=== PATIENT | female | born 1945 | race Caucasian/White ===

== ENCOUNTER → 2016-10-04 | Outpatient (CLI) | payer MEDICARE ==
--- NOTE | 2016-10-04 11:43 | REPMRS ---
Patient History The patient states she had a clinical breast exam in 10/08 Patient is postmenopausal and has history ofskin cancer at age 67. Family history of breast cancer in maternal aunt at age 50 or over. Benign excisional biopsy of both breasts. Benign stereotatic breast biopsy of the right breast. Took hormonal contraceptives for 3 months. Digital Woman Screen Mammo: October 04, 2016 - Exam #: [id number] Bilateral CC and MLO view(s) were taken. Technologist: Armida Marina, Technologist Prior study comparison: 2014, digital bilateral screening mammo, performed at [facility]. September 01, 2014, bilateral bilat screen digital mammo, performed at [facility] ([facility]). August 31, 2013, bilateral bilat screen digital mammo, performed at [facility] ([facility]). FINDINGS: There are scattered fibroglandular densities. There has been no change in the appearance of the mammogram from the prior studies. There is a mild amount of scattered fibroglandular density which is fairly symmetric. There is no interval development of dominant mass, architectural distortion, or clustered microcalcification suggestive of malignancy. ASSESSMENT: BI-RADS/ACR category 1 mammogram. Negative. Recommendation Routine screening mammogram in 1 year (for women over age 40). This mammogram was interpreted with the aid of an FDA-approved computer-aided dectection system. Electronically Signed By: Dereje Smith MD 10/04/16 [id number]
--- NOTE | 2016-10-08 08:52 | DEXA ---
AP SPINE L1 - L4 1.096 -0.8 0.3 LT FEMUR TOTAL 0.812 -1.6 -0.3 RT FEMUR TOTAL 0.792 -1.7 -0.5 TOTAL BODY TOTAL OTHER DUAL FEMUR FRAX* ASSESSMENT Risk factors: History of fracture (adult). 10 year probability of fracture Major osteoporotic fracture 29.1 % Hip fracture 10.5 % COMMENTS: Normal bone densitometry of the spine. 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 The density of the spine has increased 18.2% since the initial exam on 2007. The spine density has increased 19.5% since the most recent exam on 07/11/2010. The density of the left hip has increased 0.7% since the initial exam on 2007. The density of the left hip has increased 2.7% since the most recent exam on . The density of the right hip has decreased 1.4% since the initial exam on 2007. The density of the right hip has decreased 1.4% since the most recent exam on . FOLLOW-UP: Recommendation for the next bone density exam: 2 years. PEG
== END ==
LOC: M WHC 09:57
PROVIDERS: ATTEND Obstetrics & Gynecology
DX: M81.0 Age-related osteoporosis without current pathological fracture (principal); Z12.31 Encounter for screening mammogram for malignant neoplasm of breast; Z87.81 Personal history of (healed) traumatic fracture
CPT/HCPCS: 77080; G0202

== ENCOUNTER → 2016-11-05 | Outpatient (CLI) | payer MEDICARE ==
--- NOTE | 2016-11-05 10:14 | REP ---
Chest two views HISTORY: Cough Comparison: 2509 The lungs are clear. The heart is normal in size. The pulmonary vasculature is normal in appearance. The bony structure is intact. IMPRESSION: No acute disease. Signed by Rodrick Hoover MD 11/05/2016 10:06 A
== END ==
LOC: M WUC 09:49
PROVIDERS: ATTEND Family Medicine
DX: R05 Cough (principal)

== ENCOUNTER → 2017-05-13 | Outpatient (CLI) | payer MEDICARE ==
--- NOTE | 2017-05-13 11:18 | REP ---
RIGHT HAND SERIES: Four views. HISTORY: Pain after an injury 6 weeks ago. FINDINGS: Four views of the right hand demonstrate osteoarthritis at the 1st carpometacarpal and at the navicular multangular articulation. There is early spurring at the distal radial ulnar joint. IP joint osteoarthritis is seen at the thumb and there is some spurring at the DIP joints of the fingers. No erosive changes seen. No fracture is noted. IMPRESSION: Osteoarthritic changes. Signed by Jose Miguel Smith MD 05/13/2017 01:06 P
== END ==
LOC: M WUC 10:22
PROVIDERS: ATTEND Physician Assistant
DX: S60.221A Contusion of right hand, initial encounter (principal); X58.XXXA Exposure to other specified factors, initial encounter; Y92.89 Other specified places as the place of occurrence of the external cause; Y93.89 Activity, other specified; Y99.8 Other external cause status

== ENCOUNTER → 2017-11-13 | Outpatient (CLI) | payer MEDICARE | LOC: M WUC 09:47 | DX: M51.34 Other intervertebral disc degeneration, thoracic region (principal); Z91.81 History of falling | CPT/HCPCS: 72072 ==

== ENCOUNTER → 2019-05-21 | Outpatient (REF) | payer MEDICARE | LOC: M SFHCPLAZ 17:11 | PROVIDERS: ATTEND Dermatology | DX: D23.71 Other benign neoplasm of skin of right lower limb, including hip (principal); D23.5 Other benign neoplasm of skin of trunk ==

== ENCOUNTER 2020-10-26 08:40 | Inpatient (IN) | payer MEDICARE ==
[~2020-10-26] VITALS: Ht 152.4 cm; Wt 78.7 kg
[2020-10-26] MEDS ORDERED: LISI-898 (09:05)
[2020-10-26] MEDS ORDERED: PANT40TA29 (09:05)
[2020-10-26] MEDS ORDERED: METF500T13 PO (09:05)
[2020-10-26] MEDS ORDERED: EZET10TA21 PO (09:05)
[2020-10-26] MEDS ORDERED: HYDR12.55 (09:05)
[2020-10-26] MEDS ORDERED: PRAV10TA3 PO (09:05)
[2020-10-26] MEDS ORDERED: ALPR0.5T3 PO ×2 (09:05→12:11)
[2020-10-26 09:48] LABS: BASO % 0.4 % (0.0-1.0); EOS % 0.2 % (0.0-3.0); HEMATOCRIT 37.4 % (36.0-47.0); HEMOGLOBIN 12.4 g/dl (12.0-15.5); LYMPH # 0.8 10^3/uL (1.5-5.0); LYMPH % 15.5 % (24.0-44.0); MEAN CORPUSCULAR HEMOGLOBIN 28.7 pg (27.0-33.0); MEAN CORPUSCULAR HGB CONC 33.2 g/dl (32.0-36.5); MEAN CORPUSCULAR VOLUME 86.6 fl (80.0-96.0); MONO # 0.4 10^3/uL (0.0-0.8); MONO % 6.8 % (0.0-5.0); NEUTROPHILS # 4.2 10^3/uL (1.5-8.5); NEUTROPHILS % 76.5 % (36.0-66.0); PLATELET COUNT, AUTOMATED 187 10^3/uL (150-450); RED BLOOD COUNT 4.32 10^6/uL (4.00-5.40); WHITE BLOOD COUNT 5.4 10^3/uL (4.0-10.0)
[2020-10-26 10:19] LABS: INR 0.98; PROTHROMBIN TIME 13.2 SECONDS (12.5-14.3)
[2020-10-26 10:20] LABS: PARTIAL THROMBOPLASTIN TIME 29.2 SECONDS (24.2-38.5)
[2020-10-26 10:22] LABS: D-DIMER QUANT 2053.64 ng/ml (<500)
[2020-10-26 10:33] LABS: ALBUMIN 3.3 GM/DL (3.2-5.2); ALT/SGPT 31 U/L (12-78); BILIRUBIN,TOTAL 0.6 MG/DL (0.2-1.0); BLOOD UREA NITROGEN 38 MG/DL (7-18); C REACTIVE PROTEIN QUANTITATIV 7.45 MG/DL (0.00-0.30); CARBON DIOXIDE LEVEL 25 MEQ/L (21-32); CHLORIDE LEVEL 101 MEQ/L (98-107); CK-MB VALUE MASS 1.3 NG/ML (<3.6); CPK CREATINE PHOSPHOKINASE 68 U/L (26-192); CREATININE FOR GFR 1.44 MG/DL (0.55-1.30); FERRITIN 431 NG/ML (8-252); GLOMERULAR FILTRATION RATE 37.6 (>39); GLUCOSE, FASTING 150 MG/DL (70-100); LDH LACTATE DEHYDROGENASE 265 U/L (84-246); MAGNESIUM LEVEL 1.9 MG/DL (1.8-2.4); MB/CK RELATIVE INDEX 1.91 (< OR =4); POTASSIUM SERUM 4.2 MEQ/L (3.5-5.1); SODIUM LEVEL 135 MEQ/L (136-145); TOTAL PROTEIN 7.3 GM/DL (6.4-8.2); TROPONIN I < 0.02 NG/ML (< 0.10)
--- NOTE | 2020-10-26 10:40 | REP ---
INDICATION: Coronavirus workup. COMPARISON: Comparison chest x-ray November 05, 2016. TECHNIQUE: Portable upright AP chest radiograph. FINDINGS: There are some subtle peripheral increased markings in the left mid and lower lung field. Right lung appears clear. Heart size is borderline unchanged. The aorta is calcifica and tortuous.. IMPRESSION: Subtle increased markings left perihilar region and left base peripherally consistent with early infiltrate.. <Electronically signed by Dereje Smith > 10/26/20 [id number]
[2020-10-26] MEDS ORDERED: ISOVUE-370 76% 100ML VIAL As Ordered ONE (10:47)
--- NOTE | 2020-10-26 11:22 | REP ---
INDICATION: altered mental status COMPARISON: None. TECHNIQUE: Axial noncontrast images from the skull base to the thoracic inlet with coronal reformations. This CT examination was performed using the following dose reduction techniques: Automated exposure control, adjustment of mA and/or kv according to the patient's size, and use of iterative reconstruction technique. FINDINGS: Age-related atrophy and microvascular ischemic changes are appreciated. The ventricles and sulci are symmetric. Escobar-white differentiation is maintained. There is no evidence for acute intracranial hemorrhage, mass/mass effect, pathology or infarction. No extra-axial fluid collection. Calvarium is intact. Paranasal sinuses and mastoid air cells are clear. IMPRESSION: Age related atrophy and microvascular ischemic changes. No acute intracranial hemorrhage, infarction, or mass/mass effect. <Electronically signed by Matthew Engle > 10/26/20 111
--- NOTE | 2020-10-26 11:27 | REP ---
INDICATION: sob recent COVID19 COMPARISON: None. TECHNIQUE: Axial contrast enhanced images from the thoracic inlet to the upper abdomen using pulmonary embolus technique with multiplanar re-formations. 75 ml Isovue 370 intravenous contrast material administered without complication. This CT examination was performed using the following dose reduction techniques: Automated exposure control, adjustment of mA and/or kv according to the patient's size, and use of iterative reconstruction technique. FINDINGS: Satisfactory enhancement of the pulmonary vasculature is achieved and no filling defects are identified to suggest pulmonary embolus. Further evaluation of the mediastinum demonstrates atherosclerotic changes to the thoracic aorta without a aneurysm or dissection. Atherosclerotic changes to the coronary arteries are identified without cardiomegaly or pericardial effusion. Lung castillo demonstrate subtle patchy scattered ground-glass type infiltrates primarily involving the left lung suggesting multifocal pneumonia including COVID-19 pulmonary disease. No effusion. No pneumothorax. Tracheobronchial tree is patent. Skeletal structures demonstrate age-related degenerative changes. Limited upper abdomen demonstrates normal bilateral adrenal glands along with hepatosteatosis. IMPRESSION: 1. No evidence for pulmonary embolus. 2. Scattered ground-glass infiltrates primarily involving the left hemithorax and to a lesser extent the right base. Findings are atypical for COVID-19 pulmonary disease although this cannot be excluded. Further differential includes early pneumonia. <Electronically signed by Matthew Engle > 10/26/20 [id number]
[2020-10-26] MEDS ORDERED: AZITHROMYCIN INJ 500 MG, VIAL MATE ADAPTER 1 EACH in D5W 250 ML IV ONE (11:45)
[2020-10-26] MEDS ORDERED: cefTRIAXone SOD 2 GM in D5W MINI-BAG PLUS 50 ML IV ONE (11:45)
[2020-10-26] MEDS: COMBIVENT RESPIMAT 100-20MCG INHALER 4GM INH SCH ×3 (11:56→12:47)
[2020-10-26] MEDS ORDERED: MULT-40 PO (12:11)
[2020-10-26] MEDS ORDERED: D31000TA2 PO (12:11)
[2020-10-26] MEDS ORDERED: FISH1000 PO (12:11)
--- NOTE | 2020-10-26 14:52 | HPEPDOC ---
[facility] Medical History & Physical Date of Admission Oct 26, 2020 Date of Service: Oct 26, 2020 History and Physical CHIEF COMPLAINT: shortness of breath HISTORY OF PRESENT ILLNESS: 75 yo F with a hx of CAD, DM2, HTN, presented to [facility] with an 11 day history of shortness of breath, malaise, headache, dry cough as well as diarrhea for the past 3 days with nausea but no vomiting. She was diagnosed with COVID-19 at the onset of symptoms, and many of her neighbors are covid-19 positive as well. She denies any chest pain, palpitations, dizziness, headache, nausea, vomiting, diarrhea at this time. On arrival, patient was noted to be hypoxic and required 3 L of nasal cannula. Labs reviewed of note, creatinine is 1.44, ferritin 4.31. CRP elevated at 7.45. Calcitonin 0.15, lactic acid 1.7. D-dimer 2053, fibrinogen 608. Chest xray and CT chest are indicating possible development of bilateral infiltrates in the lung bases, which is atypical for COVID. Patient was started on ceftriaxone and azithromycin in the ED. Patient will be admitted to hospitalist service for oxygen supplementation, dexamethasone and treatment of bacterial pneumonia. PAST MEDICAL HISTORY: CAD DM2 HTN Obesity PAST SURGICAL HISTORY: tubal ligation SOCIAL HISTORY: Patient denies smoking Patient denies etoh use Patient denies illicit drug use FAMILY HISTORY: review with patient, found to be non pertinent ALLERGIES: Please see below. REVIEW OF SYSTEMS: 10 point ROS completed, pertinent findings noted in HPI. HOME MEDICATIONS: Please see below. PHYSICAL EXAMINATION: VITAL SIGNS: please see below General: NAD, comfortable HEENT: PERRLA, EOMI, sclerae clear Neck: supple, normal ROM, no JVD Respiratory: fair air entry bilaterally, no crackles CVS: RRR, normal S1, S2, no murmurs Abdo: soft, no masses, no hepatosplenomegaly, BS+, no rebound tenderness Extremities: no edema, pulses 2+ MSK: no joint deformities, normal ROM Neuro: no focal neuro deficits, moving all 4 extremities, CN2-12 intact. Strength 5/5 in all 4 extremities. No nystagmus. Psych: calm, cooperative, AAO x 3 LABORATORY DATA: See below. IMAGING: CTA chest (10/26/20): 1. No evidence for pulmonary embolus. 2. Scattered ground-glass infiltrates primarily involving the left hemithorax and to a lesser extent the right base. Findings are atypical for COVID-19 pulmonary disease although this cannot be excluded. Further differential includes early pneumonia. CXR (10/26/20): Subtle increased markings left perihilar region and left base peripherally consistent with early infiltrate. CT head wo contrast (10/26/20): Age related atrophy and microvascular ischemic changes. No acute intracranial hemorrhage, infarction, or mass/mass effect. MICROBIOLOGY: Please see below. ASSESSMENT: 75 yo F with a hx of CAD, DM2, HTN, tested positive for COVID-19 11 days ago, presenting with SOB, hypoxia, malaise and imaging findings consistent with pneumonia. Admitted to hospitalist service for oxygenation, IV antibiotics . PLAN: COVID-19 infection - 97% on 3L NC - tylenol prn for fevers - transfer to Med Surg covid unit - start dexamethasone - will not treat with rimdesivir as out of chronicity window - ceftriaxone (Day #1), azithromycin (Day #1) Pneumonia 2/2 CAP vs atypical organism - procal 0.15,a febrile, no WBC - CXR and CT chset c/w bilateral infiltrates, ground glass opacities - check MRSA, legionella, strep ag, mycoplasma ag - check sputum cultures, blood cultures - ceftriaxone (Day #1), azithromycin (day #1) - incentive spirometer, acapella - tessalon DM2: - ISS, FSBS AC and HS - hypoglycemia precautions Anxiety - resume home meds HTN - home HCTZ 12.5 - hold home lisinopril due to NATALY, takes 5 mg HLD - pravastatin GI ppx: - pantoprazole Dispo: pending clinical improvement. Vital Signs Vital Signs Date Time Temp Pulse Resp B/P (MAP) Pulse Ox O2 Delivery O2 Flow Rate FiO2 10/26/20 12:55 97 16 10/26/20 10:06 97 Nasal Cannula 3.0 10/26/20 10:00 105/56 (72) 10/26/20 08:41 99.7 Laboratory Data Labs 24H Laboratory Tests 2 10/26/20 09:14: Immature Granulocyte % (Auto) 0.6, Neutrophils (%) (Auto) 76.5H, Lymphocytes (%) (Auto) 15.5L, Monocytes (%) (Auto) 6.8H, Eosinophils (%) (Auto) 0.2, Basophils (%) (Auto) 0.4, Neutrophils # (Auto) 4.2, Lymphocytes # (Auto) 0.8L, Monocytes # (Auto) 0.4, Eosinophils # (Auto) 0.0, Basophils # (Auto) 0.0, Nucleated Red Blood Cells % (auto) 0.0, Prothrombin Time 13.2, Prothromb Time International Ratio 0.98, Activated Partial Thromboplast Time 29.2, Fibrinogen 608H, D-Dimer, Quantitative 2053.64H, Anion Gap 9, Glomerular Filtration Rate 37.6L, Lactic Acid Level 1.7, Calcium Level 9.0, Magnesium Level 1.9, Ferritin 431H, Total Bilirubin 0.6, Aspartate Amino Transf (AST/SGOT) 30, Alanine Aminotransferase (ALT/SGPT) 31, Alkaline Phosphatase 72, Lactate Dehydrogenase 265H, Total Creatine Kinase 68, Creatine Kinase MB 1.3, Creatine Kinase MB Relative Index 1.91, Troponin I < 0.02, C-Reactive Protein, Quantitative 7.45H, Total Protein 7.3, Albumin 3.3, Albumin/Globulin Ratio 0.8L, Procalcitonin 0.15 CBC/BMP Laboratory Tests 10/26/20 09:14 Microbiology Microbiology 10/26/20 Blood Culture, Received Pending 10/26/20 Blood Culture, Received Pending Home Medications Scheduled Alprazolam (Alprazolam) 0.5 Mg Tablet, 0.5 MG PO QAM Alprazolam (Alprazolam) 0.5 Mg Tablet, 0.75 MG PO QHS Cholecalciferol (Vitamin D3) (Vitamin D3) 1,000 Unit Tablet, 2,000 UNITS PO BID Ezetimibe (Ezetimibe) 10 Mg Tablet, 10 MG PO QHS Hydrochlorothiazide (Hydrochlorothiazide) 12.5 Mg Tablet, 12.5 MG DAILY Lisinopril (Lisinopril) 5 Mg Tablet, 5 MG DAILY Metformin HCl (Metformin HCl) 500 Mg Tablet, 500 MG PO BID Multivitamin (Multivitamins) 1 Each Tablet, 1 TAB PO DAILY [place]-3 Fatty Acids/Fish Oil (Fish Oil 1,000 mg Capsule) 1 Each Capsule, 1,000 MG PO DAILY Pantoprazole Sodium (Pantoprazole Sodium) 40 Mg Tablet.dr, 40 MG DAILY Pravastatin Sodium (Pravastatin Sodium) 10 Mg Tablet, 10 MG PO QHS Allergies Coded Allergies: Penicillins (Verified Allergy, Intermediate, rash, 10/26/20) Sulfa (Sulfonamide Antibiotics) (Verified Allergy, Intermediate, chest pain, 10/26/20) aspirin (Verified Allergy, Intermediate, Chest Pain, 10/26/20) FULL STRENGTH ONLY A-FIB/CHADSVASC A-FIB History Current/History of A-Fib/PAF?: No Current PO Anticoag Therapy: No MANOLO ROSS MD Oct 26, 2020 14:52
[2020-10-26] MEDS ORDERED: DEXTROSE 50% 50 ML SYRINGE IV PRN (15:15)
[2020-10-26] MEDS ORDERED: GLUCOSE 4GM CHEW TABLET PO PRN (15:15)
[2020-10-26] MEDS ORDERED: MOM 30ML SUSPENSION UDC PO PRN (15:15)
[2020-10-26] MEDS ORDERED: MAALOX 30 ML SUSP *UDC PO PRN (15:15)
[2020-10-26] MEDS ORDERED: GLUCAGON INJ 1MG VIAL SC PRN (15:15)
[2020-10-26] MEDS ORDERED: COMBIVENT RESPIMAT 100-20MCG INHALER 4GM INH PRN (15:30)
[2020-10-26] MEDS ORDERED: BENZONATATE 100 MG CAP PO PRN (15:30)
--- OUTSIDE RECORDS SUMMARY | 2020-10-26 15:52 | CCD | Continuity of Care Document ---
Author Author Armida NICE D.O. Organization Unknown Address [address] [place] [id number] Phone [phone] Care Team Providers Care Primary Special Education Teacher Name Role Phone [facility] Cardiology - Cardiovascular Disease AUTM [phone] Problems Active Problems Provider Date Anxiety state Barbara Granados RPA Onset: 02/25/2007 Hyperlipidemia Barbara Granados RPA Onset: 02/25/2007 Female climacteric state Julio Cuellar M.D. Onset: 2006 Type 2 diabetes mellitus Julio Cuellar M.D. Onset: 2007 Chronic obstructive lung disease Martha Bruce RPA-Gabby Onset: 01/18/2013 Psoriasis Martha Bruce RPA-C Onset: 2012 Gastroesophageal reflux disease Orquidea Farfan D., JACINTO-[place] Onset: 02/14/2015 Vertigo Orquidea Farfan D., [place]AC[place] Onset: 04/27 Essential hypertension Orquidea Farafn D., JACINTO-C Onset: Panic disorder without agoraphobia Brandon Nice D.O., FA AFP Onset: 03/28/2016 Type 2 diabetes mellitus Brandon Nice D.O., FAAFP Onset: 09/05/2020 Social History Type Date Description Comments Sex Unknown Tobacco Use Start: Unknown End: Unknown Quit 2013 Smoking Status Reviewed: 05/25/20 Quit 2013 ETOH Use alcohol use: never used Recreational Drug Use Never Used Drugs Tobacco Use Start: Unknown End: Unknown Patient is a former smoker Exercise Type/Frequency exercises regularly Allergies, Adverse Reactions, Alerts Active Allergies Reaction Severity Comments Date Sulfa Drugs hives 02/25/2007 Penicillin rash 02/25/2007 Statin Intolerant 11/20/2012 Cefdinir DIARRHEA 08/07/2017 Inactive Allergies Aspirin chest pain 02/25/2007 Medications Active Medications SIG Qnty Indications Ordering Provide r Date Pravastatin Sodium 10mg Tablets Take One Tablet By Mouth Every Day 30tabs Brandon Nice D.O., [facility] 11/11/2019 Albuterol Sulfate (2 .5mg/3ML) 0.083% Nebulizer use breathing inhalation every 6 hours 75ml Ke chet Nice D.O., [facility] 09/23/2019 Clobetasol Propionate 0.05% Ointme nt apply to feet twice a day 45gr Brandon Nice D.O., [facility] 04/15/2019 Proair HFA 108(90Base) mcg/Act Aer osol 1-2 puffs every 4-6 hours as needed for sob 8.500gm Brandon Nice D.O., [facility] 11/10/2018 Ezetimibe 10mg Tablets take one tablet by mouth every day 90tabs Brandon Nice D.O., [facility] 08/2018 Hydrochlorothiazide 12.5mg Tablets Take One Tablet By Mouth Every Day 30tabs Abdon Fajardo, [facility] 08/07/2017 Metformin HCL 500mg Tablets take one tablet by mouth twice a day 180tabs Joao Fajardo, [facility] 08/07/2017 Onetouch Verio Strips Use as Directed To Test Fasting Blood Sugar Once Daily 100units [facility]iggins D.O., [facility] 05/16/2017 Pantoprazole Sodium 40mg Tablets D R Take One Tablet By Mouth Every Day 90tabs Abdon Fajardo, [facility] 08/16/2016 Cyclobenzaprine HCL 5mg Tablets Take One Tablet By Mouth Twice A Day Maximum Daily Dose = 2 Tablets 30tabs Brandon Nice D.O., [facility] 03/28/2016 Lancets 31G Misc use to test glucose daily dx:e11.9 100units E11.9 Brandon Nice D.O., [facility] 03/2016 Glucocom Test Strips as directed to test fsbs daily 100units E11.9 Brandon Nice D.O., [facility] 03/2016 Glucocom Blood Glucose Monitoring System W/Device Kit as directed for fsbs daily 1units E11.9 Brandon sandoval D.O., [facility] 03/28/2016 Meclizine HCL 25mg Tablets 1 by mouth daily as needed for vertigo 30tabs Marti Barr [facility] 04/27/2015 Lisinopril 5mg Tablets Take One Tablet By Mouth Every Day 90tabs Brandon Nice D.O., [facility] 03/2011 Xanax 0.5mg Tablets 1 by mouth 3 times a day as needed anxiety 90tabs F41.9 Brandon Nice D.O., [facility] 02/25/2007 Multivitamin Tablets 1 by mouth every day Unknown Vitamin D 1000Unit Capsules 2000 unit qd Unknown Asa 81 Capsules 1 by mouth ev muna day Unknown Glucose 4gm Chewtabs use as directed for signs of low blood sugar OTC Unknown 00/0 000 Fish Oil 1000mg Capsules 2 by mouth daily Unknown Medications Administered in Office Medication SIG Qnty Indications Ordering Provider Date Injection (SC)/(Im) Injection Orquidea Farfan D., [facility] 02/14/2015 Injection (SC)/(Im) Injection Omkar Leo . M.D 06/22/2012 Injection (SC)/(Im) Injection Maritza Ibanez [facility] 06/18/2011 Injection (SC)/(Im) Injection Maritza Ibanez [facility] 06/15/2010 Immunizations CPT Code Status Date Vaccine Lot # [id number] Given 02/14/2015 Pneumococcal Immunization L0 [id number] 53986 Given 02/14/2015 Tdap Tetanus,Dip htheria Toxoids/Acellular Pertussis 7Yrs Or Older [id number] 03890 Given 07/26/2013 Influenza Vaccin e (Fluzone) 3Yrs Of Age Or Older Medicare Plans 80977 Given 07/26/2013 Influenza Virus Vac. Split Virus Individuals 3 Years And Above [id number] 10558 Given 06/22/2012 Influenza Vaccin e (Fluzone) 3Yrs Of Age Or Older Medicare Plans 63553 Given 06/22/2012 Influenza Virus Vac. Split Virus Individuals 3 Years And Above [id number] 24588 Given 06/18/2011 Influenza Vaccin e (Fluzone) 3Yrs Of Age Or Older Medicare Plans 67867 Given 06/18/2011 Influenza Virus Vac. Split Virus Individuals 3 Years And Above [id number] 93362 Given 06/15/2010 Influenza Virus Vac. Split Virus Individuals 3 Years And Above 00451 Given Unknown Prevnar 13 Pneum o. Conj Ped. Vaccine 13 Valent (PCV13) For Im Use [id number] Refused 06/01/2020 Influenza Virus Vaccine, Quadrivalent, Slit Virus, Im Use 3Y & Up [id number] Refused 08/05/2019 Influenza Virus Vaccine, Quadrivalent, Slit Virus, Im Use 3Y & Up 05745 Refused 08/05/2019 Influenza Virus Vaccine, Quadrivalent, Slit Virus, Im Use 3Y & Up [id number] Refused 09/08/2018 Influenza Virus Vaccine, Quadrivalent, Slit Virus, Im Use 3Y & Up [id number] Refused 08/06/2016 Influenza Virus Vaccine, Quadrivalent, Slit Virus, Im Use 3Y & Up Vital Signs Date Vital Result Comment 09/05/2020 10:10am BP Systolic 126 mmHg BP Diastolic 78 mmHg Body Temperature 97.8 F Heart Rate 76 /min Respiratory Rate 16 /min Height 60 inches 5'0" Weight 176.00 lb Albers Body Weight 100 lb BMI (Body Mass Index) 34.4 kg/m2 O2 % BldC Oximetry 97 % 06/01/2020 9:34am BP Systolic 124 mmHg BP Diastolic 80 mmHg Body Temperature 98.6 F Heart Rate 84 /min Respiratory Rate 16 /min Height 60 inches 5'0" Weight 178.00 lb Albers Body Weight 100 lb BMI (Body Mass Index) 34.8 kg/m2 O2 % BldC Oximetry 95 % Results Test Acquired Date Facility Test Result H/L Range Note U/A DIP [facility] 09/05[facility] Color Urine YELLOW Yellow Appearance CLEAR Clear Specific [place] 1.020 1.00-1.03 PH Urine 5.0 5.0-8.0 Glucose Urine NEG Negative Bilirubin Urine NEG Negative Ketones NEG Negative Blood Urine NEG Negative Protein Urine NEG Negative Urobilinogen .2 EU/dl 0.2-1.0 Nitrite NEG Negative Leukocytes 1+ High Negative CBC 09/05/2020 [facility]house WBC 6.1 10E3/uL 4.1 - 10.9 1 RBC 4.30 10E6/uL 4.20 - 6.30 HGB 13.0 g/dL 12.0 - 18.0 HCT 38.6 % 37.0 - 51.0 MCV 89.8 fL 80.0 - 97.0 MCH 30.2 pg 26.0 - 32.0 MCHC 33.7 g/dL 31.0 - 36.0 PLT 210 10E3/uL 140 - 440 RDW-CV 13.6 % 11.5 - 14.5 Lym% 38.5 % 10.0 - 58.5 Neut% 55.8 % 37.0 - 92.0 MXD% 5.7 % 0.1 - 24.0 Lym# 2.3 10E3/uL 0.6 - 4.1 Neut# 3.5 % 2.0 - 7.8 MXD# 0.3 10E3/uL 0.0 - 1.8 MPV 10.2 fL 9.0 - 13.0 Laboratory test finding 09/05/2020 [facility] CK 66 U/L 26 - 192 CMP 09/05/2020 [facility] Glu 132 mg/dL High 70 - 110 BUN 25 mg/dL High 8 - 23 Creat 1.1 mg/dL High 0.5 - 1.0 BUN/Creatinine Ratio 22.2 CALC Na 135 mmol/L Low 136 - 145 K 4.7 mmol/L 3.5 - 5.1 CL 97.3 mmol/L Low 98.0 - 107.0 Co2 23.2 mmol/L 22.0 - 29.0 CA 9.7 mg/dL 8.6 - 10.2 TP 6.9 g/dL 6.6 - 8.7 Alb 4.5 g/dL 3.4 - 4.8 A/G Ratio 1.8 CALC Globulin 2.5 CALC Alp 79.2 U/L 35 - 129 Alt (SGPT) 30 U/L 0 - 41 Ast (Sgot) 38 U/L 0 - 40 Tbili 0.78 mg/dL 0.0 - 1.2 Osmolality-Calculated 277.1 CALC Anion Gap 20 mmol/L eGFR 56 # Calc 2 eGFR Non-Afr. Albanian 48 # Calc 3 Lipid Panel 09/05/2020 [facility] Chol 205 mg/dL High 0 - 200 Trig 143 mg/dL 40 - 200 HDL 63 mg/dL 45 - 65 LDL_C 114 Calc 75 - 129 Cho/HDL Ratio 3.3 Calc Laboratory test finding 09/05/2020 [place] [address] [phone] Hgba1c 6.8 % High 4.4 - 6.1 4 U/A DIP FPA 06/01/2020 [facility] Color Urine YELLOW Yellow Appearance CLEAR Clear Specific [place] 1.020 1.00-1.03 PH Urine 5.0 5.0-8.0 Glucose Urine NEG Negative Bilirubin Urine NEG Negative Ketones NEG Negative Blood Urine NEG Negative Protein Urine NEG Negative Urobilinogen .2 EU/dl 0.2-1.0 Nitrite NEG Negative Leukocytes TRACE Negative Microalb/Creat Ratio 06/01/2020 [facility] Alb 10 mg/L 1 - 30 Creatinine, Urine 50 mg/dL 10 - 300 A/C Ratio <30 mg/g % CBC 06/01/2020 [facility] WBC 6.3 10E3/uL 4.1 - 10.9 RBC 4.32 10E6/uL 4.20 - 6.30 HGB 13.7 g/dL 12.0 - 18.0 HCT 38.8 % 37.0 - 51.0 MCV 89.8 fL 80.0 - 97.0 MCH 31.7 pg 26.0 - 32.0 MCHC 35.3 g/dL 31.0 - 36.0 PLT 182 10E3/uL 140 - 440 RDW-CV 13.6 % 11.5 - 14.5 Lym% 33.0 % 10.0 - 58.5 Neut% 57.5 % 37.0 - 92.0 MXD% 9.5 % 0.1 - 24.0 Lym# 2.1 10E3/uL 0.6 - 4.1 Neut# 3.6 % 2.0 - 7.8 MXD# 0.6 10E3/uL 0.0 - 1.8 MPV 10.1 fL 9.0 - 13.0 Laboratory test finding 06/01/2020 [facility] CK 68 U/L 26 - 192 CMP 06/01/2020 [facility] Glu 166 mg/dL High 70 - 110 BUN 25 mg/dL High 8 - 23 Creat 1.0 mg/dL 0.5 - 1.0 BUN/Creatinine Ratio 25.3 CALC Na 136 mmol/L 136 - 145 K 4.5 mmol/L 3.5 - 5.1 CL 102.3 mmol/L 98.0 - 107.0 Co2 21.7 mmol/L Low 22.0 - 29.0 CA 10.1 mg/dL 8.6 - 10.2 TP 7.0 g/dL 6.6 - 8.7 Alb 4.6 g/dL 3.4 - 4.8 A/G Ratio 1.9 CALC Globulin 2.4 CALC Alp 77.0 U/L 35 - 129 Alt (SGPT) 28 U/L 0 - 41 Ast (Sgot) 34 U/L 0 - 40 Tbili 1.05 mg/dL 0.0 - 1.2 Osmolality-Calculated 280.6 CALC Anion Gap 17 mmol/L eGFR 63 # Calc 5 eGFR Non-Afr. Albanian 54 # Calc 6 Lipid Panel 06/01/2020 [facility] Chol 222 mg/dL High 0 - 200 Trig 169 mg/dL 40 - 200 HDL 66 mg/dL High 45 - 65 LDL_C 122 Calc 75 - 129 Cho/HDL Ratio 3.4 CALC Hemoglobin A1c 06/01/2020 [facility] [place] Hemoglobin A1c 7.3 % High 4.8-5.6 7 Laboratory test finding 04/27/2020 [facility] Occult Blood NEG Neg 1 NORMAL RANGES Age WBC RBC HGB HCT MCV PLT Adult M 4.1-10.9 4.20-6.30 12.0-18.0 37.0-51.0 80-97 140-440 Adult F 4.1-10.9 4.04-5.48 12.0-18.0 37.0-51.0 80-97 140-440 0 -1 Yr 5.0-20.0 3.9-5.9 15-18 MV: 44 MV: 91 MV: 277 2-9 Yr. 6.0-17.0 3.8-5.4 11-13 MV: 37 MV: 78 MV: 300 10 Yrs. 5.0-13.0 3.8-5.4 12-15 MV: 39 MV: 80 MV: 250 NOTE: * FOR ADULT BLACK MALES AND FEMALES, NORMAL WBC IS 2.9-7.7 K/ML * FOR ADULT BLACK MALES AND FEMALES, NORMAL RBC,HGB, AND HCT IS 5% LESS SOURCE FOR DATA: [employer] 1800 OPERATION MANUAL( AUTOMATED BLOOD COUNTS AND DIFF.) APPENDIX B-3 CHRONIC KIDNEY DISEASE STAGING PER NKF: MALE GFR INTERPRETATION: 20-49 YRS: >60 mL/min Normal 50-59 YRS: >56 mL/min Normal 60-69 YRS: >49 mL/min Normal 70-79 YRS: >42 mL/min Normal 80 and above >35 mL/min Normal FEMALE GRF INTERPRETATION: 20-39 YRS: >60 mL/min Normal 40-49 YRS: >58 mL/min Normal 50-59 YRS: >51 mL/min Normal 60-69 YRS: >45 mL/min Normal 70-79 YRS: >39 mL/min Normal 80 and above >32 mL/min NormalCLASSIFICATION CHOLESTEROL FOR ADULTS CHILDREN/ADOLESCENTS* DESIRABLE: <200 MG/DL <170 MG/DL BORDER-LINE HIGH RISK: 200-239 MG/DL 170-199 MG/DL HIGH RISK: >240 MG/DL >200 MG/DL CLASS. FOR PRIMARY LDL CHOL PREVENTION: LDL CHOL-CHILD/ADOLESCENTS* DESIRABLE: <130 MG/DL <110 MG/DL BORDERLINE-HIGH RISK: 130-159 MG/DL 110-129 MG/DL HIGH RISK: >160 MG/DL >130 MG/DL *CHILDREN AND ADOLESCENTS REPRESENTS INDIVIDUALA AGED 2-19 YEARS EXCLUSIVE. 2 CKD-EPI 3 CKD-EPI 4 {A1] {HB] 5 CKD-EPI 6 CKD-EPI 7 Prediabetes: 5.7 - 6.4 Diabetes: >6.4 Glycemic control for adults with diabetes: <7.0 Procedures Description No Information Available Medical Devices Description No Information Available Encounters Type Date Location Provider Dx Diagnosis Office Visit 09/05/2020 10:00a [place] [facility]ardo[facility] Z[facility].84 long-term (current) use of oral hypoglyc emic drugs E11.9 Type 2 diabetes mellitus wit hout complications E78.5 Hyperlipidemia, unspecified I10 Essential (primary) hyperten cole K21.9 Gastro-esophageal reflux dis ease without esophagitis F41.0 Panic disorder [episodic par oxysmal anxiety] Office Visit 06/01/2020 9:30a [place] [facility] Orly Fajardo, FAAFP E11.9 Type 2 diabetes mellitus without complic ations Z79.84 long-term (current) use of o ral hypoglycemic drugs E78.5 Hyperlipidemia, unspecified I10 Essential (primary) hyperten cole K21.9 Gastro-esophageal reflux dis ease without esophagitis F41.0 Panic disorder [episodic par oxysmal anxiety] Office Visit 04/27/2020 11:30a [place] [facility] Marti Barr FNP-B C Z01.419 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) (routine) w/o abn findings Z12.11 Encounter for screening for malignant neoplasm of colon Assessments Date Code Description Provider 09/05/2020 Z79.84 long-term (current) use of oral hypoglycemic drugs Brandon Nice D.O., FAAFP 09/05/2020 E11.9 Type 2 diabetes mellitus without complications Brandon Nice D.O., FAAFP 09/05/2020 E78.5 Hyperlipidemia, unspecified Geovanny Niec D.O., FAAFP 09/05/2020 I10 Essential (primary) hypertension Brandon Nice D.O., FAAFP 09/05/2020 K21.9 Gastro-esophageal reflux disease without esophagitis Brandon Nice D.O., FAAFP 09/05/2020 F41.0 Panic disorder [episodic paroxys mal anxiety] Brandon Nice D.O., FAAFP 06/01/2020 E11.9 Type 2 diabetes mellitus without complications Brandon Nice D.O., [facility] 06/01/2020 Z79.84 long-term (current) use of oral hypoglycemic drugs Brandon Nice D.O., FAAFP 06/01/2020 E78.5 Hyperlipidemia, unspecified Geovanny Nice D.O., FAAFP 06/01/2020 I10 Essential (primary) hypertension Brandon Nice D.O., FAAFP 06/01/2020 K21.9 Gastro-esophageal reflux disease without esophagitis Brandon Nice D.O., [facility] 06/01/2020 F41.0 Panic disorder [episodic paroxys mal anxiety] Brandon Nice D.O., [facility] 04/27/2020 Z01.419 Encounter for gyneco logical examination (general) (routine) without abnormal findings Marti Barr FNP-BC 04/27/2020 Z12.11 Encounter for screening for ana gnant neoplasm of colon Marti Barr TELEPHONE ORDER SUPERVISOR- Plan of Treatment Future Appointment(s):* 12/14/2020 10:00 am - Brandon Nice D.O., FAAFP at [facility] Functional Status Description No Information Available Mental Status Description No Information Available Referrals Description No Information Available
--- OUTSIDE RECORDS SUMMARY | 2020-10-26 15:52 | CCD | Continuity of Care Document ---
Author Author Armida NICE D.O. Organization Unknown Address [address] [place] [address] Phone [phone] Care Team Providers Care Morphology Teacher Name Role Phone [place] [facility] [place] Cardiology - Cardiovascular Disease AUTM [phone] Problems Active Problems Provider Date Anxiety state Barbara Granados RPA Onset: 02/25/2007 Hyperlipidemia Barbara Granados RPA Onset: 02/25/2007 Female climacteric state Julio Cuellar M.D. Onset: 2006 Type 2 diabetes mellitus Julio Cuellar M.D. Onset: 2007 Chronic obstructive lung disease Martha Bruce RPA-Gabby Onset: 01/18/2013 Psoriasis Martha Bruce RPA-C Onset: 2012 Gastroesophageal reflux disease Orquidea Farfan D., JACINTO-C Onset: 02/14/2015 Vertigo Orquidea Farfan D., JACINTO-C Onset: 04/27 Essential hypertension Orquidea Farfan D., JACINTO-C Onset: Panic disorder without agoraphobia Brandon Nice D.O., FA AFP Onset: 03/28/2016 Social History Type Date Description Comments Sex Unknown Tobacco Use Start: Unknown End: Unknown Quit 2013 Smoking Status Reviewed: 09/05/20 Quit 2014 ETOH Use alcohol use: never used Recreational [...] Mouth Every Day 30tabs Brandon Nice D.O., [facility] 11/11/2019 Albuterol Sulfate (2 .5mg/3ML) 0.083% Nebulizer use breathing inhalation every 6 hours 75ml Ke chet Nice D.O., [facility] 09/23/2019 Clobetasol Propionate 0.05% Ointme nt apply to feet twice a day 45gr Brandon Nice D.O., [facility] 04/15/2019 Proair HFA 108(90Base) mcg/Act Aer osol 1-2 puffs every 4-6 hours as needed for sob 8.500gm Brandon Nice D.O., [facility] 11/10/2018 Ezetimibe 10mg Tablets take one tablet by mouth every day 90tabs Brandon Nice D.O., [facility] 08/2018 Hydrochlorothiazide 12.5mg Tablets Take One Tablet By Mouth Every Day 30tabs Abdon Fajardo, [facility] 08/07/2017 Metformin HCL 500mg Tablets take one tablet by mouth twice a day 180tabs Joao Fajardo, [facility] 08/07/2017 Onetouch Verio Strips Use as Directed To Test Fasting Blood Sugar Once Daily 100units Brandon wiggins D.O., [facility] 05/16/2017 Pantoprazole Sodium 40mg Tablets D R Take One Tablet By Mouth Every Day 90tabs Abdon Fajardo, [facility] 08/16/2016 Cyclobenzaprine HCL 5mg Tablets Take One Tablet By Mouth Twice A Day Maximum Daily Dose = 2 Tablets 30tabs Brandon Nice D.O., [facility] 03/28/2016 Lancets 31G [facility] use to test glucose daily dx:e11.9 100units E11.9 Brandon Nice D.O., [facility] 03/2016 Glucocom Test Strips as directed to test fsbs daily 100units E11.9 Brandon Nice D.O., [facility] 03/2016 Glucocom Blood Glucose Monitoring System W/Device Kit as directed for fsbs daily 1units E11.9 Brandon sandoval D.O., [facility] 03/28/2016 Meclizine HCL 25mg Tablets 1 by mouth daily as needed for vertigo 30tabs Marti Barr [facility] 04/27/2015 Lisinopril 5mg Tablets Take One Tablet By Mouth Every Day 90tabs Brandon Nice D.O., [facility] 03/2011 Xanax 0.5mg Tablets 1 by mouth 3 times a day as needed anxiety 90tabs F41.9 Brandon Nice D.O., [facility] 02/25/2007 Multivitamin Tablets 1 by mouth every day Unknown Vitamin D 1000Unit Capsules 2000 unit qd Unknown Asa 81 Capsules 1 by mouth ev muna day Unknown Glucose 4gm Chewtabs use as directed for signs of low blood sugar OTC Unknown 000 Fish Oil 1000mg Capsules 2 by mouth daily Unknown Medications Administered in Office Medication SIG Qnty Indications Ordering Provider Date Injection (SC)/(Im) Injection Orquidea Farfan D., [facility]- 02/14/2015 Injection (SC)/(Im) Injection Omkar Leo . M.D 06/22/2012 Injection (SC)/(Im) Injection Maritza Ibanez [facility] 06/18/2011 Injection (SC)/(Im) Injection Maritza Ibanez [facility] 06/15/2010 Immunizations CPT Code Status Date Vaccine Lot # [id number] Given 02/14/2015 Pneumococcal Immunization L0 [id number] 72403 Given 02/14/2015 Tdap Tetanus,Dip htheria Toxoids/Acellular Pertussis 7Yrs Or Older [id number] 02280 Given 07/26/2013 Influenza Vaccin e (Fluzone) 3Yrs Of Age Or Older Medicare Plans 57317 Given 07/26/2013 Influenza Virus Vac. Split Virus Individuals 3 Years And Above [id number] 40044 Given 06/22/2012 Influenza Vaccin e (Fluzone) 3Yrs Of Age Or Older Medicare Plans 88428 Given 06/22/2012 Influenza Virus Vac. Split Virus Individuals 3 Years And Above [id number] 00412 Given 06/18/2011 Influenza Vaccin e (Fluzone) 3Yrs Of Age Or Older Medicare Plans 78345 Given 06/18/2011 Influenza Virus Vac. Split Virus Individuals 3 Years And Above [id number] 55898 Given 06/15/2010 Influenza Virus Vac. Split Virus Individuals 3 Years And Above 05750 Given Unknown Prevnar 13 Pneum o. Conj Ped. Vaccine 13 Valent (PCV13) For Im Use [id number] Refused 06/01/2020 Influenza Virus Vaccine, Quadrivalent, Slit Virus, Im Use 3Y & Up [id number] Refused 08/05/2019 Influenza Virus Vaccine, Quadrivalent, Slit Virus, Im Use 3Y & Up 03606 Refused 08/05/2019 Influenza Virus Vaccine, Quadrivalent, Slit Virus, Im Use 3Y & Up 89591 Refused 09/08/2018 Influenza Virus Vaccine, Quadrivalent, Slit Virus, Im Use 3Y & Up 93574 Refused 08/06/2016 Influenza Virus Vaccine, Quadrivalent, Slit Virus, Im Use 3Y & Up Vital Signs Date Vital Result Comment 09/05/2020 10:10am BP Systolic 126 mmHg BP Diastolic 78 mmHg Body Temperature 97.8 F Heart Rate 76 /min Respiratory Rate 16 /min Height 60 inches 5'0" Weight 176.00 lb [place] Body Weight 100 lb BMI (Body Mass Index) 34.4 kg/m2 O2 % BldC Oximetry 97 % 06/01/2020 9:34am BP Systolic 124 mmHg BP Diastolic 80 mmHg Body Temperature 98.6 F Heart Rate 84 /min Respiratory Rate 16 /min Height 60 inches 5'0" Weight 178.00 lb [place] Body Weight 100 lb BMI (Body Mass Index) 34.8 kg/m2 O2 % BldC Oximetry 95 % Results Test Acquired Date Facility Test Result H/L Range Note Laboratory test finding 09/05/2020 [facility] <pending> Laboratory test finding 09/05/2020 [place] [address] [phone] Hgba1c <pending> U/A DIP [facility] 06/01/2020 [facility] Color Urine YELLOW Yellow Appearance CLEAR Clear Specific [place] 1.020 1.00-1.03 PH Urine 5.0 5.0-8.0 Glucose [...] [facility]/Inhouse WBC 6.3 10E3/uL 4.1 - 10.9 1 RBC 4.32 10E6/uL 4.20 - 6.30 HGB [...] Gap 17 mmol/L eGFR 63 # Calc 2 eGFR Non-Afr. Dutch 54 # Calc 3 Lipid Panel 06/01/2020 [facility] Chol 222 mg/dL High 0 - 200 Trig 169 mg/dL 40 - 200 HDL 66 mg/dL High 45 - 65 LDL_C 122 Calc 75 - 129 Cho/HDL Ratio 3.4 CALC Hemoglobin A1c 06/01/2020 [facility] [place] Hemoglobin A1c 7.3 % High 4.8-5.6 4 Laboratory test finding 04/27/2020 [facility] [...] HCT IS 5% LESS SOURCE FOR DATA: [employer] DYN 1800 OPERATION MANUAL( AUTOMATED BLOOD COUNTS AND [...] YEARS EXCLUSIVE. 2 CKD-EPI 3 CKD-EPI 4 Prediabetes: 5.7 - 6.4 Diabetes: >6.4 Glycemic control for adults with diabetes: <7.0 Procedures Description No Information Available Medical Devices Description No Information Available Encounters Type Date Location Provider Dx Diagnosis Office Visit 09/05/2020 10:00a [place] [facility] Orly Fajardo, FAAFP Z79.84 superintendent container terminal (current) use of oral hypoglyc emic drugs E11.9 Type 2 diabetes mellitus wit hout complications E78.5 Hyperlipidemia, unspecified I10 Essential (primary) hyperten cole K21.9 Gastro-esophageal reflux dis ease without esophagitis F41.0 Panic disorder [episodic par oxysmal anxiety] Office Visit 06/01/2020 9:30a [facility] Orly Fajardo, FAAFP E11.9 Type 2 diabetes mellitus without complic ations Z79.84 penitentiary (current) use of o ral hypoglycemic drugs E78.5 Hyperlipidemia, unspecified I10 Essential (primary) hyperten cole K21.9 Gastro-esophageal reflux dis ease without esophagitis F41.0 Panic disorder [episodic par oxysmal anxiety] Office Visit 04/27/2020 11:30a [facility] Cortney, JACINTO Agarwal-Chance C Z01.419 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O., [facility] 09/05/2020 F41.0 Panic disorder [episodic paroxys mal anxiety] Brandon Nice D.O., FAAFP 06/01/2020 E11.9 Type 2 diabetes mellitus without complications Brandon Nice D.O., FAAFP 06/01/2020 Z79.84 superintendent container terminal (current) use of oral hypoglycemic drugs Brandon Nice D.O., [facility] 06/01/2020 E78.5 Hyperlipidemia, unspecified Geovanny Nice D.O., [facility] 06/01/2020 I10 Essential (primary) hypertension Brandon Nice D.O., FAAFP 06/01/2020 K21.9 Gastro-esophageal reflux disease without esophagitis Brandon Nice D.O., [facility] 06/01/2020 F41.0 Panic disorder [episodic paroxys mal anxiety] Brandon Nice D.O., [facility] 04/27/2020 Z01.419 Encounter for gyneco logical examination (general) (routine) without abnormal findings Marti Barr FNP-BC 04/27/2020 Z12.11 Encounter for screening for ana gnant neoplasm of colon Marti Barr FNP-BC Plan of Treatment Future Appointment(s):* 12/14/2020 10:00 am - Brandon Nice D.O., [facility] at [facility] Functional Status Description No Information Available Mental Status Description No Information Available Referrals Refer to Reason for Referral Status Appt Date Demarcus Valenzuela M.D. PRIORITY REFERRAL e asim & treat dry eyes with burning sensation Sent [phone] [address] [phone]
--- OUTSIDE RECORDS SUMMARY | 2020-10-26 15:53 | CCD | Continuity of Care Document ---
Author Author Armida NICE D.O. 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 Name Role Phone [place] [facility] [place] Cardiology - Cardiovascular Disease AUTM [phone] Problems Active Problems Provider Date Anxiety state [...] Mouth Every Day 30tabs Brandon Nice D.O., [facility] 11/11/2019 Albuterol Sulfate (2 .5mg/3ML) 0.083% Nebulizer use breathing inhalation every 6 hours 75ml Ke chet Nice D.O., [facility] 09/23/2019 Clobetasol Propionate 0.05% Ointme nt apply to feet twice a day 45gr Brandon Nice D.O., [facility] 04/15/2019 Proair HFA 108(90Base) mcg/Act Aer osol 1-2 puffs every 4-6 hours as needed for sob 8.500gm Brandon Nice D.O., [facility] 11/10/2018 Ezetimibe 10mg Tablets take one tablet by mouth every day 90tabs Brandon Nice D.O., [facility] 08/2018 Hydrochlorothiazide 12.5mg Tablets Take One Tablet By Mouth Every Day 30tabs Abdon Fajardo, [facility] 08/07/2017 Metformin HCL 500mg Tablets take one tablet by mouth twice a day 180tabs Joao Fajardo, [facility] 08/07/2017 Onetouch Verio Strips Use as Directed To Test Fasting Blood Sugar Once Daily 100units Brandon wiggins D.O., [facility] 05/16/2017 Pantoprazole Sodium 40mg Tablets D R Take One Tablet By Mouth Every Day 90tabs Abdon Fajardo, [facility] 08/16/2016 Cyclobenzaprine HCL 5mg Tablets Take One Tablet By Mouth Twice A Day Maximum Daily Dose = 2 Tablets 30tabs Brandon Nice D.O., [facility] 03/28/2016 Lancets 31G [facility] use to test glucose daily dx:e11.9 100units E11.9 Brandon Nice D.O., [facility] 03/2016 Glucocom Test Strips as directed to test fsbs daily 100units E11.9 Brandon Nice D.O., [facility] 03/2016 Glucocom Blood Glucose Monitoring System W/Device Kit as directed for fsbs daily 1units E11.9 Brandon sandoval D.O., [facility] 03/28/2016 Meclizine HCL 25mg Tablets 1 by mouth daily as needed for vertigo 30tabs Marti Barr [facility] 04/27/2015 Lisinopril 5mg Tablets Take One Tablet By Mouth Every Day 90tabs Brandon iNce D.O., [facility] 03/2011 Xanax 0.5mg Tablets 1 by mouth 3 times a day as needed anxiety 90tabs F41.9 Brandon Nice D.O., [facility] 02/25/2007 Multivitamin Tablets 1 by [...] Date Injection (SC)/(Im) Injection Orquidea Farfan D., [facility]- 02/14/2015 Injection (SC)/(Im) Injection Omkar Leo . M.D 06/22/2012 Injection (SC)/(Im) Injection Maritza Ibanez [facility] 06/18/2011 Injection (SC)/(Im) Injection Maritza Ibanez [facility] 06/15/2010 Immunizations CPT Code Status Date Vaccine Lot # [id number] Given 02/14/2015 Pneumococcal Immunization L0 [id number] 86103 Given 02/14/2015 Tdap Tetanus,Dip htheria Toxoids/Acellular Pertussis 7Yrs Or Older [id number] 41413 Given 07/26/2013 Influenza Vaccin e (Fluzone) 3Yrs Of Age Or Older Medicare Plans 12974 Given 07/26/2013 Influenza Virus Vac. Split Virus Individuals 3 Years And Above [id number] 81613 Given 06/22/2012 Influenza Vaccin e (Fluzone) 3Yrs Of Age Or Older Medicare Plans 40822 Given 06/22/2012 Influenza Virus Vac. Split Virus Individuals 3 Years And Above [id number] 23880 Given 06/18/2011 Influenza Vaccin e (Fluzone) 3Yrs Of Age Or Older Medicare Plans 44209 Given 06/18/2011 Influenza Virus Vac. Split Virus Individuals 3 Years And Above [id number] 34938 Given 06/15/2010 Influenza Virus Vac. Split Virus Individuals 3 Years And Above 17719 Given Unknown Prevnar 13 Pneum o. Conj Ped. Vaccine 13 Valent (PCV13) For Im Use 41277 Refused 06/01/2020 Influenza Virus Vaccine, Quadrivalent, Slit Virus, Im Use 3Y & Up 46559 Refused 08/05/2019 Influenza Virus Vaccine, Quadrivalent, Slit Virus, Im Use 3Y & Up 23966 Refused 08/05/2019 Influenza Virus Vaccine, Quadrivalent, Slit Virus, Im Use 3Y & Up 42124 Refused 09/08/2018 Influenza Virus Vaccine, Quadrivalent, Slit Virus, Im Use 3Y & Up 79290 Refused 08/06/2016 Influenza Virus Vaccine, Quadrivalent, Slit Virus, Im Use 3Y & Up Vital Signs Date Vital Result Comment 09/05/2020 10:10am BP Systolic 126 mmHg BP Diastolic 78 mmHg Body Temperature 97.8 F Heart Rate 76 /min Respiratory Rate 16 /min Height 60 inches 5'0" Weight 176.00 lb [place] Body Weight 100 lb BMI (Body Mass Index) 34.4 kg/m2 O2 % BldC Oximetry 97 % 06/01/2020 9:34am BP Systolic 124 mmHg BP Diastolic 80 mmHg Body Temperature 98.6 F Heart Rate 84 /min Respiratory Rate 16 /min Height 60 inches 5'0" Weight 178.00 lb [place] Body Weight 100 lb BMI (Body Mass Index) 34.8 kg/m2 O2 % BldC Oximetry 95 % Results Test Acquired Date Facility Test Result H/L Range Note U/A DIP [facility] 06/01/2020 [facility] Color Urine YELLOW Yellow Appearance CLEAR Clear Specific [place] 1.020 1.00-1.03 PH Urine 5.0 5.0-8.0 Glucose [...] eGFR 63 # Calc 2 eGFR Non-Afr. Italian 54 # Calc 3 Lipid Panel 06/01/2020 [facility]house Chol 222 mg/dL High 0 - 200 Trig 169 mg/dL 40 - 200 HDL 66 mg/dL High 45 - 65 LDL_C 122 Calc 75 - 129 Cho/HDL Ratio 3.4 CALC Hemoglobin A1c 06/01/2020 [facility] [place] Hemoglobin A1c 7.3 % High 4.8-5.6 4 Laboratory test finding 04/27/2020 [facility] Occult Blood NEG Neg 1 [...] HCT IS 5% LESS SOURCE FOR DATA: [employer] DYN 1800 OPERATION MANUAL( AUTOMATED BLOOD COUNTS [...] Date Location Provider Dx Diagnosis Office Visit 06/01/2020 9:30a [place] [facility] Orly Fajardo, FAAFP E11.9 Type 2 diabetes mellitus without complic ations 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 E78.5 Hyperlipidemia, unspecified I10 Essential (primary) hyperten cole K21.9 Gastro-esophageal reflux dis ease without esophagitis F41.0 Panic disorder [episodic par oxysmal anxiety] Office Visit 04/27/2020 11:30a [place] [facility] Marti Barr FNP-B C 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.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) (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) w/o abn findings Z12.11 Encounter for screening for malignant neoplasm of colon Assessments Date Code Description Provider 09/05/2020 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 Brandon Nice D.O., [facility] 09/05/2020 E11.9 Type 2 diabetes mellitus without complications Brandon Nice D.O., [facility] 09/05/2020 E78.5 Hyperlipidemia, unspecified Geovanny Nice D.O., [facility] 09/05/2020 I10 Essential (primary) hypertension Brandon Nice D.O., [facility] 09/05/2020 K21.9 Gastro-esophageal reflux disease without esophagitis Brandon Nice D.O., [facility] 09/05/2020 F41.0 Panic disorder [episodic paroxys mal anxiety] Brandon Nice D.O., [facility] 06/01/2020 E11.9 Type 2 diabetes mellitus without complications Brandon Nice D.O., [facility] 06/01/2020 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 Brandon Nice D.O., [facility] 06/01/2020 E78.5 Hyperlipidemia, unspecified Geovanny Nice D.O., [facility] 06/01/2020 I10 Essential (primary) hypertension Brandon Nice D.O., [facility] 06/01/2020 K21.9 Gastro-esophageal reflux disease without esophagitis Brandon Nice D.O., [facility] 06/01/2020 F41.0 Panic disorder [episodic paroxys mal anxiety] Brandon Nice D.O., [facility] 04/27/2020 Z01.419 Encounter for gyneco logical examination (general) (routine) without abnormal findings Marti Barr FNP-BC 04/27/2020 Z12.11 Encounter for screening for ana gnant neoplasm of colon Marti Barr FNP-BC Plan of Treatment No Information Available Functional Status Description No Information Available Mental Status Description No Information Available Referrals Refer to Reason for Referral Status Appt Date Demarcus Valenzuela M.D. PRIORITY REFERRAL e asim & treat dry eyes with burning sensation Sent [phone] [place] [id number] [phone]
--- OUTSIDE RECORDS SUMMARY | 2020-10-26 15:54 | CCD ---
Author Author [facility] Organization [facility] Address Unknown Phone Unavailable Care Team Providers Care Currency Examiner Name Role Phone Barraclough, Hali PA Unavailable Unavailable Barraclough, Hali PA Unavailable Unavailable Barraclough, Hali PA Unavailable Unavailable Barraclough, Hali PA Unavailable Unavailable Barraclough, Hali PA Unavailable Unavailable Barraclough, Hali PA Unavailable Unavailable Fish, J Brandon Unavailable Unavailable Fish, J Brandon Unavailable Unavailable Fish, J Brandon Unavailable Unavailable Fish, J Brandon Unavailable Unavailable Fish, J Brandon Unavailable Unavailable Fish, J Brandon Unavailable Unavailable Fish, J Brandon Unavailable Unavailable Fish, J Brandon Unavailable Unavailable Fish, J Brandon Unavailable Unavailable Fish, J Brandon Unavailable Unavailable Fish, J Brandon Unavailable Unavailable Fish, J Brandon Unavailable Unavailable Fish, J Brandon Unavailable Unavailable Fish, J Brandon Unavailable Unavailable Fish, J Brandon Unavailable Unavailable Fish, J Brandon Unavailable Unavailable Fish, J Brandon Unavailable Unavailable Fish, J Brandon Unavailable Unavailable Fish, J Brandon Unavailable Unavailable Fish, J Brandon Unavailable Unavailable Fish, J Brandon Unavailable Unavailable Fish, J Brandon Unavailable Unavailable Fish, J Brandon Unavailable Unavailable Fish, J Brandon Unavailable Unavailable Fish, J Brandon Unavailable Unavailable Fish, J Brandon Unavailable Unavailable Fish, J Brandon Unavailable Unavailable Fish, J Brandon Unavailable Unavailable Fish, J Brandon Unavailable Unavailable Fish, J Brandon Unavailable Unavailable Fish, J Brandon Unavailable Unavailable Fish, J Brandon Unavailable Unavailable Fish, J Brandon Unavailable Unavailable Fish, J Brandon Unavailable Unavailable Fish, J Brandon Unavailable Unavailable Fish, J Brandon Unavailable Unavailable Fish, J Brandon Unavailable Unavailable Fish, J Brandon Unavailable Unavailable Fish, J Brandon Unavailable Unavailable Fish, J Brandon Unavailable Unavailable Fish, J Brandon Unavailable Unavailable Fish, J Brandon Unavailable Unavailable Fish, J Brandon Unavailable Unavailable Fish, J Brandon Unavailable Unavailable Fish, J Brandon Unavailable Unavailable Fish, J Brandon Unavailable Unavailable Fish, J Brandon Unavailable Unavailable Fish, J Brandon Unavailable Unavailable Fish, J Brandon Unavailable Unavailable Fish, J Brandon Unavailable Unavailable Fish, J Brandon Unavailable Unavailable Fish, J Brandon Unavailable Unavailable Fish, J Brandon Unavailable Unavailable Fish, J Brandon Unavailable Unavailable Fish, J Brandon Unavailable Unavailable Fish, J Brandon Unavailable Unavailable Fish, J Brandon Unavailable Unavailable Fish, J Brandon Unavailable Unavailable Fish, J Brandon Unavailable Unavailable Fish, J Brandon Unavailable Unavailable Fish, J Brandon Unavailable Unavailable Fish, J Brandon Unavailable Unavailable Fish, J Brandon Unavailable Unavailable Fish, J Brandon Unavailable Unavailable Fish, J Brandon Unavailable Unavailable Fish, J Brandon Unavailable Unavailable Fish, J Brandon Unavailable Unavailable Fish, J Brandon Unavailable Unavailable Fish, J Brandon Unavailable Unavailable Fish, J Brandon Unavailable Unavailable Fish, J Brandon Unavailable Unavailable Fish, J Brandon Unavailable Unavailable Fish, J Brandon Unavailable Unavailable Fish, J Brandon Unavailable Unavailable Fish, J Brandon Unavailable Unavailable Fish, J Brandon Unavailable Unavailable Fish, J Brandon Unavailable Unavailable Fish, J Brandon Unavailable Unavailable Fish, J Brandon Unavailable Unavailable Fish, J Brandon Unavailable Unavailable Fish, J Brandon Unavailable Unavailable Fish, J Brandon Unavailable Unavailable Fish, J Brandon Unavailable Unavailable Fish, J Brandon Unavailable Unavailable Fish, J Brandon Unavailable Unavailable [facility], JLAM Unavailable Unavailable RING, K SHIRLEY PA Unavailable Unavailable RING, K SHIRLEY PA Unavailable Unavailable RING, K SHIRLEY PA Unavailable Unavailable RING, K SHIRLEY PA Unavailable Unavailable RING, K SHIRLEY PA Unavailable Unavailable RING, K SHIRLEY PA Unavailable Unavailable RING, K SHIRLEY PA Unavailable Unavailable RING, K SHIRLEY PA Unavailable Unavailable RING, K SHIRLEY PA Unavailable Unavailable RING, K SHIRLEY PA Unavailable Unavailable RING, K SHIRLEY PA Unavailable Unavailable RING, K SHIRLEY PA Unavailable Unavailable RING, K SHIRLEY PA Unavailable Unavailable RING, K SHIRLEY PA Unavailable Unavailable RING, K SHIRLEY PA Unavailable Unavailable RING, K SHIRLEY PA Unavailable Unavailable RING, K SHIRLEY PA Unavailable Unavailable RING, K SHIRLEY PA Unavailable Unavailable RING, K SHIRLEY PA Unavailable Unavailable RING, K SHIRLEY PA Unavailable Unavailable RING, K SHIRLEY PA Unavailable Unavailable VERDUZCO M MARTI RATTAN WORKER Unavailable Unavailable VERDUZCO, M MARTI RATTAN WORKER Unavailable Unavailable VERDUZCO, M MARTI RATTAN WORKER Unavailable Unavailable VERDUZCO, M MARTI RATTAN WORKER Unavailable Unavailable VERDUZCO, M MARTI RATTAN WORKER Unavailable Unavailable VERDUZCO, M MARTI RATTAN WORKER Unavailable Unavailable VERDUZCO, M MARTI RATTAN WORKER Unavailable Unavailable VERDUZCO, M MARTI RATTAN WORKER Unavailable Unavailable VERDUZCO, M MARTI RATTAN WORKER Unavailable Unavailable VERDUZCO, M MARTI RATTAN WORKER Unavailable Unavailable VERDUZCO, M MARTI RATTAN WORKER Unavailable Unavailable VERDUZCO, M MARTI RATTAN WORKER Unavailable Unavailable VERDUZCO, M MARTI RATTAN WORKER Unavailable Unavailable VERDUZCO, M MARTI RATTAN WORKER Unavailable Unavailable VERDUZCO, M MARTI RATTAN WORKER Unavailable Unavailable VERDUZCO, M MARTI RATTAN WORKER Unavailable Unavailable VERDUZCO, M MARTI RATTAN WORKER Unavailable Unavailable VERDUZCO, M MARTI RATTAN WORKER Unavailable Unavailable VERDUZCO, M MARTI RATTAN WORKER Unavailable Unavailable VERDUZCO, M MARTI RATTAN WORKER Unavailable Unavailable VERDUZCO, M MARTI RATTAN WORKER Unavailable Unavailable VERDUZCO, M MARTI RATTAN WORKER Unavailable Unavailable VERDUZCO, M MARTI RATTAN WORKER Unavailable Unavailable VERDUZCO, M MARTI RATTAN WORKER Unavailable Unavailable VERDUZCO, M MARTI RATTAN WORKER Unavailable Unavailable VERDUZCO, M MARTI RATTAN WORKER Unavailable Unavailable VERDUZCO, M MARTI RATTAN WORKER Unavailable Unavailable VERDUZCO, M MARTI RATTAN WORKER Unavailable Unavailable VERDUZCO, M MARTI RATTAN WORKER Unavailable Unavailable VERDUZCO, M MARTI RATTAN WORKER Unavailable Unavailable VERDUZCO, M MARTI RATTAN WORKER Unavailable Unavailable VERDUZCO, M MARTI RATTAN WORKER Unavailable Unavailable VERDUZCO, M MARTI RATTAN WORKER Unavailable Unavailable VERDUZCO, M MARTI RATTAN WORKER Unavailable Unavailable VERDUZCO, M MARTI RATTAN WORKER Unavailable Unavailable VERDUZCO, M MARTI RATTAN WORKER Unavailable Unavailable VERDUZCO, M MARTI RATTAN WORKER Unavailable Unavailable VERDUZCO, M MARTI RATTAN WORKER Unavailable Unavailable VERDUZCO, M MARTI RATTAN WORKER Unavailable Unavailable VERDUZCO, M MARTI RATTAN WORKER Unavailable Unavailable VERDUZCO, M MARTI RATTAN WORKER Unavailable Unavailable VERDUZCO, M MARTI RATTAN WORKER Unavailable Unavailable VERDUZCO, M MARTI RATTAN WORKER Unavailable Unavailable VERDUZCO, M MARTI RATTAN WORKER Unavailable Unavailable VERDUZCO, M MARTI RATTAN WORKER Unavailable Unavailable VERDUZCO, M MARTI RATTAN WORKER Unavailable Unavailable VERDUZCO, M MARTI RATTAN WORKER Unavailable Unavailable VERDUZCO, M MARTI RATTAN WORKER Unavailable Unavailable VERDUZCO, M MARIT RATTAN WORKER Unavailable Unavailable VERDUZCO, M MARTI RATTAN WORKER Unavailable Unavailable VERDUZCO, M MARTI RATTAN WORKER Unavailable Unavailable VERDUZCO, M MARTI RATTAN WORKER Unavailable Unavailable VERDUZCO, M MARTI RATTAN WORKER Unavailable Unavailable VERDUZCO, M MARTI RATTAN WORKER Unavailable Unavailable VERDUZCO, M MARTI RATTAN WORKER Unavailable Unavailable VERDUZCO, M MARTI RATTAN WORKER Unavailable Unavailable VERDUZCO, M MARTI RATTAN WORKER Unavailable Unavailable VERDUZCO, M MARTI RATTAN WORKER Unavailable Unavailable Fish, J Brandon Unavailable Unavailable Fish, J Brandon Unavailable Unavailable Fish, J Brandon Unavailable Unavailable Fish, J Brandon Unavailable Unavailable Fish, J Brandon Unavailable Unavailable Fish, J Brandon Unavailable Unavailable Fish, J Brandon Unavailable Unavailable Fish, J Brandon Unavailable Unavailable Fish, J Brandon Unavailable Unavailable Fish, J Brandon Unavailable Unavailable Fish, J Brandon Unavailable Unavailable Fish, J Brandon Unavailable Unavailable Fish, J Brandon Unavailable Unavailable Fish, J Brandon Unavailable Unavailable Fish, J Brandon Unavailable Unavailable Fish, J Brandon Unavailable Unavailable Fish, J Brandon Unavailable Unavailable Fish, J Brandon Unavailable Unavailable Fish, J Brandon Unavailable Unavailable Fish, J Brandon Unavailable Unavailable Fish, J Brandon Unavailable Unavailable Fish, J Brandon Unavailable Unavailable Fish, J Brandon Unavailable Unavailable Fish, J Brandon Unavailable Unavailable Fish, J Brandon Unavailable Unavailable Fish, J Brandon Unavailable Unavailable Fish, J Brandon Unavailable Unavailable Fish, J Brandon Unavailable Unavailable Fish, J Brandon Unavailable Unavailable Fish, J Brandon Unavailable Unavailable Fish, J Brandon Unavailable Unavailable Fish, J Branodn Unavailable Unavailable Fish, J Brandon Unavailable Unavailable Fish, J Brandon Unavailable Unavailable Fish, J Brandon Unavailable Unavailable Fish, J Brandon Unavailable Unavailable Fish, J Brandon Unavailable Unavailable Fish, J Brandon Unavailable Unavailable Fish, J Brandon Unavailable Unavailable Fish, J Brandon Unavailable Unavailable Fish, J Brandon Unavailable Unavailable Fish, J Brandon Unavailable Unavailable Fish, J Brandon Unavailable Unavailable Fish, J Brandon Unavailable Unavailable Fish, J Brandon Unavailable Unavailable Fish, J Brandon Unavailable Unavailable Fish, J Brandon Unavailable Unavailable Fish, J Brandon Unavailable Unavailable Fish, J Brandon Unavailable Unavailable Fish, J Brandon Unavailable Unavailable Fish, J Brandon Unavailable Unavailable Fish, J Brandon Unavailable Unavailable Fish, J Brandon Unavailable Unavailable Fish, J Brandon Unavailable Unavailable Fish, J Brandon Unavailable Unavailable Fish, J Brandon Unavailable Unavailable Fish, J Brandon Unavailable Unavailable Fish, J Brandon Unavailable Unavailable Fish, J Brandon Unavailable Unavailable Fish, J Brandon Unavailable Unavailable Fish, J Brandon Unavailable Unavailable Fish, J Brandon Unavailable Unavailable Fish, J Brandon Unavailable Unavailable Fish, J Brandon Unavailable Unavailable Fish, J Brandon Unavailable Unavailable Fish, J Brandon Unavailable Unavailable Fish, J Brandon Unavailable Unavailable Fish, J Brandon Unavailable Unavailable Fish, J Brandon Unavailable Unavailable Fish, J Brandon Unavailable Unavailable Fish, J Brandon Unavailable Unavailable Fish, J Brandon Unavailable Unavailable Fish, J Brandon Unavailable Unavailable Fish, J Brandon Unavailable Unavailable Fish, J Brandon Unavailable Unavailable Fish, J Brandon Unavailable Unavailable Fish, J Brandon Unavailable Unavailable Fish, J Brandon Unavailable Unavailable Fish, J Brandon Unavailable Unavailable Fish, J Brandon Unavailable Unavailable Fish, J Brandon Unavailable Unavailable Fish, J Brandon Unavailable Unavailable Fish, J Brandon Unavailable Unavailable Fish, J Brandon Unavailable Unavailable Fish, J Brandon Unavailable Unavailable Enzo DUNCANEW DO Unavailable [phone] SHILOEnzoEW DO Unavailable [phone] SHILO Enzo DAPHNIE DO Unavailable [phone] SHILOEnzo DAPHNIE DO Unavailable [phone] SHILOEnzo DAPHNIE DO Unavailable [phone] SHILOEnzo DAPHNIE DO Unavailable [phone] SHILOEnzo DAPHNIE DO Unavailable [phone] SHILOEnzo DAPHNIE DO Unavailable [phone] SHILOEnzo DAPHNIE DO Unavailable [phone] SHILO Enzo DAPHNIE DO Unavailable [phone] SHILOEnzo DAPHNIE DO Unavailable [phone] SHILOEnzo DAPHNIE DO Unavailable [phone] SHILOEnzo DAPHNIE DO Unavailable [phone] SHILOEnzo DAPHNIE DO Unavailable [phone] SHILOEnzoEW DO Unavailable [phone] SHILO Enzo SERRATOEW DO Unavailable [phone] SHILO Enzo DAPHNIE DO Unavailable [phone] SHILOEnzo DAPHNIE DO Unavailable [phone] SHILOEnzo DAPHNIE DO Unavailable [phone] SHILO Enzo DAPHNIE DO Unavailable [phone] SHILO Enzo SERRATOEW DO Unavailable [phone] NOT, SPECIFIED Unavailable Unavailable Re-disclosure Warning The records that you are about to access may contain information from federally-assisted alcohol or drug abuse programs. If such information is present, then the following federally mandated warning applies: This information has been disclosed to you from records protected by federal confidentiality rules (42 CFR part 2). The federal rules prohibit you from making any further disclosure of this information unless further disclosure is expressly permitted by the written consent of the person to whom it pertains or as otherwise permitted by 42 CFR part 2. A general authorization for the release of medical or other information is NOT sufficient for this purpose. The Federal rules restrict any use of the information to criminally investigate or prosecute any alcohol or drug abuse patient.The records that you are about to access may contain highly sensitive health information, the redisclosure of which is protected by Article 27-F of the [employer] Public Health law. If you continue you may have access to information: Regarding HIV / AIDS; Provided by facilities licensed or operated by the [employer] Office of Mental Health; or Provided by the [employer] Office for People With Developmental Disabilities. If such information is present, then the following [employer] mandated warning applies: This information has been disclosed to you from confidential records which are protected by state law. State law prohibits you from making any further disclosure of this information without the specific written consent of the person to whom it pertains, or as otherwise permitted by law. Any unauthorized further disclosure in violation of state law may result in a fine or alf sentence or both. A general authorization for the release of medical or other information is NOT sufficient authorization for further disc losure. Allergies and Adverse Reactions Type Description Substance Reaction Status Data Source(s ) Drug allergy Penicillins Penicillins Active SARAH ( Demarcus Warren MD [facility]) Drug allergy Statins Hydroxymethylglutaryl-CoA Reductase Inhib itors [MoA] Active SARAH (Demarcus Warren MD [facility]) Drug allergy Sulfa Antibiotics Sulfa Antibiotics Active SARAH (Demarcus Warren MD [facility]) Family History Family Member Name Family Member Gender Family Member Status Date o f Status Description Data Source(s) Unknown Unknown Problem MEDENT ([facility], [facility]) mother Unknown Male Problem [facility] ([facility] Encounters Encounter Providers Location Date Indications Data Source(s ) Outpatient Attender: Brandon Cortéserr er: Brandon MerinoConsultant: SPECIFIED NOT 09/05/2020 05:41:00 PM EST - 09/05/2020 05:51:00 PM [facility] Outpatient Attender: [place] [facility] 09/05/2020 09:00:0 0 AM EST MEDENT ([facility] Outpatient<td ID="encounterTypeDescripti onID0">3 - 4 Week Follow- Up</td><td>Daphnie Duncan DO</td><td>Demarcus Valenzuela MD [facility]</td><td>06/30/2020</td><td>8:33AM</td><td>10:13AM</td><td><content ID="encounterDiagnosisID0-0">Chalazion</content>, <content ID="encounterDiagnosisID0-1">Dry Eye Syndrome</content></td> Attender: DAPHNIE Marlow MD [facility] 06/30/2020 08:33:00 AM EDT - 06/30/2020 10:13:00 AM EDT ChalazionDry Eye Syndrome SARAH (Demarcus Warren MD [facility]) [facility] Dry Eye Syndrome Outpatient<td ID="encounterTypeDescripti onID1">3 Month Follow-Up</td><td>Daphnie Duncan DO</td><td>Demarcus Valenzuela MD [facility]</td><td>06/12/2020</td><td>8:27AM</td><td>9:27AM</td><td><content ID="encounterDiagnosisID1-0">Dry Eye Syndrome</content>, <content ID="encounterDiagnosisID1-1">Chalazion</content></td> Attender: DAPHNIE Marlow MD [facility] 06/12/2020 08:27:00 AM EDT - 06/12/2020 09:27:00 AM EDT ChalazionDry Eye Syndrome SARAH (Demarcus Warren MD [facility]) [facility] Dry Eye Syndrome [facility] 09:30:0 0 AM EDT MEDENT ([facility] Outpatient Attender: MARTI VERDUZCO [facility] Office 04/27 11:30:00 AM EDT MEDFRANK ([facility] Outpatient<td ID="encounterTypeDescripti onID2">NEW PATIENT WITH REFERRAL</td><td>Daphnie Duncan DO</td><td>Demarcus Valenzuela MD [facility]</td><td>03/15/2020</td><td>8:30AM</td><td>10:04AM</td><td><content ID="encounterDiagnosisID2-0">Dry Eye Syndrome</content>, <content ID="encounterDiagnosisID2-1">Pseudophakia</content>, <content ID="encounterDiagnosisID2-2">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</content>, <content ID="encounterDiagnosisID2-3">Vitreous Disorders Degeneration</content>, <content ID="encounterDiagnosisID2-4">Macular Puckering</content>, <content ID="encounterDiagnosisID2-5">History of Nicotine Dependence</content>, <content ID="encounterDiagnosisID2-6">Essential Hypertension</content>, <content ID="encounterDiagnosisID2-7">Taking Medication For Diabetes Long-term Use of Oral Hypoglycemics</content>, <content ID="encounterDiagnosisID2-8">Diabetes Mellitus Type 2 Without Complicatio n</content></td> Attender: DAPHNIE Marlow MD [facility] 03/15/2020 08:30:00 AM EDT - 03/15/2020 10:04:00 AM EDT Diabetes Mellitus Type 2 Without ComplicationTaking Medication For Diabetes Long-term Use of Oral HypoglycemicsEssential HypertensionHistory of Nicotine DependenceMacular PuckeringVitreous Disorders Degeneration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PseudophakiaDry Eye Syndrome DELL (Demarcus Warren MD [facility]) Diabetes Mellitus Type 2 Without Complic ation Taking Medication For Diabetes Long-term Use of Oral Hypoglycemics Essential Hypertension History of Nicotine Dependence Macular Puckering Vitreous Disorders Degeneration Posterior Capsule Opacification Eccentri c Capsule Left Eye Pseudophakia Dry Eye Syndrome Outpatient Attender: [facility] 02/29/2020 07:47:40 PM EDT [facility] Outpatient Attender: Brandon Merino [place] [facility] 02/24/2020 09:15:0 0 AM EDT MEDENT ([facility] Outpatient Attender: Brandon Merino [place] [facility] 11/11/2019 08:15:0 0 AM EST [facility] ([facility] Outpatient Attender: SHIRLEY [facility] 10/22/2019 09:15:00 AM EST [facility] ([facility]) Outpatient Attender: Hali LICEA [place] [facility] 09/23/2019 09:20:00 AM EST [facility] ([facility] Immunizations Vaccine Date Status Description Data Source(s) New in 2012. IIV4 06/01/2020 09:35:00 AM EDT completed [facility] ([facility] VARICELLA-ZOSTER VIRUS GLYCOPROTEIN E,REC/AS01B ADJUVA NT/PF 04/11/2020 12:00:00 AM EDT completed [facility] Medications Medication Brand Name Start Date Product Form Dose Route Admi nistrative Instructions Pharmacy Instructions Status Indications Reaction Description Data Source(s) pantoprazole 40 MG Delayed Release Oral Tablet PANTOPRAZOLE SODIUM 10/13/2020 12:00:00 AM EST tablet,delayed release (DR/EC) 90 T MARY ONE TABLET BY MOUTH EVERY DAY TAKE ONE TABLET BY MOUTH EVERY DAY SOLD: 10/14/2020 [facility] Hydrochlorothiazide 12.5 MG Oral Tablet HYDROCHLOROTHIAZIDE 10/11/2020 12:00:00 AM EST tablet 30 TAKE ONE TABLET BY MOUTH SILVIO RY DAY TAKE ONE TABLET BY MOUTH EVERY DAY SOLD: 10/14/2020 [facility] Alprazolam 0.5 MG Oral Tablet ALPRAZOLAM 09/28/2020 12:00:00 AM EST ta blet 90 TAKE ONE TABLET BY MOUTH 3 TIMES A DAY NEEDED FOR ANXIETY MAXIMUM DAILY DOSE = 3 TAKE ONE TABLET BY MOUTH 3 TIMES A DAY A S NEEDED FOR ANXIETY MAXIMUM DAILY DOSE = 3 SOLD: 09/29/2020 [facility] 500 mg 09/06/2020 12:00:00 AM EST tablet 180 TAKE ONE TABLET BY MOUTH TWICE A DAY TAKE ONE TABLET BY MOUTH TWICE A DAY SOLD: 09/07/2020 [facility] Alprazolam 0.5 MG Oral Tablet ALPRAZOLAM 08/23/2020 12:00:00 AM EST ta blet 90 TAKE ONE TABLET BY MOUTH THREE TIMES A DAY NEEDED FOR ANXIETY MAXIMUM DAILY DOSE = 3 TABLETS TAKE ONE TABLET BY MOUTH THREE TIMES A D AY NEEDED FOR ANXIETY MAXIMUM DAILY DOSE = 3 TABLETS SOLD: 08/24/2020 [facility] pantoprazole 40 MG Delayed Release Oral Tablet PANTOPRAZOLE SODIUM 07/27/2020 12:00:00 AM EST tablet,delayed release (DR/EC) 90 T MARY ONE TABLET BY MOUTH EVERY DAY TAKE ONE TABLET BY MOUTH EVERY DAY SOLD: 07/29/2020 [facility] Alprazolam 0.5 MG Oral Tablet ALPRAZOLAM 07/17/2020 12:00:00 AM EDT ta blet 90 TAKE ONE TABLET BY MOUTH THREE TIMES A DAY NEEDED FOR ANXIETY MAXIMUM DAILY DOSE = 3 TAKE ONE TABLET BY MOUTH THREE TIMES A D AY NEEDED FOR ANXIETY MAXIMUM DAILY DOSE = 3 SOLD: 07/18/2020 [facility] ezetimibe 10 MG Oral Tablet EZETIMIBE 07/05/2020 12:00:00 AM EDT table t 11 TAKE ONE TABLET BY MOUTH EVERY DAY TAKE ONE TABLET BY MOUTH EVERY DAY SOLD: 10/07/2020 [facility] ezetimibe 10 MG Oral Tablet EZETIMIBE 07/05/2020 12:00:00 AM EDT table t 90 TAKE ONE TABLET BY MOUTH EVERY DAY TAKE ONE TABLET BY MOUTH EVERY DAY SOLD: 07/09/2020 [facility] Alprazolam 0.5 MG Oral Tablet ALPRAZOLAM 06/13/2020 12:00:00 AM EDT ta blet 90 TAKE ONE TABLET BY MOUTH THREE TIMES A DAY NEEDED FOR ANXIETY MAXIMUM DAILY DOSE = THREE TABLETS TAKE ONE TABLET BY MOUTH THREE TIMES A D AY NEEDED FOR ANXIETY MAXIMUM DAILY DOSE = THREE TABLETS SOLD: 06/15/2020 [facility] prevastain Oral Tablet prevastain Oral Tablet 06/12/2020 12:00:00 AM E DT 1 active prevastain DELL (Deangelo Warren MD [facility]) Dexamethasone 1 MG/ML / Tobramycin 3 MG/ ML Ophthalmic Suspension [Tobradex] TobraDex 0.3-0.1% Ophthalmic Suspension TobraDex 0.3-0.1% Ophthalmic Suspension 06/12/2020 12:00:00 AM EDT active dexamethasone 1 MG/ML / tobramycin 3 MG/ML Ophthalmic Suspension [Tobradex] SARAH (Demarcus Warren MD [facility]) 0.3-0.1 % 06/12/2020 12:00:00 AM EDT drops,suspension 5 INSTILL ONE DROP IN THE LEFT EYE THREE TIMES A DAY INSTILL ONE DROP IN THE LEFT EYE THREE T IMES A DAY SOLD: 06/13/2020 [facility] 0.3-0.1 % 06/12/2020 12:00:00 AM EDT drops,suspension 5 INSTILL ONE DROP IN THE LEFT EYE THREE TIMES A DAY INSTILL ONE DROP IN THE LEFT EYE THREE T IMES A DAY SOLD: 08/03/2020 [facility] Pravastatin Sodium 10 MG Oral Tablet PRAVASTATIN SODIUM 12:00:00 AM EDT tablet 90 TAKE ONE TABLET BY MOUTH SILVIO DAY TAKE ONE TABLET BY MOUTH EVERY DAY SOLD: 06/13/2020 [facility] Pravastatin Sodium 10 MG Oral Tablet PRAVASTATIN SODIUM 12:00:00 AM EDT tablet 90 TAKE ONE TABLET BY MOUTH SILVIO DAY TAKE ONE TABLET BY MOUTH EVERY DAY SOLD: 09/08/2020 [facility] Metformin hydrochloride 500 MG Oral Tablet METFORMIN HCL 06/01/2020 12:00:00 AM EDT tablet 60 TAKE ONE TABLET BY MOUTH TWI CE A DAY TAKE ONE TABLET BY MOUTH TWICE A DAY SOLD: 06/03/2020 [facility] 500 mg 06/01/2020 12:00:00 AM EDT tablet 60 TAKE ONE TABLET BY MOUTH TWICE A DAY TAKE ONE TABLET BY MOUTH TWICE A DAY SOLD: 08/18/2020 [facility] Metformin hydrochloride 500 MG Oral Tablet METFORMIN HCL 06/01/2020 12:00:00 AM EDT tablet 60 TAKE ONE TABLET BY MOUTH TWI CE A DAY TAKE ONE TABLET BY MOUTH TWICE A DAY SOLD: 07/20/2020 [facility] Alprazolam 0.5 MG Oral Tablet ALPRAZOLAM 05/08/2020 12:00:00 AM EDT ta blet 90 TAKE ONE TABLET BY MOUTH THREE TIMES A DAY NEEDED FOR ANXIETY MAXIMUM DAILY DOSE = 3 TAKE ONE TABLET BY MOUTH THREE TIMES A D AY NEEDED FOR ANXIETY MAXIMUM DAILY DOSE = 3 SOLD: 05/08/2020 [facility] Alprazolam 0.5 MG Oral Tablet ALPRAZOLAM 03/28/2020 12:00:00 AM EDT ta blet 90 TAKE ONE TABLET BY MOUTH THREE TIMES A DAY NEEDED FOR ANXIETY MAXIMUM DAILY DOSE = 3 TAKE ONE TABLET BY MOUTH THREE TIMES A D AY NEEDED FOR ANXIETY MAXIMUM DAILY DOSE = 3 SOLD: 03/29/2020 [facility] pantoprazole 40 MG Delayed Release Oral Tablet PANTOPRAZOLE SODIUM 03/26/2020 12:00:00 AM EDT tablet,delayed release (DR/EC) 48 T MARY ONE TABLET BY MOUTH EVERY DAY TAKE ONE TABLET BY MOUTH EVERY DAY SOLD: 06/09/2020 [facility] 40 mg 03/26/2020 12:00:00 AM EDT tablet,delayed release (DR/EC) 90 TAKE ONE TABLET BY MOUTH EVERY DAY TAKE ONE TABLET BY MOUTH EVERY DAY SOLD: 03/29/2020 [facility] Hydrochlorothiazide 12.5 MG Oral Tablet HYDROCHLOROTHIAZIDE 03/24/2020 12:00:00 AM EDT tablet 30 TAKE ONE TABLET BY MOUTH SILVIO RY DAY TAKE ONE TABLET BY MOUTH EVERY DAY SOLD: 07/18/2020 [facility] Hydrochlorothiazide 12.5 MG Oral Tablet HYDROCHLOROTHIAZIDE 03/24/2020 12:00:00 AM EDT tablet 30 TAKE ONE TABLET BY MOUTH SILVIO DAY TAKE ONE TABLET BY MOUTH EVERY DAY SOLD: 06/20/2020 [facility] Hydrochlorothiazide 12.5 MG Oral Tablet HYDROCHLOROTHIAZIDE 03/24/2020 12:00:00 AM EDT tablet 30 TAKE ONE TABLET BY MOUTH SILVIO RY DAY TAKE ONE TABLET BY MOUTH EVERY DAY SOLD: 04/22/2020 [facility] Hydrochlorothiazide 12.5 MG Oral Tablet HYDROCHLOROTHIAZIDE 03/24/2020 12:00:00 AM EDT tablet 30 TAKE ONE TABLET BY MOUTH SILVIO RY DAY TAKE ONE TABLET BY MOUTH EVERY DAY SOLD: 08/18/2020 [facility] Hydrochlorothiazide 12.5 MG Oral Tablet HYDROCHLOROTHIAZIDE 03/24/2020 12:00:00 AM EDT tablet 30 TAKE ONE TABLET BY MOUTH SILVIO RY DAY TAKE ONE TABLET BY MOUTH EVERY DAY SOLD: 09/17/2020 [facility] Hydrochlorothiazide 12.5 MG Oral Tablet HYDROCHLOROTHIAZIDE 03/24/2020 12:00:00 AM EDT tablet 30 TAKE ONE TABLET BY MOUTH SILVIO DAY TAKE ONE TABLET BY MOUTH EVERY DAY SOLD: 05/21/2020 [facility] Hydrochlorothiazide 12.5 MG Oral Tablet HYDROCHLOROTHIAZIDE 03/24/2020 12:00:00 AM EDT tablet 30 TAKE ONE TABLET BY MOUTH SILVIO DAY TAKE ONE TABLET BY MOUTH EVERY DAY SOLD: 03/24/2020 [facility] 500 mg 03/20/2020 12:00:00 AM EDT tablet 60 TAKE ONE TABLET BY MOUTH TWICE A DAY TAKE ONE TABLET BY MOUTH TWICE A DAY SOLD: 03/24/2020 [facility] 0.05 % 03/15/2020 12:00:00 AM EDT dropperette 180 INSTILL ONE DROP TWICE A DAY IN BOTH EYES INSTILL ONE DROP TWICE A DAY IN BOTH EYES SOLD: 03/17/2020 [facility] Pravastatin Sodium 10 MG Oral Tablet Pravastatin Sodium 10 M G Oral Tablet 03/15/2020 12:00:00 AM EDT 1 completed pravastatin sodium 10 MG Oral Tablet SARAH (Demarcus Warren MD [facility]) Clobetasol Propionate 0.0005 MG/MG Topic al Ointment Clobetasol Propionate 0.05% External Ointment Clobetasol Propionate 0.05% External Ointment 03/15/20 12:00:00 AM EDT 1 active clobetasol propionate 0.0005 MG/MG Topical Ointment SARAH (Demarcus Warren MD [facility]) 200 ACTUAT Albuterol 0.09 MG/ACTUAT Mete red Dose Inhaler [ProAir] ProAir HFA 108 (90 Base) MCG/ACT Inhalation Aerosol Solution ProAir HFA 108 (90 Base) MCG/ACT Inhalation Aerosol Solution 03/15/2020 12:00:00 AM EDT active [id number] 200 ACTUAT albuterol 0.09 MG/ACTUAT Metered Dose Inhaler [ProAir] SARAH (Demarcus Warren MD [facility]) Albuterol 0.83 MG/ML Inhalant Solution A lbuterol Sulfate (2.5 MG/3ML) 0.083% Inhalation Nebulization solution Albuterol Sulfate (2.5 MG/3ML) 0.083% Inhalation Nebulization solution 03/15/2020 12:00:00 AM EDT active albuterol 0.83 MG/ML Inhalation Solution SARAH (Raphael Warren MD [facility]) Colesevelam hydrochloride 625 MG Oral Tablet Colesevel am HCl 625 MG Oral Tablet Colesevelam HCl 625 MG Oral Tablet 03/15/2020 12:00:00 AM EDT 1 aborted colesevelam hydrochloride 625 MG Oral Ta blet SARAH (Demarcus Warren MD [facility]) pantoprazole 40 MG Delayed Release Oral Tablet Pantoprazole Sodium 40 MG Oral Tablet Delayed Release Pantoprazole Sodium 40 MG Oral Tablet Delayed Release 03/15/2020 12:00:00 AM EDT 1 active pantoprazole 40 MG Delayed Release Oral Tablet SARAH (Demarcus Warren MD [facility]) Metformin hydrochloride 500 MG Oral Tablet metFORMIN H Cl 500 MG Oral Tablet metFORMIN HCl 500 MG Oral Tablet 03/15/2020 12:00:00 AM EDT 1 active metformin hydrochloride 500 MG Oral Tablet SARAH (Abdon Warren MD [facility]) Hydrochlorothiazide 12.5 MG Oral Tablet hydroCHLOROthi azide 12.5 MG Oral Tablet hydroCHLOROthiazide 12.5 MG Oral Tablet 03/15/2020 12:00:00 AM EDT 1 active hydrochlorothiazide 12.5 MG Oral Tablet SARAH (Demarcus Warren MD [facility]) ezetimibe 10 MG Oral Tablet Ezetimibe 10 MG Oral Table t Ezetimibe 10 MG Oral Tablet 03/15/2020 12:00:00 AM EDT 1 active ezetimibe 10 MG Oral Tablet SARAH (Demarcus Warren MD [facility]) Cyclobenzaprine hydrochloride 5 MG Oral Tablet Cyclobenzaprine HCl 5 MG Oral Tablet Cyclobenzaprine HCl 5 MG Oral Tablet 03/15/2020 12:00:00 AM EDT 1 active cyclobenzaprine hydrochlorid e 5 MG Oral Tablet SARAH (Demarcus Warren MD [facility]) Meclizine Hydrochloride 25 MG Oral Tablet Meclizine HC l 25 MG Oral Tablet Meclizine HCl 25 MG Oral Tablet 03/15/2020 12:00:00 AM EDT 1 active meclizine hydrochloride 25 MG Oral Tablet SARAH (Demarcus Warren MD [facility]) Lisinopril 5 MG Oral Tablet Lisinopril 5 MG Oral Tablet 02/21 12:00:00 AM EDT 1 active lisinopril 5 MG O ral Tablet SARAH (Demarcus Warren MD [facility]) Alprazolam 0.5 MG Oral Tablet [Xanax] Xanax 0.5 MG Ora l Tablet Xanax 0.5 MG Oral Tablet 03/15/2020 12:00:00 AM EDT 1 active alprazolam 0.5 MG Oral Tablet [Xanax] SARAH (Demarcus Warren MD [facility]) Multivitamin Oral Tablet Multivitamin Oral Tablet 03/15/2020 12:00: 00 AM EDT 1 active Multivitamin SARAH (Abdon Warren MD [facility]) Vitamin D 1000 MG Oral Capsule Vitamin D 1000 MG Oral Capsul e 03/15/2020 12:00:00 AM EDT 1 active Vitamin D SARAH (Demarcus Warren MD [facility]) Glucose 4 GM Oral Tablet Chewable Glucose 4 GM Oral Tablet C hewable 03/15/2020 12:00:00 AM EDT 1 active Glucose SARAH (Demarcus Warren MD [facility]) Cyclosporine 0.5 MG/ML Ophthalmic Suspen cole [Restasis] Restasis 0.05% Ophthalmic Emulsion Restasis 0.05% Ophthalmic Emulsion 03/15/2020 12:00:00 AM EDT active cyclospo rine 0.5 MG/ML Ophthalmic Suspension [Restasis] SARAH (Demarcus Warren MD [facility]) Fish Oil 1000 MG Oral Capsule Fish Oil 1000 MG Oral Capsule 03/15/2020 12:00:00 AM EDT 1 active Fish Oil SARAH (Demarcus Warren MD [facility]) Cyclobenzaprine hydrochloride 5 MG Oral Tablet CYCLOBENZAPRI NE HCL 03/06/2020 12:00:00 AM EDT tablet 30 TAKE ONE TABLET BY MOUTH TWICE A DAY MAXIMUM DAILY DOSE = 2 TAKE ONE TABLET BY MOUTH TWICE A DAY MAXIMUM DAILY DOS E = 2 SOLD: 03/09/2020 [facility] ezetimibe 10 MG Oral Tablet EZETIMIBE 02/27/2020 12:00:00 AM EDT table t 90 TAKE ONE TABLET BY MOUTH EVERY DAY TAKE ONE TABLET BY MOUTH EVERY DAY SOLD: 03/01/2020 [facility] ezetimibe 10 MG Oral Tablet EZETIMIBE 02/27/2020 12:00:00 AM EDT table t 77 TAKE ONE TABLET BY MOUTH EVERY DAY TAKE ONE TABLET BY MOUTH EVERY DAY SOLD: 05/11/2020 [facility] Alprazolam 0.5 MG Oral Tablet ALPRAZOLAM 02/23/2020 12:00:00 AM EDT ta blet 90 TAKE ONE TABLET BY MOUTH THREE TIMES A DAY NEEDED FOR ANXIETY MAXIMUM DAILY DOSE = THREE TABLETS TAKE ONE TABLET BY MOUTH THREE TIMES A D AY NEEDED FOR ANXIETY MAXIMUM DAILY DOSE = THREE TABLETS SOLD: 02/24/2020 [facility] 5 mg 01/24/2020 12:00:00 AM EDT tablet 90 TAKE ONE TABLET BY MOUTH DAILY MAXIMUM DAILY DOSE =1 TAKE ONE TABLET BY MOUTH DAILY MAXIMUM DAILY DOSE =1 S OLD: 01/26/2020 [facility] 5 mg 01/24/2020 12:00:00 AM EDT tablet 90 TAKE ONE TABLET BY MOUTH DAILY MAXIMUM DAILY DOSE =1 TAKE ONE TABLET BY MOUTH DAILY MAXIMUM DAILY DOSE =1 S OLD: 07/20/2020 [facility] 5 mg 01/24/2020 12:00:00 AM EDT tablet 90 TAKE ONE TABLET BY MOUTH DAILY MAXIMUM DAILY DOSE =1 TAKE ONE TABLET BY MOUTH DAILY MAXIMUM DAILY DOSE =1 S OLD: 10/23/2020 [facility] 5 mg 01/24/2020 12:00:00 AM EDT tablet 90 TAKE ONE TABLET BY MOUTH DAILY MAXIMUM DAILY DOSE =1 TAKE ONE TABLET BY MOUTH DAILY MAXIMUM DAILY DOSE =1 S OLD: 04/22/2020 [facility] 5 mg 01/23/2020 12:00:00 AM EDT tablet 30 TAKE ONE TABLET BY MOUTH TWICE A DAY MAXIMUM DAILY DOSE = 2 TABLETS TAKE ONE TABLET BY MOUTH TWICE A DAY MAX IMUM DAILY DOSE = 2 TABLETS SOLD: 01/26/2020 [facility] 5 mg 01/23/2020 12:00:00 AM EDT tablet 30 TAKE ONE TABLET BY MOUTH TWICE A DAY MAXIMUM DAILY DOSE = 2 TABLETS TAKE ONE TABLET BY MOUTH TWICE A DAY MAX IMUM DAILY DOSE = 2 TABLETS SOLD: 02/24/2020 [facility] 5 mg 01/23/2020 12:00:00 AM EDT tablet 30 TAKE ONE TABLET BY MOUTH TWICE A DAY MAXIMUM DAILY DOSE = 2 TABLETS TAKE ONE TABLET BY MOUTH TWICE A DAY MAX IMUM DAILY DOSE = 2 TABLETS SOLD: 02/10/2020 [facility] Alprazolam 0.5 MG Oral Tablet ALPRAZOLAM 01/18/2020 12:00:00 AM EDT ta blet 90 TAKE ONE TABLET BY MOUTH THREE TIMES A DAY NEEDED FOR ANXIETY MAXIMUM DAILY DOSE = 3 TAKE ONE TABLET BY MOUTH THREE TIMES A D AY NEEDED FOR ANXIETY MAXIMUM DAILY DOSE = 3 SOLD: 01/19/2020 [facility] Pravastatin Sodium 10 MG Oral Tablet PRAVASTATIN SODIUM 12:00:00 AM EDT tablet 30 TAKE ONE TABLET BY MOUTH SILVIO RY DAY TAKE ONE TABLET BY MOUTH EVERY DAY SOLD: 01/11/2020 [facility] Pravastatin Sodium 10 MG Oral Tablet PRAVASTATIN SODIUM 12:00:00 AM EDT tablet 30 TAKE ONE TABLET BY MOUTH SILVIO RY DAY TAKE ONE TABLET BY MOUTH EVERY DAY SOLD: 02/10/2020 [facility] 40 mg 01/01/2020 12:00:00 AM EDT tablet,delayed release (DR/EC) 90 TAKE ONE TABLET BY MOUTH DAILY MAXIMUM DAILY DOSE = 1 TAKE ONE TABLET BY MOUTH DAILY MAXIMUM DAILY DOSE = 1 SOLD: 01/01/2020 [facility] 5 mg 12/23/2019 12:00:00 AM EDT tablet 30 TAKE ONE TABLET BY MOUTH TWICE A DAY MAXIMUM DAILY DOSE = TWO TABLETS TAKE ONE TABLET BY MOUTH TWICE A DAY MAXIMUM DAILY DOSE = TWO TABLETS SOLD: 12/26/2019 [facility] 5 mg 12/23/2019 12:00:00 AM EDT tablet 30 TAKE ONE TABLET BY MOUTH TWICE A DAY MAXIMUM DAILY DOSE = TWO TABLETS TAKE ONE TABLET BY MOUTH TWICE A DAY MAXIMUM DAILY DOSE = TWO TABLETS SOLD: 01/11/2020 [facility] Alprazolam 0.5 MG Oral Tablet ALPRAZOLAM 12/16/2019 12:00:00 AM EDT ta blet 90 TAKE ONE TABLET BY MOUTH THREE TIMES A DAY NEEDED FOR ANXIETY, MAXIMUM DAILY DOSE = THREE TABLETS TAKE ONE TABLET BY MOUTH THREE TIMES A D AY NEEDED FOR ANXIETY, MAXIMUM DAILY DOSE = THREE TABLETS SOLD: 12/18/2019 [facility] 10 mg 12/06/2019 12:00:00 AM EDT tablet 90 TAKE ONE TABLET BY MOUTH EVERY DAY TAKE ONE TABLET BY MOUTH EVERY DAY SOLD: 12/08/2019 [facility] Pravastatin Sodium 10 MG Oral Tablet PRAVASTATIN SODIUM 12:00:00 AM EDT tablet 90 TAKE ONE TABLET BY MOUTH SILVIO RY DAY TAKE ONE TABLET BY MOUTH EVERY DAY SOLD: 12/08/2019 [facility] Pravastatin Sodium 10 MG Oral Tablet PRAVASTATIN SODIUM 12:00:00 AM EST tablet 30 TAKE ONE TABLET BY MOUTH SILVIO RY DAY TAKE ONE TABLET BY MOUTH EVERY DAY SOLD: 12/13/2019 [facility] Pravastatin Sodium 10 MG Oral Tablet PRAVASTATIN SODIUM 12:00:00 AM EST tablet 30 TAKE ONE TABLET BY MOUTH SILVIO DAY TAKE ONE TABLET BY MOUTH EVERY DAY SOLD: 11/13/2019 [facility] Pravastatin Sodium 10 MG Oral Tablet Pravastatin Sodium 12:00:00 AM EST active [facility] ([facility] Alprazolam 0.5 MG Oral Tablet ALPRAZOLAM 11/10/2019 12:00:00 AM EST ta blet 90 TAKE ONE TABLET BY MOUTH THREE TIMES A DAY NEEDED FOR ANXIETY MAXIMUM DAILY DOSE = THREE TABLETS TAKE ONE TABLET BY MOUTH THREE TIMES A D AY NEEDED FOR ANXIETY MAXIMUM DAILY DOSE = THREE TABLETS SOLD: 11/11/2019 [facility] BLOOD SUGAR DIAGNOSTIC 10/27/2019 12:00:00 AM EST strip 100 USE DIRECTED TO TEST FASTING BLOOD SUGAR ONCE DAILY USE DIRECTED TO TEST FASTING BLOOD SUGAR ONCE DAILY SOLD: 10/30/2019 [facility] BLOOD SUGAR DIAGNOSTIC 10/27/2019 12:00:00 AM EST strip 100 USE DIRECTED TO TEST FASTING BLOOD SUGAR ONCE DAILY USE DIRECTED TO TEST FASTING BLOOD SUGAR ONCE DAILY SOLD: 01/26/2020 [facility] 500 mg 10/22/2019 12:00:00 AM EST capsule 14 TAKE ONE CAPSULE BY MOUTH EVERY 12 HOURS FOR 7 DAYS TAKE ONE CAPSULE BY MOUTH EVERY 12 HOURS FOR 7 DAYS SO LD: 10/22/2019 [facility] Cephalexin 500 MG Oral Tablet Cephalexin 10/22/2019 12:00:00 AM EST ORAL active MEDENT ([facility] 12.5 mg 10/04/2019 12:00:00 AM EST tablet 30 TAKE ONE TABLET BY MOUTH EVERY DAY TAKE ONE TABLET BY MOUTH EVERY DAY SOLD: 11/04/2019 [facility] Alprazolam 0.5 MG Oral Tablet ALPRAZOLAM 10/04/2019 12:00:00 AM EST ta blet 90 TAKE ONE TABLET BY MOUTH THREE TIMES A DAY NEEDED FOR ANXIETY MAXIMUM DAILY DOSE = 3 TABLETS TAKE ONE TABLET BY MOUTH THREE TIMES A D AY NEEDED FOR ANXIETY MAXIMUM DAILY DOSE = 3 TABLETS SOLD: 10/06/2019 [facility] 12.5 mg 10/04/2019 12:00:00 AM EST tablet 30 TAKE ONE TABLET BY MOUTH EVERY DAY TAKE ONE TABLET BY MOUTH EVERY DAY SOLD: 10/06/2019 [facility] 625 mg 10/04/2019 12:00:00 AM EST tablet 180 TAKE THREE TABLETS BY MOUTH TWICE A DAY MAXIMUM DAILY DOSE = 6 TABLETS TAKE THREE TABLETS BY MOUTH TWICE A DAY MAXIMUM DAILY DOSE = 6 TABLETS SOLD: 11/04/2019 [facility] 12.5 mg 10/04/2019 12:00:00 AM EST tablet 30 TAKE ONE TABLET BY MOUTH EVERY DAY TAKE ONE TABLET BY MOUTH EVERY DAY SOLD: 12/04/2019 [facility] 625 mg 10/04/2019 12:00:00 AM EST tablet 180 TAKE THREE TABLETS BY MOUTH TWICE A DAY MAXIMUM DAILY DOSE = 6 TABLETS TAKE THREE TABLETS BY MOUTH TWICE A DAY MAXIMUM DAILY DOSE = 6 TABLETS SOLD: 10/06/2019 [facility] 12.5 mg 10/04/2019 12:00:00 AM EST tablet 30 TAKE ONE TABLET BY MOUTH EVERY DAY TAKE ONE TABLET BY MOUTH EVERY DAY SOLD: 01/31/2020 [facility] 12.5 mg 10/04/2019 12:00:00 AM EST tablet 30 TAKE ONE TABLET BY MOUTH EVERY DAY TAKE ONE TABLET BY MOUTH EVERY DAY SOLD: 01/01/2020 [facility] 12.5 mg 10/04/2019 12:00:00 AM EST tablet 30 TAKE ONE TABLET BY MOUTH EVERY DAY TAKE ONE TABLET BY MOUTH EVERY DAY SOLD: 02/26/2020 [facility] 40 mg 09/28/2019 12:00:00 AM EST tablet,delayed release (DR/EC) 90 TAKE ONE TABLET BY MOUTH EVERY DAY TAKE ONE TABLET BY MOUTH EVERY DAY SOLD: 10/02/2019 [facility] 250 mg 09/23/2019 12:00:00 AM EST tablet 6 TAKE TWO TABLETS BY MOUTH AT ONCE ON THE FIRST DAY THEN TAKE ONE DAILY THEREAFTER TAKE TWO TABLETS BY MOUTH AT ONCE ON THE FIRST DAY THEN TAKE ONE DAILY THEREAFTER SOLD: 09/23/2019 [facility] Dextromethorphan Hydrobromide 2 MG/ML / Guaifenesin 20 MG/ML Oral Solution Dextromethorphan-Guaifenesin 09/23/2019 12:00:00 AM EST ORAL completed [facility] ([facility] Albuterol 0.83 MG/ML Inhalant Solution Albuterol Sulfate 0 09/23/2019 12:00:00 AM EST active [facility] ([facility] Azithromycin 250 MG Oral Tablet [Zithromax] Zithromax 09/23/2019 12:00:00 AM EST completed [facility] ([facility] 2.5 mg /3 mL (0.083 %) 09/23/2019 12:00:00 AM EST solu tion for nebulization 75 1 VIAL VIA NEBULIZER EVERY 6 HOURS 1 VIAL VIA NE BULIZER EVERY 6 HOURS SOLD: 09/23/2019 [facility] 500 mg 09/20/2019 12:00:00 AM EST capsule 21 TAKE ONE CAPSULE BY MOUTH EVERY 8 HOURS TAKE ONE CAPSULE BY MOUTH EVERY 8 HOURS SOLD: 09/20/2019 [facility] 10 mg 09/09/2019 12:00:00 AM EST tablet 90 TAKE ONE TABLET BY MOUTH EVERY DAY TAKE ONE TABLET BY MOUTH EVERY DAY SOLD: 09/10/2019 [facility] 0.5 mg 08/31/2019 12:00:00 AM EST tablet 90 TAKE ONE TABLET BY MOUTH THREE TIMES A DAY CAPSULE NEEDED FOR ANXIETY MAXIMUM DAILY DOSE = THREE TABLETS TAKE ONE TABLET BY MOUTH THREE TIMES A DAY CAPSULE NEEDED FOR ANXIETY MAXIMUM DAILY DOSE = THREE TABLETS SOLD: 09/02/2019 [facility] 12.5 mg 05/09/2019 12:00:00 AM EDT tablet 30 TAKE ONE TABLET BY MOUTH EVERY DAY TAKE ONE TABLET BY MOUTH EVERY DAY SOLD: 09/07/2019 [facility] 5 mg 05/01/2019 12:00:00 AM EDT tablet 90 TAKE ONE TABLET BY MOUTH EVERY DAY TAKE ONE TABLET BY MOUTH EVERY DAY SOLD: 10/30/2019 [facility] 500 mg 02/23/2019 12:00:00 AM EDT tablet 60 TAKE ONE TABLET BY MOUTH TWICE A DAY TAKE ONE TABLET BY MOUTH TWICE A DAY SOLD: 02/20/2020 [facility] 500 mg 02/23/2019 12:00:00 AM EDT tablet 60 TAKE ONE TABLET BY MOUTH TWICE A DAY TAKE ONE TABLET BY MOUTH TWICE A DAY SOLD: 12/04/2019 [facility] 625 mg 02/04/2019 12:00:00 AM EDT tablet 180 TAKE THREE TABLETS BY MOUTH TWICE A DAY TAKE THREE TABLETS BY MOUTH TWICE A DAY SOLD: 09/07/2019 [facility] Insurance Providers Payer name Policy type / Coverage type Policy ID Covered alliance party ID Covered alliance party's relationship to joyner Policy [place] Plan Information MEDICARE COMPLETE [id number] SP [id number] MEDICARE COMPLETE [id number] SP [id number] [employer] UNHC MEDICARE O/P [id number] 18 [id number] [employer] ([place]) - [employer] Other 0 Self 0 MEDICARE COMPLETE-UHC O [id number] S [id number] United HLCR/Medicare Solu Commercial [id number] Self [id number] [employer] Commercial [id number] Self [id number] United HLCR/Medicare Solu Commercial [id number] Self [id number] MEDICARE COMPLETE-UHC O [id number] S [id number] [employer] UNHC MEDICARE O/P UNAVAILABLE UNAVAILABLE [facility] Medicare Complete [id number] [id number] [facility] Medicare Complete [id number] MEDICARE COMPLETE [id number] SP [id number] United HLCR/Medicare Solu Commercial [id number] Self [id number] United HLCR/Medicare Solu Commercial [id number] Self [id number] [facility] [id number] SP [id number] LIOR [place] [id number] SP [id number] United HLCR/Medicare Solu Commercial Self UNITED HEALTHCARE O [id number] S [id number] [facility] MEDICARE [id number] Kristal [id number] LIOR [place] [id number] SP [id number] LIOR [place] UNAVAILABLE SP UNAVAILABLE [employer] COMP [id number] SP [id number] [employer] WORK[employer] COMP [id number] GB 01 SP [id number] [employer]URE [employer]ONS [id number] SP [id number] HEALTH NET ANABELLE [id number] SP [id number] [employer] HE[employer] INSURANCE [id number] SP [id number] [employer] [place] PPO 302/307 [id number] SP [id number] [employer] [place] 306/806 [id number] SP [id number] [employer]-O/P UNAVAILABLE UNAVAILABLE MEDICARE COMPLETE-UHC P [id number] S [id number] Problems, Conditions, and Diagnoses Code Display Name Description Problem Type Effective Dates Data Source(s) 51648155 Type 2 diabetes mellitus Type 2 diabetes mellitus Prob ricardo 09/05/2020 12:00:00 AM NORA HARVEY ([facility] 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 Macular Puckering Problem 03/15/2020 12:00:00 AM EDT SARAH (Demarcus Warren MD [facility]) V43.1 Pseudophakia Pseudophakia Problem 03/15/2020 12:00:00 A M EDT SARAH (Demarcus Warren MD [facility]) 401.9 Essential Hypertension Essential Hypertension Problem 03/15/2020 12:00:00 AM EDT SARAH (Demarcus Warren MD [facility]) [id number] History of Nicotine Dependence History of Nicotine Dep endence Problem 03/15/2020 12:00:00 AM EDT SARAH (Demarcus Warren MD [facility]) 250.00 Diabetes Mellitus Type 2 Without Complic ation Diabetes Mellitus Type 2 Without Complication Problem 03/15/2020 12:00:00 AM EDT SARAH (Yovany Warren MD [facility]) [id number] Posterior Capsule Opacification Eccentri c Capsule Left Eye 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 Problem 03/15 12:00:00 AM EDT SARAH (Demarcus Warren MD [facility]) Z79.84 Taking Medication For Diabetes Long-term Use of Oral Hypoglycemics Taking Medication For Diabetes Long-term Use of Oral Hypoglycemics Problem 03/15/2020 12:00:00 AM EDT SARAH (Demarcus Warren MD [facility]) 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 (current) use of oral hypoglycemic drugs Diagnosis 09/05/2020 05:41:00 PM [facility] I10 Essential (primary) hypertension Essential (primary) h ypertension Diagnosis 09/05/2020 05:41:00 PM [facility] E119 Type 2 diabetes mellitus without complic ations Type 2 diabetes mellitus without complications Diagnosis 09/05/2020 05:41:00 PM [facility] Surgeries/Procedures Procedure Description Date Indications Data Source(s) 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 06/30/2020 12:00:00 AM EDT SARAH (Demarcus hadley MD [facility]) Surgical / procedural history Tubal Lig ation-1970, Lumpectomy Left-1992 Right- 1996 both benign, Needle Biopsy-2007, Colonoscopy 10/01/2012, Esophagogastroduodenoscopy 10/01/2012 Surgical / procedural history Tubal Ligation-1970, Lumpectomy Left-1992 Right- 1996 both benign, Needle Biopsy-2007, Colonoscopy 10/01/2012, Esophagogastroduodenoscopy 10/01/2012 06/30/2020 12:00:00 AM EDT SARAH (Demarcus Warren MD [facility]) Intermediate Eye Exam Established Patient Intermediate Eye Exam Established Patient 06/12/2020 12:00:00 AM EDT SARAH (Raphael Warren MD [facility]) Comprehensive Eye Exam Comprehensive Eye Exam 03/15/2020 12:00:00 A M EDKathrine SMITH (Demarcus Warren MD [facility]) Results ID Date Data Source [id number] 10/16/2020 12:00:00 AM EST [facility] Name Value Range Interpretation Code Description Data Aamrilis e(s) Supporting Document(s) SARS-CoV2 Rapid Antigen Positive [facility] This lab [facility] and reported by [facility]. ID Date Data Source [id number] 09/05/2020 11:12:00 AM EST [facility] ([facility] Name Value Range Interpretation Code Description Data Amarilis rce(s) Supporting Document(s) Specific [place] 1.020 1.00-1.03 [facility] ([facility] Color Urine Laboratory test result M EDENT ([facility] Appearance of Urine Laboratory test result [facility] ([facility] Bilirubin.total [Presence] in Urine by Test strip Laboratory test res ult [facility] ([facility] PH Urine 5.0 5.0-8.0 [facility] ([facility] Glucose Urine Laboratory test result [facility] ([facility] Blood Urine Laboratory test result M EDENT ([facility] Ketones Laboratory test result [facility] ([facility] Protein Urine Laboratory test result [facility] ([facility] Leukocytes Laboratory test result Above high normal [facility] ([facility] Nitrite Laboratory test result [facility] ([facility] Urobilinogen 0.2 EU/dl 0.2-1.0 [facility] ([facility] ID Date Data Source [id number] 09/05/2020 10:44:00 AM EST [facility] ([facility] Name Value Range Interpretation Code Description Data Amarilis rce(s) Supporting Document(s) Hemoglobin A1c/Hemoglobin.total in Blood 6.8 % 4.4-6.1 Above high normal [facility] ([facility] {A1] {HB] ID Date Data Source [id number] 09/05/2020 10:44:00 AM EST [facility] ([facility] Name Value Range Interpretation Code Description Data Amarilis rce(s) Supporting Document(s) Chol 205 mg/dL 0-200 Above high normal [facility] ([facility] [facility] NORMAL RANGES Age WBC RBC HGB HCT [...] HCT IS 5% LESS SOURCE FOR DATA: [employer] 1800 OPERATION MANUAL( AUTOMATED BLOOD COUNTS AND [...] ADOLESCENTS REPRESENTS INDIVIDUALA AGED 2-19 YEARS EXCLUSIVE. Trig 143 mg/dL 40-200 [facility] ([facility] NORMAL RANGES Age WBC RBC HGB HCT [...] HCT IS 5% LESS SOURCE FOR DATA: [employer] 1800 OPERATION MANUAL( AUTOMATED BLOOD COUNTS AND [...] ADOLESCENTS REPRESENTS INDIVIDUALA AGED 2-19 YEARS EXCLUSIVE. Cholesterol in HDL [Mass/volume] in Serum or Plasma 63 mg/dL 45-65 [facility] ([facility] NORMAL RANGES Age WBC RBC HGB HCT [...] HCT IS 5% LESS SOURCE FOR DATA: [employer] 1800 OPERATION MANUAL( AUTOMATED BLOOD COUNTS AND [...] DESIRABLE: <130 MG/DL <110 MG/DL BORDERLINE-HIGH RISK: 130- 159 MG/DL 110-129 MG/DL HIGH RISK: >160 MG/DL >130 MG/DL *CHILDREN AND ADOLESCENTS REPRESENTS INDIVIDUALA AGED 2-19 YEARS EXCLUSIVE. LDL_C 114 Calc 75-129 [facility] ([facility] NORMAL RANGES Age WBC RBC HGB HCT [...] HCT IS 5% LESS SOURCE FOR DATA: [employer] 1800 OPERATION MANUAL( AUTOMATED BLOOD COUNTS AND [...] DESIRABLE: <130 MG/DL <110 MG/DL BORDERLINE-HIGH RISK: 130- 159 MG/DL 110-129 MG/DL HIGH RISK: >160 MG/DL >130 MG/DL *CHILDREN AND ADOLESCENTS REPRESENTS INDIVIDUALA AGED 2-19 YEARS EXCLUSIVE. Cho/HDL Ratio 3.3 Calc [facility] ([facility] NORMAL RANGES Age WBC RBC HGB HCT [...] HCT IS 5% LESS SOURCE FOR DATA: [employer] 1800 OPERATION MANUAL( AUTOMATED BLOOD COUNTS AND [...] DESIRABLE: <130 MG/DL <110 MG/DL BORDERLINE-HIGH RISK: 130- 159 MG/DL 110-129 MG/DL HIGH RISK: >160 MG/DL >130 MG/DL *CHILDREN AND ADOLESCENTS REPRESENTS INDIVIDUALA AGED 2-19 YEARS EXCLUSIVE. ID Date Data Source [id number] 09/05/2020 10:44:00 AM EST [facility] ([facility] Name Value Range Interpretation Code Description Data Aamrilis rce(s) Supporting Document(s) Creat 1.1 mg/dL 0.5-1.0 Above high normal [facility] ([facility] NORMAL RANGES Age WBC RBC HGB HCT [...] HCT IS 5% LESS SOURCE FOR DATA: [employer] 1800 OPERATION MANUAL( AUTOMATED BLOOD COUNTS AND [...] DESIRABLE: <130 MG/DL <110 MG/DL BORDERLINE-HIGH RISK: 130- 159 MG/DL 110-129 MG/DL HIGH RISK: >160 MG/DL >130 MG/DL *CHILDREN AND ADOLESCENTS REPRESENTS INDIVIDUALA AGED 2-19 YEARS EXCLUSIVE. BUN 25 mg/dL 8-23 Above high normal [facility] ([facility] NORMAL RANGES Age WBC RBC HGB HCT [...] HCT IS 5% LESS SOURCE FOR DATA: [employer] 1800 OPERATION MANUAL( AUTOMATED BLOOD COUNTS AND [...] DESIRABLE: <130 MG/DL <110 MG/DL BORDERLINE-HIGH RISK: 130- 159 MG/DL 110-129 MG/DL HIGH RISK: >160 MG/DL >130 MG/DL *CHILDREN AND ADOLESCENTS REPRESENTS INDIVIDUALA AGED 2-19 YEARS EXCLUSIVE. Glu 132 mg/dL 70-110 Above high normal [facility] ([facility] NORMAL RANGES Age WBC RBC HGB HCT [...] HCT IS 5% LESS SOURCE FOR DATA: [employer] 1800 OPERATION MANUAL( AUTOMATED BLOOD COUNTS [...] DESIRABLE: <130 MG/DL <110 MG/DL BORDERLINE-HIGH RISK: 130- 159 MG/DL 110-129 MG/DL HIGH RISK: >160 MG/DL >130 MG/DL *CHILDREN AND ADOLESCENTS REPRESENTS INDIVIDUALA AGED 2-19 YEARS EXCLUSIVE. BUN/Creatinine Ratio 22.2 CALC [facility] ([facility] NORMAL RANGES Age WBC RBC HGB HCT [...] HCT IS 5% LESS SOURCE FOR DATA: [employer] 1800 OPERATION MANUAL( AUTOMATED BLOOD COUNTS AND [...] DESIRABLE: <130 MG/DL <110 MG/DL BORDERLINE-HIGH RISK: 130- 159 MG/DL 110-129 MG/DL HIGH RISK: >160 MG/DL >130 MG/DL *CHILDREN AND ADOLESCENTS REPRESENTS INDIVIDUALA AGED 2-19 YEARS EXCLUSIVE. Na 135 mmol/L 136-145 Below low normal [facility] ( [facility] NORMAL RANGES Age WBC RBC HGB HCT [...] HCT IS 5% LESS SOURCE FOR DATA: [employer] 1800 OPERATION MANUAL( AUTOMATED BLOOD COUNTS AND [...] DESIRABLE: <130 MG/DL <110 MG/DL BORDERLINE-HIGH RISK: 130- 159 MG/DL 110-129 MG/DL HIGH RISK: >160 MG/DL >130 MG/DL *CHILDREN AND ADOLESCENTS REPRESENTS INDIVIDUALA AGED 2-19 YEARS EXCLUSIVE. K 4.7 mmol/L 3.5-5.1 [facility] NORMAL RANGES Age WBC RBC HGB HCT [...] HCT IS 5% LESS SOURCE FOR DATA: [employer] 1800 OPERATION MANUAL( AUTOMATED BLOOD COUNTS [...] DESIRABLE: <130 MG/DL <110 MG/DL BORDERLINE-HIGH RISK: 130- 159 MG/DL 110-129 MG/DL HIGH RISK: >160 MG/DL >130 MG/DL *CHILDREN AND ADOLESCENTS REPRESENTS INDIVIDUALA AGED 2-19 YEARS EXCLUSIVE. CL 97.3 mmol/L 98.0-107.0 Below low normal [facility] ([facility] NORMAL RANGES Age WBC RBC HGB HCT [...] HCT IS 5% LESS SOURCE FOR DATA: [employer] 1800 OPERATION MANUAL( AUTOMATED BLOOD COUNTS AND [...] DESIRABLE: <130 MG/DL <110 MG/DL BORDERLINE-HIGH RISK: 130- 159 MG/DL 110-129 MG/DL HIGH RISK: >160 MG/DL >130 MG/DL *CHILDREN AND ADOLESCENTS REPRESENTS INDIVIDUALA AGED 2-19 YEARS EXCLUSIVE. Co2 23.2 mmol/L 22.0-29.0 [facility] ([facility] NORMAL RANGES Age WBC RBC HGB HCT [...] HCT IS 5% LESS SOURCE FOR DATA: [employer] 1800 OPERATION MANUAL( AUTOMATED BLOOD COUNTS AND [...] DESIRABLE: <130 MG/DL <110 MG/DL BORDERLINE-HIGH RISK: 130- 159 MG/DL 110-129 MG/DL HIGH RISK: >160 MG/DL >130 MG/DL *CHILDREN AND ADOLESCENTS REPRESENTS INDIVIDUALA AGED 2-19 YEARS EXCLUSIVE. CA 9.7 mg/dL 8.6-10.2 [facility] ([facility] NORMAL RANGES Age WBC RBC HGB HCT [...] HCT IS 5% LESS SOURCE FOR DATA: [employer] 1800 OPERATION MANUAL( AUTOMATED BLOOD COUNTS AND [...] DESIRABLE: <130 MG/DL <110 MG/DL BORDERLINE-HIGH RISK: 130- 159 MG/DL 110-129 MG/DL HIGH RISK: >160 MG/DL >130 MG/DL *CHILDREN AND ADOLESCENTS REPRESENTS INDIVIDUALA AGED 2-19 YEARS EXCLUSIVE. TP 6.9 g/dL 6.6-8.7 [facility] ([facility] NORMAL RANGES Age WBC RBC HGB HCT [...] HCT IS 5% LESS SOURCE FOR DATA: [employer] 1800 OPERATION MANUAL( AUTOMATED BLOOD COUNTS AND [...] DESIRABLE: <130 MG/DL <110 MG/DL BORDERLINE-HIGH RISK: 130- 159 MG/DL 110-129 MG/DL HIGH RISK: >160 MG/DL >130 MG/DL *CHILDREN AND ADOLESCENTS REPRESENTS INDIVIDUALA AGED 2-19 YEARS EXCLUSIVE. Globulin 2.5 CALC [facility] ([facility] NORMAL RANGES Age WBC RBC HGB HCT [...] HCT IS 5% LESS SOURCE FOR DATA: [employer] 1800 OPERATION MANUAL( AUTOMATED BLOOD COUNTS AND [...] DESIRABLE: <130 MG/DL <110 MG/DL BORDERLINE-HIGH RISK: 130- 159 MG/DL 110-129 MG/DL HIGH RISK: >160 MG/DL >130 MG/DL *CHILDREN AND ADOLESCENTS REPRESENTS INDIVIDUALA AGED 2-19 YEARS EXCLUSIVE. Alb 4.5 g/dL 3.4-4.8 [facility] ([facility] NORMAL RANGES Age WBC RBC HGB HCT [...] HCT IS 5% LESS SOURCE FOR DATA: [employer] 1800 OPERATION MANUAL( AUTOMATED BLOOD COUNTS [...] DESIRABLE: <130 MG/DL <110 MG/DL BORDERLINE-HIGH RISK: 130- 159 MG/DL 110-129 MG/DL HIGH RISK: >160 MG/DL >130 MG/DL *CHILDREN AND ADOLESCENTS REPRESENTS INDIVIDUALA AGED 2-19 YEARS EXCLUSIVE. A/G Ratio 1.8 CALC [facility] ([facility] NORMAL RANGES Age WBC RBC HGB HCT [...] HCT IS 5% LESS SOURCE FOR DATA: [employer] 1800 OPERATION MANUAL( AUTOMATED BLOOD COUNTS AND [...] DESIRABLE: <130 MG/DL <110 MG/DL BORDERLINE-HIGH RISK: 130- 159 MG/DL 110-129 MG/DL HIGH RISK: >160 MG/DL >130 MG/DL *CHILDREN AND ADOLESCENTS REPRESENTS INDIVIDUALA AGED 2-19 YEARS EXCLUSIVE. Alp 79.2 U/L 35-129 [facility] ([facility] NORMAL RANGES Age WBC RBC HGB HCT [...] HCT IS 5% LESS SOURCE FOR DATA: [employer] 1800 OPERATION MANUAL( AUTOMATED BLOOD COUNTS AND [...] DESIRABLE: <130 MG/DL <110 MG/DL BORDERLINE-HIGH RISK: 130- 159 MG/DL 110-129 MG/DL HIGH RISK: >160 MG/DL >130 MG/DL *CHILDREN AND ADOLESCENTS REPRESENTS INDIVIDUALA AGED 2-19 YEARS EXCLUSIVE. Alt (SGPT) 30 U/L 0-41 [facility] ([facility] NORMAL RANGES Age WBC RBC HGB HCT [...] HCT IS 5% LESS SOURCE FOR DATA: [employer] 1800 OPERATION MANUAL( AUTOMATED BLOOD COUNTS AND [...] DESIRABLE: <130 MG/DL <110 MG/DL BORDERLINE-HIGH RISK: 130- 159 MG/DL 110-129 MG/DL HIGH RISK: >160 MG/DL >130 MG/DL *CHILDREN AND ADOLESCENTS REPRESENTS INDIVIDUALA AGED 2-19 YEARS EXCLUSIVE. Ast (Sgot) 38 U/L 0-40 [facility] ([facility] NORMAL RANGES Age WBC RBC HGB HCT [...] HCT IS 5% LESS SOURCE FOR DATA: [employer] 1800 OPERATION MANUAL( AUTOMATED BLOOD COUNTS AND [...] DESIRABLE: <130 MG/DL <110 MG/DL BORDERLINE-HIGH RISK: 130- 159 MG/DL 110-129 MG/DL HIGH RISK: >160 MG/DL >130 MG/DL *CHILDREN AND ADOLESCENTS REPRESENTS INDIVIDUALA AGED 2-19 YEARS EXCLUSIVE. Tbili 0.78 mg/dL 0.0-1.2 [facility] ([facility] NORMAL RANGES Age WBC RBC HGB HCT [...] HCT IS 5% LESS SOURCE FOR DATA: [employer] 1800 OPERATION MANUAL( AUTOMATED BLOOD COUNTS AND [...] DESIRABLE: <130 MG/DL <110 MG/DL BORDERLINE-HIGH RISK: 130- 159 MG/DL 110-129 MG/DL HIGH RISK: >160 MG/DL >130 MG/DL *CHILDREN AND ADOLESCENTS REPRESENTS INDIVIDUALA AGED 2-19 YEARS EXCLUSIVE. eGFR 56 # [facility] ( [facility] NORMAL RANGES Age WBC RBC HGB HCT [...] HCT IS 5% LESS SOURCE FOR DATA: [employer] 1800 OPERATION MANUAL( AUTOMATED BLOOD COUNTS [...] DESIRABLE: <130 MG/DL <110 MG/DL BORDERLINE-HIGH RISK: 130- 159 MG/DL 110-129 MG/DL HIGH RISK: >160 MG/DL >130 MG/DL *CHILDREN AND ADOLESCENTS REPRESENTS INDIVIDUALA AGED 2-19 YEARS EXCLUSIVE. Osmolality-Calculated 277.1 CALC [facility] ([facility] NORMAL RANGES Age WBC RBC HGB HCT [...] HCT IS 5% LESS SOURCE FOR DATA: [employer] 1800 OPERATION MANUAL( AUTOMATED BLOOD COUNTS AND [...] DESIRABLE: <130 MG/DL <110 MG/DL BORDERLINE-HIGH RISK: 130- 159 MG/DL 110-129 MG/DL HIGH RISK: >160 MG/DL >130 MG/DL *CHILDREN AND ADOLESCENTS REPRESENTS INDIVIDUALA AGED 2-19 YEARS EXCLUSIVE. Anion Gap 20 mmol/L [facility] NORMAL RANGES Age WBC RBC HGB HCT [...] HCT IS 5% LESS SOURCE FOR DATA: [employer] 1800 OPERATION MANUAL( AUTOMATED BLOOD COUNTS AND [...] DESIRABLE: <130 MG/DL <110 MG/DL BORDERLINE-HIGH RISK: 130- 159 MG/DL 110-129 MG/DL HIGH RISK: >160 MG/DL >130 MG/DL *CHILDREN AND ADOLESCENTS REPRESENTS INDIVIDUALA AGED 2-19 YEARS EXCLUSIVE. eGFR Non-Afr. [place]er 48 # [facility] ([facility] NORMAL RANGES Age WBC RBC HGB HCT [...] HCT IS 5% LESS SOURCE FOR DATA: [employer] 1800 OPERATION MANUAL( AUTOMATED BLOOD COUNTS AND [...] DESIRABLE: <130 MG/DL <110 MG/DL BORDERLINE-HIGH RISK: 130- 159 MG/DL 110-129 MG/DL HIGH RISK: >160 MG/DL >130 MG/DL *CHILDREN AND ADOLESCENTS REPRESENTS INDIVIDUALA AGED 2-19 YEARS EXCLUSIVE. ID Date Data Source [id number] 09/05/2020 10:44:00 AM NORA HARVEY ([facility] Name Value Range Interpretation Code Description Data Amarilis rce(s) Supporting Document(s) Creatine kinase [Enzymatic activity/volume] in Serum or Plasma 66 U /L 26-192 [facility] ([facility] NORMAL RANGES Age WBC RBC HGB HCT [...] HCT IS 5% LESS SOURCE FOR DATA: [employer] 1800 OPERATION MANUAL( AUTOMATED BLOOD COUNTS AND [...] ADOLESCENTS REPRESENTS INDIVIDUALA AGED 2-19 YEARS EXCLUSIVE. ID Date Data Source [id number] 09/05/2020 10:44:00 AM EST [facility] ([facility] Name Value Range Interpretation Code Description Data Amarilis rce(s) Supporting Document(s) WBC 6.1 10E3/uL 4.1-10.9 [facility] ([facility] NORMAL RANGES Age WBC RBC HGB HCT [...] HCT IS 5% LESS SOURCE FOR DATA: [employer] 1800 OPERATION MANUAL( AUTOMATED BLOOD COUNTS AND [...] ADOLESCENTS REPRESENTS INDIVIDUALA AGED 2-19 YEARS EXCLUSIVE. HGB 13.0 g/dL 12.0-18.0 [facility] ([facility] NORMAL RANGES Age WBC RBC HGB HCT [...] HCT IS 5% LESS SOURCE FOR DATA: [employer] 1800 OPERATION MANUAL( AUTOMATED BLOOD COUNTS AND [...] ADOLESCENTS REPRESENTS INDIVIDUALA AGED 2-19 YEARS EXCLUSIVE. HCT 38.6 % 37.0-51.0 [facility] ([facility] NORMAL RANGES Age WBC RBC HGB HCT [...] HCT IS 5% LESS SOURCE FOR DATA: [employer] 1800 OPERATION MANUAL( AUTOMATED BLOOD COUNTS AND [...] ADOLESCENTS REPRESENTS INDIVIDUALA AGED 2-19 YEARS EXCLUSIVE. RBC 4.30 10E6/uL 4.20-6.30 [facility] ([facility] NORMAL RANGES Age WBC RBC HGB HCT [...] HCT IS 5% LESS SOURCE FOR DATA: [employer] 1800 OPERATION MANUAL( AUTOMATED BLOOD COUNTS AND [...] ADOLESCENTS REPRESENTS INDIVIDUALA AGED 2-19 YEARS EXCLUSIVE. MCH 30.2 pg 26.0-32.0 [facility] ([facility] NORMAL RANGES Age WBC RBC HGB HCT [...] HCT IS 5% LESS SOURCE FOR DATA: [employer] 1800 OPERATION MANUAL( AUTOMATED BLOOD COUNTS AND [...] ADOLESCENTS REPRESENTS INDIVIDUALA AGED 2-19 YEARS EXCLUSIVE. MCHC 33.7 g/dL 31.0-36.0 [facility] ([facility] NORMAL RANGES Age WBC RBC HGB HCT [...] HCT IS 5% LESS SOURCE FOR DATA: [employer] 1800 OPERATION MANUAL( AUTOMATED BLOOD COUNTS AND [...] ADOLESCENTS REPRESENTS INDIVIDUALA AGED 2-19 YEARS EXCLUSIVE. MCV 89.8 fL 80.0-97.0 [facility] ([facility] NORMAL RANGES Age WBC RBC HGB HCT [...] HCT IS 5% LESS SOURCE FOR DATA: [employer] 1800 OPERATION MANUAL( AUTOMATED BLOOD COUNTS AND [...] ADOLESCENTS REPRESENTS INDIVIDUALA AGED 2-19 YEARS EXCLUSIVE. PLT 210 10E3/uL 140-440 [facility] ([facility] NORMAL RANGES Age WBC RBC HGB HCT [...] HCT IS 5% LESS SOURCE FOR DATA: [employer] 1800 OPERATION MANUAL( AUTOMATED BLOOD COUNTS AND [...] ADOLESCENTS REPRESENTS INDIVIDUALA AGED 2-19 YEARS EXCLUSIVE. RDW-CV 13.6 % 11.5-14.5 [facility] ([facility] NORMAL RANGES Age WBC RBC HGB HCT [...] ADOLESCENTS REPRESENTS INDIVIDUALA AGED 2-19 YEARS EXCLUSIVE. Lym% 38.5 % 10.0-58.5 [facility] ([facility] NORMAL RANGES Age WBC RBC HGB HCT [...] HCT IS 5% LESS SOURCE FOR DATA: [employer] 1800 OPERATION MANUAL( AUTOMATED BLOOD COUNTS AND [...] ADOLESCENTS REPRESENTS INDIVIDUALA AGED 2-19 YEARS EXCLUSIVE. Neut% 55.8 % 37.0-92.0 [facility] ([facility] NORMAL RANGES Age WBC RBC HGB HCT [...] HCT IS 5% LESS SOURCE FOR DATA: [employer] 1800 OPERATION MANUAL( AUTOMATED BLOOD COUNTS AND [...] ADOLESCENTS REPRESENTS INDIVIDUALA AGED 2-19 YEARS EXCLUSIVE. MXD% 5.7 % 0.1-24.0 [facility] ([facility] NORMAL RANGES Age WBC RBC HGB HCT [...] HCT IS 5% LESS SOURCE FOR DATA: [employer] 1800 OPERATION MANUAL( AUTOMATED BLOOD COUNTS AND [...] ADOLESCENTS REPRESENTS INDIVIDUALA AGED 2-19 YEARS EXCLUSIVE. MXD# 0.3 10E3/uL 0.0-1.8 [facility] ([facility] NORMAL RANGES Age WBC RBC HGB HCT [...] HCT IS 5% LESS SOURCE FOR DATA: [employer] 1800 OPERATION MANUAL( AUTOMATED BLOOD COUNTS AND [...] ADOLESCENTS REPRESENTS INDIVIDUALA AGED 2-19 YEARS EXCLUSIVE. Lym# 2.3 10E3/uL 0.6-4.1 [facility] ([facility] NORMAL RANGES Age WBC RBC HGB HCT [...] HCT IS 5% LESS SOURCE FOR DATA: [employer] 1800 OPERATION MANUAL( AUTOMATED BLOOD COUNTS AND [...] ADOLESCENTS REPRESENTS INDIVIDUALA AGED 2-19 YEARS EXCLUSIVE. Neut# 3.5 % 2.0-7.8 [facility] ([facility] NORMAL RANGES Age WBC RBC HGB HCT [...] HCT IS 5% LESS SOURCE FOR DATA: [employer] 1800 OPERATION MANUAL( AUTOMATED BLOOD COUNTS [...] ADOLESCENTS REPRESENTS INDIVIDUALA AGED 2-19 YEARS EXCLUSIVE. MPV 10.2 fL 9.0-13.0 [facility] ([facility] NORMAL RANGES Age WBC RBC HGB HCT [...] HCT IS 5% LESS SOURCE FOR DATA: [employer] 1800 OPERATION MANUAL( AUTOMATED BLOOD COUNTS AND [...] ADOLESCENTS REPRESENTS INDIVIDUALA AGED 2-19 YEARS EXCLUSIVE. ID Date Data Source [id number] 09/05/2020 08:41:00 PM EST [facility] Name Value Range Interpretation Code Description Data Amarilis rce(s) Supporting Document(s) Hemoglobin A1c/Hemoglobin.total in Blood 6.8 % 4.4 - 6.1 H [facility] {A1]{HB] ID Date Data Source [id number] 06/01/2020 10:27:00 AM EDT [facility] ([facility] Name Value Range Interpretation Code Description Data Amarilis rce(s) Supporting Document(s) Color Urine Laboratory test result M [facility] ([facility] PH Urine 5.0 5.0-8.0 [facility] ([facility] Specific [place] 1.020 1.00-1.03 [facility] ([facility] Appearance of Urine Laboratory test result [facility] ([facility] Bilirubin.total [Presence] in Urine by Test strip Laboratory test res ult [facility] ([facility] Glucose Urine Laboratory test result [facility] ([facility] Ketones Laboratory test result [facility] ([facility] Protein Urine Laboratory test result [facility] ([facility] Blood Urine Laboratory test result M [facility] ([facility] Urobilinogen 0.2 EU/dl 0.2-1.0 [facility] ([facility] Nitrite Laboratory test result [facility] ([facility] Leukocytes Laboratory test result [facility] ([facility] ID Date Data Source [id number] 06/01/2020 10:26:00 AM EDT [facility] ([facility] Name Value Range Interpretation Code Description Data Amarilis rce(s) Supporting Document(s) Alb 10 mg/L 1-30 [facility] ([facility] A/C Ratio Laboratory test result [facility] ([facility] Creatinine, Urine 50 mg/dL 10-300 [facility] ([facility] ID Date Data Source [id number] 06/01/2020 09:56:00 AM EDT [facility] ([facility] Name Value Range Interpretation Code Description Data Amarilis rce(s) Supporting Document(s) Chol 222 mg/dL 0-200 Above high normal [facility] ([facility] NORMAL RANGES Age WBC RBC HGB HCT [...] HCT IS 5% LESS SOURCE FOR DATA: [employer] 1800 OPERATION MANUAL( AUTOMATED BLOOD COUNTS AND [...] DESIRABLE: <130 MG/DL <110 MG/DL BORDERLINE-HIGH RISK: 130- 159 MG/DL 110-129 MG/DL HIGH RISK: >160 MG/DL >130 MG/DL *CHILDREN AND ADOLESCENTS REPRESENTS INDIVIDUALA AGED 2-19 YEARS EXCLUSIVE. Trig 169 mg/dL 40-200 [facility] ([facility] NORMAL RANGES Age WBC RBC HGB HCT [...] HCT IS 5% LESS SOURCE FOR DATA: [employer] 1800 OPERATION MANUAL( AUTOMATED BLOOD COUNTS AND [...] DESIRABLE: <130 MG/DL <110 MG/DL BORDERLINE-HIGH RISK: 130- 159 MG/DL 110-129 MG/DL HIGH RISK: >160 MG/DL >130 MG/DL *CHILDREN AND ADOLESCENTS REPRESENTS INDIVIDUALA AGED 2-19 YEARS EXCLUSIVE. LDL_C 122 Calc 75-129 [facility] ([facility] NORMAL RANGES Age WBC RBC HGB HCT [...] HCT IS 5% LESS SOURCE FOR DATA: [employer] 1800 OPERATION MANUAL( AUTOMATED BLOOD COUNTS AND [...] DESIRABLE: <130 MG/DL <110 MG/DL BORDERLINE-HIGH RISK: 130- 159 MG/DL 110-129 MG/DL HIGH RISK: >160 MG/DL >130 MG/DL *CHILDREN AND ADOLESCENTS REPRESENTS INDIVIDUALA AGED 2-19 YEARS EXCLUSIVE. Cho/HDL Ratio 3.4 CALC [facility] ([facility] NORMAL RANGES Age WBC RBC HGB HCT [...] HCT IS 5% LESS SOURCE FOR DATA: [employer] 1800 OPERATION MANUAL( AUTOMATED BLOOD COUNTS AND [...] DESIRABLE: <130 MG/DL <110 MG/DL BORDERLINE-HIGH RISK: 130- 159 MG/DL 110-129 MG/DL HIGH RISK: >160 MG/DL >130 MG/DL *CHILDREN AND ADOLESCENTS REPRESENTS INDIVIDUALA AGED 2-19 YEARS EXCLUSIVE. Cholesterol in HDL [Mass/volume] in Serum or Plasma 66 mg/dL 45-65 Above high normal [facility] ([facility] NORMAL RANGES Age WBC RBC HGB HCT [...] HCT IS 5% LESS SOURCE FOR DATA: [employer] 1800 OPERATION MANUAL( AUTOMATED BLOOD COUNTS AND [...] DESIRABLE: <130 MG/DL <110 MG/DL BORDERLINE-HIGH RISK: 130- 159 MG/DL 110-129 MG/DL HIGH RISK: >160 MG/DL >130 MG/DL *CHILDREN AND ADOLESCENTS REPRESENTS INDIVIDUALA AGED 2-19 YEARS EXCLUSIVE. ID Date Data Source [id number] 06/01/2020 09:56:00 AM EDT [facility] ([facility] Name Value Range Interpretation Code Description Data Amarilis rce(s) Supporting Document(s) Glu 166 mg/dL 70-110 Above high normal [facility] ([facility] NORMAL RANGES Age WBC RBC HGB HCT [...] HCT IS 5% LESS SOURCE FOR DATA: [employer] 1800 OPERATION MANUAL( AUTOMATED BLOOD COUNTS AND [...] DESIRABLE: <130 MG/DL <110 MG/DL BORDERLINE-HIGH RISK: 130- 159 MG/DL 110-129 MG/DL HIGH RISK: >160 MG/DL >130 MG/DL *CHILDREN AND ADOLESCENTS REPRESENTS INDIVIDUALA AGED 2-19 YEARS EXCLUSIVE. Creat 1.0 mg/dL 0.5-1.0 [facility] ([facility] NORMAL RANGES Age WBC RBC HGB HCT [...] HCT IS 5% LESS SOURCE FOR DATA: [employer] 1800 OPERATION MANUAL( AUTOMATED BLOOD COUNTS AND [...] DESIRABLE: <130 MG/DL <110 MG/DL BORDERLINE-HIGH RISK: 130- 159 MG/DL 110-129 MG/DL HIGH RISK: >160 MG/DL >130 MG/DL *CHILDREN AND ADOLESCENTS REPRESENTS INDIVIDUALA AGED 2-19 YEARS EXCLUSIVE. BUN 25 mg/dL 8-23 Above high normal [facility] ([facility] NORMAL RANGES Age WBC RBC HGB HCT [...] HCT IS 5% LESS SOURCE FOR DATA: [employer] 1800 OPERATION MANUAL( AUTOMATED BLOOD COUNTS AND [...] DESIRABLE: <130 MG/DL <110 MG/DL BORDERLINE-HIGH RISK: 130- 159 MG/DL 110-129 MG/DL HIGH RISK: >160 MG/DL >130 MG/DL *CHILDREN AND ADOLESCENTS REPRESENTS INDIVIDUALA AGED 2-19 YEARS EXCLUSIVE. Na 136 mmol/L 136-145 [facility] NORMAL RANGES Age WBC RBC HGB HCT [...] HCT IS 5% LESS SOURCE FOR DATA: [employer] 1800 OPERATION MANUAL( AUTOMATED BLOOD COUNTS AND [...] DESIRABLE: <130 MG/DL <110 MG/DL BORDERLINE-HIGH RISK: 130- 159 MG/DL 110-129 MG/DL HIGH RISK: >160 MG/DL >130 MG/DL *CHILDREN AND ADOLESCENTS REPRESENTS INDIVIDUALA AGED 2-19 YEARS EXCLUSIVE. BUN/Creatinine Ratio 25.3 CALC [facility] ([facility] NORMAL RANGES Age WBC RBC HGB HCT [...] HCT IS 5% LESS SOURCE FOR DATA: [employer] 1800 OPERATION MANUAL( AUTOMATED BLOOD COUNTS AND [...] DESIRABLE: <130 MG/DL <110 MG/DL BORDERLINE-HIGH RISK: 130- 159 MG/DL 110-129 MG/DL HIGH RISK: >160 MG/DL >130 MG/DL *CHILDREN AND ADOLESCENTS REPRESENTS INDIVIDUALA AGED 2-19 YEARS EXCLUSIVE. CL 102.3 mmol/L 98.0-107.0 [facility] ([facility] NORMAL RANGES Age WBC RBC HGB HCT [...] HCT IS 5% LESS SOURCE FOR DATA: [employer] 1800 OPERATION MANUAL( AUTOMATED BLOOD COUNTS AND [...] DESIRABLE: <130 MG/DL <110 MG/DL BORDERLINE-HIGH RISK: 130- 159 MG/DL 110-129 MG/DL HIGH RISK: >160 MG/DL >130 MG/DL *CHILDREN AND ADOLESCENTS REPRESENTS INDIVIDUALA AGED 2-19 YEARS EXCLUSIVE. K 4.5 mmol/L 3.5-5.1 CANDICE ([facility] NORMAL RANGES Age WBC RBC HGB HCT [...] HCT IS 5% LESS SOURCE FOR DATA: [employer] 1800 OPERATION MANUAL( AUTOMATED BLOOD COUNTS AND [...] DESIRABLE: <130 MG/DL <110 MG/DL BORDERLINE-HIGH RISK: 130- 159 MG/DL 110-129 MG/DL HIGH RISK: >160 MG/DL >130 MG/DL *CHILDREN AND ADOLESCENTS REPRESENTS INDIVIDUALA AGED 2-19 YEARS EXCLUSIVE. Co2 21.7 mmol/L 22.0-29.0 Below low normal MEDENT ([facility] NORMAL RANGES Age WBC RBC HGB HCT [...] HCT IS 5% LESS SOURCE FOR DATA: [employer] 1800 OPERATION MANUAL( AUTOMATED BLOOD COUNTS AND [...] DESIRABLE: <130 MG/DL <110 MG/DL BORDERLINE-HIGH RISK: 130- 159 MG/DL 110-129 MG/DL HIGH RISK: >160 MG/DL >130 MG/DL *CHILDREN AND ADOLESCENTS REPRESENTS INDIVIDUALA AGED 2-19 YEARS EXCLUSIVE. CA 10.1 mg/dL 8.6-10.2 MED[facility] ([facility] NORMAL RANGES Age WBC RBC HGB HCT [...] HCT IS 5% LESS SOURCE FOR DATA: [employer] 1800 OPERATION MANUAL( AUTOMATED BLOOD COUNTS AND [...] DESIRABLE: <130 MG/DL <110 MG/DL BORDERLINE-HIGH RISK: 130- 159 MG/DL 110-129 MG/DL HIGH RISK: >160 MG/DL >130 MG/DL *CHILDREN AND ADOLESCENTS REPRESENTS INDIVIDUALA AGED 2-19 YEARS EXCLUSIVE. TP 7.0 g/dL 6.6-8.7 [facility] ([facility] NORMAL RANGES Age WBC RBC HGB HCT [...] HCT IS 5% LESS SOURCE FOR DATA: [employer] 1800 OPERATION MANUAL( AUTOMATED BLOOD COUNTS AND [...] DESIRABLE: <130 MG/DL <110 MG/DL BORDERLINE-HIGH RISK: 130- 159 MG/DL 110-129 MG/DL HIGH RISK: >160 MG/DL >130 MG/DL *CHILDREN AND ADOLESCENTS REPRESENTS INDIVIDUALA AGED 2-19 YEARS EXCLUSIVE. A/G Ratio 1.9 CALC Departing ([facility] NORMAL RANGES Age WBC RBC HGB HCT [...] HCT IS 5% LESS SOURCE FOR DATA: [employer] 1800 OPERATION MANUAL( AUTOMATED BLOOD COUNTS AND [...] DESIRABLE: <130 MG/DL <110 MG/DL BORDERLINE-HIGH RISK: 130- 159 MG/DL 110-129 MG/DL HIGH RISK: >160 MG/DL >130 MG/DL *CHILDREN AND ADOLESCENTS REPRESENTS INDIVIDUALA AGED 2-19 YEARS EXCLUSIVE. Alb 4.6 g/dL 3.4-4.8 [facility] ([facility] NORMAL RANGES Age WBC RBC HGB HCT [...] HCT IS 5% LESS SOURCE FOR DATA: [employer] 1800 OPERATION MANUAL( AUTOMATED BLOOD COUNTS AND [...] DESIRABLE: <130 MG/DL <110 MG/DL BORDERLINE-HIGH RISK: 130- 159 MG/DL 110-129 MG/DL HIGH RISK: >160 MG/DL >130 MG/DL *CHILDREN AND ADOLESCENTS REPRESENTS INDIVIDUALA AGED 2-19 YEARS EXCLUSIVE. Alp 77.0 U/L 35-129 [facility] ([facility] NORMAL RANGES Age WBC RBC HGB HCT [...] DESIRABLE: <130 MG/DL <110 MG/DL BORDERLINE-HIGH RISK: 130- 159 MG/DL 110-129 MG/DL HIGH RISK: >160 MG/DL >130 MG/DL *CHILDREN AND ADOLESCENTS REPRESENTS INDIVIDUALA AGED 2-19 YEARS EXCLUSIVE. Globulin 2.4 CALC MED[facility] ([facility] NORMAL RANGES Age WBC RBC HGB HCT [...] HCT IS 5% LESS SOURCE FOR DATA: [employer] 1800 OPERATION MANUAL( AUTOMATED BLOOD COUNTS AND [...] DESIRABLE: <130 MG/DL <110 MG/DL BORDERLINE-HIGH RISK: 130- 159 MG/DL 110-129 MG/DL HIGH RISK: >160 MG/DL >130 MG/DL *CHILDREN AND ADOLESCENTS REPRESENTS INDIVIDUALA AGED 2-19 YEARS EXCLUSIVE. Alt (SGPT) 28 U/L 0-41 MEDENT ([facility] NORMAL RANGES Age WBC RBC HGB HCT [...] HCT IS 5% LESS SOURCE FOR DATA: [employer] 1800 OPERATION MANUAL( AUTOMATED BLOOD COUNTS AND [...] DESIRABLE: <130 MG/DL <110 MG/DL BORDERLINE-HIGH RISK: 130- 159 MG/DL 110-129 MG/DL HIGH RISK: >160 MG/DL >130 MG/DL *CHILDREN AND ADOLESCENTS REPRESENTS INDIVIDUALA AGED 2-19 YEARS EXCLUSIVE. Tbili 1.05 mg/dL 0.0-1.2 [facility] ([facility] NORMAL RANGES Age WBC RBC HGB HCT [...] HCT IS 5% LESS SOURCE FOR DATA: [employer] DYN 1800 OPERATION MANUAL( AUTOMATED BLOOD COUNTS [...] DESIRABLE: <130 MG/DL <110 MG/DL BORDERLINE-HIGH RISK: 130- 159 MG/DL 110-129 MG/DL HIGH RISK: >160 MG/DL >130 MG/DL *CHILDREN AND ADOLESCENTS REPRESENTS INDIVIDUALA AGED 2-19 YEARS EXCLUSIVE. Ast (Sgot) 34 U/L 0-40 [facility] NORMAL RANGES Age WBC RBC HGB HCT [...] HCT IS 5% LESS SOURCE FOR DATA: [employer] 1800 OPERATION MANUAL( AUTOMATED BLOOD COUNTS AND [...] DESIRABLE: <130 MG/DL <110 MG/DL BORDERLINE-HIGH RISK: 130- 159 MG/DL 110-129 MG/DL HIGH RISK: >160 MG/DL >130 MG/DL *CHILDREN AND ADOLESCENTS REPRESENTS INDIVIDUALA AGED 2-19 YEARS EXCLUSIVE. Anion Gap 17 mmol/L [facility] ([facility] NORMAL RANGES Age WBC RBC HGB HCT [...] HCT IS 5% LESS SOURCE FOR DATA: [employer] 1800 OPERATION MANUAL( AUTOMATED BLOOD COUNTS AND [...] DESIRABLE: <130 MG/DL <110 MG/DL BORDERLINE-HIGH RISK: 130- 159 MG/DL 110-129 MG/DL HIGH RISK: >160 MG/DL >130 MG/DL *CHILDREN AND ADOLESCENTS REPRESENTS INDIVIDUALA AGED 2-19 YEARS EXCLUSIVE. Osmolality-Calculated 280.6 CALC MED ENT ([facility] NORMAL RANGES Age WBC RBC HGB HCT [...] HCT IS 5% LESS SOURCE FOR DATA: [employer] DYN 1800 OPERATION MANUAL( AUTOMATED BLOOD COUNTS [...] DESIRABLE: <130 MG/DL <110 MG/DL BORDERLINE-HIGH RISK: 130- 159 MG/DL 110-129 MG/DL HIGH RISK: >160 MG/DL >130 MG/DL *CHILDREN AND ADOLESCENTS REPRESENTS INDIVIDUALA AGED 2-19 YEARS EXCLUSIVE. eGFR 63 # CANDICE ( [facility] CKD-EPI eGFR Non-Afr. [place] Konger 54 # MEDFRANK ([facility] CKD-EPI ID Date Data Source [id number] 06/01/2020 09:56:00 AM EDT CANDICE ([facility] Name Value Range Interpretation Code Description Data Amarilis rce(s) Supporting Document(s) Creatine kinase [Enzymatic activity/volume] in Serum or Plasma 68 U /L 26-192 MEDFRANK ([facility] NORMAL RANGES Age WBC RBC HGB HCT [...] HCT IS 5% LESS SOURCE FOR DATA: [employer] 1800 OPERATION MANUAL( AUTOMATED BLOOD COUNTS AND [...] ADOLESCENTS REPRESENTS INDIVIDUALA AGED 2-19 YEARS EXCLUSIVE. ID Date Data Source [id number] 06/01/2020 09:56:00 AM EDT MEDENT ([facility] Name Value Range Interpretation Code Description Data Amarilis rce(s) Supporting Document(s) WBC 6.3 10E3/uL 4.1-10.9 MEDENT ([facility] NORMAL RANGES Age WBC RBC HGB HCT [...] HCT IS 5% LESS SOURCE FOR DATA: [employer] DYN 1800 OPERATION MANUAL( AUTOMATED BLOOD COUNTS [...] ADOLESCENTS REPRESENTS INDIVIDUALA AGED 2-19 YEARS EXCLUSIVE. RBC 4.32 10E6/uL 4.20-6.30 [facility] ([facility] NORMAL RANGES Age WBC RBC HGB HCT [...] HCT IS 5% LESS SOURCE FOR DATA: [employer] 1800 OPERATION MANUAL( AUTOMATED BLOOD COUNTS AND [...] ADOLESCENTS REPRESENTS INDIVIDUALA AGED 2-19 YEARS EXCLUSIVE. HGB 13.7 g/dL 12.0-18.0 [facility] NORMAL RANGES Age WBC RBC HGB HCT [...] HCT IS 5% LESS SOURCE FOR DATA: [employer] 1800 OPERATION MANUAL( AUTOMATED BLOOD COUNTS AND [...] ADOLESCENTS REPRESENTS INDIVIDUALA AGED 2-19 YEARS EXCLUSIVE. HCT 38.8 % 37.0-51.0 [facility] ([facility] NORMAL RANGES Age WBC RBC HGB HCT [...] HCT IS 5% LESS SOURCE FOR DATA: [employer] 1800 OPERATION MANUAL( AUTOMATED BLOOD COUNTS AND [...] ADOLESCENTS REPRESENTS INDIVIDUALA AGED 2-19 YEARS EXCLUSIVE. MCH 31.7 pg 26.0-32.0 CANDICE ([facility] NORMAL RANGES Age WBC RBC HGB HCT [...] HCT IS 5% LESS SOURCE FOR DATA: [employer] 1800 OPERATION MANUAL( AUTOMATED BLOOD COUNTS AND [...] ADOLESCENTS REPRESENTS INDIVIDUALA AGED 2-19 YEARS EXCLUSIVE. MCV 89.8 fL 80.0-97.0 CANDICE ([facility] NORMAL RANGES Age WBC RBC HGB HCT [...] HCT IS 5% LESS SOURCE FOR DATA: [employer] 1800 OPERATION MANUAL( AUTOMATED BLOOD COUNTS AND [...] ADOLESCENTS REPRESENTS INDIVIDUALA AGED 2-19 YEARS EXCLUSIVE. PLT 182 10E3/uL 140-440 [facility] ([facility] NORMAL RANGES Age WBC RBC HGB HCT [...] HCT IS 5% LESS SOURCE FOR DATA: [employer] D[employer] 1800 OPERATION MANUAL( AUTOMATED BLOOD COUNTS [...] ADOLESCENTS REPRESENTS INDIVIDUALA AGED 2-19 YEARS EXCLUSIVE. MCHC 35.3 g/dL 31.0-36.0 [facility] ([facility] NORMAL RANGES Age WBC RBC HGB HCT [...] HCT IS 5% LESS SOURCE FOR DATA: [employer] 1800 OPERATION MANUAL( AUTOMATED BLOOD COUNTS AND [...] ADOLESCENTS REPRESENTS INDIVIDUALA AGED 2-19 YEARS EXCLUSIVE. RDW-CV 13.6 % 11.5-14.5 CANDICE ([facility] NORMAL RANGES Age WBC RBC HGB HCT [...] HCT IS 5% LESS SOURCE FOR DATA: [employer] 1800 OPERATION MANUAL( AUTOMATED BLOOD COUNTS AND [...] ADOLESCENTS REPRESENTS INDIVIDUALA AGED 2-19 YEARS EXCLUSIVE. Neut% 57.5 % 37.0-92.0 [facility] ([facility] NORMAL RANGES Age WBC RBC HGB HCT [...] HCT IS 5% LESS SOURCE FOR DATA: [employer] 1800 OPERATION MANUAL( AUTOMATED BLOOD COUNTS AND [...] ADOLESCENTS REPRESENTS INDIVIDUALA AGED 2-19 YEARS EXCLUSIVE. Lym% 33.0 % 10.0-58.5 MED[facility] ([facility] NORMAL RANGES Age WBC RBC HGB HCT [...] HCT IS 5% LESS SOURCE FOR DATA: [employer] 1800 OPERATION MANUAL( AUTOMATED BLOOD COUNTS AND [...] ADOLESCENTS REPRESENTS INDIVIDUALA AGED 2-19 YEARS EXCLUSIVE. Lym# 2.1 10E3/uL 0.6-4.1 [facility] ([facility] NORMAL RANGES Age WBC RBC HGB HCT [...] IS 5% LESS SOURCE FOR DATA: [employer] 1800 OPERATION MANUAL( AUTOMATED BLOOD COUNTS AND [...] ADOLESCENTS REPRESENTS INDIVIDUALA AGED 2-19 YEARS EXCLUSIVE. MXD% 9.5 % 0.1-24.0 [facility] ([facility] NORMAL RANGES Age WBC RBC HGB HCT [...] HCT IS 5% LESS SOURCE FOR DATA: [employer] 1800 OPERATION MANUAL( AUTOMATED BLOOD COUNTS AND [...] ADOLESCENTS REPRESENTS INDIVIDUALA AGED 2-19 YEARS EXCLUSIVE. MXD# 0.6 10E3/uL 0.0-1.8 MEDENT ([facility] NORMAL RANGES Age WBC RBC HGB HCT [...] HCT IS 5% LESS SOURCE FOR DATA: [employer] 1800 OPERATION MANUAL( AUTOMATED BLOOD COUNTS AND [...] ADOLESCENTS REPRESENTS INDIVIDUALA AGED 2-19 YEARS EXCLUSIVE. Neut# 3.6 % 2.0-7.8 [facility] ([facility] NORMAL RANGES Age WBC RBC HGB HCT [...] ADOLESCENTS REPRESENTS INDIVIDUALA AGED 2-19 YEARS EXCLUSIVE. MPV 10.1 fL 9.0-13.0 [facility] ([facility] NORMAL RANGES Age WBC RBC HGB HCT [...] HCT IS 5% LESS SOURCE FOR DATA: [employer] 1800 OPERATION MANUAL( AUTOMATED BLOOD COUNTS AND [...] ADOLESCENTS REPRESENTS INDIVIDUALA AGED 2-19 YEARS EXCLUSIVE. ID Date Data Source [id number] 06/01/2020 09:55:00 AM EDT MEDENT ([facility] Name Value Range Interpretation Code Description Data Amarilis rce(s) Supporting Document(s) Hemoglobin A1c/Hemoglobin.total in Blood 7.3 % 4.8-5.6 Above high normal MEDENT ([facility] <content>Prediabetes: 5.7 - 6.4</content >
<content>Diabetes: >6.4</content>
<content>Glycemic control for adults with diabetes: <7.0</content>
<content></content> ID Date Data Source [id number] 05/05/2020 12:00:00 AM EDT [facility] Marti [facility] Patient Name: DAFNE SALES[address] [place] [address] Date of : 1945[place] [id number] Date [facility]: [facility] [id number] Fax: [phone] EXAM: MAMMO SCREENING WITH CADCLINICAL INFORMATION: Screening.Based on the personal and family history information your patient suppliedat the time of imaging, her lifetime risk of breast cancer estimated by theTyrer-Cuzick model is 3.9%. Given that this patient has less than 20% TCrisk score, no further medical management is currently recommended at thistime.Digital screening (2D) mammography was performed bilaterally in the CC andMLO projections. Additionally, breast tomosynthesis (3D mammography) wasperformed bilaterally in the CC and MLO projections. Today's exam wascompared to the prior exam(s).By history, the patient has no complaints of a palpable breast abnormalityor other significant breast complaints.The patient states last clinical breast exam was in April of 2020.The breasts are unchanged in size and shape. There are no geoff-soft tissuedensities or spiculated masses. There is no internal architecturaldistortion. There are no suspicious geoff-calcific clusters. Skinthickening or nipple retraction is not present. Benign calcifications areagain seen bilaterally.The Volpara volumetric breast density category is B, there are scatteredareas of fibroglandular density.IMPRESSION:BI- RADS Category 2 - Benign Finding(s). Stable mammogram. There is noevidence of malignant alteration of the breasts. Followup examinationrecommended in one year.This mammogram was read with the assistance of [employer], an FDAapproved computer aided detection system for mammography.Negative x-ray reports should not delay surgical consultation if a dominantor clinically suspicious mass is present.Not all breast cancers can be identified by mammography. Therefore, werecommend that you continue to perform regular breast self-examination andphysical examination and then promptly contact your physician of anyconcerns or changes.Adenosis and dense breasts may obscure an underlying neoplasm.JAS Kenney/Carmencita you for referring AUTUMN SALES to our office. Electronically Signed - BEN ABRAHAM DO 05/08/20 13:17 Name Value Range Interpretation Code Description Data Amarilis rce(s) Supporting Document(s) ID Date Data Source [id number] 04/27/2020 03:42:00 PM EDT MEDENT ([facility] [facility] Name Value Range Interpretation Code Description Data Amarilis rce(s) Supporting Document(s) Occult Blood Laboratory test result MEDENT ([facility] ID Date Data Source [id number] 02/24/2020 10:30:00 AM EDT MEDENT ([facility] Name Value Range Interpretation Code Description Data Amarilis rce(s) Supporting Document(s) Color Urine Laboratory test result M EDENT ([facility] Specific [place] 1.020 1.00-1.03 MEDENT ([employer] [facility] Appearance of Urine Laboratory test result MEDENT ([facility] Bilirubin.total [Presence] in Urine by Test strip Laboratory test res ult MEDENT ([facility] Glucose Urine Laboratory test result MEDENT ([facility] PH Urine 5.0 5.0-8.0 [facility] Blood Urine Laboratory test result M EDENT ([facility] Ketones Laboratory test result MEDENT ([facility] Protein Urine Laboratory test result MEDENT ([facility] Urobilinogen 0.2 EU/dl 0.2-1.0 MEDENT ([facility] Nitrite Laboratory test result MEDENT ([facility] Leukocytes Laboratory test result ME DENT ([facility] ID Date Data Source [id number] 02/24/2020 10:02:00 AM EDT MEDENT ([facility] Name Value Range Interpretation Code Description Data Amarilis rce(s) Supporting Document(s) Chol 226 mg/dL 0-200 Above high normal MEDENT ([facility] NORMAL RANGES Age WBC RBC HGB HCT [...] HCT IS 5% LESS SOURCE FOR DATA: [employer] 1800 OPERATION MANUAL( AUTOMATED BLOOD COUNTS AND [...] DESIRABLE: <130 MG/DL <110 MG/DL BORDERLINE-HIGH RISK: 130- 159 MG/DL 110-129 MG/DL HIGH RISK: >160 MG/DL >130 MG/DL *CHILDREN AND ADOLESCENTS REPRESENTS INDIVIDUALA AGED 2-19 YEARS EXCLUSIVE. Trig 202 mg/dL 40-200 Above high normal [facility] ([facility] NORMAL RANGES Age WBC RBC HGB HCT [...] HCT IS 5% LESS SOURCE FOR DATA: [employer] 1800 OPERATION MANUAL( AUTOMATED BLOOD COUNTS AND [...] DESIRABLE: <130 MG/DL <110 MG/DL BORDERLINE-HIGH RISK: 130- 159 MG/DL 110-129 MG/DL HIGH RISK: >160 MG/DL >130 MG/DL *CHILDREN AND ADOLESCENTS REPRESENTS INDIVIDUALA AGED 2-19 YEARS EXCLUSIVE. Cholesterol in HDL [Mass/volume] in Serum or Plasma 61 mg/dL 45-65 [facility] ([facility] NORMAL RANGES Age WBC RBC HGB HCT [...] HCT IS 5% LESS SOURCE FOR DATA: [employer] DYN 1800 OPERATION MANUAL( AUTOMATED BLOOD COUNTS [...] DESIRABLE: <130 MG/DL <110 MG/DL BORDERLINE-HIGH RISK: 130- 159 MG/DL 110-129 MG/DL HIGH RISK: >160 MG/DL >130 MG/DL *CHILDREN AND ADOLESCENTS REPRESENTS INDIVIDUALA AGED 2-19 YEARS EXCLUSIVE. LDL_C 124 Calc 75-129 [facility] ([facility] NORMAL RANGES Age WBC RBC HGB HCT [...] HCT IS 5% LESS SOURCE FOR DATA: [employer] 1800 OPERATION MANUAL( AUTOMATED BLOOD COUNTS AND [...] DESIRABLE: <130 MG/DL <110 MG/DL BORDERLINE-HIGH RISK: 130- 159 MG/DL 110-129 MG/DL HIGH RISK: >160 MG/DL >130 MG/DL *CHILDREN AND ADOLESCENTS REPRESENTS INDIVIDUALA AGED 2-19 YEARS EXCLUSIVE. Cho/HDL Ratio 3.7 CALC [facility] ([facility] NORMAL RANGES Age WBC RBC HGB HCT [...] HCT IS 5% LESS SOURCE FOR DATA: [employer] 1800 OPERATION MANUAL( AUTOMATED BLOOD COUNTS AND [...] DESIRABLE: <130 MG/DL <110 MG/DL BORDERLINE-HIGH RISK: 130- 159 MG/DL 110-129 MG/DL HIGH RISK: >160 MG/DL >130 MG/DL *CHILDREN AND ADOLESCENTS REPRESENTS INDIVIDUALA AGED 2-19 YEARS EXCLUSIVE. ID Date Data Source [id number] 02/24/2020 10:02:00 AM EDT MEDENT ([facility] Name Value Range Interpretation Code Description Data Amarilis rce(s) Supporting Document(s) Creatine kinase [Enzymatic activity/volume] in Serum or Plasma 73 U /L 26-192 MEDENT ([facility] NORMAL RANGES Age WBC RBC HGB HCT [...] HCT IS 5% LESS SOURCE FOR DATA: [employer] 1800 OPERATION MANUAL( AUTOMATED BLOOD COUNTS AND [...] ADOLESCENTS REPRESENTS INDIVIDUALA AGED 2-19 YEARS EXCLUSIVE. ID Date Data Source [id number] 02/24/2020 10:02:00 AM EDT MEDENT ([facility] Name Value Range Interpretation Code Description Data Amarilis rce(s) Supporting Document(s) Glu 182 mg/dL 70-110 Above high normal [facility] ([facility] NORMAL RANGES Age WBC RBC HGB HCT [...] HCT IS 5% LESS SOURCE FOR DATA: [employer] 1800 OPERATION MANUAL( AUTOMATED BLOOD COUNTS AND [...] ADOLESCENTS REPRESENTS INDIVIDUALA AGED 2-19 YEARS EXCLUSIVE. BUN 33 mg/dL 8-23 Above high normal MEDENT ([facility] NORMAL RANGES Age WBC RBC HGB HCT [...] HCT IS 5% LESS SOURCE FOR DATA: [employer] 1800 OPERATION MANUAL( AUTOMATED BLOOD COUNTS AND [...] ADOLESCENTS REPRESENTS INDIVIDUALA AGED 2-19 YEARS EXCLUSIVE. BUN/Creatinine Ratio 31.4 CALC [facility] ([facility] NORMAL RANGES Age WBC RBC HGB HCT [...] HCT IS 5% LESS SOURCE FOR DATA: [employer] 1800 OPERATION MANUAL( AUTOMATED BLOOD COUNTS AND [...] ADOLESCENTS REPRESENTS INDIVIDUALA AGED 2-19 YEARS EXCLUSIVE. Creat 1.1 mg/dL 0.5-1.0 Above high normal [facility]ENT ([facility] NORMAL RANGES Age WBC RBC HGB HCT [...] HCT IS 5% LESS SOURCE FOR DATA: [employer] 1800 OPERATION MANUAL( AUTOMATED BLOOD COUNTS AND [...] ADOLESCENTS REPRESENTS INDIVIDUALA AGED 2-19 YEARS EXCLUSIVE. K 4.6 mmol/L 3.5-5.1 [facility] ([facility] NORMAL RANGES Age WBC RBC HGB HCT [...] ADOLESCENTS REPRESENTS INDIVIDUALA AGED 2-19 YEARS EXCLUSIVE. Na 136 mmol/L 136-145 [facility] ([facility] NORMAL RANGES Age WBC RBC HGB HCT [...] HCT IS 5% LESS SOURCE FOR DATA: [employer] 1800 OPERATION MANUAL( AUTOMATED BLOOD COUNTS AND [...] ADOLESCENTS REPRESENTS INDIVIDUALA AGED 2-19 YEARS EXCLUSIVE. Co2 20.4 mmol/L 22.0-29.0 Below low normal [facility] ([facility] NORMAL RANGES Age WBC RBC HGB HCT [...] HCT IS 5% LESS SOURCE FOR DATA: [employer] 1800 OPERATION MANUAL( AUTOMATED BLOOD COUNTS AND [...] ADOLESCENTS REPRESENTS INDIVIDUALA AGED 2-19 YEARS EXCLUSIVE. CL 100.0 mmol/L 98.0-107.0 Depart[facility] ([facility] NORMAL RANGES Age WBC RBC HGB HCT [...] HCT IS 5% LESS SOURCE FOR DATA: [employer] DYN 1800 OPERATION MANUAL( AUTOMATED BLOOD COUNTS [...] ADOLESCENTS REPRESENTS INDIVIDUALA AGED 2-19 YEARS EXCLUSIVE. CA 9.6 mg/dL 8.6-10.2 [facility] ([facility] NORMAL RANGES Age WBC RBC HGB HCT [...] HCT IS 5% LESS SOURCE FOR DATA: [employer] 1800 OPERATION MANUAL( AUTOMATED BLOOD COUNTS AND [...] ADOLESCENTS REPRESENTS INDIVIDUALA AGED 2-19 YEARS EXCLUSIVE. TP 7.1 g/dL 6.6-8.7 [facility] ([facility] NORMAL RANGES Age WBC RBC HGB HCT [...] HCT IS 5% LESS SOURCE FOR DATA: [employer] 1800 OPERATION MANUAL( AUTOMATED BLOOD COUNTS AND [...] ADOLESCENTS REPRESENTS INDIVIDUALA AGED 2-19 YEARS EXCLUSIVE. Alb 4.5 g/dL 3.4-4.8 [facility] ([facility] NORMAL RANGES Age WBC RBC HGB HCT [...] HCT IS 5% LESS SOURCE FOR DATA: [employer] 1800 OPERATION MANUAL( AUTOMATED BLOOD COUNTS AND [...] ADOLESCENTS REPRESENTS INDIVIDUALA AGED 2-19 YEARS EXCLUSIVE. A/G Ratio 1.7 CALC [facility] ([facility] NORMAL RANGES Age WBC RBC HGB HCT [...] HCT IS 5% LESS SOURCE FOR DATA: [employer] 1800 OPERATION MANUAL( AUTOMATED BLOOD COUNTS AND [...] ADOLESCENTS REPRESENTS INDIVIDUALA AGED 2-19 YEARS EXCLUSIVE. Globulin 2.7 CALC [facility] ([facility] NORMAL RANGES Age WBC RBC HGB HCT [...] HCT IS 5% LESS SOURCE FOR DATA: [employer] 1800 OPERATION MANUAL( AUTOMATED BLOOD COUNTS AND [...] ADOLESCENTS REPRESENTS INDIVIDUALA AGED 2-19 YEARS EXCLUSIVE. Alp 76.3 U/L 35-129 [facility] NORMAL RANGES Age WBC RBC HGB HCT [...] HCT IS 5% LESS SOURCE FOR DATA: [employer] 1800 OPERATION MANUAL( AUTOMATED BLOOD COUNTS AND [...] ADOLESCENTS REPRESENTS INDIVIDUALA AGED 2-19 YEARS EXCLUSIVE. Alt (SGPT) 29 U/L 0-41 [facility] ([facility] NORMAL RANGES Age WBC RBC HGB HCT [...] HCT IS 5% LESS SOURCE FOR DATA: [employer] 1800 OPERATION MANUAL( AUTOMATED BLOOD COUNTS AND [...] ADOLESCENTS REPRESENTS INDIVIDUALA AGED 2-19 YEARS EXCLUSIVE. Tbili 0.89 mg/dL 0.0-1.2 [facility] NORMAL RANGES Age WBC RBC HGB HCT [...] HCT IS 5% LESS SOURCE FOR DATA: [employer] 1800 OPERATION MANUAL( AUTOMATED BLOOD COUNTS AND [...] ADOLESCENTS REPRESENTS INDIVIDUALA AGED 2-19 YEARS EXCLUSIVE. Ast (Sgot) 27 U/L 0-40 [facility] ([facility] NORMAL RANGES Age WBC RBC HGB HCT [...] HCT IS 5% LESS SOURCE FOR DATA: [employer] 1800 OPERATION MANUAL( AUTOMATED BLOOD COUNTS AND [...] ADOLESCENTS REPRESENTS INDIVIDUALA AGED 2-19 YEARS EXCLUSIVE. Anion Gap 20 mmol/L [facility] ([facility] NORMAL RANGES Age WBC RBC HGB HCT [...] HCT IS 5% LESS SOURCE FOR DATA: [employer] 1800 OPERATION MANUAL( AUTOMATED BLOOD COUNTS AND [...] ADOLESCENTS REPRESENTS INDIVIDUALA AGED 2-19 YEARS EXCLUSIVE. Osmolality-Calculated 283.7 CALC MED ENT ([facility] NORMAL RANGES Age WBC RBC HGB HCT [...] HCT IS 5% LESS SOURCE FOR DATA: [employer] 1800 OPERATION MANUAL( AUTOMATED BLOOD COUNTS AND [...] ADOLESCENTS REPRESENTS INDIVIDUALA AGED 2-19 YEARS EXCLUSIVE. eGFR Non-Afr. [place] 48 # [facility] ([facility] CKD-EPI eGFR 56 # [facility] ( [facility] CKD-EPI ID Date Data Source [id number] 02/24/2020 10:02:00 AM EDT MEDFRANK ([facility] Name Value Range Interpretation Code Description Data Amarilis rce(s) Supporting Document(s) WBC 6.1 10E3/uL 4.1-10.9 [facility] ([facility] NORMAL RANGES Age WBC RBC HGB HCT [...] HCT IS 5% LESS SOURCE FOR DATA: [employer] 1800 OPERATION MANUAL( AUTOMATED BLOOD COUNTS AND [...] ADOLESCENTS REPRESENTS INDIVIDUALA AGED 2-19 YEARS EXCLUSIVE. HGB 13.2 g/dL 12.0-18.0 [facility] ([facility] NORMAL RANGES Age WBC RBC HGB HCT [...] HCT IS 5% LESS SOURCE FOR DATA: [employer] 1800 OPERATION MANUAL( AUTOMATED BLOOD COUNTS AND [...] ADOLESCENTS REPRESENTS INDIVIDUALA AGED 2-19 YEARS EXCLUSIVE. RBC 4.32 10E6/uL 4.-6 Departing ([facility] NORMAL RANGES Age WBC RBC HGB HCT [...] HCT IS 5% LESS SOURCE FOR DATA: [employer] 1800 OPERATION MANUAL( AUTOMATED BLOOD COUNTS AND [...] ADOLESCENTS REPRESENTS INDIVIDUALA AGED 2-19 YEARS EXCLUSIVE. MCV 89.8 fL 80.0-97.0 [facility] ([facility] NORMAL RANGES Age WBC RBC HGB HCT [...] HCT IS 5% LESS SOURCE FOR DATA: [employer] 1800 OPERATION MANUAL( AUTOMATED BLOOD COUNTS AND [...] ADOLESCENTS REPRESENTS INDIVIDUALA AGED 2-19 YEARS EXCLUSIVE. HCT 38.8 % 37.0-51.0 CANDICE ([facility] NORMAL RANGES Age WBC RBC HGB HCT [...] HCT IS 5% LESS SOURCE FOR DATA: [employer] 1800 OPERATION MANUAL( AUTOMATED BLOOD COUNTS AND [...] ADOLESCENTS REPRESENTS INDIVIDUALA AGED 2-19 YEARS EXCLUSIVE. MCHC 34.0 g/dL 31.0-36.0 [facility] NORMAL RANGES Age WBC RBC HGB HCT [...] HCT IS 5% LESS SOURCE FOR DATA: [employer] 1800 OPERATION MANUAL( AUTOMATED BLOOD COUNTS AND [...] ADOLESCENTS REPRESENTS INDIVIDUALA AGED 2-19 YEARS EXCLUSIVE. MCH 30.6 pg 26.0-32.0 [facility] ([facility] NORMAL RANGES Age WBC RBC HGB HCT [...] HCT IS 5% LESS SOURCE FOR DATA: [employer] 1800 OPERATION MANUAL( AUTOMATED BLOOD COUNTS AND [...] ADOLESCENTS REPRESENTS INDIVIDUALA AGED 2-19 YEARS EXCLUSIVE. RDW-CV 13.4 % 11.5-14.5 [facility] ([facility] NORMAL RANGES Age WBC RBC HGB HCT [...] HCT IS 5% LESS SOURCE FOR DATA: [employer] 1800 OPERATION MANUAL( AUTOMATED BLOOD COUNTS AND [...] ADOLESCENTS REPRESENTS INDIVIDUALA AGED 2-19 YEARS EXCLUSIVE. PLT 171 10E3/uL 140-440 [facility] ([facility] NORMAL RANGES Age WBC RBC HGB HCT [...] HCT IS 5% LESS SOURCE FOR DATA: [employer] 1800 OPERATION MANUAL( AUTOMATED BLOOD COUNTS AND [...] ADOLESCENTS REPRESENTS INDIVIDUALA AGED 2-19 YEARS EXCLUSIVE. Lym% 36.3 % 10.0-58.5 [facility] ([facility] NORMAL RANGES Age WBC RBC HGB HCT [...] HCT IS 5% LESS SOURCE FOR DATA: [employer] 1800 OPERATION MANUAL( AUTOMATED BLOOD COUNTS AND [...] ADOLESCENTS REPRESENTS INDIVIDUALA AGED 2-19 YEARS EXCLUSIVE. Neut% 53.8 % 37.0-92.0 [facility] NORMAL RANGES Age WBC RBC HGB HCT [...] HCT IS 5% LESS SOURCE FOR DATA: [employer] 1800 OPERATION MANUAL( AUTOMATED BLOOD COUNTS AND [...] ADOLESCENTS REPRESENTS INDIVIDUALA AGED 2-19 YEARS EXCLUSIVE. MXD% 9.9 % 0.1-24.0 [facility] NORMAL RANGES Age WBC RBC HGB HCT [...] HCT IS 5% LESS SOURCE FOR DATA: [employer] 1800 OPERATION MANUAL( AUTOMATED BLOOD COUNTS AND [...] ADOLESCENTS REPRESENTS INDIVIDUALA AGED 2-19 YEARS EXCLUSIVE. Lym# 2.2 10E3/uL 0.6-4.1 [facility] ([facility] NORMAL RANGES Age WBC RBC HGB HCT [...] HCT IS 5% LESS SOURCE FOR DATA: [employer] 1800 OPERATION MANUAL( AUTOMATED BLOOD COUNTS AND [...] ADOLESCENTS REPRESENTS INDIVIDUALA AGED 2-19 YEARS EXCLUSIVE. Neut# 3.3 % 2.0-7.8 [facility] ([facility] NORMAL RANGES Age WBC RBC HGB HCT [...] HCT IS 5% LESS SOURCE FOR DATA: [employer] 1800 OPERATION MANUAL( AUTOMATED BLOOD COUNTS [...] ADOLESCENTS REPRESENTS INDIVIDUALA AGED 2-19 YEARS EXCLUSIVE. MXD# 0.6 10E3/uL 0.0-1.8 [facility] ([facility] NORMAL RANGES Age WBC RBC HGB HCT [...] HCT IS 5% LESS SOURCE FOR DATA: [employer] 1800 OPERATION MANUAL( AUTOMATED BLOOD COUNTS AND [...] ADOLESCENTS REPRESENTS INDIVIDUALA AGED 2-19 YEARS EXCLUSIVE. MPV 10.9 fL 9.0-13.0 [facility] ([facility] NORMAL RANGES Age WBC RBC HGB HCT [...] HCT IS 5% LESS SOURCE FOR DATA: [employer] 1800 OPERATION MANUAL( AUTOMATED BLOOD COUNTS AND [...] ADOLESCENTS REPRESENTS INDIVIDUALA AGED 2-19 YEARS EXCLUSIVE. ID Date Data Source [id number] 02/24/2020 10:01:00 AM EDT [facility] ([facility] Name Value Range Interpretation Code Description Data Amarilis rce(s) Supporting Document(s) Hemoglobin A1c/Hemoglobin.total in Blood 8.2 % 4.8-5.6 Above high normal [facility] ([facility] <content>Prediabetes: 5.7 - 6.4</content >
<content>Diabetes: >6.4</content>
<content>Glycemic control for adults with diabetes: <7.0</content>
<content></content> ID Date Data Source [id number] 11/11/2019 11:35:00 AM EST [facility] ([facility] Name Value Range Interpretation Code Description Data Amarilis rce(s) Supporting Document(s) Color Urine Laboratory test result M EDENT ([facility] Appearance of Urine Laboratory test result [facility] ([facility] Specific [place] 1.015 1.00-1.03 [facility] ([facility] PH Urine 5.0 5.0-8.0 [facility] ([facility] Bilirubin.total [Presence] in Urine by Test strip Laboratory test res ult [facility] ([facility] Ketones Laboratory test result [facility] ([facility] Glucose Urine Laboratory test result [facility] ([facility] Nitrite Laboratory test result [facility] ([facility] Protein Urine Laboratory test result MED[facility] ([facility] Urobilinogen 0.2 EU/dl 0.2-1.0 [facility] ([facility] Blood Urine Laboratory test result M EDENT ([facility] Leukocytes Laboratory test result Above high normal [facility] ([facility] ID Date Data Source [id number] 11/11/2019 10:47:00 AM EST [facility] ([facility] Name Value Range Interpretation Code Description Data Amarilis rce(s) Supporting Document(s) Creatinine, Urine 50 mg/dL 10-300 [facility] Alb 10 mg/L 1-30 [facility] ([facility] A/C Ratio Laboratory test result ME DENT ([facility] ID Date Data Source [id number] 11/11/2019 10:37:00 AM EST [facility] ([facility] Name Value Range Interpretation Code Description Data Amarilis rce(s) Supporting Document(s) Hemoglobin A1c/Hemoglobin.total in Blood 6.6 % 4.8-5.6 Above high normal [facility] ([facility] <content>Prediabetes: 5.7 - 6.4</content >
<content>Diabetes: >6.4</content>
<content>Glycemic control for adults with diabetes: <7.0</content>
<content></content> ID Date Data Source [id number] 11/11/2019 10:37:00 AM EST [facility] ([facility] Name Value Range Interpretation Code Description Data Amarilis rce(s) Supporting Document(s) Prostate specific Ag [Mass/volume] in Serum or Plasma 63 mg/dL 45-6 5 [facility] ([facility] CLASSIFICATION CHOLESTEROL FO R ADULTS CHILDREN/ADOLESCENTS* DESIRABLE: <200 MG/DL <170 MG/DL BORDER-LINE HIGH RISK: 200-239 MG/DL 170-199 MG/DL HIGH RISK: >240 MG/DL >200 MG/DL CLASS. FOR PRIMARY LDL CHOL PREVENTION: LDL CHOL-CHILD/ADOLESCENTS* DESIRABLE: <130 MG/DL <110 MG/DL BORDERLINE-HIGH RISK: 130-159 MG/DL 110-129 MG/DL HIGH RISK: >160 MG/DL >130 MG/DL *CHILDREN AND ADOLESCENTS REPRESENTS INDIVIDUALA AGED 2-19 YEARS EXCLUSIVE. CHRONIC KIDNEY DISEASE STAGING PER NKF: MALE [...] mL/min Normal 80 and above >32 mL/min NormalNORMAL RANGES Age WBC RBC HGB HCT MCV PLT Adult M 4.1-10.9 4.20-6.30 12.0-18.0 37.0-51.0 80-97 140-440 Adult F 4.1-10.9 4.04-5.48 12.0-18.0 37.0-51.0 80-97 140-440 0- 1 Yr 5.0-20.0 3.9-5.9 15-18 MV: 44 MV: [...] AUTOMATED BLOOD COUNTS AND DIFF.) APPENDIX B-3 Trig 281 mg/dL 40-200 Above high normal [facility] ([facility] CLASSIFICATION CHOLESTEROL FO R ADULTS CHILDREN/ADOLESCENTS* DESIRABLE: <200 MG/DL <170 MG/DL BORDER-LINE HIGH RISK: 200-239 MG/DL 170-199 MG/DL HIGH RISK: >240 MG/DL >200 MG/DL CLASS. FOR PRIMARY LDL CHOL PREVENTION: LDL CHOL-CHILD/ADOLESCENTS* DESIRABLE: <130 MG/DL <110 MG/DL BORDERLINE-HIGH RISK: 130-159 MG/DL 110-129 MG/DL HIGH RISK: >160 MG/DL >130 MG/DL *CHILDREN AND ADOLESCENTS REPRESENTS INDIVIDUALA AGED 2-19 YEARS EXCLUSIVE. CHRONIC KIDNEY DISEASE STAGING PER NKF: MALE [...] mL/min Normal 80 and above >32 mL/min NormalNORMAL RANGES Age WBC RBC HGB HCT MCV PLT Adult M 4.1-10.9 4.20-6.30 12.0-18.0 37.0-51.0 80-97 140-440 Adult F 4.1-10.9 4.04-5.48 12.0-18.0 37.0-51.0 80-97 140-440 0- 1 Yr 5.0-20.0 3.9-5.9 15-18 MV: 44 MV: 91 MV: 277 2-9 Yr. 6.0-17.0 3.8-5.4 11-13 MV: 37 MV: 78 MV: 300 10 Yrs. 5.0-13.0 3.8-5.4 12-15 MV: 39 MV: 80 MV: 250 NOTE: * FOR ADULT BLACK MALES AND FEMALES, NORMAL WBC IS 2.9-7.7 K/ML * FOR ADULT BLACK MALES AND FEMALES, NORMAL RBC,HGB, AND HCT IS 5% LESS SOURCE FOR DATA: [employer] 1800 OPERATION MANUAL( AUTOMATED BLOOD COUNTS AND DIFF.) APPENDIX B-3 LDL_C 123 Calc 75-129 [facility] CLASSIFICATION CHOLESTEROL FO R ADULTS CHILDREN/ADOLESCENTS* DESIRABLE: <200 MG/DL <170 MG/DL BORDER-LINE HIGH RISK: 200-239 MG/DL 170-199 MG/DL HIGH RISK: >240 MG/DL >200 MG/DL CLASS. FOR PRIMARY LDL CHOL PREVENTION: LDL CHOL-CHILD/ADOLESCENTS* DESIRABLE: <130 MG/DL <110 MG/DL BORDERLINE-HIGH RISK: 130-159 MG/DL 110-129 MG/DL HIGH RISK: >160 MG/DL >130 MG/DL *CHILDREN AND ADOLESCENTS REPRESENTS INDIVIDUALA AGED 2-19 YEARS EXCLUSIVE. CHRONIC KIDNEY DISEASE STAGING PER NKF: MALE [...] mL/min Normal 80 and above >32 mL/min NormalNORMAL RANGES Age WBC RBC HGB HCT MCV PLT Adult M 4.1-10.9 4.20-6.30 12.0-18.0 37.0-51.0 80-97 140-440 Adult F 4.1-10.9 4.04-5.48 12.0-18.0 37.0-51.0 80-97 140-440 0- 1 Yr 5.0-20.0 3.9-5.9 15-18 MV: 44 MV: 91 MV: 277 2-9 Yr. 6.0-17.0 3.8-5.4 11-13 MV: 37 MV: 78 MV: 300 10 Yrs. 5.0-13.0 3.8-5.4 12-15 MV: 39 MV: 80 MV: 250 NOTE: * FOR ADULT BLACK MALES AND FEMALES, NORMAL WBC IS 2.9-7.7 K/ML * FOR ADULT BLACK MALES AND FEMALES, NORMAL RBC,HGB, AND HCT IS 5% LESS SOURCE FOR DATA: [employer] 1800 OPERATION MANUAL( AUTOMATED BLOOD COUNTS AND DIFF.) APPENDIX B-3 Chol 242 mg/dL 0-200 Above high normal [facility] ([facility] CLASSIFICATION CHOLESTEROL FO R ADULTS CHILDREN/ADOLESCENTS* DESIRABLE: <200 MG/DL <170 MG/DL BORDER-LINE HIGH RISK: 200-239 MG/DL 170-199 MG/DL HIGH RISK: >240 MG/DL >200 MG/DL CLASS. FOR PRIMARY LDL CHOL PREVENTION: LDL CHOL-CHILD/ADOLESCENTS* DESIRABLE: <130 MG/DL <110 MG/DL BORDERLINE-HIGH RISK: 130-159 MG/DL 110-129 MG/DL HIGH RISK: >160 MG/DL >130 MG/DL *CHILDREN AND ADOLESCENTS REPRESENTS INDIVIDUALA AGED 2-19 YEARS EXCLUSIVE. CHRONIC KIDNEY DISEASE STAGING PER NKF: MALE [...] mL/min Normal 80 and above >32 mL/min NormalNORMAL RANGES Age WBC RBC HGB HCT MCV PLT Adult M 4.1-10.9 4.20-6.30 12.0-18.0 37.0-51.0 80-97 140-440 Adult F 4.1-10.9 4.04-5.48 12.0-18.0 37.0-51.0 80-97 140-440 0- 1 Yr 5.0-20.0 3.9-5.9 15-18 MV: 44 MV: 91 MV: 277 2-9 Yr. 6.0-17.0 3.8-5.4 11-13 MV: 37 MV: 78 MV: 300 10 Yrs. 5.0-13.0 3.8-5.4 12-15 MV: 39 MV: 80 MV: 250 NOTE: * FOR ADULT BLACK MALES AND FEMALES, NORMAL WBC IS 2.9-7.7 K/ML * FOR ADULT BLACK MALES AND FEMALES, NORMAL RBC,HGB, AND HCT IS 5% LESS SOURCE FOR DATA: [employer] 1800 OPERATION MANUAL( AUTOMATED BLOOD COUNTS AND DIFF.) APPENDIX B-3 Cho/HDL Ratio 3.8 CALC [id number] ([facility] CLASSIFICATION CHOLESTEROL FO R ADULTS CHILDREN/ADOLESCENTS* DESIRABLE: <200 MG/DL <170 MG/DL BORDER-LINE HIGH RISK: 200-239 MG/DL 170-199 MG/DL HIGH RISK: >240 MG/DL >200 MG/DL CLASS. FOR PRIMARY LDL CHOL PREVENTION: LDL CHOL-CHILD/ADOLESCENTS* DESIRABLE: <130 MG/DL <110 MG/DL BORDERLINE-HIGH RISK: 130-159 MG/DL 110-129 MG/DL HIGH RISK: >160 MG/DL >130 MG/DL *CHILDREN AND ADOLESCENTS REPRESENTS INDIVIDUALA AGED 2-19 YEARS EXCLUSIVE. CHRONIC KIDNEY DISEASE STAGING PER NKF: MALE [...] mL/min Normal 80 and above >32 mL/min NormalNORMAL RANGES Age WBC RBC HGB HCT MCV PLT Adult M 4.1-10.9 4.20-6.30 12.0-18.0 37.0-51.0 80-97 140-440 Adult F 4.1-10.9 4.04-5.48 12.0-18.0 37.0-51.0 80-97 140-440 0- 1 Yr 5.0-20.0 3.9-5.9 15-18 MV: 44 MV: 91 MV: 277 2-9 Yr. 6.0-17.0 3.8-5.4 11-13 MV: 37 MV: 78 MV: 300 10 Yrs. 5.0-13.0 3.8-5.4 12-15 MV: 39 MV: 80 MV: 250 NOTE: * FOR ADULT BLACK MALES AND FEMALES, NORMAL WBC IS 2.9-7.7 K/ML * FOR ADULT BLACK MALES AND FEMALES, NORMAL RBC,HGB, AND HCT IS 5% LESS SOURCE FOR DATA: [employer] 1800 OPERATION MANUAL( AUTOMATED BLOOD COUNTS AND DIFF.) APPENDIX B-3 ID Date Data Source [id number] 11/11/2019 10:37:00 AM [facility] ([facility] Name Value Range Interpretation Code Description Data Amarilis rce(s) Supporting Document(s) Creatine kinase [Enzymatic activity/volume] in Serum or Plasma 58 U /L 26-192 [facility] ([facility] CLASSIFICATION CHOLESTEROL FO R ADULTS CHILDREN/ADOLESCENTS* DESIRABLE: <200 MG/DL <170 MG/DL BORDER-LINE HIGH RISK: 200-239 MG/DL 170-199 MG/DL HIGH RISK: >240 MG/DL >200 MG/DL CLASS. FOR PRIMARY LDL CHOL PREVENTION: LDL CHOL-CHILD/ADOLESCENTS* DESIRABLE: <130 MG/DL <110 MG/DL BORDERLINE-HIGH RISK: 130-159 MG/DL 110-129 MG/DL HIGH RISK: >160 MG/DL >130 MG/DL *CHILDREN AND ADOLESCENTS REPRESENTS INDIVIDUALA AGED 2-19 YEARS EXCLUSIVE. CHRONIC KIDNEY DISEASE STAGING PER NKF: MALE [...] mL/min Normal 80 and above >32 mL/min NormalNORMAL RANGES Age WBC RBC HGB HCT MCV PLT Adult M 4.1-10.9 4.20-6.30 12.0-18.0 37.0-51.0 80-97 140-440 Adult F 4.1-10.9 4.04-5.48 12.0-18.0 37.0-51.0 80-97 140-440 0- 1 Yr 5.0-20.0 3.9-5.9 15-18 MV: 44 MV: [...] AUTOMATED BLOOD COUNTS AND DIFF.) APPENDIX B-3 ID Date Data Source [id number] 11/11/2019 10:37:00 AM EST CANDICE ([facility] Name Value Range Interpretation Code Description Data Amarilis rce(s) Supporting Document(s) Glu 142 mg/dL 70-110 Above high normal [facility] ([facility] CLASSIFICATION CHOLESTEROL FO R ADULTS CHILDREN/ADOLESCENTS* DESIRABLE: <200 MG/DL <170 MG/DL BORDER-LINE HIGH RISK: 200-239 MG/DL 170-199 MG/DL HIGH RISK: >240 MG/DL >200 MG/DL CLASS. FOR PRIMARY LDL CHOL PREVENTION: LDL CHOL-CHILD/ADOLESCENTS* DESIRABLE: <130 MG/DL <110 MG/DL BORDERLINE-HIGH RISK: 130-159 MG/DL 110-129 MG/DL HIGH RISK: >160 MG/DL >130 MG/DL *CHILDREN AND ADOLESCENTS REPRESENTS INDIVIDUALA AGED 2-19 YEARS EXCLUSIVE. CHRONIC KIDNEY DISEASE STAGING PER NKF: MALE [...] mL/min Normal 80 and above >32 mL/min NormalNORMAL RANGES Age WBC RBC HGB HCT MCV PLT Adult M 4.1-10.9 4.20-6.30 12.0-18.0 37.0-51.0 80-97 140-440 Adult F 4.1-10.9 4.04-5.48 12.0-18.0 37.0-51.0 80-97 140-440 0- 1 Yr 5.0-20.0 3.9-5.9 15-18 MV: 44 MV: 91 MV: 277 2-9 Yr. 6.0-17.0 3.8-5.4 11-13 MV: 37 MV: 78 MV: 300 10 Yrs. 5.0-13.0 3.8-5.4 12-15 MV: 39 MV: 80 MV: 250 NOTE: * FOR ADULT BLACK MALES AND FEMALES, NORMAL WBC IS 2.9-7.7 K/ML * FOR ADULT BLACK MALES AND FEMALES, NORMAL RBC,HGB, AND HCT IS 5% LESS SOURCE FOR DATA: [employer] 1800 OPERATION MANUAL( AUTOMATED BLOOD COUNTS AND DIFF.) APPENDIX B-3 BUN 19 mg/dL 8-23 [facility] CLASSIFICATION CHOLESTEROL FO R ADULTS CHILDREN/ADOLESCENTS* DESIRABLE: <200 MG/DL <170 MG/DL BORDER-LINE HIGH RISK: 200-239 MG/DL 170-199 MG/DL HIGH RISK: >240 MG/DL >200 MG/DL CLASS. FOR PRIMARY LDL CHOL PREVENTION: LDL CHOL-CHILD/ADOLESCENTS* DESIRABLE: <130 MG/DL <110 MG/DL BORDERLINE-HIGH RISK: 130-159 MG/DL 110-129 MG/DL HIGH RISK: >160 MG/DL >130 MG/DL *CHILDREN AND ADOLESCENTS REPRESENTS INDIVIDUALA AGED 2-19 YEARS EXCLUSIVE. CHRONIC KIDNEY DISEASE STAGING PER NKF: MALE [...] mL/min Normal 80 and above >32 mL/min NormalNORMAL RANGES Age WBC RBC HGB HCT MCV PLT Adult M 4.1-10.9 4.20-6.30 12.0-18.0 37.0-51.0 80-97 140-440 Adult F 4.1-10.9 4.04-5.48 12.0-18.0 37.0-51.0 80-97 140-440 0- 1 Yr 5.0-20.0 3.9-5.9 15-18 MV: 44 MV: [...] AUTOMATED BLOOD COUNTS AND DIFF.) APPENDIX B-3 BUN/Creatinine Ratio 20.4 CALC MEDENT ([facility] CLASSIFICATION CHOLESTEROL FO R ADULTS CHILDREN/ADOLESCENTS* DESIRABLE: <200 MG/DL <170 MG/DL BORDER-LINE HIGH RISK: 200-239 MG/DL 170-199 MG/DL HIGH RISK: >240 MG/DL >200 MG/DL CLASS. FOR PRIMARY LDL CHOL PREVENTION: LDL CHOL-CHILD/ADOLESCENTS* DESIRABLE: <130 MG/DL <110 MG/DL BORDERLINE-HIGH RISK: 130-159 MG/DL 110-129 MG/DL HIGH RISK: >160 MG/DL >130 MG/DL *CHILDREN AND ADOLESCENTS REPRESENTS INDIVIDUALA AGED 2-19 YEARS EXCLUSIVE. CHRONIC KIDNEY DISEASE STAGING PER NKF: MALE [...] mL/min Normal 80 and above >32 mL/min NormalNORMAL RANGES Age WBC RBC HGB HCT MCV PLT Adult M 4.1-10.9 4.20-6.30 12.0-18.0 37.0-51.0 80-97 140-440 Adult F 4.1-10.9 4.04-5.48 12.0-18.0 37.0-51.0 80-97 140-440 0- 1 Yr 5.0-20.0 3.9-5.9 15-18 MV: 44 MV: 91 MV: 277 2-9 Yr. 6.0-17.0 3.8-5.4 11-13 MV: 37 MV: 78 MV: 300 10 Yrs. 5.0-13.0 3.8-5.4 12-15 MV: 39 MV: 80 MV: 250 NOTE: * FOR ADULT BLACK MALES AND FEMALES, NORMAL WBC IS 2.9-7.7 K/ML * FOR ADULT BLACK MALES AND FEMALES, NORMAL RBC,HGB, AND HCT IS 5% LESS SOURCE FOR DATA: [employer] 1800 OPERATION MANUAL( AUTOMATED BLOOD COUNTS AND DIFF.) APPENDIX B-3 Creat 0.9 mg/dL 0.5-1.0 [facility] CLASSIFICATION CHOLESTEROL FO R ADULTS CHILDREN/ADOLESCENTS* DESIRABLE: <200 MG/DL <170 MG/DL BORDER-LINE HIGH RISK: 200-239 MG/DL 170-199 MG/DL HIGH RISK: >240 MG/DL >200 MG/DL CLASS. FOR PRIMARY LDL CHOL PREVENTION: LDL CHOL-CHILD/ADOLESCENTS* DESIRABLE: <130 MG/DL <110 MG/DL BORDERLINE-HIGH RISK: 130-159 MG/DL 110-129 MG/DL HIGH RISK: >160 MG/DL >130 MG/DL *CHILDREN AND ADOLESCENTS REPRESENTS INDIVIDUALA AGED 2-19 YEARS EXCLUSIVE. CHRONIC KIDNEY DISEASE STAGING PER NKF: MALE [...] mL/min Normal 80 and above >32 mL/min NormalNORMAL RANGES Age WBC RBC HGB HCT MCV PLT Adult M 4.1-10.9 4.20-6.30 12.0-18.0 37.0-51.0 80-97 140-440 Adult F 4.1-10.9 4.04-5.48 12.0-18.0 37.0-51.0 80-97 140-440 0- 1 Yr 5.0-20.0 3.9-5.9 15-18 MV: 44 MV: 91 MV: 277 2-9 Yr. 6.0-17.0 3.8-5.4 11-13 MV: 37 MV: 78 MV: 300 10 Yrs. 5.0-13.0 3.8-5.4 12-15 MV: 39 MV: 80 MV: 250 NOTE: * FOR ADULT BLACK MALES AND FEMALES, NORMAL WBC IS 2.9-7.7 K/ML * FOR ADULT BLACK MALES AND FEMALES, NORMAL RBC,HGB, AND HCT IS 5% LESS SOURCE FOR DATA: [employer] 1800 OPERATION MANUAL( AUTOMATED BLOOD COUNTS AND DIFF.) APPENDIX B-3 Na 137 mmol/L 136-145 [facility] CLASSIFICATION CHOLESTEROL FO R ADULTS CHILDREN/ADOLESCENTS* DESIRABLE: <200 MG/DL <170 MG/DL BORDER-LINE HIGH RISK: 200-239 MG/DL 170-199 MG/DL HIGH RISK: >240 MG/DL >200 MG/DL CLASS. FOR PRIMARY LDL CHOL PREVENTION: LDL CHOL-CHILD/ADOLESCENTS* DESIRABLE: <130 MG/DL <110 MG/DL BORDERLINE-HIGH RISK: 130-159 MG/DL 110-129 MG/DL HIGH RISK: >160 MG/DL >130 MG/DL *CHILDREN AND ADOLESCENTS REPRESENTS INDIVIDUALA AGED 2-19 YEARS EXCLUSIVE. CHRONIC KIDNEY DISEASE STAGING PER NKF: MALE [...] mL/min Normal 80 and above >32 mL/min NormalNORMAL RANGES Age WBC RBC HGB HCT MCV PLT Adult M 4.1-10.9 4.20-6.30 12.0-18.0 37.0-51.0 80-97 140-440 Adult F 4.1-10.9 4.04-5.48 12.0-18.0 37.0-51.0 80-97 140-440 0- 1 Yr 5.0-20.0 3.9-5.9 15-18 MV: 44 MV: 91 MV: 277 2-9 Yr. 6.0-17.0 3.8-5.4 11-13 MV: 37 MV: 78 MV: 300 10 Yrs. 5.0-13.0 3.8-5.4 12-15 MV: 39 MV: 80 MV: 250 NOTE: * FOR ADULT BLACK MALES AND FEMALES, NORMAL WBC IS 2.9-7.7 K/ML * FOR ADULT BLACK MALES AND FEMALES, NORMAL RBC,HGB, AND HCT IS 5% LESS SOURCE FOR DATA: [employer] 1800 OPERATION MANUAL( AUTOMATED BLOOD COUNTS AND DIFF.) APPENDIX B-3 K 4.5 mmol/L 3.5-5.1 [facility] ([facility] CLASSIFICATION CHOLESTEROL FO R ADULTS CHILDREN/ADOLESCENTS* DESIRABLE: <200 MG/DL <170 MG/DL BORDER-LINE HIGH RISK: 200-239 MG/DL 170-199 MG/DL HIGH RISK: >240 MG/DL >200 MG/DL CLASS. FOR PRIMARY LDL CHOL PREVENTION: LDL CHOL-CHILD/ADOLESCENTS* DESIRABLE: <130 MG/DL <110 MG/DL BORDERLINE-HIGH RISK: 130-159 MG/DL 110-129 MG/DL HIGH RISK: >160 MG/DL >130 MG/DL *CHILDREN AND ADOLESCENTS REPRESENTS INDIVIDUALA AGED 2-19 YEARS EXCLUSIVE. CHRONIC KIDNEY DISEASE STAGING PER NKF: MALE [...] mL/min Normal 80 and above >32 mL/min NormalNORMAL RANGES Age WBC RBC HGB HCT MCV PLT Adult M 4.1-10.9 4.20-6.30 12.0-18.0 37.0-51.0 80-97 140-440 Adult F 4.1-10.9 4.04-5.48 12.0-18.0 37.0-51.0 80- 140-440 0- 1 Yr 5.0-20.0 3.9-5.9 15-18 MV: 44 MV: [...] AUTOMATED BLOOD COUNTS AND DIFF.) APPENDIX B-3 CL 101.5 mmol/L 98.0-107.0 [facility] ([facility] CLASSIFICATION CHOLESTEROL FO R ADULTS CHILDREN/ADOLESCENTS* DESIRABLE: <200 MG/DL <170 MG/DL BORDER-LINE HIGH RISK: 200-239 MG/DL 170-199 MG/DL HIGH RISK: >240 MG/DL >200 MG/DL CLASS. FOR PRIMARY LDL CHOL PREVENTION: LDL CHOL-CHILD/ADOLESCENTS* DESIRABLE: <130 MG/DL <110 MG/DL BORDERLINE-HIGH RISK: 130-159 MG/DL 110-129 MG/DL HIGH RISK: >160 MG/DL >130 MG/DL *CHILDREN AND ADOLESCENTS REPRESENTS INDIVIDUALA AGED 2-19 YEARS EXCLUSIVE. CHRONIC KIDNEY DISEASE STAGING PER NKF: MALE [...] mL/min Normal 80 and above >32 mL/min NormalNORMAL RANGES Age WBC RBC HGB HCT MCV PLT Adult M 4.1-10.9 4.20-6.30 12.0-18.0 37.0-51.0 80-97 140-440 Adult F 4.1-10.9 4.04-5.48 12.0-18.0 37.0-51.0 80-97 140-440 0- 1 Yr 5.0-20.0 3.9-5.9 15-18 MV: 44 MV: 91 MV: 277 2-9 Yr. 6.0-17.0 3.8-5.4 11-13 MV: 37 MV: 78 MV: 300 10 Yrs. 5.0-13.0 3.8-5.4 12-15 MV: 39 MV: 80 MV: 250 NOTE: * FOR ADULT BLACK MALES AND FEMALES, NORMAL WBC IS 2.9-7.7 K/ML * FOR ADULT BLACK MALES AND FEMALES, NORMAL RBC,HGB, AND HCT IS 5% LESS SOURCE FOR DATA: [employer] 1800 OPERATION MANUAL( AUTOMATED BLOOD COUNTS AND DIFF.) APPENDIX B-3 Co2 20.8 mmol/L 22.0-29.0 Below low normal [facility] ([facility] CLASSIFICATION CHOLESTEROL FO R ADULTS CHILDREN/ADOLESCENTS* DESIRABLE: <200 MG/DL <170 MG/DL BORDER-LINE HIGH RISK: 200-239 MG/DL 170-199 MG/DL HIGH RISK: >240 MG/DL >200 MG/DL CLASS. FOR PRIMARY LDL CHOL PREVENTION: LDL CHOL-CHILD/ADOLESCENTS* DESIRABLE: <130 MG/DL <110 MG/DL BORDERLINE-HIGH RISK: 130-159 MG/DL 110-129 MG/DL HIGH RISK: >160 MG/DL >130 MG/DL *CHILDREN AND ADOLESCENTS REPRESENTS INDIVIDUALA AGED 2-19 YEARS EXCLUSIVE. CHRONIC KIDNEY DISEASE STAGING PER NKF: MALE [...] mL/min Normal 80 and above >32 mL/min NormalNORMAL RANGES Age WBC RBC HGB HCT MCV PLT Adult M 4.1-10.9 4.20-6.30 12.0-18.0 37.0-51.0 80-97 140-440 Adult F 4.1-10.9 4.04-5.48 12.0-18.0 37.0-51.0 80-97 140-440 0- 1 Yr 5.0-20.0 3.9-5.9 15-18 MV: 44 MV: 91 MV: 277 2-9 Yr. 6.0-17.0 3.8-5.4 11-13 MV: 37 MV: 78 MV: 300 10 Yrs. 5.0-13.0 3.8-5.4 12-15 MV: 39 MV: 80 MV: 250 NOTE: * FOR ADULT BLACK MALES AND FEMALES, NORMAL WBC IS 2.9-7.7 K/ML * FOR ADULT BLACK MALES AND FEMALES, NORMAL RBC,HGB, AND HCT IS 5% LESS SOURCE FOR DATA: [employer] 1800 OPERATION MANUAL( AUTOMATED BLOOD COUNTS AND DIFF.) APPENDIX B-3 TP 7.1 g/dL 6.6-8.7 [facility] CLASSIFICATION CHOLESTEROL FO R ADULTS CHILDREN/ADOLESCENTS* DESIRABLE: <200 MG/DL <170 MG/DL BORDER-LINE HIGH RISK: 200-239 MG/DL 170-199 MG/DL HIGH RISK: >240 MG/DL >200 MG/DL CLASS. FOR PRIMARY LDL CHOL PREVENTION: LDL CHOL-CHILD/ADOLESCENTS* DESIRABLE: <130 MG/DL <110 MG/DL BORDERLINE-HIGH RISK: 130-159 MG/DL 110-129 MG/DL HIGH RISK: >160 MG/DL >130 MG/DL *CHILDREN AND ADOLESCENTS REPRESENTS INDIVIDUALA AGED 2-19 YEARS EXCLUSIVE. CHRONIC KIDNEY DISEASE STAGING PER NKF: MALE [...] mL/min Normal 80 and above >32 mL/min NormalNORMAL RANGES Age WBC RBC HGB HCT MCV PLT Adult M 4.1-10.9 4.20-6.30 12.0-18.0 37.0-51.0 80-97 140-440 Adult F 4.1-10.9 4.04-5.48 12.0-18.0 37.0-51.0 80-97 140-440 0- 1 Yr 5.0-20.0 3.9-5.9 15-18 MV: 44 MV: 91 MV: 277 2-9 Yr. 6.0-17.0 3.8-5.4 11-13 MV: 37 MV: 78 MV: 300 10 Yrs. 5.0-13.0 3.8-5.4 12-15 MV: 39 MV: 80 MV: 250 NOTE: * FOR ADULT BLACK MALES AND FEMALES, NORMAL WBC IS 2.9-7.7 K/ML * FOR ADULT BLACK MALES AND FEMALES, NORMAL RBC,HGB, AND HCT IS 5% LESS SOURCE FOR DATA: [employer] 1800 OPERATION MANUAL( AUTOMATED BLOOD COUNTS AND DIFF.) APPENDIX B-3 CA 9.4 mg/dL 8.6-10.2 [facility] ([facility] CLASSIFICATION CHOLESTEROL FO R ADULTS CHILDREN/ADOLESCENTS* DESIRABLE: <200 MG/DL <170 MG/DL BORDER-LINE HIGH RISK: 200-239 MG/DL 170-199 MG/DL HIGH RISK: >240 MG/DL >200 MG/DL CLASS. FOR PRIMARY LDL CHOL PREVENTION: LDL CHOL-CHILD/ADOLESCENTS* DESIRABLE: <130 MG/DL <110 MG/DL BORDERLINE-HIGH RISK: 130-159 MG/DL 110-129 MG/DL HIGH RISK: >160 MG/DL >130 MG/DL *CHILDREN AND ADOLESCENTS REPRESENTS INDIVIDUALA AGED 2-19 YEARS EXCLUSIVE. CHRONIC KIDNEY DISEASE STAGING PER NKF: MALE [...] mL/min Normal 80 and above >32 mL/min NormalNORMAL RANGES Age WBC RBC HGB HCT MCV PLT Adult M 4.1-10.9 4.20-6.30 12.0-18.0 37.0-51.0 80-97 140-440 Adult F 4.1-10.9 4.04-5.48 12.0-18.0 37.0-51.0 80-97 140-440 0- 1 Yr 5.0-20.0 3.9-5.9 15-18 MV: 44 MV: [...] AUTOMATED BLOOD COUNTS AND DIFF.) APPENDIX B-3 Alb 4.3 g/dL 3.4-4.8 [facility] ([facility] CLASSIFICATION CHOLESTEROL FO R ADULTS CHILDREN/ADOLESCENTS* DESIRABLE: <200 MG/DL <170 MG/DL BORDER-LINE HIGH RISK: 200-239 MG/DL 170-199 MG/DL HIGH RISK: >240 MG/DL >200 MG/DL CLASS. FOR PRIMARY LDL CHOL PREVENTION: LDL CHOL-CHILD/ADOLESCENTS* DESIRABLE: <130 MG/DL <110 MG/DL BORDERLINE-HIGH RISK: 130-159 MG/DL 110-129 MG/DL HIGH RISK: >160 MG/DL >130 MG/DL *CHILDREN AND ADOLESCENTS REPRESENTS INDIVIDUALA AGED 2-19 YEARS EXCLUSIVE. CHRONIC KIDNEY DISEASE STAGING PER NKF: MALE [...] mL/min Normal 80 and above >32 mL/min NormalNORMAL RANGES Age WBC RBC HGB HCT MCV PLT Adult M 4.1-10.9 4.20-6.30 12.0-18.0 37.0-51.0 80-97 140-440 Adult F 4.1-10.9 4.04-5.48 12.0-18.0 37.0-51.0 80-97 140-440 0- 1 Yr 5.0-20.0 3.9-5.9 15-18 MV: 44 MV: [...] AUTOMATED BLOOD COUNTS AND DIFF.) APPENDIX B-3 A/G Ratio 1.5 [facility] ([facility] CLASSIFICATION CHOLESTEROL FO R ADULTS CHILDREN/ADOLESCENTS* DESIRABLE: <200 MG/DL <170 MG/DL BORDER-LINE HIGH RISK: 200-239 MG/DL 170-199 MG/DL HIGH RISK: >240 MG/DL >200 MG/DL CLASS. FOR PRIMARY LDL CHOL PREVENTION: LDL CHOL-CHILD/ADOLESCENTS* DESIRABLE: <130 MG/DL <110 MG/DL BORDERLINE-HIGH RISK: 130-159 MG/DL 110-129 MG/DL HIGH RISK: >160 MG/DL >130 MG/DL *CHILDREN AND ADOLESCENTS REPRESENTS INDIVIDUALA AGED 2-19 YEARS EXCLUSIVE. CHRONIC KIDNEY DISEASE STAGING PER NKF: MALE [...] mL/min Normal 80 and above >32 mL/min NormalNORMAL RANGES Age WBC RBC HGB HCT MCV PLT Adult M 4.1-10.9 4.20-6.30 12.0-18.0 37.0-51.0 80-97 140-440 Adult F 4.1-10.9 4.04-5.48 12.0-18.0 37.0-51.0 80-97 140-440 0- 1 Yr 5.0-20.0 3.9-5.9 15-18 MV: 44 MV: 91 MV: 277 2-9 Yr. 6.0-17.0 3.8-5.4 11-13 MV: 37 MV: 78 MV: 300 10 Yrs. 5.0-13.0 3.8-5.4 12-15 MV: 39 MV: 80 MV: 250 NOTE: * FOR ADULT BLACK MALES AND FEMALES, NORMAL WBC IS 2.9-7.7 K/ML * FOR ADULT BLACK MALES AND FEMALES, NORMAL RBC,HGB, AND HCT IS 5% LESS SOURCE FOR DATA: [employer] 1800 OPERATION MANUAL( AUTOMATED BLOOD COUNTS AND DIFF.) APPENDIX B-3 Globulin 2.8 [facility]C [facility] CLASSIFICATION CHOLESTEROL FO R ADULTS CHILDREN/ADOLESCENTS* DESIRABLE: <200 MG/DL <170 MG/DL BORDER-LINE HIGH RISK: 200-239 MG/DL 170-199 MG/DL HIGH RISK: >240 MG/DL >200 MG/DL CLASS. FOR PRIMARY LDL CHOL PREVENTION: LDL CHOL-CHILD/ADOLESCENTS* DESIRABLE: <130 MG/DL <110 MG/DL BORDERLINE-HIGH RISK: 130-159 MG/DL 110-129 MG/DL HIGH RISK: >160 MG/DL >130 MG/DL *CHILDREN AND ADOLESCENTS REPRESENTS INDIVIDUALA AGED 2-19 YEARS EXCLUSIVE. CHRONIC KIDNEY DISEASE STAGING PER NKF: MALE [...] mL/min Normal 80 and above >32 mL/min NormalNORMAL RANGES Age WBC RBC HGB HCT MCV PLT Adult M 4.1-10.9 4.20-6.30 12.0-18.0 37.0-51.0 80-97 140-440 Adult F 4.1-10.9 4.04-5.48 12.0-18.0 37.0-51.0 80-97 140-440 0- 1 Yr 5.0-20.0 3.9-5.9 15-18 MV: 44 MV: [...] AUTOMATED BLOOD COUNTS AND DIFF.) APPENDIX B-3 Alp 84.8 U/L 35-129 [facility] CLASSIFICATION CHOLESTEROL FO R ADULTS CHILDREN/ADOLESCENTS* DESIRABLE: <200 MG/DL <170 MG/DL BORDER-LINE HIGH RISK: 200-239 MG/DL 170-199 MG/DL HIGH RISK: >240 MG/DL >200 MG/DL CLASS. FOR PRIMARY LDL CHOL PREVENTION: LDL CHOL-CHILD/ADOLESCENTS* DESIRABLE: <130 MG/DL <110 MG/DL BORDERLINE-HIGH RISK: 130-159 MG/DL 110-129 MG/DL HIGH RISK: >160 MG/DL >130 MG/DL *CHILDREN AND ADOLESCENTS REPRESENTS INDIVIDUALA AGED 2-19 YEARS EXCLUSIVE. CHRONIC KIDNEY DISEASE STAGING PER NKF: MALE [...] mL/min Normal 80 and above >32 mL/min NormalNORMAL RANGES Age WBC RBC HGB HCT MCV PLT Adult M 4.1-10.9 4.20-6.30 12.0-18.0 37.0-51.0 80-97 140-440 Adult F 4.1-10.9 4.04-5.48 12.0-18.0 37.0-51.0 80-97 140-440 0- 1 Yr 5.0-20.0 3.9-5.9 15-18 MV: 44 MV: [...] AUTOMATED BLOOD COUNTS AND DIFF.) APPENDIX B-3 Alt (SGPT) 30 U/L 0-41 [facility] ([facility] CLASSIFICATION CHOLESTEROL FO R ADULTS CHILDREN/ADOLESCENTS* DESIRABLE: <200 MG/DL <170 MG/DL BORDER-LINE HIGH RISK: 200-239 MG/DL 170-199 MG/DL HIGH RISK: >240 MG/DL >200 MG/DL CLASS. FOR PRIMARY LDL CHOL PREVENTION: LDL CHOL-CHILD/ADOLESCENTS* DESIRABLE: <130 MG/DL <110 MG/DL BORDERLINE-HIGH RISK: 130-159 MG/DL 110-129 MG/DL HIGH RISK: >160 MG/DL >130 MG/DL *CHILDREN AND ADOLESCENTS REPRESENTS INDIVIDUALA AGED 2-19 YEARS EXCLUSIVE. CHRONIC KIDNEY DISEASE STAGING PER NKF: MALE [...] mL/min Normal 80 and above >32 mL/min NormalNORMAL RANGES Age WBC RBC HGB HCT MCV PLT Adult M 4.1-10.9 4.20-6.30 12.0-18.0 37.0-51.0 80-97 140-440 Adult F 4.1-10.9 4.04-5.48 12.0-18.0 37.0-51.0 80-97 140-440 0- 1 Yr 5.0-20.0 3.9-5.9 15-18 MV: 44 MV: 91 MV: 277 2-9 Yr. 6.0-17.0 3.8-5.4 11-13 MV: 37 MV: 78 MV: 300 10 Yrs. 5.0-13.0 3.8-5.4 12-15 MV: 39 MV: 80 MV: 250 NOTE: * FOR ADULT BLACK MALES AND FEMALES, NORMAL WBC IS 2.9-7.7 K/ML * FOR ADULT BLACK MALES AND FEMALES, NORMAL RBC,HGB, AND HCT IS 5% LESS SOURCE FOR DATA: [employer] 1800 OPERATION MANUAL( AUTOMATED BLOOD COUNTS AND DIFF.) APPENDIX B-3 Ast (Sgot) 29 U/L 0-40 [facility] CLASSIFICATION CHOLESTEROL FO R ADULTS CHILDREN/ADOLESCENTS* DESIRABLE: <200 MG/DL <170 MG/DL BORDER-LINE HIGH RISK: 200-239 MG/DL 170-199 MG/DL HIGH RISK: >240 MG/DL >200 MG/DL CLASS. FOR PRIMARY LDL CHOL PREVENTION: LDL CHOL-CHILD/ADOLESCENTS* DESIRABLE: <130 MG/DL <110 MG/DL BORDERLINE-HIGH RISK: 130-159 MG/DL 110-129 MG/DL HIGH RISK: >160 MG/DL >130 MG/DL *CHILDREN AND ADOLESCENTS REPRESENTS INDIVIDUALA AGED 2-19 YEARS EXCLUSIVE. CHRONIC KIDNEY DISEASE STAGING PER NKF: MALE [...] mL/min Normal 80 and above >32 mL/min NormalNORMAL RANGES Age WBC RBC HGB HCT MCV PLT Adult M 4.1-10.9 4.20-6.30 12.0-18.0 37.0-51.0 80-97 140-440 Adult F 4.1-10.9 4.04-5.48 12.0-18.0 37.0-51.0 80-97 140-440 0- 1 Yr 5.0-20.0 3.9-5.9 15-18 MV: 44 MV: [...] AUTOMATED BLOOD COUNTS AND DIFF.) APPENDIX B-3 Tbili 1.07 mg/dL 0.0-1.2 [facility] ([facility] CLASSIFICATION CHOLESTEROL FO R ADULTS CHILDREN/ADOLESCENTS* DESIRABLE: <200 MG/DL <170 MG/DL BORDER-LINE HIGH RISK: 200-239 MG/DL 170-199 MG/DL HIGH RISK: >240 MG/DL >200 MG/DL CLASS. FOR PRIMARY LDL CHOL PREVENTION: LDL CHOL-CHILD/ADOLESCENTS* DESIRABLE: <130 MG/DL <110 MG/DL BORDERLINE-HIGH RISK: 130-159 MG/DL 110-129 MG/DL HIGH RISK: >160 MG/DL >130 MG/DL *CHILDREN AND ADOLESCENTS REPRESENTS INDIVIDUALA AGED 2-19 YEARS EXCLUSIVE. CHRONIC KIDNEY DISEASE STAGING PER NKF: MALE [...] mL/min Normal 80 and above >32 mL/min NormalNORMAL RANGES Age WBC RBC HGB HCT MCV PLT Adult M 4.1-10.9 4.20-6.30 12.0-18.0 37.0-51.0 80-97 140-440 Adult F 4.1-10.9 4.04-5.48 12.0-18.0 37.0-51.0 80-97 140-440 0- 1 Yr 5.0-20.0 3.9-5.9 15-18 MV: 44 MV: 91 MV: 277 2-9 Yr. 6.0-17.0 3.8-5.4 11-13 MV: 37 MV: 78 MV: 300 10 Yrs. 5.0-13.0 3.8-5.4 12-15 MV: 39 MV: 80 MV: 250 NOTE: * FOR ADULT BLACK MALES AND FEMALES, NORMAL WBC IS 2.9-7.7 K/ML * FOR ADULT BLACK MALES AND FEMALES, NORMAL RBC,HGB, AND HCT IS 5% LESS SOURCE FOR DATA: [employer] 1800 OPERATION MANUAL( AUTOMATED BLOOD COUNTS AND DIFF.) APPENDIX B-3 Osmolality-Calculated 278.6 [facility] ([facility] CLASSIFICATION CHOLESTEROL FO R ADULTS CHILDREN/ADOLESCENTS* DESIRABLE: <200 MG/DL <170 MG/DL BORDER-LINE HIGH RISK: 200-239 MG/DL 170-199 MG/DL HIGH RISK: >240 MG/DL >200 MG/DL CLASS. FOR PRIMARY LDL CHOL PREVENTION: LDL CHOL-CHILD/ADOLESCENTS* DESIRABLE: <130 MG/DL <110 MG/DL BORDERLINE-HIGH RISK: 130-159 MG/DL 110-129 MG/DL HIGH RISK: >160 MG/DL >130 MG/DL *CHILDREN AND ADOLESCENTS REPRESENTS INDIVIDUALA AGED 2-19 YEARS EXCLUSIVE. CHRONIC KIDNEY DISEASE STAGING PER NKF: MALE [...] mL/min Normal 80 and above >32 mL/min NormalNORMAL RANGES Age WBC RBC HGB HCT MCV PLT Adult M 4.1-10.9 4.20-6.30 12.0-18.0 37.0-51.0 80-97 140-440 Adult F 4.1-10.9 4.04-5.48 12.0-18.0 37.0-51.0 80-97 140-440 0- 1 Yr 5.0-20.0 3.9-5.9 15-18 MV: 44 MV: [...] AUTOMATED BLOOD COUNTS AND DIFF.) APPENDIX B-3 Anion Gap 19 mmol/L [facility] CLASSIFICATION CHOLESTEROL FO R ADULTS CHILDREN/ADOLESCENTS* DESIRABLE: <200 MG/DL <170 MG/DL BORDER-LINE HIGH RISK: 200-239 MG/DL 170-199 MG/DL HIGH RISK: >240 MG/DL >200 MG/DL CLASS. FOR PRIMARY LDL CHOL PREVENTION: LDL CHOL-CHILD/ADOLESCENTS* DESIRABLE: <130 MG/DL <110 MG/DL BORDERLINE-HIGH RISK: 130-159 MG/DL 110-129 MG/DL HIGH RISK: >160 MG/DL >130 MG/DL *CHILDREN AND ADOLESCENTS REPRESENTS INDIVIDUALA AGED 2-19 YEARS EXCLUSIVE. CHRONIC KIDNEY DISEASE STAGING PER NKF: MALE [...] mL/min Normal 80 and above >32 mL/min NormalNORMAL RANGES Age WBC RBC HGB HCT MCV PLT Adult M 4.1-10.9 4.20-6.30 12.0-18.0 37.0-51.0 80-97 140-440 Adult F 4.1-10.9 4.04-5.48 12.0-18.0 37.0-51.0 80-97 140-440 0- 1 Yr 5.0-20.0 3.9-5.9 15-18 MV: 44 MV: 91 MV: 277 2-9 Yr. 6.0-17.0 3.8-5.4 11-13 MV: 37 MV: 78 MV: 300 10 Yrs. 5.0-13.0 3.8-5.4 12-15 MV: 39 MV: 80 MV: 250 NOTE: * FOR ADULT BLACK MALES AND FEMALES, NORMAL WBC IS 2.9-7.7 K/ML * FOR ADULT BLACK MALES AND FEMALES, NORMAL RBC,HGB, AND HCT IS 5% LESS SOURCE FOR DATA: [employer] 1800 OPERATION MANUAL( AUTOMATED BLOOD COUNTS AND DIFF.) APPENDIX B-3 eGFR 71 # [facility] ( [facility] CLASSIFICATION CHOLESTEROL FO R ADULTS CHILDREN/ADOLESCENTS* DESIRABLE: <200 MG/DL <170 MG/DL BORDER-LINE HIGH RISK: 200-239 MG/DL 170-199 MG/DL HIGH RISK: >240 MG/DL >200 MG/DL CLASS. FOR PRIMARY LDL CHOL PREVENTION: LDL CHOL-CHILD/ADOLESCENTS* DESIRABLE: <130 MG/DL <110 MG/DL BORDERLINE-HIGH RISK: 130-159 MG/DL 110-129 MG/DL HIGH RISK: >160 MG/DL >130 MG/DL *CHILDREN AND ADOLESCENTS REPRESENTS INDIVIDUALA AGED 2-19 YEARS EXCLUSIVE. CHRONIC KIDNEY DISEASE STAGING PER NKF: MALE [...] mL/min Normal 80 and above >32 mL/min NormalNORMAL RANGES Age WBC RBC HGB HCT MCV PLT Adult M 4.1-10.9 4.20-6.30 12.0-18.0 37.0-51.0 80-97 140-440 Adult F 4.1-10.9 4.04-5.48 12.0-18.0 37.0-51.0 80-97 140-440 0- 1 Yr 5.0-20.0 3.9-5.9 15-18 MV: 44 MV: 91 MV: 277 2-9 Yr. 6.0-17.0 3.8-5.4 11-13 MV: 37 MV: 78 MV: 300 10 Yrs. 5.0-13.0 3.8-5.4 12-15 MV: 39 MV: 80 MV: 250 NOTE: * FOR ADULT BLACK MALES AND FEMALES, NORMAL WBC IS 2.9-7.7 K/ML * FOR ADULT BLACK MALES AND FEMALES, NORMAL RBC,HGB, AND HCT IS 5% LESS SOURCE FOR DATA: [employer] 1800 OPERATION MANUAL( AUTOMATED BLOOD COUNTS AND DIFF.) APPENDIX B-3 eGFR Non-Afr. [place] 62 # [facility] ([facility] CLASSIFICATION CHOLESTEROL FO R ADULTS CHILDREN/ADOLESCENTS* DESIRABLE: <200 MG/DL <170 MG/DL BORDER-LINE HIGH RISK: 200-239 MG/DL 170-199 MG/DL HIGH RISK: >240 MG/DL >200 MG/DL CLASS. FOR PRIMARY LDL CHOL PREVENTION: LDL CHOL-CHILD/ADOLESCENTS* DESIRABLE: <130 MG/DL <110 MG/DL BORDERLINE-HIGH RISK: 130-159 MG/DL 110-129 MG/DL HIGH RISK: >160 MG/DL >130 MG/DL *CHILDREN AND ADOLESCENTS REPRESENTS INDIVIDUALA AGED 2-19 YEARS EXCLUSIVE. CHRONIC KIDNEY DISEASE STAGING PER NKF: MALE [...] mL/min Normal 80 and above >32 mL/min NormalNORMAL RANGES Age WBC RBC HGB HCT MCV PLT Adult M 4.1-10.9 4.20-6.30 12.0-18.0 37.0-51.0 80-97 140-440 Adult F 4.1-10.9 4.04-5.48 12.0-18.0 37.0-51.0 80-97 140-440 0- 1 Yr 5.0-20.0 3.9-5.9 15-18 MV: 44 MV: 91 MV: 277 2-9 Yr. 6.0-17.0 3.8-5.4 11-13 MV: 37 MV: 78 MV: 300 10 Yrs. 5.0-13.0 3.8-5.4 12-15 MV: 39 MV: 80 MV: 250 NOTE: * FOR ADULT BLACK MALES AND FEMALES, NORMAL WBC IS 2.9-7.7 K/ML * FOR ADULT BLACK MALES AND FEMALES, NORMAL RBC,HGB, AND HCT IS 5% LESS SOURCE FOR DATA: [employer] 1800 OPERATION MANUAL( AUTOMATED BLOOD COUNTS AND DIFF.) APPENDIX B-3 ID Date Data Source [id number] 11/11/2019 10:37:00 AM EST [facility] ([facility] Name Value Range Interpretation Code Description Data Amarilis rce(s) Supporting Document(s) WBC 5.7 10E3/uL 4.1-10.9 [facility] ([facility] CLASSIFICATION CHOLESTEROL FO R ADULTS CHILDREN/ADOLESCENTS* DESIRABLE: <200 MG/DL <170 MG/DL BORDER-LINE HIGH RISK: 200-239 MG/DL 170-199 MG/DL HIGH RISK: >240 MG/DL >200 MG/DL CLASS. FOR PRIMARY LDL CHOL PREVENTION: LDL CHOL-CHILD/ADOLESCENTS* DESIRABLE: <130 MG/DL <110 MG/DL BORDERLINE-HIGH RISK: 130-159 MG/DL 110-129 MG/DL HIGH RISK: >160 MG/DL >130 MG/DL *CHILDREN AND ADOLESCENTS REPRESENTS INDIVIDUALA AGED 2-19 YEARS EXCLUSIVE. CHRONIC KIDNEY DISEASE STAGING PER NKF: MALE [...] mL/min Normal 80 and above >32 mL/min NormalNORMAL RANGES Age WBC RBC HGB HCT MCV PLT Adult M 4.1-10.9 4.20-6.30 12.0-18.0 37.0-51.0 80-97 140-440 Adult F 4.1-10.9 4.04-5.48 12.0-18.0 37.0-51.0 80-97 140-440 0- 1 Yr 5.0-20.0 3.9-5.9 15-18 MV: 44 MV: [...] AUTOMATED BLOOD COUNTS AND DIFF.) APPENDIX B-3 RBC 4.33 10E6/uL 4.20-6.30 [facility] ([facility] CLASSIFICATION CHOLESTEROL FO R ADULTS CHILDREN/ADOLESCENTS* DESIRABLE: <200 MG/DL <170 MG/DL BORDER-LINE HIGH RISK: 200-239 MG/DL 170-199 MG/DL HIGH RISK: >240 MG/DL >200 MG/DL CLASS. FOR PRIMARY LDL CHOL PREVENTION: LDL CHOL-CHILD/ADOLESCENTS* DESIRABLE: <130 MG/DL <110 MG/DL BORDERLINE-HIGH RISK: 130-159 MG/DL 110-129 MG/DL HIGH RISK: >160 MG/DL >130 MG/DL *CHILDREN AND ADOLESCENTS REPRESENTS INDIVIDUALA AGED 2-19 YEARS EXCLUSIVE. CHRONIC KIDNEY DISEASE STAGING PER NKF: MALE [...] mL/min Normal 80 and above >32 mL/min NormalNORMAL RANGES Age WBC RBC HGB HCT MCV PLT Adult M 4.1-10.9 4.20-6.30 12.0-18.0 37.0-51.0 80-97 140-440 Adult F 4.1-10.9 4.04-5.48 12.0-18.0 37.0-51.0 80-97 140-440 0- 1 Yr 5.0-20.0 3.9-5.9 15-18 MV: 44 MV: 91 MV: 277 2-9 Yr. 6.0-17.0 3.8-5.4 11-13 MV: 37 MV: 78 MV: 300 10 Yrs. 5.0-13.0 3.8-5.4 12-15 MV: 39 MV: 80 MV: 250 NOTE: * FOR ADULT BLACK MALES AND FEMALES, NORMAL WBC IS 2.9-7.7 K/ML * FOR ADULT BLACK MALES AND FEMALES, NORMAL RBC,HGB, AND HCT IS 5% LESS SOURCE FOR DATA: [employer] 1800 OPERATION MANUAL( AUTOMATED BLOOD COUNTS AND DIFF.) APPENDIX B-3 MCV 90.3 fL 80.0-97.0 [facility] ([facility] CLASSIFICATION CHOLESTEROL FO R ADULTS CHILDREN/ADOLESCENTS* DESIRABLE: <200 MG/DL <170 MG/DL BORDER-LINE HIGH RISK: 200-239 MG/DL 170-199 MG/DL HIGH RISK: >240 MG/DL >200 MG/DL CLASS. FOR PRIMARY LDL CHOL PREVENTION: LDL CHOL-CHILD/ADOLESCENTS* DESIRABLE: <130 MG/DL <110 MG/DL BORDERLINE-HIGH RISK: 130-159 MG/DL 110-129 MG/DL HIGH RISK: >160 MG/DL >130 MG/DL *CHILDREN AND ADOLESCENTS REPRESENTS INDIVIDUALA AGED 2-19 YEARS EXCLUSIVE. CHRONIC KIDNEY DISEASE STAGING PER NKF: MALE [...] mL/min Normal 80 and above >32 mL/min NormalNORMAL RANGES Age WBC RBC HGB HCT MCV PLT Adult M 4.1-10.9 4.20-6.30 12.0-18.0 37.0-51.0 80-97 140-440 Adult F 4.1-10.9 4.04-5.48 12.0-18.0 37.0-51.0 80-97 140-440 0- 1 Yr 5.0-20.0 3.9-5.9 15-18 MV: 44 MV: 91 MV: 277 2-9 Yr. 6.0-17.0 3.8-5.4 11-13 MV: 37 MV: 78 MV: 300 10 Yrs. 5.0-13.0 3.8-5.4 12-15 MV: 39 MV: 80 MV: 250 NOTE: * FOR ADULT BLACK MALES AND FEMALES, NORMAL WBC IS 2.9-7.7 K/ML * FOR ADULT BLACK MALES AND FEMALES, NORMAL RBC,HGB, AND HCT IS 5% LESS SOURCE FOR DATA: [employer] 1800 OPERATION MANUAL( AUTOMATED BLOOD COUNTS AND DIFF.) APPENDIX B-3 HCT 39.1 % 37.0-51.0 [facility] ([facility] CLASSIFICATION CHOLESTEROL FO R ADULTS CHILDREN/ADOLESCENTS* DESIRABLE: <200 MG/DL <170 MG/DL BORDER-LINE HIGH RISK: 200-239 MG/DL 170-199 MG/DL HIGH RISK: >240 MG/DL >200 MG/DL CLASS. FOR PRIMARY LDL CHOL PREVENTION: LDL CHOL-CHILD/ADOLESCENTS* DESIRABLE: <130 MG/DL <110 MG/DL BORDERLINE-HIGH RISK: 130-159 MG/DL 110-129 MG/DL HIGH RISK: >160 MG/DL >130 MG/DL *CHILDREN AND ADOLESCENTS REPRESENTS INDIVIDUALA AGED 2-19 YEARS EXCLUSIVE. CHRONIC KIDNEY DISEASE STAGING PER NKF: MALE [...] mL/min Normal 80 and above >32 mL/min NormalNORMAL RANGES Age WBC RBC HGB HCT MCV PLT Adult M 4.1-10.9 4.20-6.30 12.0-18.0 37.0-51.0 80-97 140-440 Adult F 4.1-10.9 4.04-5.48 12.0-18.0 37.0-51.0 80-97 140-440 0- 1 Yr 5.0-20.0 3.9-5.9 15-18 MV: 44 MV: [...] AUTOMATED BLOOD COUNTS AND DIFF.) APPENDIX B-3 HGB 13.3 g/dL 12.0-18.0 [facility] ([facility] CLASSIFICATION CHOLESTEROL FO R ADULTS CHILDREN/ADOLESCENTS* DESIRABLE: <200 MG/DL <170 MG/DL BORDER-LINE HIGH RISK: 200-239 MG/DL 170-199 MG/DL HIGH RISK: >240 MG/DL >200 MG/DL CLASS. FOR PRIMARY LDL CHOL PREVENTION: LDL CHOL-CHILD/ADOLESCENTS* DESIRABLE: <130 MG/DL <110 MG/DL BORDERLINE-HIGH RISK: 130-159 MG/DL 110-129 MG/DL HIGH RISK: >160 MG/DL >130 MG/DL *CHILDREN AND ADOLESCENTS REPRESENTS INDIVIDUALA AGED 2-19 YEARS EXCLUSIVE. CHRONIC KIDNEY DISEASE STAGING PER NKF: MALE [...] mL/min Normal 80 and above >32 mL/min NormalNORMAL RANGES Age WBC RBC HGB HCT MCV PLT Adult M 4.1-10.9 4.20-6.30 12.0-18.0 37.0-51.0 80-97 140-440 Adult F 4.1-10.9 4.04-5.48 12.0-18.0 37.0-51.0 80-97 140-440 0- 1 Yr 5.0-20.0 3.9-5.9 15-18 MV: 44 MV: 91 MV: 277 2-9 Yr. 6.0-17.0 3.8-5.4 11-13 MV: 37 MV: 78 MV: 300 10 Yrs. 5.0-13.0 3.8-5.4 12-15 MV: 39 MV: 80 MV: 250 NOTE: * FOR ADULT BLACK MALES AND FEMALES, NORMAL WBC IS 2.9-7.7 K/ML * FOR ADULT BLACK MALES AND FEMALES, NORMAL RBC,HGB, AND HCT IS 5% LESS SOURCE FOR DATA: [employer] 1800 OPERATION MANUAL( AUTOMATED BLOOD COUNTS AND DIFF.) APPENDIX B-3 PLT 170 10E3/uL 140-440 [facility] CLASSIFICATION CHOLESTEROL FO R ADULTS CHILDREN/ADOLESCENTS* DESIRABLE: <200 MG/DL <170 MG/DL BORDER-LINE HIGH RISK: 200-239 MG/DL 170-199 MG/DL HIGH RISK: >240 MG/DL >200 MG/DL CLASS. FOR PRIMARY LDL CHOL PREVENTION: LDL CHOL-CHILD/ADOLESCENTS* DESIRABLE: <130 MG/DL <110 MG/DL BORDERLINE-HIGH RISK: 130-159 MG/DL 110-129 MG/DL HIGH RISK: >160 MG/DL >130 MG/DL *CHILDREN AND ADOLESCENTS REPRESENTS INDIVIDUALA AGED 2-19 YEARS EXCLUSIVE. CHRONIC KIDNEY DISEASE STAGING PER NKF: MALE [...] mL/min Normal 80 and above >32 mL/min NormalNORMAL RANGES Age WBC RBC HGB HCT MCV PLT Adult M 4.1-10.9 4.20-6.30 12.0-18.0 37.0-51.0 80-97 140-440 Adult F 4.1-10.9 4.04-5.48 12.0-18.0 37.0-51.0 80-97 140-440 0- 1 Yr 5.0-20.0 3.9-5.9 15-18 MV: 44 MV: [...] AUTOMATED BLOOD COUNTS AND DIFF.) APPENDIX B-3 MCHC 34.0 g/dL 31.0-36.0 [facility] ([facility] CLASSIFICATION CHOLESTEROL FO R ADULTS CHILDREN/ADOLESCENTS* DESIRABLE: <200 MG/DL <170 MG/DL BORDER-LINE HIGH RISK: 200-239 MG/DL 170-199 MG/DL HIGH RISK: >240 MG/DL >200 MG/DL CLASS. FOR PRIMARY LDL CHOL PREVENTION: LDL CHOL-CHILD/ADOLESCENTS* DESIRABLE: <130 MG/DL <110 MG/DL BORDERLINE-HIGH RISK: 130-159 MG/DL 110-129 MG/DL HIGH RISK: >160 MG/DL >130 MG/DL *CHILDREN AND ADOLESCENTS REPRESENTS INDIVIDUALA AGED 2-19 YEARS EXCLUSIVE. CHRONIC KIDNEY DISEASE STAGING PER NKF: MALE [...] mL/min Normal 80 and above >32 mL/min NormalNORMAL RANGES Age WBC RBC HGB HCT MCV PLT Adult M 4.1-10.9 4.20-6.30 12.0-18.0 37.0-51.0 80-97 140-440 Adult F 4.1-10.9 4.04-5.48 12.0-18.0 37.0-51.0 80-97 140-440 0- 1 Yr 5.0-20.0 3.9-5.9 15-18 MV: 44 MV: [...] AUTOMATED BLOOD COUNTS AND DIFF.) APPENDIX B-3 MCH 30.7 pg 26.0-32.0 [facility] ([facility] CLASSIFICATION CHOLESTEROL FO R ADULTS CHILDREN/ADOLESCENTS* DESIRABLE: <200 MG/DL <170 MG/DL BORDER-LINE HIGH RISK: 200-239 MG/DL 170-199 MG/DL HIGH RISK: >240 MG/DL >200 MG/DL CLASS. FOR PRIMARY LDL CHOL PREVENTION: LDL CHOL-CHILD/ADOLESCENTS* DESIRABLE: <130 MG/DL <110 MG/DL BORDERLINE-HIGH RISK: 130-159 MG/DL 110-129 MG/DL HIGH RISK: >160 MG/DL >130 MG/DL *CHILDREN AND ADOLESCENTS REPRESENTS INDIVIDUALA AGED 2-19 YEARS EXCLUSIVE. CHRONIC KIDNEY DISEASE STAGING PER NKF: MALE [...] mL/min Normal 80 and above >32 mL/min NormalNORMAL RANGES Age WBC RBC HGB HCT MCV PLT Adult M 4.1-10.9 4.20-6.30 12.0-18.0 37.0-51.0 80-97 140-440 Adult F 4.1-10.9 4.04-5.48 12.0-18.0 37.0-51.0 80-97 140-440 0- 1 Yr 5.0-20.0 3.9-5.9 15-18 MV: 44 MV: 91 MV: 277 2-9 Yr. 6.0-17.0 3.8-5.4 11-13 MV: 37 MV: 78 MV: 300 10 Yrs. 5.0-13.0 3.8-5.4 12-15 MV: 39 MV: 80 MV: 250 NOTE: * FOR ADULT BLACK MALES AND FEMALES, NORMAL WBC IS 2.9-7.7 K/ML * FOR ADULT BLACK MALES AND FEMALES, NORMAL RBC,HGB, AND HCT IS 5% LESS SOURCE FOR DATA: [employer] 1800 OPERATION MANUAL( AUTOMATED BLOOD COUNTS AND DIFF.) APPENDIX B-3 Neut% 59.8 % 37.0-92.0 [facility] ([facility] CLASSIFICATION CHOLESTEROL FO R ADULTS CHILDREN/ADOLESCENTS* DESIRABLE: <200 MG/DL <170 MG/DL BORDER-LINE HIGH RISK: 200-239 MG/DL 170-199 MG/DL HIGH RISK: >240 MG/DL >200 MG/DL CLASS. FOR PRIMARY LDL CHOL PREVENTION: LDL CHOL-CHILD/ADOLESCENTS* DESIRABLE: <130 MG/DL <110 MG/DL BORDERLINE-HIGH RISK: 130-159 MG/DL 110-129 MG/DL HIGH RISK: >160 MG/DL >130 MG/DL *CHILDREN AND ADOLESCENTS REPRESENTS INDIVIDUALA AGED 2-19 YEARS EXCLUSIVE. CHRONIC KIDNEY DISEASE STAGING PER NKF: MALE [...] mL/min Normal 80 and above >32 mL/min NormalNORMAL RANGES Age WBC RBC HGB HCT MCV PLT Adult M 4.1-10.9 4.20-6.30 12.0-18.0 37.0-51.0 80-97 140-440 Adult F 4.1-10.9 4.04-5.48 12.0-18.0 37.0-51.0 80-97 140-440 0- 1 Yr 5.0-20.0 3.9-5.9 15-18 MV: 44 MV: [...] AUTOMATED BLOOD COUNTS AND DIFF.) APPENDIX B-3 Lym% 34.5 % 10.0-58.5 [facility] ([facility] CLASSIFICATION CHOLESTEROL FO R ADULTS CHILDREN/ADOLESCENTS* DESIRABLE: <200 MG/DL <170 MG/DL BORDER-LINE HIGH RISK: 200-239 MG/DL 170-199 MG/DL HIGH RISK: >240 MG/DL >200 MG/DL CLASS. FOR PRIMARY LDL CHOL PREVENTION: LDL CHOL-CHILD/ADOLESCENTS* DESIRABLE: <130 MG/DL <110 MG/DL BORDERLINE-HIGH RISK: 130-159 MG/DL 110-129 MG/DL HIGH RISK: >160 MG/DL >130 MG/DL *CHILDREN AND ADOLESCENTS REPRESENTS INDIVIDUALA AGED 2-19 YEARS EXCLUSIVE. CHRONIC KIDNEY DISEASE STAGING PER NKF: MALE [...] mL/min Normal 80 and above >32 mL/min NormalNORMAL RANGES Age WBC RBC HGB HCT MCV PLT Adult M 4.1-10.9 4.20-6.30 12.0-18.0 37.0-51.0 80-97 140-440 Adult F 4.1-10.9 4.04-5.48 12.0-18.0 37.0-51.0 80-97 140-440 0- 1 Yr 5.0-20.0 3.9-5.9 15-18 MV: 44 MV: 91 MV: 277 2-9 Yr. 6.0-17.0 3.8-5.4 11-13 MV: 37 MV: 78 MV: 300 10 Yrs. 5.0-13.0 3.8-5.4 12-15 MV: 39 MV: 80 MV: 250 NOTE: * FOR ADULT BLACK MALES AND FEMALES, NORMAL WBC IS 2.9-7.7 K/ML * FOR ADULT BLACK MALES AND FEMALES, NORMAL RBC,HGB, AND HCT IS 5% LESS SOURCE FOR DATA: [employer] DYN 1800 OPERATION MANUAL( AUTOMATED BLOOD COUNTS AND DIFF.) APPENDIX B-3 RDW-CV 12.9 % 11.5-14.5 [facility] CLASSIFICATION CHOLESTEROL FO R ADULTS CHILDREN/ADOLESCENTS* DESIRABLE: <200 MG/DL <170 MG/DL BORDER-LINE HIGH RISK: 200-239 MG/DL 170-199 MG/DL HIGH RISK: >240 MG/DL >200 MG/DL CLASS. FOR PRIMARY LDL CHOL PREVENTION: LDL CHOL-CHILD/ADOLESCENTS* DESIRABLE: <130 MG/DL <110 MG/DL BORDERLINE-HIGH RISK: 130-159 MG/DL 110-129 MG/DL HIGH RISK: >160 MG/DL >130 MG/DL *CHILDREN AND ADOLESCENTS REPRESENTS INDIVIDUALA AGED 2-19 YEARS EXCLUSIVE. CHRONIC KIDNEY DISEASE STAGING PER NKF: MALE [...] mL/min Normal 80 and above >32 mL/min NormalNORMAL RANGES Age WBC RBC HGB HCT MCV PLT Adult M 4.1-10.9 4.20-6.30 12.0-18.0 37.0-51.0 80-97 140-440 Adult F 4.1-10.9 4.04-5.48 12.0-18.0 37.0-51.0 80-97 140-440 0- 1 Yr 5.0-20.0 3.9-5.9 15-18 MV: 44 MV: 91 MV: 277 2-9 Yr. 6.0-17.0 3.8-5.4 11-13 MV: 37 MV: 78 MV: 300 10 Yrs. 5.0-13.0 3.8-5.4 12-15 MV: 39 MV: 80 MV: 250 NOTE: * FOR ADULT BLACK MALES AND FEMALES, NORMAL WBC IS 2.9-7.7 K/ML * FOR ADULT BLACK MALES AND FEMALES, NORMAL RBC,HGB, AND HCT IS 5% LESS SOURCE FOR DATA: [employer] DYN 1800 OPERATION MANUAL( AUTOMATED BLOOD COUNTS AND DIFF.) APPENDIX B-3 Neut# 3.4 % 2.0-7.8 [facility] CLASSIFICATION CHOLESTEROL FO R ADULTS CHILDREN/ADOLESCENTS* DESIRABLE: <200 MG/DL <170 MG/DL BORDER-LINE HIGH RISK: 200-239 MG/DL 170-199 MG/DL HIGH RISK: >240 MG/DL >200 MG/DL CLASS. FOR PRIMARY LDL CHOL PREVENTION: LDL CHOL-CHILD/ADOLESCENTS* DESIRABLE: <130 MG/DL <110 MG/DL BORDERLINE-HIGH RISK: 130-159 MG/DL 110-129 MG/DL HIGH RISK: >160 MG/DL >130 MG/DL *CHILDREN AND ADOLESCENTS REPRESENTS INDIVIDUALA AGED 2-19 YEARS EXCLUSIVE. CHRONIC KIDNEY DISEASE STAGING PER NKF: MALE [...] mL/min Normal 80 and above >32 mL/min NormalNORMAL RANGES Age WBC RBC HGB HCT MCV PLT Adult M 4.1-10.9 4.20-6.30 12.0-18.0 37.0-51.0 80-97 140-440 Adult F 4.1-10.9 4.04-5.48 12.0-18.0 37.0-51.0 80-97 140-440 0- 1 Yr 5.0-20.0 3.9-5.9 15-18 MV: 44 MV: 91 MV: 277 2-9 Yr. 6.0-17.0 3.8-5.4 11-13 MV: 37 MV: 78 MV: 300 10 Yrs. 5.0-13.0 3.8-5.4 12-15 MV: 39 MV: 80 MV: 250 NOTE: * FOR ADULT BLACK MALES AND FEMALES, NORMAL WBC IS 2.9-7.7 K/ML * FOR ADULT BLACK MALES AND FEMALES, NORMAL RBC,HGB, AND HCT IS 5% LESS SOURCE FOR DATA: [employer] 1800 OPERATION MANUAL( AUTOMATED BLOOD COUNTS AND DIFF.) APPENDIX B-3 MXD% 5.7 % 0.1-24.0 [facility] ([facility] CLASSIFICATION CHOLESTEROL FO R ADULTS CHILDREN/ADOLESCENTS* DESIRABLE: <200 MG/DL <170 MG/DL BORDER-LINE HIGH RISK: 200-239 MG/DL 170-199 MG/DL HIGH RISK: >240 MG/DL >200 MG/DL CLASS. FOR PRIMARY LDL CHOL PREVENTION: LDL CHOL-CHILD/ADOLESCENTS* DESIRABLE: <130 MG/DL <110 MG/DL BORDERLINE-HIGH RISK: 130-159 MG/DL 110-129 MG/DL HIGH RISK: >160 MG/DL >130 MG/DL *CHILDREN AND ADOLESCENTS REPRESENTS INDIVIDUALA AGED 2-19 YEARS EXCLUSIVE. CHRONIC KIDNEY DISEASE STAGING PER NKF: MALE [...] mL/min Normal 80 and above >32 mL/min NormalNORMAL RANGES Age WBC RBC HGB HCT MCV PLT Adult M 4.1-10.9 4.20-6.30 12.0-18.0 37.0-51.0 80-97 140-440 Adult F 4.1-10.9 4.04-5.48 12.0-18.0 37.0-51.0 80- 140-440 0- 1 Yr 5.0-20.0 3.9-5.9 15-18 MV: 44 MV: [...] AUTOMATED BLOOD COUNTS AND DIFF.) APPENDIX B-3 Lym# 2.0 10E3/uL 0.6-4.1 [facility] ([facility] CLASSIFICATION CHOLESTEROL FO R ADULTS CHILDREN/ADOLESCENTS* DESIRABLE: <200 MG/DL <170 MG/DL BORDER-LINE HIGH RISK: 200-239 MG/DL 170-199 MG/DL HIGH RISK: >240 MG/DL >200 MG/DL CLASS. FOR PRIMARY LDL CHOL PREVENTION: LDL CHOL-CHILD/ADOLESCENTS* DESIRABLE: <130 MG/DL <110 MG/DL BORDERLINE-HIGH RISK: 130-159 MG/DL 110-129 MG/DL HIGH RISK: >160 MG/DL >130 MG/DL *CHILDREN AND ADOLESCENTS REPRESENTS INDIVIDUALA AGED 2-19 YEARS EXCLUSIVE. CHRONIC KIDNEY DISEASE STAGING PER NKF: MALE [...] mL/min Normal 80 and above >32 mL/min NormalNORMAL RANGES Age WBC RBC HGB HCT MCV PLT Adult M 4.1-10.9 4.20-6.30 12.0-18.0 37.0-51.0 80-97 140-440 Adult F 4.1-10.9 4.04-5.48 12.0-18.0 37.0-51.0 80-97 140-440 0- 1 Yr 5.0-20.0 3.9-5.9 15-18 MV: 44 MV: 91 MV: 277 2-9 Yr. 6.0-17.0 3.8-5.4 11-13 MV: 37 MV: 78 MV: 300 10 Yrs. 5.0-13.0 3.8-5.4 12-15 MV: 39 MV: 80 MV: 250 NOTE: * FOR ADULT BLACK MALES AND FEMALES, NORMAL WBC IS 2.9-7.7 K/ML * FOR ADULT BLACK MALES AND FEMALES, NORMAL RBC,HGB, AND HCT IS 5% LESS SOURCE FOR DATA: [employer] 1800 OPERATION MANUAL( AUTOMATED BLOOD COUNTS AND DIFF.) APPENDIX B-3 MPV 10.6 fL 9.0-13.0 [facility] CLASSIFICATION CHOLESTEROL FO R ADULTS CHILDREN/ADOLESCENTS* DESIRABLE: <200 MG/DL <170 MG/DL BORDER-LINE HIGH RISK: 200-239 MG/DL 170-199 MG/DL HIGH RISK: >240 MG/DL >200 MG/DL CLASS. FOR PRIMARY LDL CHOL PREVENTION: LDL CHOL-CHILD/ADOLESCENTS* DESIRABLE: <130 MG/DL <110 MG/DL BORDERLINE-HIGH RISK: 130-159 MG/DL 110-129 MG/DL HIGH RISK: >160 MG/DL >130 MG/DL *CHILDREN AND ADOLESCENTS REPRESENTS INDIVIDUALA AGED 2-19 YEARS EXCLUSIVE. CHRONIC KIDNEY DISEASE STAGING PER NKF: MALE [...] mL/min Normal 80 and above >32 mL/min NormalNORMAL RANGES Age WBC RBC HGB HCT MCV PLT Adult M 4.1-10.9 4.20-6.30 12.0-18.0 37.0-51.0 80-97 140-440 Adult F 4.1-10.9 4.04-5.48 12.0-18.0 37.0-51.0 80-97 140-440 0- 1 Yr 5.0-20.0 3.9-5.9 15-18 MV: 44 MV: [...] AUTOMATED BLOOD COUNTS AND DIFF.) APPENDIX B-3 MXD# 0.3 10E3/uL 0.0-1.8 [facility] ([facility] CLASSIFICATION CHOLESTEROL FO R ADULTS CHILDREN/ADOLESCENTS* DESIRABLE: <200 MG/DL <170 MG/DL BORDER-LINE HIGH RISK: 200-239 MG/DL 170-199 MG/DL HIGH RISK: >240 MG/DL >200 MG/DL CLASS. FOR PRIMARY LDL CHOL PREVENTION: LDL CHOL-CHILD/ADOLESCENTS* DESIRABLE: <130 MG/DL <110 MG/DL BORDERLINE-HIGH RISK: 130-159 MG/DL 110-129 MG/DL HIGH RISK: >160 MG/DL >130 MG/DL *CHILDREN AND ADOLESCENTS REPRESENTS INDIVIDUALA AGED 2-19 YEARS EXCLUSIVE. CHRONIC KIDNEY DISEASE STAGING PER NKF: MALE [...] mL/min Normal 80 and above >32 mL/min NormalNORMAL RANGES Age WBC RBC HGB HCT MCV PLT Adult M 4.1-10.9 4.20-6.30 12.0-18.0 37.0-51.0 80-97 140-440 Adult F 4.1-10.9 4.04-5.48 12.0-18.0 37.0-51.0 80-97 140-440 0- 1 Yr 5.0-20.0 3.9-5.9 15-18 MV: 44 MV: 91 MV: 277 2-9 Yr. 6.0-17.0 3.8-5.4 11-13 MV: 37 MV: 78 MV: 300 10 Yrs. 5.0-13.0 3.8-5.4 12-15 MV: 39 MV: 80 MV: 250 NOTE: * FOR ADULT BLACK MALES AND FEMALES, NORMAL WBC IS 2.9-7.7 K/ML * FOR ADULT BLACK MALES AND FEMALES, NORMAL RBC,HGB, AND HCT IS 5% LESS SOURCE FOR DATA: [employer] 1800 OPERATION MANUAL( AUTOMATED BLOOD COUNTS AND DIFF.) APPENDIX B-3 ID Date Data Source [id number] 09/23/2019 10:31:00 AM EST [facility] ([facility] Name Value Range Interpretation Code Description Data Amarilis rce(s) Supporting Document(s) Laboratory test finding (navigational concept) Laboratory test result CANDICE ([facility] Procedure Social History Code Duration Value Status Description Data Source(s ) Smoking 06/30/2020 10:14:56 AM EDT Ex-smoker (finding) complet ed Ex-smoker (finding) SARAH (Demarcus Warren MD [facility]) Smoking 05/25/2020 12:00:00 AM EDT Quit completed Quit [facility] ([facility] Vital Signs ID Date Data Source UNK Name Value Range Interpretation Code Description Data Source(s) Oxygen saturation in Arterial blood by Pulse oximetry 97 % 97 % [facility] ( [facility] Body mass index (BMI) [Ratio] 34.4 kg/m2 34.4 k g/m2 [facility] ([facility] [place] body weight 100 [lb_av] 100 [lb_av] YUNIOR T ([facility] Body weight 176.00 [lb_av] 176.00 [lb_av] YUNIOR T ([facility] Body height 60 [in_i] 60 [in_i] CANDICE ([facility] 5'0" Respiratory rate 16 /min 16 /min [facility] ( [facility] Heart rate 76 /min 76 /min [facility] ([facility] Body temperature 97.8 [degF] 97.8 [degF] [facility] ([facility] Diastolic blood pressure 78 mm[Hg] 78 mm[Hg] [facility] ([facility] Systolic blood pressure 126 mm[Hg] 126 mm[Hg] M EDENT ([facility] Oxygen saturation in Arterial blood by Pulse oximetry 95 % 95 % [facility] ([facility] Body mass index (BMI) [Ratio] 34.8 kg/m2 34.8 k g/m2 [facility] ([facility] [place] body weight 100 [lb_av] 100 [lb_av] MEDEN T ([facility] Body weight 178.00 [lb_av] 178.00 [lb_av] MEDEN T ([facility] Body height 60 [in_i] 60 [in_i] [facility] ([facility] 5'0" Respiratory rate 16 /min 16 /min [facility] ( [facility] Heart rate 84 /min 84 /min [facility] ([facility] Body temperature 98.6 [degF] 98.6 [degF] [facility] ([facility] Diastolic blood pressure 80 mm[Hg] 80 mm[Hg] [facility] ([facility] Systolic blood pressure 124 mm[Hg] 124 mm[Hg] M EDENT ([facility] Oxygen saturation in Arterial blood by Pulse oximetry 96 % 96 % [facility] ([facility] Body mass index (BMI) [Ratio] 34.6 kg/m2 34.6 k g/m2 [facility] ([facility] [place] body weight 100 [lb_av] 100 [lb_av] MEDEN T ([facility] Body weight 177.00 [lb_av] 177.00 [lb_av] MEDEN T ([facility] Body height 60 [in_i] 60 [in_i] [facility] 5'0" Respiratory rate 16 /min 16 /min [facility] ( [facility] Heart rate 96 /min 96 /min [facility] ([facility] Body temperature 97.3 [degF] 97.3 [degF] [facility] ([facility] Diastolic blood pressure 82 mm[Hg] 82 mm[Hg] [facility] ([facility] Systolic blood pressure 128 mm[Hg] 128 mm[Hg] M EDENT ([facility] Oxygen saturation in Arterial blood by Pulse oximetry 98 % 98 % [facility] ([facility] ([place]), (Room Air) Body mass index (BMI) [Ratio] 34.6 kg/m2 34.6 k g/m2 [facility] ([facility] Body weight 177.00 [lb_av] 177.00 [lb_av] MEDEN T ([facility] Body height 60 [in_i] 60 [in_i] [facility] ([facility] 5'0" Respiratory rate 16 /min 16 /min [facility] ( [facility] Heart rate 85 /min 85 /min [facility] ([facility] Body temperature 97.9 [degF] 97.9 [degF] [facility] ([facility] Diastolic blood pressure 72 mm[Hg] 72 mm[Hg] [facility] ([facility] Systolic blood pressure 118 mm[Hg] 118 mm[Hg] M EDENT ([facility] Oxygen saturation in Arterial blood by Pulse oximetry 96 % 96 % [facility] ([facility] ([place]), (Room Air) Body height 60 [in_i] 60 [in_i] [facility] ([facility] 5'0" Respiratory rate 16 /min 16 /min [facility] ( [facility] Heart rate 84 /min 84 /min [facility] ([facility] Body temperature 97.7 [degF] 97.7 [degF] [facility] ([facility] Diastolic blood pressure 78 mm[Hg] 78 mm[Hg] [facility] ([facility] Systolic blood pressure 110 mm[Hg] 110 mm[Hg] M EDENT ([facility] Body mass index (BMI) [Ratio] 34.4 kg/m2 34.4 k g/m2 [facility] ([facility], [facility]) Body height 60 [in_i] 60 [in_i] [facility]) 5'0" Body weight 176.00 [lb_av] 176.00 [lb_av] MEDEN T ([facility], [facility]) Body temperature 97.7 [degF] 97.7 [degF] [facility], [facility]) Oxygen saturation in Arterial blood by Pulse oximetry 98 % 98 % [facility] ([facility], [facility]) Respiratory rate 16 /min 16 /min [facility] ( [facility], [facility]) Heart rate 77 /min 77 /min [facility] ([facility], [facility]) Diastolic blood pressure 81 mm[Hg] 81 mm[Hg] [facility] ([facility], [facility]) Systolic blood pressure 146 mm[Hg] 146 mm[Hg] [facility], [facility]) Patient Treatment Plan of Care Planned Activity Planned Date Details Description Data Source (s) Dexamethasone 1 MG/ML / Tobramycin 3 MG/ML Ophthalmic Suspension [Tobradex] 06/12/2020 12:00:00 AM EDKathrine SMITH (Raphael Warren MD [facility]) Cyclosporine 0.5 MG/ML Ophthalmic Suspension [Restasis ] 03/15/2020 12:00:00 AM NAZARIO SMITH (Demarcus Warren MD [facility])
[2020-10-26 17:15] VITALS: BP 142/66
[2020-10-26] MEDS: dexameTHASONE 20MG/5ML VIAL (J1100 PER 1MG) IV SCH (17:42)
[2020-10-26] MEDS: ACETAMINOPHEN TAB 650MG DOSE (2X325MG) PO PRN (17:42)
[2020-10-26] MEDS: HumaLOG INSULIN (NovoLOG) PER UNIT SC SCH ×2 (17:44→20:50)
[2020-10-26] MEDS: DOCUSATE SODIUM 100MG CAPSULE PO SCH (20:49)
[2020-10-26] MEDS: PRAVASTATIN 10 MG TAB PO SCH (20:49)
[2020-10-26] MEDS: VITAMIN D 1,000 INTERNATIONAL UNITS TABLET PO SCH (20:49)
[2020-10-26] MEDS: EZETIMIBE 10 MG TAB (ZETIA) PO SCH (20:49)
[2020-10-26 20:52] VITALS: BP 121/58
--- NOTE | 2020-10-26 21:00 | ECGEPIP ---
[facility] - ED Test Date: 2020-10-26 Pat Name: [employer]ES Department: Room: [place] [address] Gender: Female [employer]: : 1945 Requested By: Charo Devries Order Number: [id number] Reading MD: Charo Devries Measurements Intervals [place] Rate: 92 P: 39 FL: 136 QRS: -7 QRSD: 76 T: 160 QT: 374 QTc: 462 Interpretive Statements Normal sinus rhythm Minimal voltage criteria for LVH, may be normal variant ( R in aVL ) ST & T wave abnormality, consider inferior ischemia ST & T wave abnormality, consider anterolateral ischemia clinical correlation Electronically Signed on 10-26-2020 20:59:59 EST by Charo Devries
[2020-10-26] MEDS: ALPRAZolam 0.25 MG TAB PO SCH (21:06)
[2020-10-27 04:00] VITALS: BP 122/58
[2020-10-27] MEDS: VITAMIN D 1,000 INTERNATIONAL UNITS TABLET PO SCH ×2 (08:44→21:08)
[2020-10-27] MEDS: ALPRAZolam 0.5 MG TAB PO SCH (08:44)
[2020-10-27 08:45] LABS: HEMATOCRIT 37.3 % (36.0-47.0); HEMOGLOBIN 12.5 g/dl (12.0-15.5); MEAN CORPUSCULAR HEMOGLOBIN 29.4 pg (27.0-33.0); MEAN CORPUSCULAR HGB CONC 33.5 g/dl (32.0-36.5); MEAN CORPUSCULAR VOLUME 87.8 fl (80.0-96.0); PLATELET COUNT, AUTOMATED 223 10^3/uL (150-450); RED BLOOD COUNT 4.25 10^6/uL (4.00-5.40); WHITE BLOOD COUNT 4.4 10^3/uL (4.0-10.0)
[2020-10-27] MEDS: PANTOPRAZOLE 40MG TAB (PROTONIX) PO SCH (08:45)
[2020-10-27] MEDS: DOCUSATE SODIUM 100MG CAPSULE PO SCH ×2 (08:45→21:08)
[2020-10-27] MEDS: cefTRIAXone SOD 2 GM in D5W MINI-BAG PLUS 50 ML IV SCH (08:46)
[2020-10-27] MEDS: dexameTHASONE 20MG/5ML VIAL (J1100 PER 1MG) IV SCH (08:46)
[2020-10-27] MEDS: hydroCHLOROthiazide 12.5 MG CAPSULE PO SCH (08:47)
[2020-10-27] MEDS: HumaLOG INSULIN (NovoLOG) PER UNIT SC SCH ×4 (08:48→21:00)
[2020-10-27] MEDS ORDERED: ENOXAPARIN 40MG/0.4ML SYRINGE (J1650 PER 10MG) SC SCH (09:00)
[2020-10-27 09:14] LABS: ATYPICAL LYMPH 7 % (0-5); EOSINOPHILS 1 % (0-3); LYMPHOCYTES 7 % (16-44); MONOCYTES 10 % (0-5); NEUTROPHILS 75 % (28-66)
[2020-10-27 09:15] LABS: PLATELET ESTIMATE NORMAL (NORMAL)
[2020-10-27 09:23] LABS: INR 1.03; PROTHROMBIN TIME 13.7 SECONDS (12.5-14.3)
[2020-10-27 09:24] LABS: FIBRINOGEN 728 MG/DL (221-452); PARTIAL THROMBOPLASTIN TIME 26.9 SECONDS (24.2-38.5)
[2020-10-27 09:27] LABS: ALBUMIN 3.4 GM/DL (3.2-5.2); ALT/SGPT 33 U/L (12-78); BILIRUBIN,TOTAL 0.5 MG/DL (0.2-1.0); BLOOD UREA NITROGEN 43 MG/DL (7-18); C REACTIVE PROTEIN QUANTITATIV 9.91 MG/DL (0.00-0.30); CALCIUM LEVEL 9.6 MG/DL (8.8-10.2); CARBON DIOXIDE LEVEL 24 MEQ/L (21-32); CHLORIDE LEVEL 102 MEQ/L (98-107); CPK CREATINE PHOSPHOKINASE 71 U/L (26-192); CREATININE FOR GFR 1.26 MG/DL (0.55-1.30); FERRITIN 487 NG/ML (8-252); GLOMERULAR FILTRATION RATE 43.8 (>39); GLUCOSE, FASTING 154 MG/DL (70-100); LDH LACTATE DEHYDROGENASE 261 U/L (84-246); MAGNESIUM LEVEL 2.3 MG/DL (1.8-2.4); POTASSIUM SERUM 4.7 MEQ/L (3.5-5.1); SODIUM LEVEL 137 MEQ/L (136-145); TOTAL PROTEIN 7.8 GM/DL (6.4-8.2); TROPONIN I < 0.02 NG/ML (< 0.10)
[2020-10-27] MEDS: AZITHROMYCIN INJ 500 MG, VIAL MATE ADAPTER 1 EACH in D5W 250 ML IV SCH (09:52)
[2020-10-27 10:07] LABS: D-DIMER QUANT > 4000.00 ng/ml (<500)
--- NOTE | 2020-10-27 11:18 | IPNPDOC ---
Date Seen The patient was seen on 10/27/20. Progress Note SUBJECTIVE: She was examined at bedside. Saturating at 94% on 2 L. Fevers yesterday evening. Denies chest pain, shortness of breath, nausea, vomiting, diarrhea. OBJECTIVE PHYSICAL EXAMINATION: VITAL SIGNS: please see below General: NAD, comfortable HEENT: PERRLA, EOMI, sclerae clear Neck: supple, normal ROM, no JVD Respiratory: fair air entry bilaterally, no crackles CVS: RRR, normal S1, S2, no murmurs Abdo: soft, no masses, no hepatosplenomegaly, BS+, no rebound tenderness Extremities: no edema, pulses 2+ MSK: no joint deformities, normal ROM Neuro: no focal neuro deficits, moving all 4 extremities, CN2-12 intact. Strength 5/5 in all 4 extremities. No nystagmus. Psych: calm, cooperative, AAO x 3 LABORATORY DATA, IMAGING STUDIES, MICROBIOLOGY: Please see below. CTA chest (10/26/20): 1. No evidence for pulmonary embolus. 2. Scattered ground-glass infiltrates primarily involving the left hemithorax and to a lesser extent the right base. Findings are atypical for COVID-19 pulmonary disease although this cannot be excluded. Further differential includes early pneumonia. CXR (10/26/20): Subtle increased markings left perihilar region and left base peripherally consistent with early infiltrate. CT head wo contrast (10/26/20): Age related atrophy and microvascular ischemic changes. No acute intracranial hemorrhage, infarction, or mass/mass effect. DVT prophylaxis ordered?: increase lovenox to 0.5 mg/kg q12h. SCDs, TEDs. ASSESSMENT: 75 yo F with a hx of CAD, DM2, HTN, tested positive for COVID-19 11 days ago, presenting with SOB, hypoxia, malaise and imaging findings consistent with pneumonia. Admitted to hospitalist service for oxygenation, IV antibiotics . PLAN: COVID-19 infection - 97% on 3L NC - tylenol prn for fevers - transfer to Med Surg covid unit - start dexamethasone - will not treat with rimdesivir as out of chronicity window - ceftriaxone (Day #2), azithromycin (Day #2) Pneumonia 2/2 CAP vs atypical organism - procal 0.15,a febrile, no WBC - CXR and CT chest c/w bilateral infiltrates, ground glass opacities - check MRSA, legionella, strep ag, mycoplasma ag - check sputum cultures, blood cultures - ceftriaxone (Day #2), azithromycin (day #2) - incentive spirometer, acapella - tessalon NATALY - resolved DM2: - ISS, FSBS AC and HS - hypoglycemia precautions Anxiety - resume home meds HTN - home HCTZ 12.5 - hold home lisinopril due to NATALY, takes 5 mg HLD - pravastatin GI ppx: - pantoprazole Dispo: pending clinical improvement. DISPOSITION: HSE with O2 ambulation. Awaiting blood cultures. VS, I&O, 24H, Fishbone Vital Signs/I&O Vital Signs Date Time Temp Pulse Resp B/P (MAP) Pulse Ox O2 Delivery O2 Flow Rate FiO2 10/27/20 04:00 98.9 80 20 122/58 (79) 92 Nasal Cannula 2.0 I&O- Last 24 Hours up to 6 AM 10/27/20 06:00 Intake Total 585 ml Output Total 550 ml Balance 35 ml Laboratory Data 24H LABS Laboratory Tests 2 10/26/20 17:27: Urine Color YELLOW, Urine Appearance CLEAR, Urine pH 5.0, Urine Specific [place] 1.034, Urine Protein NEGATIVE, Urine Glucose (UA) NEGATIVE, Urine Ketones NEGATIVE, Urine Blood NEGATIVE, Urine Nitrite NEGATIVE, Urine Bilirubin NEGATIVE, Urine Urobilinogen 0.2, Urine Leukocyte Esterase 1+H, Urine WBC (Auto) 5H, Urine RBC (Auto) 1, Urine Hyaline Casts (Auto) 0, Urine Bacteria (Auto) NEGATIVE, Urine Squamous Epithelial Cells 0, Urine Mucus (Auto) SMALL, Urine Sperm (Auto) 10/26/20 17:36: Bedside Glucose (Misc Panel) 207H 10/26/20 20:46: Bedside Glucose (Misc Panel) 161H 10/27/20 06:30: 10/27/20 08:15: Bedside Glucose (Misc Panel) 151H 10/27/20 08:22: Neutrophils (%) (Auto) , Nucleated Red Blood Cells % (auto) 0.0, Neutrophils 75H, Lymphocytes (Manual) 7L, Monocytes (Manual) 10H, Eosinophils (Manual) 1, Atypical Lymphocytes 7H, Red Blood Cell Morphology NORMAL, Platelet Estimate NORMAL, Prothrombin Time 13.7, Prothromb Time International Ratio 1.03, Activated Partial Thromboplast Time 26.9, Fibrinogen 728H, D-Dimer, Quantitative > 4000.00H, Anion Gap 11, Glomerular Filtration Rate 43.8, Calcium Level 9.6, Magnesium Level 2.3, Ferritin 487H, Total Bilirubin 0.5, Aspartate Amino Transf (AST/SGOT) 25, Alanine Aminotransferase (ALT/SGPT) 33, Alkaline Phosphatase 72, Lactate Dehydrogenase 261H, Total Creatine Kinase 71, Troponin I < 0.02, C- Reactive Protein, Quantitative 9.91H, Total Protein 7.8, Albumin 3.4, Albumin/Globulin Ratio 0.8L CBC/BMP Laboratory Tests 10/27/20 08:22 Microbiology Microbiology 10/26/20 Gram Stain - Final, Resulted 10/26/20 Sputum Culture, Resulted Pending 10/26/20 Urine Culture, Received Pending 10/26/20 Blood Culture - Preliminary, Resulted No growth after 24 hours . All specim... 10/26/20 Blood Culture - Preliminary, Resulted No growth after 24 hours . All specim... MANOLO ROSS MD Oct 27, 2020 11:18
[2020-10-27 16:20] VITALS: BP 129/60
[2020-10-27 19:38] VITALS: BP 130/61
[2020-10-27] MEDS: EZETIMIBE 10 MG TAB (ZETIA) PO SCH (21:08)
[2020-10-27] MEDS: ALPRAZolam 0.25 MG TAB PO SCH (21:08)
[2020-10-27] MEDS: PRAVASTATIN 10 MG TAB PO SCH (21:08)
[2020-10-27] MEDS: ENOXAPARIN 40MG/0.4ML SYRINGE (J1650 PER 10MG) SC SCH (21:09)
[2020-10-28 04:12] VITALS: BP 138/60
[2020-10-28] MEDS: ACETAMINOPHEN TAB 650MG DOSE (2X325MG) PO PRN (06:42)
[2020-10-28] MEDS: HumaLOG INSULIN (NovoLOG) PER UNIT SC SCH ×4 (07:30→20:29)
[2020-10-28 07:52] VITALS: BP 141/65
[2020-10-28] MEDS: DOCUSATE SODIUM 100MG CAPSULE PO SCH ×2 (09:06→20:47)
[2020-10-28] MEDS: ALPRAZolam 0.5 MG TAB PO SCH (09:06)
[2020-10-28] MEDS: VITAMIN D 1,000 INTERNATIONAL UNITS TABLET PO SCH ×2 (09:07→20:47)
[2020-10-28] MEDS: PANTOPRAZOLE 40MG TAB (PROTONIX) PO SCH (09:07)
[2020-10-28] MEDS: dexameTHASONE 20MG/5ML VIAL (J1100 PER 1MG) IV SCH (09:08)
[2020-10-28] MEDS: ENOXAPARIN 40MG/0.4ML SYRINGE (J1650 PER 10MG) SC SCH ×2 (09:08→20:47)
[2020-10-28] MEDS: cefTRIAXone SOD 2 GM in D5W MINI-BAG PLUS 50 ML IV SCH (09:09)
[2020-10-28 09:24] LABS: BASO % 0.3 % (0.0-1.0); HEMATOCRIT 35.2 % (36.0-47.0); HEMOGLOBIN 11.7 g/dl (12.0-15.5); LYMPH # 1.2 10^3/uL (1.5-5.0); LYMPH % 17.4 % (24.0-44.0); MEAN CORPUSCULAR HEMOGLOBIN 29.4 pg (27.0-33.0); MEAN CORPUSCULAR HGB CONC 33.2 g/dl (32.0-36.5); MEAN CORPUSCULAR VOLUME 88.4 fl (80.0-96.0); MONO # 0.5 10^3/uL (0.0-0.8); MONO % 7.1 % (0.0-5.0); NEUTROPHILS # 5.3 10^3/uL (1.5-8.5); NEUTROPHILS % 74.5 % (36.0-66.0); PLATELET COUNT, AUTOMATED 210 10^3/uL (150-450); RED BLOOD COUNT 3.98 10^6/uL (4.00-5.40); WHITE BLOOD COUNT 7.1 10^3/uL (4.0-10.0)
[2020-10-28 09:45] LABS: INR 1.01; PROTHROMBIN TIME 13.5 SECONDS (12.5-14.3)
[2020-10-28 09:46] LABS: PARTIAL THROMBOPLASTIN TIME 28.1 SECONDS (24.2-38.5)
[2020-10-28 09:49] LABS: D-DIMER QUANT 1958.55 ng/ml (<500)
[2020-10-28 09:50] LABS: ALT/SGPT 36 U/L (12-78); BILIRUBIN,TOTAL 0.4 MG/DL (0.2-1.0); BLOOD UREA NITROGEN 42 MG/DL (7-18); C REACTIVE PROTEIN QUANTITATIV 3.73 MG/DL (0.00-0.30); CALCIUM LEVEL 9.1 MG/DL (8.8-10.2); CARBON DIOXIDE LEVEL 23 MEQ/L (21-32); CHLORIDE LEVEL 104 MEQ/L (98-107); CPK CREATINE PHOSPHOKINASE 106 U/L (26-192); CREATININE FOR GFR 1.19 MG/DL (0.55-1.30); FERRITIN 496 NG/ML (8-252); GLOMERULAR FILTRATION RATE 46.8 (>39); GLUCOSE, FASTING 130 MG/DL (70-100); LDH LACTATE DEHYDROGENASE 303 U/L (84-246); MAGNESIUM LEVEL 1.9 MG/DL (1.8-2.4); POTASSIUM SERUM 4.2 MEQ/L (3.5-5.1); SODIUM LEVEL 138 MEQ/L (136-145); TROPONIN I < 0.02 NG/ML (< 0.10)
[2020-10-28] MEDS: hydroCHLOROthiazide 12.5 MG CAPSULE PO SCH (09:57)
[2020-10-28] MEDS: AZITHROMYCIN INJ 500 MG, VIAL MATE ADAPTER 1 EACH in D5W 250 ML IV SCH (09:57)
--- NOTE | 2020-10-28 12:45 | IPNPDOC ---
Subjective Date Seen The patient was seen on 10/28/20. Subjective Chief Complaint/HPI No complaints this morning. No fever in 24 hours, Has been off oxygen for 24 hours. Objective Physical Examination General Exam: Positive: Alert, Cooperative, No Acute Distress Eye Exam: Positive: PERRLA, Conjunctiva & lids normal, EOMI; Negative: Sclera icteric ENT Exam: Positive: Atraumatic, Mucous membr. moist/pink, Pharynx Normal Neck Exam: Positive: Supple; Negative: JVD, thyromegaly Chest Exam: Positive: Clear to auscultation, Normal air movement Heart Exam: Positive: Rate Normal, Regular Rhythm, Normal S1, Normal S2; Negative: Murmurs, Rubs Abdomen Exam: Positive: Normal bowel sounds, Soft; Negative: Tenderness, Hepatospenomegaly Extremity Exam: Negative: Clubbing, Cyanosis, Edema Skin Exam: Positive: Nl turgor and temperature; Negative: Rash, Breakdown Neuro Exam: Positive: Normal Speech, Strength at 5/5 X4 ext, Normal Tone Psych Exam: Positive: Mental status NL, Mood NL, Memory Intact, Oriented x 3 Assessment /Plan Assessment 75 yo F with a hx of CAD, DM2, HTN, who tested positive for COVID-19 on 10/15/20 presented with SOB, hypoxia, malaise and imaging findings consistent with pneumonia. Admitted to hospitalist service for COVID infection with secondary bacterial pneumonia. . COVID-19 infection with hypoxia. - Now in room air - tylenol prn for fevers - On dexamethasone - will not treat with rimdesivir as out of chronicity window - ceftriaxone (Day #3), azithromycin (Day #4) - Inflammatory markers improving Pneumonia 2/2 CAP vs atypical organism - CXR and CT chest c/w bilateral infiltrates, ground glass opacities - check MRSA, legionella, strep ag, mycoplasma ag - check sputum cultures pending, blood cultures neg till date - ceftriaxone (Day #3), azithromycin (day #3) - incentive spirometer, acapella - tessalon NATALY - resolved DM2: - ISS, FSBS AC and HS - hypoglycemia precautions Anxiety - resume home meds HTN - home HCTZ 12.5 - hold home lisinopril due to NATALY, takes 5 mg HLD - pravastatin GI ppx: - pantoprazole DISPOSITION: Awaiting sputum cultures. Plan/VTE VTE Prophylaxis Ordered?: Yes VS, I&O, 24H, [facility] Vital Signs/I&O Vital Signs Date Time Temp Pulse Resp B/P (MAP) Pulse Ox O2 Delivery O2 Flow Rate FiO2 10/28/20 07:52 98.7 86 18 141/65 (90) 92 Room Air 10/27/20 09:00 2.0 I&O- Last 24 Hours up to 6 AM 10/28/20 06:00 Intake Total 840 ml Balance 840 ml Laboratory Data 24H LABS Laboratory Tests 2 10/27/20 17:26: Bedside Glucose (Misc Panel) 125H 10/27/20 19:35: Bedside Glucose (Misc Panel) 177H 10/28/20 07:45: Bedside Glucose (Misc Panel) 89 10/28/20 08:42: Immature Granulocyte % (Auto) 0.7, Neutrophils (%) (Auto) 74.5H, Lymphocytes (%) (Auto) 17.4L, Monocytes (%) (Auto) 7.1H, Eosinophils (%) (Auto) 0.0, Basophils (%) (Auto) 0.3, Neutrophils # (Auto) 5.3, Lymphocytes # (Auto) 1.2L, Monocytes # (Auto) 0.5, Eosinophils # (Auto) 0.0, Basophils # (Auto) 0.0, Nucleated Red Blood Cells % (auto) 0.0, Prothrombin Time 13.5, Prothromb Time International Ratio 1.01, Activated Partial Thromboplast Time 28.1, Fibrinogen 593H, D-Dimer, Quantitative 1958.55H, Anion Gap 11, Glomerular Filtration Rate 46.8, Calcium Le liz 9.1, Magnesium Level 1.9, Ferritin 496H, Total Bilirubin 0.4, Aspartate Amino Transf (AST/SGOT) 31, Alanine Aminotransferase (ALT/SGPT) 36, Alkaline Phosphatase 74, Lactate Dehydrogenase 303H, Total Creatine Kinase 106, Troponin I < 0.02, C-Reactive Protein, Quantitative 3.73H, Total Protein 7.0, Albumin 3.0L, Albumin/Globulin Ratio 0.8L 10/28/20 11:34: Bedside Glucose (Misc Panel) 325H CBC/BMP Laboratory Tests 10/28/20 08:42 Microbiology Microbiology 10/26/20 Gram Stain - Final, Resulted 10/26/20 Sputum Culture, Resulted Pending 10/26/20 Urine Culture - Final, Complete 10/26/20 Blood Culture - Preliminary, Resulted No Growth after 48 hours. All Specime... 10/26/20 Blood Culture - Preliminary, Resulted No Growth after 48 hours. All Specime... CHICHO FERNANDEZ MD Oct 28, 2020 12:45
[2020-10-28 14:00] VITALS: BP 131/60
[2020-10-28 16:08] LABS: MYCOPLASMA PNEUMONIAE IgG 420 U/mL (0-99); MYCOPLASMA PNEUMONIAE IgM <770 U/mL (0-769)
[2020-10-28 20:20] VITALS: BP 126/68
[2020-10-28] MEDS: PRAVASTATIN 10 MG TAB PO SCH (20:47)
[2020-10-28] MEDS: ALPRAZolam 0.25 MG TAB PO SCH (20:47)
[2020-10-28] MEDS: EZETIMIBE 10 MG TAB (ZETIA) PO SCH (20:47)
[2020-10-29 04:18] VITALS: BP 109/56
[2020-10-29] MEDS: dexameTHASONE 20MG/5ML VIAL (J1100 PER 1MG) IV SCH (08:12)
[2020-10-29] MEDS: hydroCHLOROthiazide 12.5 MG CAPSULE PO SCH (08:12)
[2020-10-29] MEDS: cefTRIAXone SOD 2 GM in D5W MINI-BAG PLUS 50 ML IV SCH (08:12)
[2020-10-29] MEDS: ALPRAZolam 0.5 MG TAB PO SCH (08:12)
[2020-10-29] MEDS: VITAMIN D 1,000 INTERNATIONAL UNITS TABLET PO SCH (08:12)
[2020-10-29] MEDS: DOCUSATE SODIUM 100MG CAPSULE PO SCH (08:13)
[2020-10-29] MEDS: PANTOPRAZOLE 40MG TAB (PROTONIX) PO SCH (08:13)
[2020-10-29] MEDS: ENOXAPARIN 40MG/0.4ML SYRINGE (J1650 PER 10MG) SC SCH (08:14)
[2020-10-29] MEDS: HumaLOG INSULIN (NovoLOG) PER UNIT SC SCH ×2 (08:14→12:00)
[2020-10-29 08:38] LABS: HEMATOCRIT 34.7 % (36.0-47.0); HEMOGLOBIN 11.4 g/dl (12.0-15.5); MEAN CORPUSCULAR HEMOGLOBIN 28.7 pg (27.0-33.0); MEAN CORPUSCULAR HGB CONC 32.9 g/dl (32.0-36.5); MEAN CORPUSCULAR VOLUME 87.4 fl (80.0-96.0); PLATELET COUNT, AUTOMATED 222 10^3/uL (150-450); RED BLOOD COUNT 3.97 10^6/uL (4.00-5.40); WHITE BLOOD COUNT 5.4 10^3/uL (4.0-10.0)
[2020-10-29 08:51] LABS: PARTIAL THROMBOPLASTIN TIME 26.8 SECONDS (24.2-38.5); PROTHROMBIN TIME 13.4 SECONDS (12.5-14.3)
[2020-10-29 08:54] LABS: D-DIMER QUANT 1230.31 ng/ml (<500)
[2020-10-29] MEDS ORDERED: AZITHROMYCIN 250MG TABLET PO SCH (09:00)
[2020-10-29 09:11] LABS: ALBUMIN 2.8 GM/DL (3.2-5.2); ALT/SGPT 40 U/L (12-78); BILIRUBIN,TOTAL 0.4 MG/DL (0.2-1.0); BLOOD UREA NITROGEN 33 MG/DL (7-18); C REACTIVE PROTEIN QUANTITATIV 2.27 MG/DL (0.00-0.30); CALCIUM LEVEL 9.5 MG/DL (8.8-10.2); CARBON DIOXIDE LEVEL 25 MEQ/L (21-32); CHLORIDE LEVEL 106 MEQ/L (98-107); CPK CREATINE PHOSPHOKINASE 51 U/L (26-192); CREATININE FOR GFR 1.07 MG/DL (0.55-1.30); FERRITIN 448 NG/ML (8-252); GLOMERULAR FILTRATION RATE 52.9 (>39); GLUCOSE, FASTING 96 MG/DL (70-100); LDH LACTATE DEHYDROGENASE 209 U/L (84-246); MAGNESIUM LEVEL 1.9 MG/DL (1.8-2.4); POTASSIUM SERUM 3.9 MEQ/L (3.5-5.1); SODIUM LEVEL 140 MEQ/L (136-145); TOTAL PROTEIN 7.3 GM/DL (6.4-8.2); TROPONIN I < 0.02 NG/ML (< 0.10)
[2020-10-29 09:17] LABS: ATYPICAL LYMPH 5 % (0-5); LYMPHOCYTES 29 % (16-44); MONOCYTES 5 % (0-5); NEUTROPHILS 61 % (28-66)
[2020-10-29 09:18] LABS: ANISOCYTOSIS 1+; PLATELET ESTIMATE NORMAL (NORMAL)
[2020-10-29] MEDS ORDERED: LEVO750T13 PO (11:28)
[2020-10-29] MEDS ORDERED: BENZ-18 PO (11:28)
[2020-10-31 12:08] LABS: BODY FLUID CULTURE Not indicated. (.); LEGIONELLA ANTIGEN URINE Negative (Negative); ORGANISM ID Not indicated. (.); SPECIMEN SOURCE Urine (.); URINE STREP PNEUMONIAE ANTIGEN Negative (Negative)
--- NOTE | 2020-10-31 22:37 | DS.PDOC ---
Discharge Summary General Date of Admission Oct 26, 2020 at 15:02 Date of Discharge 10/29/20 Discharge Summary PROCEDURES PERFORMED DURING STAY: [None]. DISCHARGE DIAGNOSES: COVID -19 infection with hypoxia. Bacterial Pneumonia NATALY DMHTN HLD Anxiety COMPLICATIONS/CHIEF COMPLAINT: Pneumonia. HOSPITAL COURSE: 75 yo F with a hx of CAD, DM2, HTN, who tested positive for COVID-19 on 10/15/20 presented with SOB, hypoxia, malaise on oct 26. Imaging findings consistent with pneumonia. Admitted to hospitalist service for COVID infection with secondary bacterial pneumonia. . COVID-19 infection with hypoxia. - Now in room air - Inflammatory markers improving Pneumonia 2/2 CAP vs atypical organism - CXR and CT chest c/w bilateral infiltrates, ground glass opacities - MRSA, legionella, strep ag, mycoplasma ag negative - check sputum cultures acinetobacter baumanni a few probably colonizer. - blood cultures neg till date - ceftriaxone and azithromycin recieved 4 days - will dc with levofloxacin. - incentive spirometer, acapella - tessalon NATALY - resolved DM2: -restart metformin Anxiety - resume home meds alprazolam. HTN -continue HCTZ 12.5 and lisinopril 5 HLD - pravastatin GI ppx: - pantoprazole DISCHARGE MEDICATIONS: Please see below. ALLERGIES: Please see below. PHYSICAL EXAMINATION ON DISCHARGE: VITAL SIGNS: Please see below. General Exam: Positive: Alert, Cooperative, No Acute Distress Eye Exam: Positive: PERRLA, Conjunctiva & lids normal, EOMI; Negative: Sclera icteric ENT Exam: Positive: Atraumatic, Mucous membr. moist/pink, Pharynx Normal Neck Exam: Positive: Supple; Negative: JVD, thyromegaly Chest Exam: Positive: Clear to auscultation, Normal air movement Heart Exam: Positive: Rate Normal, Regular Rhythm, Normal S1, Normal S2; Negative: Murmurs, Rubs Abdomen Exam: Positive: Normal bowel sounds, Soft; Negative: Tenderness, Hepatospenomegaly Extremity Exam: Negative: Clubbing, Cyanosis, Edema Skin Exam: Positive: Nl turgor and temperature; Negative: Rash, Breakdown Neuro Exam: Positive: Normal Speech, Strength at 5/5 X4 ext, Normal Tone Psych Exam: Positive: Mental status NL, Mood NL, Memory Intact, Oriented x 3 LABORATORY DATA: Please see below. IMAGING: CTA chest: 1. No evidence for pulmonary embolus. 2. Scattered ground-glass infiltrates primarily involving the left hemithorax and to a lesser extent the right base. Findings are atypical for COVID-19 pulmonary disease although this cannot be excluded. Further differential includes early pneumonia. ACTIVITY: [As tolerated]. DIET: Consistent carb DISPOSITION: 01 Home, Self-Care. DISCHARGE INSTRUCTIONS: PMD in 1 to 2 weeks DISCHARGE CONDITION: [Stable]. TIME SPENT ON DISCHARGE: 35 minutes. Vital Signs/I&Os Vital Signs Date Time Temp Pulse Resp B/P (MAP) Pulse Ox O2 Delivery O2 Flow Rate FiO2 10/29/20 04:18 96.5 72 18 109/56 (73) 93 Room Air 10/27/20 09:00 2.0 Microbiology Microbiology 10/26/20 Gram Stain - Final, Complete 10/26/20 Sputum Culture - Final, Complete Acinetobacter Baumannii Comple 10/26/20 Urine Culture - Final, Complete 10/26/20 Blood Culture - Final, Complete NO GROWTH AFTER 5 DAYS 10/26/20 Blood Culture - Final, Complete NO GROWTH AFTER 5 DAYS Discharge Medications Scheduled Alprazolam (Alprazolam) 0.5 Mg Tablet, 0.5 MG PO QAM, (Reported) Alprazolam (Alprazolam) 0.5 Mg Tablet, 0.75 MG PO QHS, (Reported) Cholecalciferol (Vitamin D3) (Vitamin D3) 1,000 Unit Tablet, 2,000 UNITS PO BID, (Reported) Ezetimibe (Ezetimibe) 10 Mg Tablet, 10 MG PO QHS, (Reported) Hydrochlorothiazide (Hydrochlorothiazide) 12.5 Mg Tablet, 12.5 MG DAILY, (Reported) Levofloxacin (Levofloxacin) 750 Mg Tablet, 750 MG PO DAILY Lisinopril (Lisinopril) 5 Mg Tablet, 5 MG DAILY, (Reported) Metformin HCl (Metformin HCl) 500 Mg Tablet, 500 MG PO BID, (Reported) Multivitamin (Multivitamins) 1 Each Tablet, 1 TAB PO DAILY, (Reported) [place]-3 Fatty Acids/Fish Oil (Fish Oil 1,000 mg Capsule) 1 Each Capsule, 1,000 MG PO DAILY, (Reported) Pantoprazole Sodium (Pantoprazole Sodium) 40 Mg Tablet.dr, 40 MG DAILY, (Reported) Pravastatin Sodium (Pravastatin Sodium) 10 Mg Tablet, 10 MG PO QHS, (Reported) Scheduled PRN Benzonatate (Benzonatate) 100 Mg Capsule, 100 MG PO Q8HP PRN for COUGH Allergies Coded Allergies: Penicillins (Verified Allergy, Intermediate, rash, 10/26/20) Sulfa (Sulfonamide Antibiotics) (Verified Allergy, Intermediate, chest pain, 10/26/20) aspirin (Verified Allergy, Intermediate, Chest Pain, 10/26/20) FULL STRENGTH ONLY CHICHO FERNANDEZ MD Oct 31, 2020 22:37
== END 2020-10-29 13:45 | disposition home or self-care (01) | DRG 177 ==
LOC: M ED 08:40 → M ED INP 15:02 → M 4MAIN 17:34
PROVIDERS: ADMIT Family Medicine; ATTEND Internal Medicine Nephrology
PROC: 3E0333Z Introduction of Anti-inflammatory into Peripheral Vein, Percutaneous Approach (ICD-10-PCS; principal; 2020-10-27)
DX: U07.1 COVID-19 (principal); J15.9 Unspecified bacterial pneumonia; N17.9 Acute kidney failure, unspecified; I25.10 Atherosclerotic heart disease of native coronary artery without angina pectoris; E11.9 Type 2 diabetes mellitus without complications; I10 Essential (primary) hypertension; R19.7 Diarrhea, unspecified; E66.9 Obesity, unspecified; R09.02 Hypoxemia; F41.9 Anxiety disorder, unspecified; E78.5 Hyperlipidemia, unspecified; Z79.84 Long term (current) use of oral hypoglycemic drugs; Z79.899 Other long term (current) drug therapy; Z88.0 Allergy status to penicillin; Z88.2 Allergy status to sulfonamides; Z88.6 Allergy status to analgesic agent

== ENCOUNTER 2021-07-19 17:17 | Emergency (ER) | payer MEDICARE ==
[~2021-07-19] VITALS: Ht 152.4 cm; Wt 79.9 kg
[2021-07-19 17:17] VITALS: BP 137/69
[~2021-07-19 17:17] MED LIST: ALPR0.5T3 PO; BENZ-18 PO; D31000TA2 PO; EZET10TA21 PO; FISH1000 PO; HYDR12.55; LEVO750T13 PO; LISI-898; METF500T13 PO; MULT-40 PO; PANT40TA29; PRAV10TA3 PO
--- OUTSIDE RECORDS SUMMARY | 2021-07-19 17:28 | CCD | Continuity of Care Document ---
Author Author Armida NICE D.O. Organization Unknown Address [address] [place] [address] Phone [phone] Care Team Providers Care Securities Sales Associate Name Role Phone [facility] Cardiology - Cardiovascular Disease AUTM [phone] Problems Active Problems Provider Date Anxiety state Barbara Granados RPA Onset: 02/25/2007 Hyperlipidemia Barbara Granados RPA Onset: 02/25/2007 Female climacteric state Julio Cuellar M.D. Onset: 2006 Type 2 diabetes mellitus Julio Cuellar M.D. Onset: 2007 Chronic obstructive lung disease Martha Bruce RPA-Gabby Onset: 01/18/2013 Psoriasis Martha Bruce RPA-Gabby Onset: 2012 Gastroesophageal reflux disease Orquidea Farfan D., JACINTO-[place] Onset: 02/14/2015 Vertigo Orquidea Farfan D., JACINTO-[place] Onset: 04/27 Essential hypertension Orquidea Farfan D., JACINTO-C Onset: Panic disorder without agoraphobia Brandon Nice D.O., FA AFP Onset: 03/28/2016 Type 2 diabetes mellitus Brandon Nice D.O., FAAFP Onset: 09/05/2020 Social History Type Date Description Comments Sex Unknown Tobacco Use Start: Unknown End: Unknown Quit 2013 Smoking Status Reviewed: 12/14/20 Quit 2013 ETOH Use alcohol use: never used Recreational Drug Use Never Used Drugs Tobacco Use Start: Unknown End: Unknown Patient is a former smoker Exercise Type/Frequency exercises regularly Allergies and adverse reactions Active Allergies Criticality Reaction | Severity Comments Date Sulfa Drugs Unable to assess criticality hives 02/25/2007 Penicillin Unable to assess criticality rash 02/25/2007 Statin Intolerant Unable to assess criticality 11/20/2012 Cefdinir Unable to assess criticality DIARRHEA 08/07/2017 Inactive Allergies Aspirin Unable to assess criticality chest pain 02/25/2007 Medications Active Medications SIG Qnty Indications Ordering Provide r Date Twonq Covid-19 Vaccine 30mcg/0.3ML Suspension both Brandon Nice D.O., FAAFP 07/10/2021 Alprazolam 0.5mg Tablets take one tablet by mouth three times a day as needed for anxiety maximum daily dose = 3 tablets 90tabs F41.9 Brandon Nice D.O., FAAFP 09/27/2020 Pravastatin Sodium 10mg Tablets take one tablet by mouth every day 90tabs Brandon Nice D.O., FAAFP 11/11/2019 Albuterol Sulfate (2 .5mg/3ML) 0.083% Nebulizer use breathing inhalation every 6 hours 75ml Ke chet Nice D.O., FAAFP 09/23/2019 Clobetasol Propionate 0.05% Ointme nt apply to feet twice a day 45gr Brandon Nice D.O., FAAFP 04/15/2019 Proair HFA 108(90Base) mcg/Act Aer osol 1-2 puffs every 4-6 hours as needed for sob 8.500gm Brandon Nice D.O., FAAFP 11/10/2018 Ezetimibe 10mg Tablets Take One Tablet By Mouth Every Day 90tabs Brandon Nice D.O., FAAFP 08/2018 Hydrochlorothiazide 12.5mg Tablets take one tablet by mouth every day 90tabs Abdon Fajardo, FAAFP 08/07/2017 Metformin HCL 500mg Tablets Take One Tablet By Mouth Twice A Day 180tabs Joao Fajardo, FAAFP 08/07/2017 Onetouch Verio Strips Use as Directed To Test Fasting Blood Sugar Once Daily 100units Brandon wiggins D.O., FAAFP 05/16/2017 Pantoprazole Sodium 40mg Tablets D R Take One Tablet By Mouth Every Day 90tabs Abdon Fajardo, [facility] 08/16/2016 Glucocom Blood Glucose Monitoring System W/Device Kit as directed for fsbs daily 1units E11.9 Brandon sandoval D.O., [facility] 03/28/2016 Cyclobenzaprine HCL 5mg Tablets Take One Tablet By Mouth Twice A Day Maximum Daily Dose = 2 Tablets 30tabs Brandon Nice D.O., [facility] 03/28/2016 Lancets 31G Misc use to test glucose daily dx:e11.9 100units E11.9 Brandon Nice D.O., [facility] 03/2016 Glucocom Test Strips as directed to test fsbs daily 100units E11.9 Brandon Nice D.O., [facility] 03/2016 Meclizine HCL 25mg Tablets 1 by mouth daily as needed for vertigo 30tabs Marti Barr [facility] 04/27/2015 Lisinopril 5mg Tablets Take One Tablet By Mouth Daily Maximum Daily Dose =1 90tabs Brandon sandoval D.O., [facility] 08/28/2011 Multivitamin Tablets 1 by mouth every day [...] Date Injection (SC)/(Im) Injection Orquidea Farfan D., [facility] 02/14/2015 Injection (SC)/(Im) Injection Omkar Leo . M.D 06/22/2012 Injection (SC)/(Im) Injection Maritza Ibanez [facility] 06/18/2011 Injection (SC)/(Im) Injection Maritza Ibanez [facility] 06/15/2010 Immunizations CPT Code Status Date Vaccine Lot # [id number] Given 02/14/2015 Pneumococcal Immunization L0 [id number] 80879 Given 02/14/2015 Tdap Tetanus,Dip htheria Toxoids/Acellular Pertussis 7Yrs Or Older [id number] 49028 Given 07/26/2013 Influenza Vaccin e (Fluzone) 3Yrs Of Age Or Older Medicare Plans 66149 Given 07/26/2013 Influenza Virus Vac. Split Virus Individuals 3 Years And Above [id number] 57385 Given 06/22/2012 Influenza Vaccin e (Fluzone) 3Yrs Of Age Or Older Medicare Plans 44457 Given 06/22/2012 Influenza Virus Vac. Split Virus Individuals 3 Years And Above [id number] 34598 Given 06/18/2011 Influenza Vaccin e (Fluzone) 3Yrs Of Age Or Older Medicare Plans 19803 Given 06/18/2011 Influenza Virus Vac. Split Virus Individuals 3 Years And Above [id number] 01463 Given 06/15/2010 Influenza Virus Vac. Split Virus Individuals 3 Years And Above 21459 Given Unknown Prevnar 13 Pneum o. Conj Ped. Vaccine 13 Valent (PCV13) For Im Use [id number] Refused 06/01/2020 Influenza Virus Vaccine, Quadrivalent, Slit Virus, Im Use 3Y & Up [id number] Refused 08/05/2019 Influenza Virus Vaccine, Quadrivalent, Slit Virus, Im Use 3Y & Up 48723 Refused 08/05/2019 Influenza Virus Vaccine, Quadrivalent, Slit Virus, Im Use 3Y & Up 70030 Refused 09/08/2018 Influenza Virus Vaccine, Quadrivalent, Slit Virus, Im Use 3Y & Up 34684 Refused 08/06/2016 Influenza Virus Vaccine, Quadrivalent, Slit Virus, Im Use 3Y & Up Vital Signs Date Vital Result Comment 07/10/2021 9:13am BP Systolic 118 mmHg BP Diastolic 68 mmHg Body Temperature 97.4 F Heart Rate 86 /min Respiratory Rate 18 /min Height 60 inches 5'0" Weight 172.00 lb [place] Body Weight 100 lb BMI (Body Mass Index) 33.6 kg/m2 O2 % BldC Oximetry 97 % 04/05/2021 8:59am BP Systolic 132 mmHg BP Diastolic 58 mmHg Body Temperature 97.5 F Heart Rate 78 /min Respiratory Rate 18 /min Height 60 inches 5'0" Weight 176.00 lb [place] Body Weight 100 lb BMI (Body Mass Index) 34.4 kg/m2 O2 % BldC Oximetry 97 % Results Test Acquired Date Facility Test Result H/L Range Note Laboratory test finding 07/10/2021 [facility] <pending> U/A DIP [facility]PA 04/05/2021 [facility] Asso ciates Color Urine yellow Yellow Appearance clear Clear Specific [place] 1.015 1.00-1.03 PH Urine 5.0 5.0-8.0 Glucose Urine neg Negative Bilirubin Urine neg Negative Ketones neg Negative Blood Urine neg Negative Protein Urine neg Negative Urobilinogen .2 EU/dl 0.2-1.0 Nitrite neg Negative Leukocytes 1+ High Negative Microalb/Creat Ratio 04/05/2021 [facility] Alb 10 mg/L 1 - 30 Creatinine, Urine 50 mg/dL 10 - 300 A/C Ratio <30 mg/g % Hemoglobin A1c 04/05/2021 [facility] Hemoglobin A1c 7.0 % High 4.8-5.6 1 CBC 04/05/2021 [facility] WBC 6.3 10E3/uL 4.1 - 10.9 2 RBC 4.24 10E6/uL 4.20 - 6.30 HGB 12.8 g/dL 12.0 - 18.0 HCT 37.7 % 37.0 - 51.0 MCV 88.9 fL 80.0 - 97.0 MCH 30.2 pg 26.0 - 32.0 MCHC 34.0 g/dL 31.0 - 36.0 PLT 170 10E3/uL 140 - 440 RDW-CV 13.9 % 11.5 - 14.5 Lym% 35.4 % 10.0 - 58.5 Neut% 55.5 % 37.0 - 92.0 MXD% 9.1 % 0.1 - 24.0 Lym# 2.2 10E3/uL 0.6 - 4.1 Neut# 3.5 % 2.0 - 7.8 MXD# 0.6 10E3/uL 0.0 - 1.8 MPV 10.2 fL 9.0 - 13.0 CMP 04/05/2021 [facility] Glu 135 mg/dL High 70 - 110 BUN 29 mg/dL High 8 - 23 Creat 1.1 mg/dL High 0.5 - 1.0 BUN/Creatinine Ratio 27.6 CALC Na 137 mmol/L 136 - 145 K 4.7 mmol/L 3.5 - 5.1 CL 102.4 mmol/L 98.0 - 107.0 Co2 20.5 mmol/L Low 22.0 - 29.0 CA 9.4 mg/dL 8.6 - 10.2 TP 7.0 g/dL 6.6 - 8.7 Alb 4.5 g/dL 3.4 - 4.8 A/G Ratio 1.8 CALC Globulin 2.5 CALC Alp 77.4 U/L 35 - 129 Alt (SGPT) 24 U/L 0 - 41 Ast (Sgot) 23 U/L 0 - 40 Tbili 0.90 mg/dL 0.0 - 1.2 Osmolality-Calculated 282.1 CALC Anion Gap 19 mmol/L eGFR 56 # Calc 3 eGFR Non-Afr. [place]an 48 # Calc 4 Laboratory test finding 04/05/2021 [facility] CK 57 U/L 26 - 192 Lipid Panel 04/05/2021 [facility] Chol 204 mg/dL High 0 - 200 Trig 117 mg/dL 40 - 200 HDL 66 mg/dL High 45 - 65 LDL_C 115 Calc 75 - 129 Cho/HDL Ratio 3.1 CALC 1 Prediabetes: 5.7 - 6.4 Diabetes: >6.4 Glycemic control for adults with diabetes: <7.0 2 NORMAL RANGES Age WBC RBC HGB HCT [...] HCT IS 5% LESS SOURCE FOR DATA: DNA Guide 1800 OPERATION MANUAL( AUTOMATED BLOOD COUNTS AND [...] ADOLESCENTS REPRESENTS INDIVIDUALA AGED 2-19 YEARS EXCLUSIVE. 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 E78.5 Hyperlipidemia, unspecified F41.1 Generalized anxiety disorder R30.0 Dysuria Office Visit 04/05/2021 9:00a [facility] Orly Fajardo, FAAFP E11.9 Type 2 diabetes mellitus without complic ations 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 E78.5 Hyperlipidemia, unspecified F41.1 Generalized anxiety disorder R43.9 Unspecified disturbances of smell and taste Assessments Date Code Description Provider 07/10/2021 E11.9 Type 2 diabetes mellitus without complications Brandon Nice D.O., FAAFP 07/10/2021 Z79.84 MCFP (current) use of oral hypoglycemic drugs Brandon Nice D.O., FAAFP 07/10/2021 E78.5 Hyperlipidemia, unspecified Geovanny Nice D.O., FAAFP 07/10/2021 F41.1 Generalized anxiety disorder Gregory Nice D.O., FAAFP 07/10/2021 R30.0 Dysuria Brandon Nice D.O., FAAFP 04/05/2021 E11.9 Type 2 diabetes mellitus without complications Brandon Nice D.O., FAAFP 04/05/2021 Z79.84 MCFP (current) use of oral hypoglycemic drugs Brandon Nice D.O., FAAFP 04/05/2021 E78.5 Hyperlipidemia, unspecified Geovanny Nice D.O., FAAFP 04/05/2021 F41.1 Generalized anxiety disorder Gregory Nice D.O., FAAFP 04/05/2021 R43.9 Unspecified disturbances of smel l and taste Brandon Nice D.O., BILLY Plan of Treatment Future Appointment(s):* 10/18/2021 9:15 am - Brandon Nice D.O., BILLY at [facility] Functional Status Description No Information Available Mental Status Description No Information Available Referrals Description No Information Available
--- OUTSIDE RECORDS SUMMARY | 2021-07-19 17:28 | CCD | Continuity of Care Document ---
Author Author Armida WITT ND Organization Unknown Address [place] [address] Phone [phone] Care Team Providers Care Senior Linux Unix Administrator Name Role Phone Brandon Merino DO AUTM [phone] Problems Active Problems Provider Date Hyperlipidemia Onset: Social History Type Date Description Comments Sex Unknown ETOH Use Denies alcohol use Tobacco Use Start: Unknown End: Unknown Patient is a former smoker quit 02/02 Smoking Status Reviewed: 07/18/21 Patient is a former smoker qu it 02/02 Allergies and adverse reactions Active Allergies Criticality Reaction | Severity Comments Date Sulfa Unable to assess criticality 05/20/2009 Penicillin Unable to assess criticality 05/07/2012 Medications Active Medications SIG Qnty Indications Ordering Provide r Date Valtrex 1gm Tablets 1 tab by mouth q8 hours for 7 days 21tabs B02.9 Jamie Lee JR., M.D. Mupirocin 2% Ointment apply to skin at affected area on flank every 12 hours 22gm B02.9 Jamie Lee JR., M.D. 07/18/2021 Xanax 0.5mg Tablets take one tablet every 6 hrs. as needed for anxiety. Unknown Aspir-[address] qd Unknown Lisinopril 5mg Tablets 1/2 po qd 30tabs Unknown Hydrochlorothiazide qd Unknown Metformin HCL ER 500mg Tablets ER 24HR qd Unknown Cyclobenzaprine HCL 5mg Tablets 1 tab by mouth every 8 hours as needed for pain Unknown Zetia 10mg Tablets 1 by mo uth every day Unknown Colesevelam HCL 625mg Tablets Unknown Tylenol 8 Hour Arthritis Pain 650mg Tablets ER as directed Unknown Pravastatin Sodium Unknown Pantoprazole Sodium 40mg Tablets DR Unknown Immunizations Description No Information Available Vital Signs Date Vital Result Comment 07/18/2021 4:49pm BP Systolic 146 mmHg BP Diastolic 82 mmHg Heart Rate 101 /min Respiratory Rate 16 /min O2 % BldC Oximetry 97 % Body Temperature 97.9 F Weight 171.00 lb Height 60 inches 5'0" BMI (Body Mass Index) 33.4 kg/m2 Pain Level 8 10/16/2020 11:41am BP Systolic 138 mmHg BP Diastolic 84 mmHg Heart Rate 98 /min Respiratory Rate 14 /min O2 % BldC Oximetry 98 % Body Temperature 98.9 F Weight 175.00 lb Height 60 inches 5'0" BMI (Body Mass Index) 34.2 kg/m2 Pain Level 3 Results Description No Information Available Procedures Date Code Description Status 07/18/2021 42362 Office/Outpatient Established Lo w MDM 20-29 Min Completed 07/18/2021 89518 Office/Outpatient Established Lo w MDM 20-29 Min Completed Medical Devices Description No Information Available Encounters Type Date Location Provider Dx Diagnosis Office Visit 07/18/2021 1:45p Main Office ANUJA Mejia B02.9 Zoster without complications M54.9 Dorsalgia, unspecified Z20.828 Contact w and exposure to ot h viral communicable diseases Assessments Date Code Description Provider 07/18/2021 B02.9 Zoster without complications ANUJA Quinones 07/18/2021 B02.9 Zoster without complications Dez Espitia, P.A. 07/18/2021 M54.9 Dorsalgia, unspecified ANUJA Mckinney 07/18/2021 M54.9 Dorsalgia, unspecified Alvaro Espitia, Angeline.Brandon. 07/18/2021 Z20.828 Contact with and (davalos spected) exposure to other viral communicable diseases ANUJA Mejia 07/18/2021 Z20.828 Contact with and (davalos spected) exposure to other viral communicable diseases Alvaro Espitia, Paula. Plan of Treatment 07/18/2021 - Deric Dejesus* B02.9 Zoster without complications* New Medication:* Valtrex 1 gm - 1 tab by mouth q8 hours for 7 days * Mupirocin 2 % - apply to skin at affected area on flank every 12 hours * M54.9 Dorsalgia, unspecified * Z20.828 Contact with and (suspected) exposure to other viral communicable diseases Functional Status Description No Information Available Mental Status Description No Information Available Referrals Description No Information Available
--- OUTSIDE RECORDS SUMMARY | 2021-07-19 17:28 | CCD | Continuity of Care Document ---
Author Author Armida WITT OR Organization Unknown [place] [address] Phone [phone] Care Team Providers Care Network Communications Engineer Name Role Phone Brandon Merino DO AUTM [phone] Problems Active Problems Provider Date Hyperlipidemia Onset: [...] Available Procedures Date Code Description Status 07/18/2021 22880 Office/Outpatient Established Lo w MDM 20-29 Min Completed 07/18/2021 07211 Office/Outpatient Established Lo w MDM 20-29 Min [...] exposure to other viral communicable diseases ANUJA eMjia 07/18/2021 Z20.828 Contact with and (davalos spected) [...]
--- OUTSIDE RECORDS SUMMARY | 2021-07-19 17:28 | CCD | Continuity of Care Document ---
Author Author Armida SHOEMAKER Organization Unknown Address [place] [address] Phone [phone] Care Team Providers Care Scrub Technician Name Role Phone Brandon Merino DO AUTM [phone] Problems Active Problems Provider Date Hyperlipidemia Onset: [...] Available Procedures Date Code Description Status 07/18/2021 84712 Office/Outpatient Established Lo w MDM 20-29 Min Completed Medical Devices Description No Information Available Encounters Description No Information Available Assessments Date Code Description Provider 07/18/2021 B02.9 Zoster without complications Dez Shoemaker, PViri. Plan of Treatment 07/18/2021 - Alvaro Shoemaker, PMelly* B02.9 Zoster without complications* New Medication:* Valtrex 1 gm - 1 tab by mouth q8 hours for 7 days * Mupirocin 2 % - apply to skin at affected area on flank every 12 hours Functional Status Description No Information Available Mental Status Description No Information Available Referrals Description No Information Available
--- OUTSIDE RECORDS SUMMARY | 2021-07-19 17:28 | CCD | Continuity of Care Document ---
Author Author Armida NICE D.O. Organization Unknown Address [address] [place] [address] Phone [phone] Care Team Providers Care Teleradiologist Name Role Phone [facility] Cardiology - Cardiovascular Disease AUTM [phone] Problems Active Problems Provider Date Anxiety state Barbara Granados RPA Onset: 02/25/2007 Hyperlipidemia Barbara Granados RPA Onset: 02/25/2007 Female climacteric state Julio Cuellar M.D. Onset: 2006 Type 2 diabetes mellitus Julio Cuellar M.D. Onset: 2007 Chronic obstructive lung disease Martha Bruce RPA-Gabby Onset: 01/18/2013 Psoriasis Martha rBuce RPA-Gabby Onset: 2012 Gastroesophageal reflux disease Orquidea [...] SIG Qnty Indications Ordering Provide r Date SensiGen Covid-19 Vaccine 30mcg/0.3ML Suspension both Brandon Nice [...] By Mouth Every Day 90tabs Abdon Fajardo, [facility] 08/16/2016 Glucocom Blood Glucose Monitoring System W/Device Kit as directed for fsbs daily 1units E11.9 Brandon sandoval D.O., [facility] 03/28/2016 Cyclobenzaprine HCL 5mg Tablets Take One Tablet By Mouth Twice A Day Maximum Daily Dose = 2 Tablets 30tabs Brandon Nice D.O., [facility] 03/28/2016 Lancets 31G Misc use to test glucose daily dx:e11.9 100units E11.9 Brandon Nice D.O., [facility] 03/2016 Glucocom Test Strips as directed to test fsbs daily 100units E11.9 Brandon Nice D.O., [facility] 03/2016 Meclizine HCL 25mg Tablets 1 by mouth daily as needed for vertigo 30tabs Marti Barr [facility] 04/27/2015 Lisinopril 5mg Tablets Take One Tablet By Mouth Daily Maximum Daily Dose =1 90tabs Brandon sandoval D.O., [facility] 08/28/2011 Multivitamin Tablets 1 by mouth every [...] Date Injection (SC)/(Im) Injection Orquidea Farfan D., [facility] 02/14/2015 Injection (SC)/(Im) Injection Omkar Leo . M.D 06/22/2012 Injection (SC)/(Im) Injection Maritza Ibanez [facility] 06/18/2011 Injection (SC)/(Im) Injection Maritza Ibanez [facility] 06/15/2010 Immunizations CPT Code Status Date Vaccine Lot # [id number] Given 02/14/2015 Pneumococcal Immunization L0 [id number] 63400 Given 02/14/2015 Tdap Tetanus,Dip htheria Toxoids/Acellular Pertussis 7Yrs Or Older [id number] 18396 Given 07/26/2013 Influenza Vaccin e (Fluzone) 3Yrs Of Age Or Older Medicare Plans 86154 Given 07/26/2013 Influenza Virus Vac. Split Virus Individuals 3 Years And Above [id number] 60601 Given 06/22/2012 Influenza Vaccin e (Fluzone) 3Yrs Of Age Or Older Medicare Plans 09719 Given 06/22/2012 Influenza Virus Vac. Split Virus Individuals 3 Years And Above [id number] 34497 Given 06/18/2011 Influenza Vaccin e (Fluzone) 3Yrs Of Age Or Older Medicare Plans 44479 Given 06/18/2011 Influenza Virus Vac. Split Virus Individuals 3 Years And Above [id number] 25947 Given 06/15/2010 Influenza Virus Vac. Split Virus Individuals 3 Years And Above 28747 Given Unknown Prevnar 13 Pneum o. Conj Ped. Vaccine 13 Valent (PCV13) For Im Use [id number] Refused 06/01/2020 Influenza Virus Vaccine, Quadrivalent, Slit Virus, Im Use 3Y & Up [id number] Refused 08/05/2019 Influenza Virus Vaccine, Quadrivalent, Slit Virus, Im Use 3Y & Up 72367 Refused 08/05/2019 Influenza Virus Vaccine, Quadrivalent, Slit Virus, Im Use 3Y & Up 51772 Refused 09/08/2018 Influenza Virus Vaccine, Quadrivalent, Slit Virus, Im Use 3Y & Up [id number] Refused 08/06/2016 Influenza Virus Vaccine, Quadrivalent, Slit Virus, Im Use 3Y & Up Vital Signs Date Vital Result Comment 07/10/2021 9:13am BP Systolic 118 mmHg BP Diastolic 68 mmHg Body Temperature 97.4 F Heart Rate 86 /min Respiratory Rate 18 /min Height 60 inches 5'0" Weight 172.00 lb [place] Body Weight 100 lb BMI (Body Mass Index) 33.6 kg/m2 O2 % BldC Oximetry 97 % 04/05/2021 8:59am BP Systolic 132 mmHg BP Diastolic 58 mmHg Body Temperature 97.5 F Heart Rate 78 /min Respiratory Rate 18 /min Height 60 inches 5'0" Weight 176.00 lb [place] Body Weight 100 lb BMI (Body Mass Index) 34.4 kg/m2 O2 % BldC Oximetry 97 % Results Test Acquired Date Facility Test Result H/L Range Note Hemoglobin A1c 07/10/2021 [facility] [place] Hemoglobin A1c 7.1 % High 4.8-5.6 1 U/A DIP FPA 07/10/2021 [facility] Asso ciates Color Urine YELLOW Yellow Appearance CLEAR Clear Specific [place] 1.020 1.00-1.03 PH Urine 5.0 5.0-8.0 Glucose Urine NEG Negative Bilirubin Urine NEG Negative Ketones NEG Negative Blood Urine NEG Negative Protein Urine NEG Negative Urobilinogen .2 EU/dl 0.2-1.0 Nitrite NEG Negative Leukocytes TRACE Negative CBC 07/10/2021 [facility] WBC 6.4 10E3/uL 4.1 - 10.9 2 RBC 4.26 10E6/uL 4.20 - 6.30 HGB 12.8 g/dL 12.0 - 18.0 HCT 37.6 % 37.0 - 51.0 MCV 88.3 fL 80.0 - 97.0 MCH 30.0 pg 26.0 - 32.0 MCHC 34.0 g/dL 31.0 - 36.0 PLT 248 10E3/uL 140 - 440 RDW-CV 13.5 % 11.5 - 14.5 Lym% 33.1 % 10.0 - 58.5 Neut% 61.5 % 37.0 - 92.0 MXD% 5.4 % 0.1 - 24.0 Lym# 2.1 10E3/uL 0.6 - 4.1 Neut# 4.0 % 2.0 - 7.8 MXD# 0.3 10E3/uL 0.0 - 1.8 MPV 9.6 fL 9.0 - 13.0 Laboratory test finding 07/10/2021 [facility] CK 47 U/L 26 - 192 CMP 07/10/2021 [facility] Glu 157 mg/dL High 70 - 110 BUN 25 mg/dL High 8 - 23 Creat 1.0 mg/dL 0.5 - 1.0 BUN/Creatinine Ratio 25.2 CALC Na 138 mmol/L 136 - 145 K 4.7 mmol/L 3.5 - 5.1 CL 100.5 mmol/L 98.0 - 107.0 Co2 20.6 mmol/L Low 22.0 - 29.0 CA 9.7 mg/dL 8.6 - 10.2 TP 6.6 g/dL 6.6 - 8.7 Alb 4.3 g/dL 3.4 - 4.8 A/G Ratio 1.8 CALC Globulin 2.4 CALC Alp 79.4 U/L 35 - 129 Alt (SGPT) 19 U/L 0 - 41 Ast (Sgot) 20 U/L 0 - 40 Tbili 0.65 mg/dL 0.0 - 1.2 Osmolality-Calculated 282.4 CALC Anion Gap 21 mmol/L eGFR 62 # Calc 3 eGFR Non-Afr. Palestinian 54 # Calc 4 Lipid Panel 07/10/2021 [facility] Chol 210 mg/dL High 0 - 200 Trig 193 mg/dL 40 - 200 HDL 56 mg/dL 45 - 65 LDL_C 116 Calc 75 - 129 Cho/HDL Ratio 3.8 CALC U/A DIP FPA 04/05/2021 [facility] Asso ciates Color Urine yellow Yellow Appearance clear Clear Specific [place] 1.015 1.00-1.03 PH Urine 5.0 5.0-8.0 Glucose [...] NE Hemoglobin A1c 7.0 % High 4.8-5.6 5 CBC 04/05/2021 [facility] WBC 6.3 10E3/uL 4.1 - 10.9 RBC 4.24 10E6/uL 4.20 - 6.30 HGB [...] Gap 19 mmol/L eGFR 56 # Calc 6 eGFR Non-Afr. Palestinian 48 # Calc 7 Laboratory test finding 04/05/2021 [facility] CK 57 [...] HCT IS 5% LESS SOURCE FOR DATA: [employer] 1800 OPERATION MANUAL( AUTOMATED BLOOD COUNTS AND [...] 2-19 YEARS EXCLUSIVE. 3 CKD-EPI 4 CKD-EPI 5 Prediabetes: 5.7 - 6.4 Diabetes: >6.4 Glycemic control for adults with diabetes: <7.0 6 CKD-EPI 7 CKD-EPI Procedures Date Code Description Status 07/10/2021 93629 Office/Outpatient Established Mo d MDM 30-39 Min Completed 04/05/2021 39614 Office/Outpatient Established Mo d MDM 30-39 Min Completed Medical Devices Description No Information Available Encounters Type Date Location Provider Dx Diagnosis Office Visit 07/10/2021 9:00a [place] [facility] Orly Fajardo, FAAFP E11.9 Type 2 diabetes mellitus without complic ations Z79.84 senior living (current) use of o ral hypoglycemic drugs E78.5 Hyperlipidemia, unspecified F41.1 Generalized anxiety disorder R30.0 Dysuria I10 Essential (primary) hyperten cole Office Visit 04/05/2021 9:00a [place] [facility] Orly Fajardo, FAAFP E11.9 Type 2 diabetes mellitus without complic ations Z79.84 senior living (current) use of o ral hypoglycemic drugs E78.5 Hyperlipidemia, unspecified F41.1 Generalized anxiety disorder R43.9 Unspecified disturbances of smell and taste Assessments Date Code Description Provider 07/10/2021 E11.9 Type 2 diabetes mellitus without complications Brandon Nice D.O., FAAFP 07/10/2021 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 Brandon Nice D.O., FAAFP 07/10/2021 E78.5 Hyperlipidemia, unspecified Geovanny Nice D.O., FAAFP 07/10/2021 F41.1 Generalized anxiety disorder Gregory Nice D.O., FAAFP 07/10/2021 R30.0 Dysuria Brandon Nice D.O., FAAFP 07/10/2021 I10 Essential (primary) hypertension Brandon Nice D.O., [facility] 04/05/2021 E11.9 Type 2 diabetes mellitus without complications Brandon Nice D.O., [facility] 04/05/2021 Z79.84 senior living (current) use of oral hypoglycemic drugs Brandon Nice D.O., [facility] 04/05/2021 E78.5 Hyperlipidemia, unspecified Geovanny Nice D.O., [facility] 04/05/2021 F41.1 Generalized anxiety disorder Gregory Nice D.O., [facility] 04/05/2021 R43.9 Unspecified disturbances of smel l and taste Brandon Nice D.O., FAAFP Plan of Treatment Future Appointment(s):* 10/18/2021 9:15 am - Brandon Nice D.O., FAAFP at [facility] Functional Status Description No Information Available Mental Status Description No Information Available Referrals Description No Information Available
--- OUTSIDE RECORDS SUMMARY | 2021-07-19 17:29 | CCD | Continuity of Care Document ---
Author Author Armida NICE D.O. Organization Unknown Address [address] [place] [address] Phone [phone] Care Team Providers Care Blasting Cap Assembler Name Role Phone [facility] Cardiology - Cardiovascular Disease AUTM [phone] Problems Active Problems Provider Date Anxiety state Barbara Granados RPA Onset: 02/25/2007 Hyperlipidemia Barbara Granados RPA Onset: 02/25/2007 Female climacteric state Julio Cuellar M.D. Onset: 2006 Type 2 diabetes mellitus Julio Cuellar M.D. Onset: 2007 Chronic obstructive lung disease Martha Bruce RPA-Gabby Onset: 01/18/2013 Psoriasis Martha Bruce RPA-Gabby Onset: 2012 Gastroesophageal reflux disease Oqruidea Farfan D., [place] Onset: 02/14/2015 Vertigo Orquidea [...] SIG Qnty Indications Ordering Provide r Date Alprazolam 0.5mg Tablets take one tablet by mouth three times a day as needed for anxiety maximum daily dose = 3 tablets 90tabs F41.9 [facility] 09/27/2020 Pravastatin Sodium 10mg Tablets take one tablet by mouth every day 90tabs Brandon [facility] D.O., [facility] 11/11/2019 Albuterol Sulfate (2 .5mg/3ML) 0.083% Nebulizer use breathing inhalation every 6 hours 75ml Ke chet Nice D.O., [facility] 09/23/2019 Clobetasol Propionate 0.05% Ointme nt apply to feet twice a day 45gr Brandon Nice D.O., [facility] 04/15/2019 Proair HFA 108(90Base) mcg/Act Aer osol 1-2 puffs every 4-6 hours as needed for sob 8.500gm Brandon Nice D.O., [facility] 11/10/2018 Ezetimibe 10mg Tablets Take One Tablet By Mouth Every Day 90tabs Brandon [facility] D.O., [facility] 08/2018 Hydrochlorothiazide 12.5mg Tablets take one tablet by mouth every day 90tabs Abdon Fajardo, [facility] 08/07/2017 Metformin HCL 500mg Tablets Take One Tablet By Mouth Twice A Day 180tabs Joao Fajardo, [facility] 08/07/2017 Onetouch Verio Strips Use as Directed To Test Fasting Blood Sugar Once Daily 100units Brandon wiggins D.O., [facility] 05/16/2017 Pantoprazole Sodium 40mg Tablets D R Take One Tablet By Mouth Every Day 90tabs Abdon Fajardo, [facility] 08/16/2016 Glucocom Blood Glucose Monitoring System W/Device Kit as directed for fsbs daily 1units E11.9 Brandon sandoval D.O., [facility] 03/28/2016 Cyclobenzaprine HCL 5mg Tablets Take One Tablet By Mouth Twice A Day Maximum Daily Dose = 2 Tablets 30tabs Brandon Nice D.O., [facility] 03/28/2016 Lancets 31G Misc use to test glucose daily dx:e11.9 100units E11.9 Brandon Nice D.O., [facility] 03/2016 Glucocom Test Strips as directed to test fsbs daily 100units E11.9 Brandon Nice D.O., [facility] 03/2016 Meclizine HCL 25mg Tablets 1 by mouth daily as needed for vertigo 30tabs Marti Barr [facility] 04/27/2015 Lisinopril 5mg Tablets Take One Tablet By Mouth Daily Maximum Daily Dose =1 90tabs Brandon sandoval D.O., [facility] 08/28/2011 Multivitamin Tablets 1 by mouth every day Unknown Vitamin D 1000Unit Capsules 2000 unit qd Unknown Asa 81 Capsules 1 by mouth ev muna day Unknown Glucose 4gm Chewtabs use as directed for signs of low blood sugar OTC Unknown /0 000 Fish Oil 1000mg Capsules 2 by mouth daily Unknown Medications Administered in Office Medication SIG Qnty Indications Ordering Provider Date Injection (SC)/(Im) Injection Orquidea Farfan D., [facility] 02/14/2015 Injection (SC)/(Im) Injection Omkar Leo . M.D 06/22/2012 Injection (SC)/(Im) Injection Maritza Ibanez [facility] 06/18/2011 Injection (SC)/(Im) Injection Maritza Ibanez [facility] 06/15/2010 Immunizations CPT Code Status Date Vaccine Lot # [id number] Given 02/14/2015 Pneumococcal Immunization L0 [id number] 17246 Given 02/14/2015 Tdap Tetanus,Dip htheria Toxoids/Acellular Pertussis 7Yrs Or Older [id number] 74357 Given 07/26/2013 Influenza Vaccin e (Fluzone) 3Yrs Of Age Or Older Medicare Plans 87392 Given 07/26/2013 Influenza Virus Vac. Split Virus Individuals 3 Years And Above [id number] 41858 Given 06/22/2012 Influenza Vaccin e (Fluzone) 3Yrs Of Age Or Older Medicare Plans 65168 Given 06/22/2012 Influenza Virus Vac. Split Virus Individuals 3 Years And Above [id number] 31579 Given 06/18/2011 Influenza Vaccin e (Fluzone) 3Yrs Of Age Or Older Medicare Plans 66890 Given 06/18/2011 Influenza Virus Vac. Split Virus Individuals 3 Years And Above [id number] 49045 Given 06/15/2010 Influenza Virus Vac. Split Virus Individuals 3 Years And Above 20998 Given Unknown Prevnar 13 Pneum o. Conj Ped. Vaccine 13 Valent (PCV13) For Im Use 99041 Refused 06/01/2020 Influenza Virus Vaccine, Quadrivalent, Slit Virus, Im Use 3Y & Up 70929 Refused 08/05/2019 Influenza Virus Vaccine, Quadrivalent, Slit Virus, Im Use 3Y & Up 92578 Refused 08/05/2019 Influenza Virus Vaccine, Quadrivalent, Slit Virus, Im Use 3Y & Up 25447 Refused 09/08/2018 Influenza Virus Vaccine, Quadrivalent, Slit Virus, Im Use 3Y & Up 42579 Refused 08/06/2016 Influenza Virus Vaccine, Quadrivalent, Slit Virus, Im Use 3Y & Up Vital Signs Date Vital Result Comment 04/05/2021 8:59am BP Systolic 132 mmHg BP Diastolic 58 mmHg Body Temperature 97.5 F Heart Rate 78 /min Respiratory Rate 18 /min Height 60 inches 5'0" Weight 176.00 lb [place] Body Weight 100 lb BMI (Body Mass Index) 34.4 kg/m2 O2 % BldC Oximetry 97 % 12/14/2020 10:10am BP Systolic 142 mmHg BP Diastolic 78 mmHg Body Temperature 97.6 F Heart Rate 88 /min Respiratory Rate 18 /min Height 60 inches 5'0" Weight 173.00 lb [place] Body Weight 100 lb BMI (Body Mass Index) 33.8 kg/m2 O2 % BldC Oximetry 99 % Results Test Acquired Date Facility Test Result H/L Range Note U/A DIP FPA 04/05/2021 [facility] Asso ciates Color Urine yellow Yellow Appearance clear Clear Specific [place] 1.015 1.00-1.03 PH Urine 5.0 5.0-8.0 Glucose [...] eGFR 56 # Calc 3 eGFR Non-Afr. 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 E78.5 Hyperlipidemia, unspecified F41.1 Generalized anxiety disorder R43.9 Unspecified disturbances of smell and taste Assessments Date Code Description Provider 04/05/2021 E11.9 Type 2 diabetes mellitus without complications Brandon Nice D.O., [facility] 04/05/2021 Z79.84 penitentiary (current) use of oral hypoglycemic drugs Brandon Nice D.O., [facility] 04/05/2021 E78.5 Hyperlipidemia, unspecified Geovanny Nice D.O., [facility] 04/05/2021 F41.1 Generalized anxiety disorder Gregory Nice D.O., [facility] 04/05/2021 R43.9 Unspecified disturbances of smel l and taste Brandon Nice D.O., [facility] Plan of Treatment No Information Available Functional Status Description No Information Available Mental Status Description No Information Available Referrals Description No Information Available
--- OUTSIDE RECORDS SUMMARY | 2021-07-19 17:29 | CCD ---
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 Role Phone Ani Merino MD, PP Unavailable Perla DO, Corbin Unavailable [phone] Reason for Referral No Reason for Referral Recorded Problems Includes: Active, inactive, and resolved Problems All Visits Onset Date - Time Resolved Date - Time Provider Co ndition Status Chalazion 06/12/2020 - 12:00AM 01/11/2021 - 9:33AM Corbin rosario DO Resolved Taking Medication For Diabetes Long-term Use of Oral H ypoglycemics 03/15/2020 - 12:00AM Corbin Duncan DO Active 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 0 03/15/2020 - 12:00AM 04/13/2021 - 12:38PM Corbin Duncan DO Resolved Diabetes Mellitus Type 2 Without Complication 03/15/2020 - 12:00 AM Corbin Duncan DO Active History of Nicotine Dependence 03/15/2020 - 12:00AM Allan Duncan DO Active Essential Hypertension 03/15/2020 - 12:00AM Corbin moses DO Active Pseudophakia 03/15/2020 - 12:00AM Corbin Duncan DO Active Macular Puckering 03/15/2020 - 12:00AM Corbin Silvestre in DO Active Dry Eye Syndrome 03/15/2020 - 12:00AM Corbin tolliver DO Active Vitreous Disorders Degeneration 03/15/2020 - 12:00AM Dania Duncan DO Active Plan of Treatment Future Appointments Date Time Location Provider 1 Year Follow-Up & Testing 04/12/2022 9:40AM Demarcus anderson MD [facility] Corbin Duncan DO Assessments Includes: Assessments for all patient encounters Findings Encounter Date Pseudophakia 3 - 4 Week Follow-Up with Corbin guidry DO 04/13/2021 Assessment of long-term use of oral hypoglycemics 6 Mo nth Follow-Up with Corbin Duncan DO 01/11/2021 Dry eye syndrome 6 Month Follow-Up with Corbin Duncan DO 01/11/2021 Essential hypertension 6 Month Follow-Up with Corbin guidry DO 01/11/2021 History of nicotine dependence 6 Month Follow-Up with Yasmani Duncan DO 01/11/2021 Macular puckering 6 Month Follow-Up with Corbin Duncan DO 01/11/2021 Posterior capsule opacification of eccentric capsule i n the left eye 6 Month Follow-Up with Corbin Duncan DO 01/11/2021 Pseudophakia 6 Month Follow-Up with Corbin Duncan DO 01/11/2021 Type 2 diabetes mellitus without complication 6 Month Follow-Up with Corbin Duncan DO 01/11/2021 Vitreous degeneration 6 Month Follow-Up with Corbin jones DO 01/11/2021 Chalazion Excision of Chalazion In Office with Steve Duncan DO 08/02/2020 Chalazion 3 - 4 Week Follow-Up with Corbin guidry DO 06/30/2020 Dry eye syndrome 3 - 4 Week Follow-Up with Corbin guidry DO 06/30/2020 Chalazion 3 Month Follow-Up with Corbin Duncan DO 06/12/2020 Dry eye syndrome 3 Month Follow-Up with Corbin Duncan DO 06/12/2020 Dry eye syndrome NEW PATIENT WITH REFERRAL with Corbin cartagena DO 03/15/2020 Essential hypertension NEW PATIENT WITH REFERRAL with Yasmani Duncan DO 03/15/2020 History of nicotine dependence NEW PATIENT WITH REFERR AL with Corbin Duncan DO 03/15/2020 Long-term use of oral hypoglycemics NEW PATIENT WITH R EFERRAL with Corbin Duncan DO 03/15/2020 Macular puckering NEW PATIENT WITH REFERRAL with Corbin cartagena DO 03/15/2020 Posterior capsule opacification of eccentric capsule i n the left eye NEW PATIENT WITH REFERRAL with Corbin Duncan DO 03/15/2020 Pseudophakia NEW PATIENT WITH REFERRAL with Corbin cartagena DO 03/15/2020 Type 2 diabetes mellitus without complication NEW [facility] WITH REFERRAL with Corbin Duncan DO 03/15/2020 Vitreous degeneration NEW PATIENT WITH REFERRAL with Corbin Duncan DO 03/15/2020 Instructions Instructions not supported for this document typeNo Instructions Recorded Medical Equipment - Implanted Devices Includes: Current and historical DevicesNo Medical Equipment Recorded Medications Includes: Current and historical Medications Current Medications (continue as prescribed) prevastain Oral Tablet 06/12/2020 Provider: Diagnosis: Albuterol Sulfate (2.5 MG/3ML) 0.083% Inhalation Nebul ization solution 03/15/2020 Provider: Diagnosis: Ezetimibe 10 MG Oral Tablet 03/15/2020 Provider: Diagnosis: hydroCHLOROthiazide 12.5 MG Oral Tablet 03/15/2020 Provider: Diagnosis: metFORMIN HCl 500 MG Oral Tablet 03/15/2020 Provide r: Diagnosis: Pantoprazole Sodium 40 MG Oral Tablet Delayed Release 2019 Provider: Diagnosis: Cyclobenzaprine HCl 5 MG Oral Tablet 03/15/2020 Pro vider: Diagnosis: Meclizine HCl 25 MG Oral Tablet 03/15/2020 Provider : Diagnosis: Lisinopril 5 MG Oral Tablet 03/15/2020 Provider: Diagnosis: Xanax 0.5 MG Oral Tablet 03/15/2020 Provider: Diagnosis: up to 3x daily Multivitamin Oral Tablet 03/15/2020 Provider: Diagnosis: Vitamin D 1000 MG Oral Capsule 03/15/2020 Provider: Diagnosis: Glucose 4 GM Oral Tablet Chewable 03/15/2020 Provid er: Diagnosis: Fish Oil 1000 MG Oral Capsule 03/15/2020 Provider: Diagnosis: ProAir HFA 108 (90 Base) MCG/ACT Inhalation Aerosol Solution 03/15/2020 Provider: Diagnosis: Clobetasol Propionate 0.05% External Ointment 03/15/2020 Provider: Diagnosis: Restasis 0.05% Ophthalmic Emulsion 03/15/2020 Provi afsaneh: Corbin Duncan DO Diagnosis: Dry eye syndrome of bilateral lacrimal glands One drop twice a day in both eyes Past Medications on file TobraDex 0.3-0.1% Ophthalmic Suspension 06/12/2020 - 021 Provider: Corbin Duncan DO Diagnosis: Chalazion left lower eyelid One drop three times a day in the left eye Pravastatin Sodium 10 MG Oral Tablet 03/15/2020 - 03/16/2020 Provider: Diagnosis: Colesevelam HCl 625 MG Oral Tablet 03/15/2020 - 06/12/2020 Angeline weaverder: Diagnosis: Medications Administered Includes: Administered Medications in patient's chartNo Administered Medications Recorded Vital Signs Includes: Vital Signs from 05/03/2020 through 05/03/2021No Vital Signs Recorded For Specified Dates Results Includes: Results from 05/03/2020 through 05/03/2021No Results Recorded For Specified Dates History of Present Illness History of Present Illness not supported for this document typeNo History of Present Illness Recorded Social History Description Last Updated No smoking status : Former smoker/Recode :3 03/22/2021 No tobacco use 03/22/2021 Not using drugs 03/22/2021 Previous smoking history 03/15/2021 Tobacco non-user 01/11/2021 A social drinker 06/12/2020 Procedures and Surgical History Includes: Procedures from 05/03/2020 through 05/03/2021 Procedures Code Diagnosis Performing Provider Service Location Service Date Intermediate Eye Exam Established Patient 65366 Type 2 diabetes mellitus without complications, 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, Other secondary cataract, left eye, Presence of intraocular lens Corbin Marlow MD [facility] 01/11/2021 Excision of Chalazion (LEFT LOWER LID) 07686 Chalazion left lower eyelid Corbin Marlow MD [facility] 08/02/2020 Intermediate Eye Exam Established Patient 26924 Chalazion left lower eyelid, Dry eye syndrome of bilateral lacrimal glands Corbin Valencia MD [facility] 06/30/2020 Intermediate Eye Exam Established Patient 70664 Dry eye syndrome of bilateral lacrimal glands Corbin Marlow MD [facility] 06/12/2020 Surgical History Last Updated History of discission of secondary membr anous cataract of left 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 Dr. Duncan 03/22/2021 04/13/2021 History of excision of a single chalazio n of the left lower eyelid by Dr. Duncan 08/02/2020 03/15/2021 History of discission of secondary membranous cataract of right 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 06/12/2020 Surgical / procedural history Tubal Lig ation-1970, Lumpectomy Left-1992 Right- 1996 both benign, Needle Biopsy-2007, Coloscopy 10/01/2012, Esophagogastroduodenoscopy 10/01/2012 06/12/2020 Medical History Includes: Medical History in patient's chart Description Last Updated History of the retina was abnormal 01/11/2021 Recent change in medical history YAG CAP OS Dr. Heidi rosario 03/22/2021 04/13/2021 Reported medical history : Age 28 lost v ision in the right eye and took 3 months to recover with steroids and Vitamin b12 injections, Psoriasis, Vertigo, Acid Reflux, Chronic Obstructive Lung Disease, COVID positive 10/202001/11/2021 History of diabetes mellitus Type ll DX: 2009 A1C: 6 .6 FBS: 119 01/11/2021 Extracapsular cataract extraction PCIOL OU-2008 06/12 History of asthma 06/12/2020 History of hyperlipidemia 06/12/2020 History of hypertension 06/12/2020 Family History Includes: Family History in patient's chart Description Last Updated Family medical history was unknown 03/22/2021 Review of Systems Review of Systems not supported for this document typeNo Review of Systems Recorded Mental Status Mental Status not supported for this document typeNo Mental Status Recorded Functional Status Functional Status not supported for this document typeNo Functional Status Recorded Physical Exam Physical Exam not supported for this document typeNo Physical Exam Recorded Immunizations Includes: Immunizations in patient's chartNo Immunizations Recorded Allergies Includes: Active, inactive, and resolved Allergies Substance Type Reaction Onset Date - Time Resolved Date - Ti me Status Sulfa Antibiotics Allergy 03/15/2020 - 8:47AM Active Statins Allergy 03/15/2020 - 8:53AM Activ e Penicillins Allergy 03/15/2020 - 8:53AM Acti ve Encounters Includes: Encounters from 05/03/2020 through 05/03/2021 Encounter Provider Location Date Check-In Time Check-Out Time D iagnosis REFRACTION Demarcus Valenzuela MD, FACS Demarcus Valenzuela MD [facility] 04/23/2021 04/13/2021 8:50AM 10:02AM 3 - 4 Week Follow-Up Corbin Marlow MD [facility] 04/13/2021 11:34AM 12:43PM Pseudophakia Yag Laser Capsulotomy - Global: 90 DAY POST OP Corbin Valencia MD [facility] 03/22/2021 7:10AM 7:50AM 6 Month Follow-Up Corbin Marlow MD [facility] 8:43AM 9:38AM Diabetes Mellitus Type 2 Wit hout Complication, Dry Eye Syndrome, Essential Hypertension, History of Nicotine Dependence, Macular Puckering, 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, Pseudophakia, Assessment of Taking Medication For Diabetes Long-term Use of Oral Hypoglycemics, Vitreous Disorders Degeneration Excision of Chalazion In Office Corbin Bond MD [facility] 08/02/2020 7:40AM 8:14AM Chalazion 3 - 4 Week Follow-Up Corbin Marlow MD [facility] 06/30/2020 8:33AM 10:13AM Chalazion, Dry Eye Syndrome 3 Month Follow-Up Corbin Marlow MD [facility] 8:27AM 9:27AM Dry Eye Syndrome, Chalazion Insurance Includes: Active Insurance Policies Plan Name Member ID Group # Subscriber Relationship Effective Da betsy 1 - [employer] [id number] Armida Gallagher Self Advance Directives Includes: Current Advance DirectivesNo Advance Directives Recorded Health Concerns Includes: Active Health ConcernsNo Active Health Concerns Recorded Goals Includes: Active GoalsNo Active Goals Recorded Interventions Includes: Interventions for active GoalsNo Interventions Recorded Evaluations & Outcomes Includes: Evaluations & Outcomes for active GoalsNo Outcomes Recorded
--- OUTSIDE RECORDS SUMMARY | 2021-07-19 17:30 | CCD ---
Author Author [facility] Organization [facility] Address Unknown Phone Unavailable Care Team Providers Care Creative Developer Name Role Phone Marlon Warren, Brandon Tracy MD, FACS Unavailable Unavailable Marlon Warren, Brandon Tracy MD, FACS Unavailable Unavailable Marlon Warren, Brandon Tracy MD, FACS Unavailable Unavailable Mason Kelvin, Brandon Tracy MD, FACS Unavailable Unavailable Mason Kelvin, Brandon Tracy MD, FACS Unavailable Unavailable Marlon Warren, Brandon Tracy MD, FACS Unavailable Unavailable Marlon Warren, Brandon Tracy MD, FACS Unavailable Unavailable Marlon Warren, Brandon Tracy MD, FACS Unavailable Unavailable Marlon Warren, Brandon Tracy MD, FACS Unavailable Unavailable Marlon Warren, Brandon Tracy MD, FACS Unavailable Unavailable Marlon Warren, Brandon Tracy MD, FACS Unavailable Unavailable Marlon Warren, Brandon Tracy MD, FACS Unavailable Unavailable Marlon Warren, Brandon Tracy MD, FACS Unavailable Unavailable Marlon Warren, Brandon Tracy MD, FACS Unavailable Unavailable Marlon Warren, Brandon Tracy MD, FACS Unavailable Unavailable Mason Warren, Brandon Tracy MD, FACS Unavailable Unavailable Mason Warren, Brandon Tracy MD, FACS Unavailable Unavailable Mason Warren, Brandon Tracy MD, FACS Unavailable Unavailable Mason Warren, Brandon Tracy MD, FACS Unavailable Unavailable Mason Warren, Brandon Tracy MD, FACS Unavailable Unavailable Mason Warren, Brandon Tracy MD, FACS Unavailable Unavailable Mason Warren, Brandon Tracy MD, FACS Unavailable Unavailable Mason Warren, Brandon Tracy MD, FACS Unavailable Unavailable Mason Warren, Brandon Tracy MD, FACS Unavailable Unavailable Mason Warren, Brandon Tracy MD, FACS Unavailable Unavailable Mason Warren, Brandon Tracy MD, FACS Unavailable Unavailable Mason Warren, Brandon Tracy MD, FACS Unavailable Unavailable Mason Warren, Brandon Tracy MD, FACS Unavailable Unavailable Mason Warren, Brandon Tracy MD, FACS Unavailable Unavailable Mason Warren, Brandon Tracy MD, FACS Unavailable Unavailable Mason Warren, Brandon Tracy MD, FACS Unavailable Unavailable Mason Warren, Brandon Tracy MD, FACS Unavailable Unavailable Mason Warren, Brandon Tracy MD, FACS Unavailable Unavailable Mason Warren, Brandon Tracy MD, FACS Unavailable Unavailable Mason Warren, Brandon Tracy MD, FACS Unavailable Unavailable Mason Warren, Brandon Tracy MD, FACS Unavailable Unavailable Mason Warren, Brandon Tracy MD, FACS Unavailable Unavailable Mason Warren, Brandon Tracy MD, FACS Unavailable Unavailable Mason Warren, Brandon Tracy MD, FACS Unavailable Unavailable Mauri Perea Unavailable [phone] Mauri Perea Unavailable [phone] Mauri Perea Unavailable [phone] Mauri Perea Unavailable [phone] Mauri Perea Unavailable [phone] Mauri Perea Unavailable [phone] Fish, J Brandon Unavailable Unavailable Fish, J [...] Fish, J Brandon Unavailable Unavailable Fish, J Bradnon Unavailable Unavailable Fish, J Brandon Unavailable Unavailable [...] Unavailable Unavailable Fish, J Brandon Unavailable Unavailable RING, K SHIRLEY PA Unavailable [...] Unavailable RING, K SHIRLEY PA Unavailable Unavailable Fish, J Brandon Unavailable [...] Fish, J Brandon Unavailable Unavailable Fish, J Barndon Unavailable Unavailable Fish, J Brandon Unavailable Unavailable [...] Unavailable Unavailable Fish, J Brandon Unavailable Unavailable NOT, SPECIFIED Unavailable Unavailable SHILO, A DAPHNIE DO Unavailable Unavailable SHILO, A DAPHNIE DO Unavailable Unavailable SHILO, A DAPHNIE DO Unavailable Unavailable SHILO, A DAPHNIE DO Unavailable Unavailable SHILO, A DAPHNIE DO Unavailable Unavailable SHILO, A DAPHNIE DO Unavailable Unavailable SHILO, A DAPHNIE DO Unavailable Unavailable SHILO, A DAPHNIE DO Unavailable Unavailable SHILO, A DAPHNIE DO Unavailable Unavailable SHILO, A DAPHNIE DO Unavailable Unavailable SHILO, A DAPHNIE DO Unavailable Unavailable SHILO, A DAPHNIE DO Unavailable Unavailable SHILO, A DAPHNIE DO Unavailable Unavailable SHILO, A DAPHNIE DO Unavailable Unavailable SHILO, A DAPHNIE DO Unavailable Unavailable SHILO, A DAPHNIE DO Unavailable Unavailable SHILO, A DAPHNIE DO Unavailable Unavailable SHILO, A DAPHNIE DO Unavailable Unavailable SHILO, A DAPHNIE DO Unavailable Unavailable SHILO, A DAPHNIE DO Unavailable Unavailable SHILO, A DAPHNIE DO Unavailable Unavailable SHILO, A DAPHNIE DO Unavailable Unavailable Re-disclosure Warning The records that [...] is protected by Article 27-F of the [facility] Public Health law. If you continue you may have access to information: Regarding HIV / AIDS; Provided by facilities licensed or operated by the [facility] Office of Mental Health; or Provided by the [facility] Office for People With Developmental Disabilities. If such information is present, then the following [facility] mandated warning applies: This information has been [...] law may result in a fine or long-term sentence or both. A general authorization for the release of medical or other information is NOT sufficient authorization for further disc losure. Family History Family Member Name Family Member Gender Family Member Status Date o f Status Description Data Source(s) Unknown Unknown Problem [facility] ([facility] mother Unknown Male Problem [facility] ([facility] Encounters Encounter Providers Location Date Indications Data Source(s ) [facility]: [facility]0 0 PM EDT [facility] ([facility] Outpatient Attender: HSIRLEY Jackson [facility] 07/18/2021 01:45:00 PM EDT [facility] ([facility]: [facility] 09:00:0 0 AM EDT [facility] ([facility] Outpatient<td ID="encounterTypeDescripti onID1">3 - 4 Week Follow- Up</td><td>Daphnie Duncan DO</td><td>Demarcus Valenzuela MD [facility]</td><td>04/13/2021</td><td>11:34AM</td><td>12:43PM</td><td><content ID="encounterDiagnosisID1-0">Pseudophakia</content></td> Attender: DAPHNIE Marlow MD [facility] 04/13/2021 11:34:00 AM EDT - 04/13/2021 12:43:00 PM EDT PseudophakiaPseudophakia SARAH (Demarcus Warren MD [facility]) Pseudophakia Pseudophakia Outpatient<td ID="encounterTypeDescripti onID0">REFRACTION</td><td>Demarcus Valenzuela MD, FACS</td><td>Demarcus Valenzuela MD [facility]</td><td>04/23/2021</td><td>04/13/2021 8:50AM</td><td>10:02AM</td><td></td> Attender: Demarcus Warren MD, FACS Demarcus Valenzuela MD [facility] 04/13/2021 08:50:0 0 AM EDT - 04/23/2021 10:02:00 AM EDT SARAH (Demarcus Warren MD [facility]) Outpatient Attender: Brandon Merino [facility] 04/05/2021 09:00:0 0 AM EDT MED[facility] ([facility] Outpatient<td ID="encounterTypeDescripti onID2">Yag Laser Capsulotomy - Global: 90 DAY POST OP</td><td>Daphnie Duncan DO</td><td>Demarcus Valenzuela MD [facility]</td><td>03/22/2021</td><td>7:10AM</td><td>7:50AM</td><td></td> Attender: DAPHNIE Marlow MD [facility] 03/22/2021 07:10:00 AM EDT - 03/22/2021 07:50:00 AM EDT [place] (Demarcus hadley MD [facility]) <td ID="encounterTypeDescriptionID3">6 M onth Follow-Up</td><td>Daphnie Duncan DO</td><td>Demarcus Valenzuela MD [facility]</td><td>01/11/2021</td><td>8:43AM</td><td>9:38AM</td><td><content ID="encounterDiagnosisID3-0">Diabetes Mellitus Type 2 Without Complication</content>, <content ID="encounterDiagnosisID3-1">Dry Eye Syndrome</content>, <content ID="encounterDiagnosisID3-2">Essential Hypertension</content>, <content ID="encounterDiagnosisID3-3">History of Nicotine Dependence</content>, <content ID="encounterDiagnosisID3-4">Macular Puckering</content>, <content ID="encounterDiagnosisID3-5">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</content>, <content ID="encounterDiagnosisID3-6">Pseudophakia</content>, <content ID="encounterDiagnosisID3-7">Assessment of Taking Medication For Diabetes Long- term Use of Oral Hypoglycemics</content>, <content ID="encounterDiagnosisID3- 8">Vitreous Disorders Degeneration</content></td>Outpatient Attender: DAPHNIE Marlow MD [facility] 01/11/2021 08:43:00 AM EDT - 01/11/2021 09:38:00 AM EDT Posterior Capsule Opacification Eccentri c Capsule Left Eye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Vitreous Disorders DegenerationAssessment of Taking Medication For Diabetes Long-term Use of Oral HypoglycemicsPseudophakiaMacular PuckeringHistory of Nicotine DependenceEssential HypertensionDry Eye SyndromeDiabetes Mellitus Type 2 Without ComplicationVitreous Disorders DegenerationAssessment of Taking Medication For Diabetes Long-term Use of Oral HypoglycemicsPseudophakiaMacular PuckeringHistory of Nicotine DependenceEssential HypertensionDry Eye SyndromeDiabetes Mellitus Type 2 Without ComplicationVitreous Disorders DegenerationAssessment of Taking Medication For Diabetes Long-term Use of Oral HypoglycemicsPseudophakia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Macular PuckeringHistory of Nicotine DependenceEssential HypertensionDry Eye SyndromeDiabetes Mellitus Type 2 Without ComplicationVitreous Disorders DegenerationAssessment of Taking Medication For Diabetes Long-term Use of Oral HypoglycemicsPseudophakia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Macular PuckeringHistory of Nicotine DependenceEssential HypertensionDry Eye SyndromeDiabetes Mellitus Type 2 Without ComplicationVitreous Disorders DegenerationAssessment of Taking Medication For Diabetes Long-term Use of Oral HypoglycemicsPseudophakia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Macular PuckeringHistory of Nicotine DependenceEssential HypertensionDry Eye SyndromeDiabetes Mellitus Type 2 Without ComplicationVitreous Disorders DegenerationAssessment of Taking Medication For Diabetes Long-term Use of Oral HypoglycemicsPseudophakia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Macular PuckeringHistory of Nicotine DependenceEssential HypertensionDry Eye SyndromeDiabetes Mellitus Type 2 Without Complication [place] (Demarcus Warren MD [facility]) Posterior Capsule Opacification Eccentri c Capsule Left Eye Posterior Capsule Opacification Eccentri c Capsule Left Eye Vitreous Disorders Degeneration Assessment of Taking Medication For Diab etes Long-term Use of Oral Hypoglycemics Pseudophakia Macular Puckering History of Nicotine Dependence Essential Hypertension Dry Eye Syndrome Diabetes Mellitus Type 2 Without Complic ation Vitreous Disorders Degeneration Assessment of Taking Medication For Diab etes Long-term Use of Oral Hypoglycemics Pseudophakia Macular Puckering History of Nicotine Dependence Essential Hypertension Dry Eye Syndrome Diabetes Mellitus Type 2 Without Complic ation Vitreous Disorders Degeneration Assessment of Taking Medication For Diab etes Long-term Use of Oral Hypoglycemics Pseudophakia Posterior Capsule Opacification Eccentri c Capsule Left Eye Macular Puckering History of Nicotine Dependence Essential Hypertension Dry Eye Syndrome Diabetes Mellitus Type 2 Without Complic ation Vitreous Disorders Degeneration Assessment of Taking Medication For Diab etes Long-term Use of Oral Hypoglycemics Pseudophakia Posterior Capsule Opacification Eccentri c Capsule Left Eye Macular Puckering History of Nicotine Dependence Essential Hypertension Dry Eye Syndrome Diabetes Mellitus Type 2 Without Complic ation Vitreous Disorders Degeneration Assessment of Taking Medication For Diab etes Long-term Use of Oral Hypoglycemics Pseudophakia Posterior Capsule Opacification Eccentri c Capsule Left Eye Macular Puckering History of Nicotine Dependence Essential Hypertension Dry Eye Syndrome Diabetes Mellitus Type 2 Without Complic ation Vitreous Disorders Degeneration Assessment of Taking Medication For Diab etes Long-term Use of Oral Hypoglycemics Pseudophakia Posterior Capsule Opacification Eccentri c Capsule Left Eye Macular Puckering History of Nicotine Dependence Essential Hypertension Dry Eye Syndrome Diabetes Mellitus Type 2 Without Complic ation Outpatient Attender: Mauri Perea 12/21 05:26:11 PM EDT - 12/21/2020 06:42:15 PM EDT [facility] ([facility] ) Outpatient Attender: Brandon Merino [place] 12/14/2020 10:00:0 0 AM EDT [facility] ([facility] Outpatient Attender: Brandon Cortez er: Brandon WilberConsultant: SPECIFIED NOT 09/05/2020 05:41:00 PM EST - 09/05/2020 05:51:00 PM EST [facility] Outpatient Attender: Brandon Merino [facility] 09/05/2020 09:00:0 0 AM EST MED[facility] ([facility] Outpatient<td ID="encounterTypeDescripti onID4">Excision of Chalazion In Office</td><td>Daphnie Duncan DO</td><td>Demarcus Valenzuela MD [facility]</td><td>08/02/2020</td><td>7:40AM</td><td>8:14AM</td><td><content ID="encounterDiagnosisID4-0">Chalazion</content></td> Attender: DAPHNIE Marlow MD [facility] 08/02/2020 07:40:00 AM EST - 08/02/2020 08:14:00 AM EST ChalazionChalazionChalazionChalazionChalazionChalazion [place] (Demarcus Warren MD [facility]) Chalazion Chalazion Chalazion Chalazion Chalazion Chalazion <td ID="encounterTypeDescriptionID5">3 - 4 Week Follow-Up</td><td>Daphnie Duncan DO</td><td>Demarcus Valenzuela MD [facility]</td><td>06/30/2020</td><td>8:33AM</td><td>10:13AM</td><td><content ID="encounterDiagnosisID5-0">Chalazion</content>, <content ID="encounterDiagnosisID5-1">Dry Eye Syndrome</content></td>Outpatient Attender: DAPHNIE Marlow MD [facility] 06/30/2020 08:33:00 AM EDT - 06/30/2020 10:13:00 AM EDT ChalazionChalazionChalazionChalazionChalazionChalazionChalazionDry Eye SyndromeDry Eye SyndromeDry Eye SyndromeDry Eye SyndromeDry Eye SyndromeDry Eye SyndromeDry Eye Syndrome [place] (Demarcus Warren MD [facility]) Chalazion Chalazion Chalazion Chalazion Chalazion Chalazion Chalazion Dry Eye Syndrome Dry Eye Syndrome Dry Eye Syndrome Dry Eye Syndrome Dry Eye Syndrome Dry Eye Syndrome Dry Eye Syndrome Outpatient<td ID="encounterTypeDescripti onID6">3 Month Follow-Up</td><td>Daphnie Duncan DO</td><td>Demarcus Valenzuela MD [facility]</td><td>06/12/2020</td><td>8:27AM</td><td>9:27AM</td><td><content ID="encounterDiagnosisID6-0">Dry Eye Syndrome</content>, <content ID="encounterDiagnosisID6-1">Chalazion</content></td> Attender: DAPHNIE Marlow MD [facility] 06/12/2020 08:27:00 AM EDT - 06/12/2020 09:27:00 AM EDT ChalazionChalazionChalazionChalazionChalazionChalazionChalazionDry Eye SyndromeDry Eye SyndromeDry Eye SyndromeDry Eye SyndromeDry Eye SyndromeDry Eye SyndromeDry Eye Syndrome SARAH (Demarcus Warren MD [facility]) Chalazion Chalazion Chalazion Chalazion Chalazion Chalazion Chalazion Dry Eye Syndrome Dry Eye Syndrome Dry Eye Syndrome Dry Eye Syndrome Dry Eye Syndrome Dry Eye Syndrome Dry Eye Syndrome [facility] 09:30[facility]0 0 AM EDT MED[facility] ([facility] Immunizations Vaccine Date Status Description Data Source(s) COVID-19 VACC, MRNA(PFIZER)/PF 06/21/2021 12:00:00 AM EDT completed [facility] COVID-19 VACCINE Pfizer 06/21/2021 12:00:00 AM EDT completed [facility] Vaccine Series Complete: YESThis Data wa s Submitted to [facility] Via [facility]. COVID-19 VACC, MRNA(PFIZER)/PF 05/30/2021 12:00:00 AM EDT completed [facility] COVID-19 VACCINE Pfizer 05/30/2021 12:00:00 AM EDT completed [facility] Vaccine Series Complete: NOThis Data was Submitted to [facility] Via [facility]. New in 2012. IIV4 06/01/2020 09:35:00 AM EDT completed [facility] ([facility] Medications Medication Brand Name Start Date Product Form Dose Route Admi nistrative Instructions Pharmacy Instructions Status Indications Reaction Description Data Source(s) valacyclovir 1000 MG Oral Tablet [Valtrex] Valtrex 07/18/2021 12:00:00 AM EDT ORAL active MEDENT ([facility]) Mupirocin 0.02 MG/MG Topical Ointment Mupirocin 07/18/2021 12:00:00 AM EDT active MED[facility] ([facility]) Alprazolam 0.5 MG Oral Tablet ALPRAZOLAM 07/11/2021 12:00:00 AM EDT ta blet 90 TAKE ONE TABLET BY MOUTH THREE TIMES A DAY NEEDED FOR ANXIETY MAXIMUM DAILY DOSE = 3 TAKE ONE TABLET BY MOUTH THREE TIMES A D AY NEEDED FOR ANXIETY MAXIMUM DAILY DOSE = 3 SOLD: 07/14/2021 [facility] Pfizer-BioSourceMedical Covid-19 Vaccine Pfizer-BiontJemstep Covid-19 Va ccine 07/10/2021 12:00:00 AM EDT rachel PROCTOR ([facility] Alprazolam 0.5 MG Oral Tablet ALPRAZOLAM 06/14/2021 12:00:00 AM EDT ta blet 90 TAKE ONE TABLET BY MOUTH THREE TIMES A DAY NEEDED FOR ANXIETY MAXIMUM DAILY DOSE = 3 TAKE ONE TABLET BY MOUTH THREE TIMES A D AY NEEDED FOR ANXIETY MAXIMUM DAILY DOSE = 3 SOLD: 06/16/2021 [facility] Hydrochlorothiazide 12.5 MG Oral Tablet HYDROCHLOROTHIAZIDE 06/08/2021 12:00:00 AM EDT tablet 90 TAKE ONE TABLET BY MOUTH SILVIO DAY TAKE ONE TABLET BY MOUTH EVERY DAY SOLD: 06/08/2021 [facility] Alprazolam 0.5 MG Oral Tablet ALPRAZOLAM 05/10/2021 12:00:00 AM EDT ta blet 90 TAKE ONE TABLET BY MOUTH THREE TIMES A DAY NEEDED FOR ANXETY MAXIMUM DAILY DOSE = 3 TAKE ONE TABLET BY MOUTH THREE TIMES A D AY NEEDED FOR ANXETY MAXIMUM DAILY DOSE = 3 SOLD: 05/11/2021 [facility] Pravastatin Sodium 10 MG Oral Tablet PRAVASTATIN SODIUM 12:00:00 AM EDT tablet 90 TAKE ONE TABLET BY MOUTH SILVIO RY DAY TAKE ONE TABLET BY MOUTH EVERY DAY SOLD: 05/11/2021 [facility] Alprazolam 0.5 MG Oral Tablet ALPRAZOLAM 04/06/2021 12:00:00 AM EDT ta blet 90 TAKE ONE TABLET BY MOUTH THREE TIMES A DAY NEEDED FOR ANXIETY MAXIMUM DAILY DOSE = THREE TABLETS TAKE ONE TABLET BY MOUTH THREE TIMES A D AY NEEDED FOR ANXIETY MAXIMUM DAILY DOSE = THREE TABLETS SOLD: 04/08/2021 [facility] 10 mg 03/15/2021 12:00:00 AM EDT tablet 90 TAKE ONE TABLET BY MOUTH EVERY DAY TAKE ONE TABLET BY MOUTH EVERY DAY SOLD: 03/17/2021 [facility] Pravastatin Sodium 10 MG Oral Tablet PRAVASTATIN SODIUM 08/2021 12:00:00 AM EDT tablet 90 TAKE ONE TABLET BY MOUTH SILVIO DAY TAKE ONE TABLET BY MOUTH EVERY DAY SOLD: 03/08/2021 [facility] Alprazolam 0.5 MG Oral Tablet ALPRAZOLAM 03/02/2021 12:00:00 AM EDT ta blet 90 TAKE ONE TABLET BY MOUTH THREE TIMES A DAY NEEDED FOR ANXIETY MAXIMUM DAILY DOSE = 3 TAKE ONE TABLET BY MOUTH THREE TIMES A D AY NEEDED FOR ANXIETY MAXIMUM DAILY DOSE = 3 SOLD: 03/02/2021 [facility] pantoprazole 40 MG Delayed Release Oral Tablet PANTOPRAZOLE SODIUM 01/23/2021 12:00:00 AM EDT tablet,delayed release (DR/EC) 90 T MARY ONE TABLET BY MOUTH EVERY DAY TAKE ONE TABLET BY MOUTH EVERY DAY SOLD: 01/28/2021 [facility] pantoprazole 40 MG Delayed Release Oral Tablet PANTOPRAZOLE SODIUM 01/23/2021 12:00:00 AM EDT tablet,delayed release (DR/EC) 90 T MARY ONE TABLET BY MOUTH EVERY DAY TAKE ONE TABLET BY MOUTH EVERY DAY SOLD: 04/26/2021 [facility] 500 mg 01/23/2021 12:00:00 AM EDT tablet 180 TAKE ONE TABLET BY MOUTH TWICE A DAY TAKE ONE TABLET BY MOUTH TWICE A DAY SOLD: 01/28/2021 [facility] 500 mg 01/23/2021 12:00:00 AM EDT tablet 180 TAKE ONE TABLET BY MOUTH TWICE A DAY TAKE ONE TABLET BY MOUTH TWICE A DAY SOLD: 04/26/2021 [facility] Alprazolam 0.5 MG Oral Tablet ALPRAZOLAM 01/16/2021 12:00:00 AM EDT ta blet 90 TAKE ONE TABLET BY MOUTH THREE TIMES A DAY NEEDED FOR ANXIETY MAXIMUM DAILY DOSE = 3 TABLETS TAKE ONE TABLET BY MOUTH THREE TIMES A D AY NEEDED FOR ANXIETY MAXIMUM DAILY DOSE = 3 TABLETS SOLD: 01/17/2021 [facility] 5 mg 01/11/2021 12:00:00 AM EDT tablet 11 TAKE ONE TABLET BY MOUTH EVERY DAY TAKE ONE TABLET BY MOUTH EVERY DAY SOLD: 04/18/2021 [facility] 5 mg 01/11/2021 12:00:00 AM EDT tablet 90 TAKE ONE TABLET BY MOUTH EVERY DAY TAKE ONE TABLET BY MOUTH EVERY DAY SOLD: 01/14/2021 [facility] 5 mg 01/11/2021 12:00:00 AM EDT tablet 90 TAKE ONE TABLET BY MOUTH EVERY DAY TAKE ONE TABLET BY MOUTH EVERY DAY SOLD: 06/19/2021 [facility] 5 mg 01/11/2021 12:00:00 AM EDT tablet 11 TAKE ONE TABLET BY MOUTH EVERY DAY TAKE ONE TABLET BY MOUTH EVERY DAY SOLD: 04/26/2021 [facility] 10 mg 01/06/2021 12:00:00 AM EDT tablet 90 TAKE ONE TABLET BY MOUTH EVERY DAY TAKE ONE TABLET BY MOUTH EVERY DAY SOLD: 01/09/2021 [facility] 50 mg 12/21/2020 12:00:00 AM EDT capsule 15 TAKE ONE CAPSULE BY MOUTH THREE TIMES A DAY FOR 5 DAYS TAKE ONE CAPSULE BY MOUTH THREE TIMES A DAY FOR 5 DAYS SOLD: 12/21/2020 [facility] Alprazolam 0.5 MG Oral Tablet ALPRAZOLAM 12/15/2020 12:00:00 AM EDT ta blet 90 TAKE ONE TABLET BY MOUTH THREE TIMES A DAY NEEDED FOR ANXIETY MAXIMUM DAILY DOSE = 3 TABLETS TAKE ONE TABLET BY MOUTH THREE TIMES A D AY NEEDED FOR ANXIETY MAXIMUM DAILY DOSE = 3 TABLETS SOLD: 12/18/2020 [facility] Pravastatin Sodium 10 MG Oral Tablet PRAVASTATIN SODIUM 12:00:00 AM EDT tablet 90 TAKE ONE TABLET BY MOUTH SILVIO DAY TAKE ONE TABLET BY MOUTH EVERY DAY SOLD: 12/07/2020 [facility] Alprazolam 0.5 MG Oral Tablet ALPRAZOLAM 11/01/2020 12:00:00 AM EST ta blet 90 TAKE ONE TABLET BY MOUTH THREE TIMES A DAY NEEDED FOR ANXIETY MAXIMUM DAILY DOSE = 3 TABLETS TAKE ONE TABLET BY MOUTH THREE TIMES A D AY NEEDED FOR ANXIETY MAXIMUM DAILY DOSE = 3 TABLETS SOLD: 11/04/2020 [facility] benzonatate 100 MG Oral Capsule BENZONATATE 10/29/2020 12:00:00 AM EST capsule 30 1 CAPSULE BY MOUTH EVERY 8 HOURS NEED ED FOR COUGH 1 CAPSULE BY MOUTH EVERY 8 HOURS NEEDED FOR COUGH SOLD: 10/29/2020 [facility] 750 mg 10/29/2020 12:00:00 AM EST tablet 5 1 TAB LET BY MOUTH ONCE DAILY 1 TABLET BY MOUTH ONCE DAILY SOLD: 10/29/2020 [facility] pantoprazole 40 MG Delayed Release Oral Tablet PANTOPRAZOLE SODIUM 10/13/2020 12:00:00 AM EST tablet,delayed release (DR/EC) 90 T MARY ONE TABLET BY MOUTH EVERY DAY TAKE ONE TABLET BY MOUTH EVERY DAY SOLD: 10/14/2020 [facility] Hydrochlorothiazide 12.5 MG Oral Tablet HYDROCHLOROTHIAZIDE 10/11/2020 12:00:00 AM EST tablet 30 TAKE ONE TABLET BY MOUTH SILVIO RY DAY TAKE ONE TABLET BY MOUTH EVERY DAY SOLD: 03/10/2021 [facility] Hydrochlorothiazide 12.5 MG Oral Tablet HYDROCHLOROTHIAZIDE 10/11/2020 12:00:00 AM EST tablet 30 TAKE ONE TABLET BY MOUTH SILVIO RY DAY TAKE ONE TABLET BY MOUTH EVERY DAY SOLD: 05/08/2021 [facility] Hydrochlorothiazide 12.5 MG Oral Tablet HYDROCHLOROTHIAZIDE 10/11/2020 12:00:00 AM EST tablet 30 TAKE ONE TABLET BY MOUTH SILVIO RY DAY TAKE ONE TABLET BY MOUTH EVERY DAY SOLD: 11/16/2020 [facility] Hydrochlorothiazide 12.5 MG Oral Tablet HYDROCHLOROTHIAZIDE 10/11/2020 12:00:00 AM EST tablet 30 TAKE ONE TABLET BY MOUTH SILVIO RY DAY TAKE ONE TABLET BY MOUTH EVERY DAY SOLD: 01/09/2021 [facility] Hydrochlorothiazide 12.5 MG Oral Tablet HYDROCHLOROTHIAZIDE 10/11/2020 12:00:00 AM EST tablet 30 TAKE ONE TABLET BY MOUTH SILVIO RY DAY TAKE ONE TABLET BY MOUTH EVERY DAY SOLD: 02/08/2021 [facility] Hydrochlorothiazide 12.5 MG Oral Tablet HYDROCHLOROTHIAZIDE 10/11/2020 12:00:00 AM EST tablet 30 TAKE ONE TABLET BY MOUTH SILVIO RY DAY TAKE ONE TABLET BY MOUTH EVERY DAY SOLD: 04/08/2021 [facility] Hydrochlorothiazide 12.5 MG Oral Tablet HYDROCHLOROTHIAZIDE 10/11/2020 12:00:00 AM EST tablet 30 TAKE ONE TABLET BY MOUTH SILVIO RY DAY TAKE ONE TABLET BY MOUTH EVERY DAY SOLD: 10/14/2020 [facility] Alprazolam 0.5 MG Oral Tablet ALPRAZOLAM 09/28/2020 12:00:00 AM EST ta blet 90 TAKE ONE TABLET BY MOUTH 3 TIMES A DAY NEEDED FOR ANXIETY MAXIMUM DAILY DOSE = 3 TAKE ONE TABLET BY MOUTH 3 TIMES A DAY A S NEEDED FOR ANXIETY MAXIMUM DAILY DOSE = 3 SOLD: 09/29/2020 [facility] Alprazolam 0.5 MG Oral Tablet Alprazolam 09/27/2020 12:00:00 AM EST ORAL active [facility] ([facility] 500 mg 09/06/2020 12:00:00 AM EST tablet 180 TAKE ONE TABLET BY MOUTH TWICE A DAY TAKE ONE TABLET BY MOUTH TWICE A DAY SOLD: 09/07/2020 [facility] Metformin hydrochloride 500 MG Oral Tablet METFORMIN HCL 09/06/2020 12:00:00 AM EST tablet 150 TAKE ONE TABLET BY MOUTH TWI CE A DAY TAKE ONE TABLET BY MOUTH TWICE A DAY SOLD: 11/16/2020 [facility] Alprazolam 0.5 MG Oral Tablet ALPRAZOLAM 08/23/2020 12:00:00 AM EST ta blet 90 TAKE ONE TABLET BY MOUTH THREE TIMES A DAY NEEDED FOR ANXIETY MAXIMUM DAILY DOSE = 3 TABLETS TAKE ONE TABLET BY MOUTH THREE TIMES A D AY NEEDED FOR ANXIETY MAXIMUM DAILY DOSE = 3 TABLETS SOLD: 08/24/2020 [facility] pantoprazole 40 MG Delayed Release Oral Tablet PANTOPRAZOLE SODIUM 07/27/2020 12:00:00 AM EST tablet,delayed release (DR/EC) 90 T MARY ONE TABLET BY MOUTH EVERY DAY TAKE ONE TABLET BY MOUTH EVERY DAY SOLD: 07/29/2020 [facility] Alprazolam 0.5 MG Oral Tablet [...] TABLET BY MOUTH EVERY DAY SOLD: 07/09/2020 [facility] ezetimibe 10 MG Oral Tablet EZETIMIBE 07/05/2020 12:00:00 AM EDT table t 75 TAKE ONE TABLET BY MOUTH EVERY DAY TAKE ONE TABLET BY MOUTH EVERY DAY SOLD: 11/16/2020 [facility] ezetimibe 10 MG Oral Tablet EZETIMIBE 07/05/2020 12:00:00 AM EDT table t 11 TAKE ONE TABLET BY MOUTH EVERY DAY TAKE ONE TABLET BY MOUTH EVERY DAY SOLD: 10/07/2020 [facility] Alprazolam 0.5 MG Oral Tablet [...] 12:00:00 AM E DT 1 active prevastain PEWAMO (Deangelo Warren MD [facility]) 0.3-0.1 % 06/12/2020 12:00:00 AM EDT drops,suspension 5 INSTILL ONE DROP IN THE LEFT EYE THREE TIMES A DAY INSTILL ONE DROP IN THE LEFT EYE THREE T IMES A DAY SOLD: 06/13/2020 [facility] Dexamethasone 1 MG/ML / Tobramycin 3 MG/ ML Ophthalmic Suspension [Tobradex] TobraDex 0.3-0.1% Ophthalmic Suspension TobraDex 0.3-0.1% Ophthalmic Suspension 06/12/2020 12:00:00 AM EDT aborted dexamethasone 1 MG/ML / tobramycin 3 MG/ML Ophthalmic Suspension [Tobradex] SARAH (Demarcus Warren MD [facility]) 0.3-0.1 % 06/12/2020 12:00:00 AM EDT [...] A DAY SOLD: 07/20/2020 [facility] pantoprazole 40 MG Delayed Release Oral Tablet PANTOPRAZOLE SODIUM 03/26/2020 12:00:00 AM EDT tablet,delayed release (DR/EC) 48 T MARY ONE TABLET BY MOUTH EVERY DAY TAKE ONE TABLET BY MOUTH EVERY DAY SOLD: 06/09/2020 [facility] Hydrochlorothiazide 12.5 MG Oral Tablet [...] EVERY DAY SOLD: 06/20/2020 [facility] Colesevelam hydrochloride 625 MG Oral Tablet Colesevel am HCl 625 MG Oral Tablet Colesevelam HCl 625 MG Oral Tablet 03/15/2020 12:00:00 AM EDT 1 aborted colesevelam hydrochloride 625 MG Oral Ta blet SARAH (Demarcus Warren MD [facility]) 5 mg 01/24/2020 12:00:00 AM EDT tablet [...] DOSE =1 S OLD: 10/23/2020 [facility] Insurance Providers Payer name Policy type / Coverage type Policy ID Covered alliance party ID Covered alliance party's relationship to joyner Policy Joyner Plan Information [facility] Medicare Complete [id number] [facility] MEDICARE [id number] Kristal [id number] [facility] Medicare Complete [id number] 0 [id number] [employer] [id number] Self [id number] [facility] Employees ([employer]) - [employer] Other 0 [id number] Self 0 [facility] [employer] ([employer] - [employer] Other 0 [id number] Self 0 [facility] Employees ([employer]) - [employer] Other 0 [id number] Self 0 MEDICARE [id number] SP [id number] MEDICARE COMPLETE-[facility] O [id number] S [id number] MEDICARE COMPLETE [id number] SP [id number] [facility] MEDICARE O/P [id number] 18 [id number] [facility] Employees ([employer]) - [employer] Other 0 [id number] Self 0 MEDICARE COMPLETE-C O [id number] S [id number] [facility]/Medicare Solu Commercial [id number] Self [id number] [facility] Commercial [id number] 00 [id number] Self [id number] United [facility]/Medicare Solu Commercial [id number] Self [id number] MEDICARE COMPLETE-[facility] O [id number] S [id number] [employer] MEDICARE O/P UNAVAILABLE UNAVAILABLE MEDICARE COMPLETE [id number] SP [id number] United [employer]/Medicare Solu Commercial [id number] Self [id number] United [employer]/Medicare Solu Commercial [id number] Self [id number] [facility] [id number] SP [id number] LIOR MOJICA [id number] SP [id number] United [employer]/Medicare Solu Commercial [id number] Self [facility] O [id number] S [id number] LIOR MOJICA [id number] SP [id number] LIOR [place] UNAVAILABLE SP UNAVAILABLE 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 [id number] SP [id number] 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 [id number] SP [id number] GB [id number] [employer] [id number] SP [id number] HEALTH NET ANABELLE [id number] SP [id number] [employer] INSURANCE [id number] SP [id number] [employer] [place] PPO 302/307 [id number] SP [id number] [employer] [place] 306/806 [id number] SP [id number] [employer]-O/P UNAVAILABLE UNAVAILABLE MEDICARE COMPLETE-[facility] P [id number] S [id number] MEDICARE COMPLETE [id number] SP [id number] [facility] ([place]) [facility] Other 0 [id number] Self 0 [facility] [employer] [place] - [employer] Other 0 [id number] Self 0 [facility] [employer] ([place] - [employer] Other 0 [id number] Self 0 Problems, Conditions, and Diagnoses Code Display Name Description Problem Type Effective Dates Data Source(s) Z7984 halfway (current) use of oral hypoglyc emic drugs halfway (current) use of oral hypoglycemic drugs Diagnosis 09/05/2020 05:41:00 PM [facility] I10 Essential (primary) hypertension Essential (primary) h ypertension Diagnosis 09/05/2020 05:41:00 PM [facility] E119 Type 2 diabetes mellitus without complic ations Type 2 diabetes mellitus without complications Diagnosis 09/05/2020 05:41:00 PM [facility] [id number] Type 2 diabetes mellitus Type 2 diabetes mellitus Prob ricardo 09/05/2020 12:00:00 AM EST [facility] ([facility] ) 373.2 Chalazion Chalazion Problem 06/12/2020 12:0 0:00 AM EDT - 01/11/2021 12:00:00 AM EDT SARAH (Demarcus Warren MD [facility]) 373.2 Chalazion Chalazion Problem 06/12/2020 12:0 0:00 AM EDT - 01/11/2021 12:00:00 AM EDT SARAH (Demarcus Warren MD [facility]) 373.2 Chalazion Chalazion Problem 06/12/2020 12:0 0:00 AM EDT - 01/11/2021 12:00:00 AM EDT SARAH (Demarcus Warren MD [facility]) 373.2 Chalazion Chalazion Problem 06/12/2020 12:0 0:00 AM EDT - 01/11/2021 12:00:00 AM EDT SARAH (Demarcus Warren MD [facility]) 373.2 Chalazion Chalazion Problem 06/12/2020 12:00:00 AM ED T SARAH (Demarcus Warren MD [facility]) 373.2 Chalazion Chalazion Problem 06/12/2020 12:0 0:00 AM EDT - 01/11/2021 12:00:00 AM EDT SARAH (Demarcus Warren MD [facility]) 373.2 Chalazion Chalazion Problem 06/12/2020 12:0 0:00 AM EDT - 01/11/2021 12:00:00 AM EDT SARAH (Demarcus Warren MD [facility]) [id number] Posterior Capsule Opacification Eccentri c Capsule Left Eye 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 Problem 03/15 12:00:00 AM EDT - 04/13/2021 12:00:00 AM EDT SARAH (Demarcus Warren MD [facility]) [id number] Posterior Capsule Opacification Eccentri c Capsule Left Eye 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 Problem 03/15 12:00:00 AM EDT - 04/13/2021 12:00:00 AM EDT SARAH (Demarcus Warren MD [facility]) Surgeries/Procedures Procedure Description Date Indications Data Source(s) OFFICE OUTPATIENT VISIT 25 MINUTES 07/19/2021 12:00:00 AM EDT [facility] ([facility] OFFICE OUTPATIENT VISIT 15 MINUTES 07/18/2021 12:00:00 AM EDT [facility] ([facility], [facility]) OFFICE OUTPATIENT VISIT 15 MINUTES 07/18/2021 12:00:00 AM EDT [facility] ([facility], [facility]) OFFICE OUTPATIENT VISIT 25 MINUTES 07/10/2021 12:00:00 AM EDT [facility] ([facility] Discission of membranous cataract, secondary (procedur e) 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 Duncan 03/22/2021 04/13/2021 12:00:00 AM EDT SARAH (Demarcus hadley MD [facility]) OFFICE OUTPATIENT VISIT 25 MINUTES 04/05/2021 12:00:00 AM EDT [facility] ([facility] Chalazion removal (procedure) History of excision of a single chalazion of the left lower eyelid by Dr. Duncan 08/02/2020 03/15/2021 12:00:00 AM EDT SARAH (Demarcus Warren MD [facility]) Intermediate Eye Exam Established Patient Intermediate Eye Exam Established Patient 01/11/2021 12:00:00 AM EDT SARAH (Raphael Warren MD [facility]) PERIODIC PREVENTIVE MED EST PATIENT 63YRS&> 12/14/2020 12:00:00 AM EDT [facility] ([facility] PHYSICIAN TELEPHONE EVALUATION 5-10 MIN 10/16/2020 12: 00:00 AM EST [facility] ([facility] Excision of Chalazion (LEFT LOWER LID) Excision of Chalazion (LEFT LOWER LID) 08/02/2020 12:00:00 AM EST SARAH (Demarcus hadley MD [facility]) Intermediate Eye Exam Established Patient Intermediate Eye Exam Established Patient 06/30/2020 12:00:00 AM EDT SARAH (Raphael Warren MD [facility]) 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 06/30/2020 12:00:00 AM EDT SARAH (Demarcus hadley MD [facility]) Surgical / procedural history Tubal Lig ation-1971, Lumpectomy Left-1993 Right- 1997 both benign, Needle Biopsy-2008, Colonoscopy 10/01/2012, Esophagogastroduodenoscopy 10/01/2012 Surgical / procedural history Tubal Ligation-1971, Lumpectomy Left-1993 Right- 1997 both benign, Needle Biopsy-2008, Colonoscopy 10/01/2012, Esophagogastroduodenoscopy 10/01/2012 06/30/2020 12:00:00 AM EDT SARAH (Demarcus Warren MD [facility]) Surgical / procedural history Tubal Lig ation-1971, Lumpectomy Left-1993 Right- 1997 both benign, Needle Biopsy-2008, Coloscopy 10/01/2012, Esophagogastroduodenoscopy 10/01/2012 Surgical / procedural history Tubal Ligation-1971, Lumpectomy Left-1993 Right- 1997 both benign, Needle Biopsy-2008, Coloscopy 10/01/2012, Esophagogastroduodenoscopy 10/01/2012 06/12/2020 12:00:00 AM EDT SARAH (Demarcus Warren MD [facility]) 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 06/12/2020 12:00:00 AM EDT SARAH (Demarcus hadley MD [facility]) Intermediate Eye Exam Established Patient Intermediate Eye Exam Established Patient 06/12/2020 12:00:00 AM EDT SARAH (Raphael id Brandon Warren MD [facility]) Results ID Date Data Source [id number] 07/10/2021 09:55:00 AM EDT [facility] ([facility] Name Value Range Interpretation Code Description Data Amarilis rce(s) Supporting Document(s) Color Urine Laboratory test result M EDENT ([facility] PH Urine 5.0 5.0-8.0 [facility] Appearance of Urine Laboratory test result [facility] ([facility] Specific [place] 1.020 1.00-1.03 [facility] ([facility] Bilirubin.total [Presence] in Urine [...] 0.2-1.0 [facility] ([facility] Leukocytes Laboratory test result ME DENT ([facility] Nitrite Laboratory test result [facility] ([facility] ID Date Data Source [id number] 07/10/2021 09:55:00 AM EDT [facility] ([facility] Name Value Range Interpretation Code Description Data Amarilis rce(s) Supporting Document(s) Hemoglobin A1c/Hemoglobin.total in Blood 7.1 % 4.8-5.6 Above high normal [facility] ([facility] <content>Prediabetes: 5.7 - 6.4</content >
<content>Diabetes: >6.4</content>
<content>Glycemic control for adults with diabetes: <7.0</content>
<content></content> ID Date Data Source [id number] 07/10/2021 09:33:00 AM EDT [facility] ([facility] Name Value Range Interpretation Code Description Data Amarilis rce(s) Supporting Document(s) Trig 193 mg/dL 40-200 [facility] NORMAL RANGES Age WBC [...] HCT IS 5% LESS SOURCE FOR DATA: [employer] 1800 OPERATION MANUAL( AUTOMATED BLOOD COUNTS AND [...] ADOLESCENTS REPRESENTS INDIVIDUALA AGED 2-19 YEARS EXCLUSIVE. Chol 210 mg/dL 0-200 Above high normal [facility] NORMAL RANGES Age [...] HCT IS 5% LESS SOURCE FOR DATA: [employer] DYN 1800 OPERATION MANUAL( AUTOMATED BLOOD COUNTS [...] in HDL [Mass/volume] in Serum or Plasma 56 mg/dL 45-65 [facility] ([facility] [...] HCT IS 5% LESS SOURCE FOR DATA: [employer] 1800 OPERATION MANUAL( AUTOMATED BLOOD COUNTS AND [...] REPRESENTS INDIVIDUALA AGED 2-19 YEARS EXCLUSIVE. LDL_C 116 Calc 75-129 [facility] NORMAL RANGES Age WBC [...] HCT IS 5% LESS SOURCE FOR DATA: [employer] 1800 OPERATION MANUAL( AUTOMATED BLOOD COUNTS AND [...] INDIVIDUALA AGED 2-19 YEARS EXCLUSIVE. Cho/HDL Ratio 3.8 CALC [employer] ([facility] NORMAL RANGES Age WBC RBC HGB [...] HCT IS 5% LESS SOURCE FOR DATA: [employer] 1800 OPERATION MANUAL( AUTOMATED BLOOD COUNTS AND [...] 2-19 YEARS EXCLUSIVE. ID Date Data Source [id number] 07/10/2021 09:33:00 AM EDT CANDICE ([facility] Name Value Range Interpretation Code Description Data Amarilis rce(s) Supporting Document(s) Creat 1.0 mg/dL 0.5-1.0 [facility] ([facility] [...] HCT IS 5% LESS SOURCE FOR DATA: [employer] 1800 OPERATION MANUAL( AUTOMATED BLOOD COUNTS AND [...] REPRESENTS INDIVIDUALA AGED 2-19 YEARS EXCLUSIVE. Glu 157 mg/dL 70-110 Above high normal [facility] (Family [...] HCT IS 5% LESS SOURCE FOR DATA: [employer] DYN 1800 OPERATION MANUAL( AUTOMATED BLOOD COUNTS [...] BUN 25 mg/dL 8-23 Above high normal [facility] ([facility] NORMAL RANGES Age [...] HCT IS 5% LESS SOURCE FOR DATA: [employer] 1800 OPERATION MANUAL( AUTOMATED BLOOD COUNTS AND [...] INDIVIDUALA AGED 2-19 YEARS EXCLUSIVE. BUN/Creatinine Ratio 25.2 CALC [facility] ([facility] NORMAL RANGES Age WBC [...] HCT IS 5% LESS SOURCE FOR DATA: [employer] 1800 OPERATION MANUAL( AUTOMATED BLOOD COUNTS AND [...] REPRESENTS INDIVIDUALA AGED 2-19 YEARS EXCLUSIVE. Na 138 mmol/L 136-145 [facility] ([facility] NORMAL RANGES Age WBC RBC [...] HCT IS 5% LESS SOURCE FOR DATA: [employer] 1800 OPERATION MANUAL( AUTOMATED BLOOD COUNTS AND [...] 2-19 YEARS EXCLUSIVE. K 4.7 mmol/L 3.5-5.1 [facility] ([facility] NORMAL RANGES [...] HCT IS 5% LESS SOURCE FOR DATA: [employer] 1800 OPERATION MANUAL( AUTOMATED BLOOD COUNTS AND [...] REPRESENTS INDIVIDUALA AGED 2-19 YEARS EXCLUSIVE. Co2 20.6 mmol/L 22.0-29.0 Below low normal [facility] ([facility] NORMAL RANGES Age [...] HCT IS 5% LESS SOURCE FOR DATA: [employer] 1800 OPERATION MANUAL( AUTOMATED BLOOD COUNTS AND [...] REPRESENTS INDIVIDUALA AGED 2-19 YEARS EXCLUSIVE. CL 100.5 mmol/L 98.0-107.0 [facility] ([facility] NORMAL RANGES Age WBC RBC HGB [...] HCT IS 5% LESS SOURCE FOR DATA: [employer] DYN 1800 OPERATION MANUAL( AUTOMATED BLOOD COUNTS [...] REPRESENTS INDIVIDUALA AGED 2-19 YEARS EXCLUSIVE. Alb 4.3 g/dL 3.4-4.8 [facility] ([facility] [...] HCT IS 5% LESS SOURCE FOR DATA: [employer] 1800 OPERATION MANUAL( AUTOMATED BLOOD COUNTS AND [...] 2-19 YEARS EXCLUSIVE. CA 9.7 mg/dL 8.6-10.2 [facility] ([facility] NORMAL RANGES Age WBC [...] HCT IS 5% LESS SOURCE FOR DATA: [employer] 1800 OPERATION MANUAL( AUTOMATED BLOOD COUNTS AND [...] REPRESENTS INDIVIDUALA AGED 2-19 YEARS EXCLUSIVE. TP 6.6 g/dL 6.6-8.7 [facility] ([facility] NORMAL RANGES [...] HCT IS 5% LESS SOURCE FOR DATA: [employer] 1800 OPERATION MANUAL( AUTOMATED BLOOD COUNTS AND [...] HCT IS 5% LESS SOURCE FOR DATA: [employer] 1800 OPERATION MANUAL( AUTOMATED BLOOD COUNTS AND [...] 2-19 YEARS EXCLUSIVE. A/G Ratio 1.8 CALC [facility] NORMAL RANGES Age WBC [...] HCT IS 5% LESS SOURCE FOR DATA: [employer] 1800 OPERATION MANUAL( AUTOMATED BLOOD COUNTS AND [...] INDIVIDUALA AGED 2-19 YEARS EXCLUSIVE. Alt (SGPT) 19 U/L 0-41 [facility] ([facility] NORMAL RANGES [...] HCT IS 5% LESS SOURCE FOR DATA: [employer] 1800 OPERATION MANUAL( AUTOMATED BLOOD COUNTS AND [...] REPRESENTS INDIVIDUALA AGED 2-19 YEARS EXCLUSIVE. Alp 79.4 U/L 35-129 [facility] ([facility] NORMAL [...] HCT IS 5% LESS SOURCE FOR DATA: [employer] 1800 OPERATION MANUAL( AUTOMATED BLOOD COUNTS AND [...] INDIVIDUALA AGED 2-19 YEARS EXCLUSIVE. Ast (Sgot) 20 U/L 0-40 [facility] ([facility] NORMAL RANGES Age WBC RBC [...] HCT IS 5% LESS SOURCE FOR DATA: [employer] 1800 OPERATION MANUAL( AUTOMATED BLOOD COUNTS AND [...] REPRESENTS INDIVIDUALA AGED 2-19 YEARS EXCLUSIVE. Osmolality-Calculated 282.4 [facility]C [facility] ([facility] [...] HCT IS 5% LESS SOURCE FOR DATA: [employer] 1800 OPERATION MANUAL( AUTOMATED BLOOD COUNTS AND [...] REPRESENTS INDIVIDUALA AGED 2-19 YEARS EXCLUSIVE. Tbili 0.65 mg/dL 0.0-1.2 [facility] ([facility] NORMAL [...] HCT IS 5% LESS SOURCE FOR DATA: [employer] 1800 OPERATION MANUAL( AUTOMATED BLOOD COUNTS AND [...] INDIVIDUALA AGED 2-19 YEARS EXCLUSIVE. eGFR Non-Afr. Bhutanese 54 # [facility] ([facility] NORMAL [...] REPRESENTS INDIVIDUALA AGED 2-19 YEARS EXCLUSIVE. eGFR 62 # [facility] ( [facility] [...] HCT IS 5% LESS SOURCE FOR DATA: [employer] 1800 OPERATION MANUAL( AUTOMATED BLOOD COUNTS AND [...] INDIVIDUALA AGED 2-19 YEARS EXCLUSIVE. Anion Gap 21 mmol/L [facility] ([facility] [...] HCT IS 5% LESS SOURCE FOR DATA: [employer] 1800 OPERATION MANUAL( AUTOMATED BLOOD COUNTS AND [...] 2-19 YEARS EXCLUSIVE. ID Date Data Source [id number] 07/10/2021 09:33:00 AM EDT [facility] ([facility] Name Value Range Interpretation Code Description Data Amarilis rce(s) Supporting Document(s) Creatine kinase [Enzymatic activity/volume] in Serum or Plasma 47 U /L 26-192 [facility] ([employer] [facility] NORMAL RANGES Age WBC [...] HCT IS 5% LESS SOURCE FOR DATA: [employer] 1800 OPERATION MANUAL( AUTOMATED BLOOD COUNTS AND [...] 2-19 YEARS EXCLUSIVE. ID Date Data Source [id number] 07/10/2021 09:33:00 AM EDT [facility] ([facility] Name Value Range Interpretation Code Description Data Amarilis rce(s) Supporting Document(s) WBC 6.4 10E3/uL 4.1-10.9 [facility] ([facility] NORMAL RANGES Age WBC RBC [...] HCT IS 5% LESS SOURCE FOR DATA: [employer] 1800 OPERATION MANUAL( AUTOMATED BLOOD COUNTS AND [...] REPRESENTS INDIVIDUALA AGED 2-19 YEARS EXCLUSIVE. HGB 12.8 g/dL 12.0-18.0 [facility] ([facility] NORMAL RANGES Age WBC [...] HCT IS 5% LESS SOURCE FOR DATA: [employer] 1800 OPERATION MANUAL( AUTOMATED BLOOD COUNTS AND [...] REPRESENTS INDIVIDUALA AGED 2-19 YEARS EXCLUSIVE. RBC 4.26 10E6/uL 4.20-6.30 [facility] NORMAL RANGES [...] HCT IS 5% LESS SOURCE FOR DATA: [employer] 1800 OPERATION MANUAL( AUTOMATED BLOOD COUNTS AND [...] REPRESENTS INDIVIDUALA AGED 2-19 YEARS EXCLUSIVE. HCT 37.6 % 37.0-51.0 [facility] ([facility] NORMAL [...] HCT IS 5% LESS SOURCE FOR DATA: [employer] 1800 OPERATION MANUAL( AUTOMATED BLOOD COUNTS AND [...] REPRESENTS INDIVIDUALA AGED 2-19 YEARS EXCLUSIVE. MCV 88.3 fL 80.0-97.0 [facility] ([facility] NORMAL RANGES [...] REPRESENTS INDIVIDUALA AGED 2-19 YEARS EXCLUSIVE. MCH 30.0 pg 26.0-32.0 [facility] ([facility] [...] HCT IS 5% LESS SOURCE FOR DATA: [employer] 1800 OPERATION MANUAL( AUTOMATED BLOOD COUNTS AND [...] 2-19 YEARS EXCLUSIVE. MCHC 34.0 g/dL 31.0-36.0 [facility] ([facility] [...] HCT IS 5% LESS SOURCE FOR DATA: [employer] 1800 OPERATION MANUAL( AUTOMATED BLOOD COUNTS AND [...] REPRESENTS INDIVIDUALA AGED 2-19 YEARS EXCLUSIVE. PLT 248 10E3/uL 140-440 [employer] ([facility] NORMAL RANGES Age WBC RBC [...] HCT IS 5% LESS SOURCE FOR DATA: [employer] 1800 OPERATION MANUAL( AUTOMATED BLOOD COUNTS AND [...] REPRESENTS INDIVIDUALA AGED 2-19 YEARS EXCLUSIVE. RDW-CV 13.5 % 11.5-14.5 [facility] ([facility] NORMAL RANGES [...] HCT IS 5% LESS SOURCE FOR DATA: [employer] 1800 OPERATION MANUAL( AUTOMATED BLOOD COUNTS AND [...] REPRESENTS INDIVIDUALA AGED 2-19 YEARS EXCLUSIVE. Lym% 33.1 % 10.0-58.5 [facility] ([facility] NORMAL RANGES Age WBC [...] HCT IS 5% LESS SOURCE FOR DATA: [employer] 1800 OPERATION MANUAL( AUTOMATED BLOOD COUNTS AND [...] REPRESENTS INDIVIDUALA AGED 2-19 YEARS EXCLUSIVE. Neut% 61.5 % 37.0-92.0 [facility] ([facility] NORMAL RANGES [...] HCT IS 5% LESS SOURCE FOR DATA: [employer] 1800 OPERATION MANUAL( AUTOMATED BLOOD COUNTS AND [...] REPRESENTS INDIVIDUALA AGED 2-19 YEARS EXCLUSIVE. MXD% 5.4 % 0.1-24.0 [facility] ([facility] NORMAL RANGES [...] HCT IS 5% LESS SOURCE FOR DATA: [employer] 1800 OPERATION MANUAL( AUTOMATED BLOOD COUNTS AND [...] 2-19 YEARS EXCLUSIVE. Lym# 2.1 10E3/uL 0.6-4.1 [facility] ([facility] NORMAL RANGES Age WBC RBC [...] HCT IS 5% LESS SOURCE FOR DATA: [employer] 1800 OPERATION MANUAL( AUTOMATED BLOOD COUNTS AND [...] REPRESENTS INDIVIDUALA AGED 2-19 YEARS EXCLUSIVE. Neut# 4.0 % 2.0-7.8 [facility] ([facility] NORMAL RANGES [...] HCT IS 5% LESS SOURCE FOR DATA: [employer] 1800 OPERATION MANUAL( AUTOMATED BLOOD COUNTS AND [...] 2-19 YEARS EXCLUSIVE. MXD# 0.3 10E3/uL 0.0-1.8 [facility] ([facility] NORMAL RANGES Age WBC RBC [...] HCT IS 5% LESS SOURCE FOR DATA: [employer] 1800 OPERATION MANUAL( AUTOMATED BLOOD COUNTS AND [...] REPRESENTS INDIVIDUALA AGED 2-19 YEARS EXCLUSIVE. MPV 9.6 fL 9.0-13.0 [facility] [facility] NORMAL RANGES Age WBC [...] HCT IS 5% LESS SOURCE FOR DATA: [employer] 1800 OPERATION MANUAL( AUTOMATED BLOOD COUNTS AND [...] 2-19 YEARS EXCLUSIVE. ID Date Data Source [id number] 04/05/2021 10:13:00 AM EDT [facility] ([facility] Name Value Range Interpretation Code Description Data Amarilis rce(s) Supporting Document(s) Color Urine Laboratory test result M EDENT ([facility] Specific [place] 1.015 1.00-1.03 [facility] ([facility] PH Urine 5.0 5.0-8.0 [facility] ([facility] Appearance of Urine Laboratory test result [facility] ([facility] Glucose Urine Laboratory test result [facility] ([facility] Bilirubin.total [Presence] in Urine by Test strip Laboratory test res ult [facility] ([facility] Ketones Laboratory test result [facility] ([facility] Blood Urine Laboratory test result M EDENT ([facility] Protein Urine Laboratory test result [facility] ([facility] Urobilinogen 0.2 EU/dl 0.2-1.0 [facility] ([facility] Nitrite Laboratory test result [facility] ([facility] Leukocytes Laboratory test result Above high normal [facility] ([facility] ID Date Data Source [id number] 04/05/2021 10:12:00 AM EDT [facility] ([facility] Name Value Range Interpretation Code Description Data Amarilis rce(s) Supporting Document(s) A/C Ratio Laboratory test result ME DENT ([facility] Alb 10 mg/L 1-30 [facility] ([facility] Creatinine, Urine 50 mg/dL 10-300 [facility] ([facility] ID Date Data Source [id number] 04/05/2021 09:32:00 AM EDT [facility] ([facility] Name Value Range Interpretation Code Description Data Amarilis rce(s) Supporting Document(s) Chol 204 mg/dL 0-200 Above high normal [facility] ([facility] NORMAL RANGES Age [...] HCT IS 5% LESS SOURCE FOR DATA: [employer] 1800 OPERATION MANUAL( AUTOMATED BLOOD COUNTS AND [...] REPRESENTS INDIVIDUALA AGED 2-19 YEARS EXCLUSIVE. Trig 117 mg/dL 40-200 [facility] ([facility] NORMAL [...] HCT IS 5% LESS SOURCE FOR DATA: [employer] 1800 OPERATION MANUAL( AUTOMATED BLOOD COUNTS AND [...] Plasma 66 mg/dL 45-65 Above high normal [facility] ([facility] ) NORMAL RANGES Age [...] HCT IS 5% LESS SOURCE FOR DATA: [employer] 1800 OPERATION MANUAL( AUTOMATED BLOOD COUNTS AND [...] REPRESENTS INDIVIDUALA AGED 2-19 YEARS EXCLUSIVE. LDL_C 115 Calc 75-129 [facility] ([facility] NORMAL RANGES [...] HCT IS 5% LESS SOURCE FOR DATA: [employer] 1800 OPERATION MANUAL( AUTOMATED BLOOD COUNTS AND [...] INDIVIDUALA AGED 2-19 YEARS EXCLUSIVE. Cho/HDL Ratio 3.1 CALC [facility] ([facility] NORMAL RANGES Age WBC RBC [...] HCT IS 5% LESS SOURCE FOR DATA: [employer] 1800 OPERATION MANUAL( AUTOMATED BLOOD COUNTS AND [...] 2-19 YEARS EXCLUSIVE. ID Date Data Source [id number] 04/05/2021 09:32:00 AM EDT [facility] ([facility] Name Value Range Interpretation Code Description Data Amarilis rce(s) Supporting Document(s) Creatine kinase [Enzymatic activity/volume] in Serum or Plasma 57 U /L 26-192 [facility] ([facility] NORMAL RANGES Age [...] HCT IS 5% LESS SOURCE FOR DATA: [employer] DYN 1800 OPERATION MANUAL( AUTOMATED BLOOD COUNTS [...] 2-19 YEARS EXCLUSIVE. ID Date Data Source [id number] 04/05/2021 09:32:00 AM EDT [facility] ([facility] Name Value Range Interpretation Code Description Data Amarilis rce(s) Supporting Document(s) BUN 29 mg/dL 8-23 Above high normal MEDENT ([facility] [...] HCT IS 5% LESS SOURCE FOR DATA: [employer] DYN 1800 OPERATION MANUAL( AUTOMATED BLOOD COUNTS [...] REPRESENTS INDIVIDUALA AGED 2-19 YEARS EXCLUSIVE. Glu 135 mg/dL 70-110 Above high normal [facility] ([facility] NORMAL RANGES Age [...] HCT IS 5% LESS SOURCE FOR DATA: [employer] 1800 OPERATION MANUAL( AUTOMATED BLOOD COUNTS AND [...] INDIVIDUALA AGED 2-19 YEARS EXCLUSIVE. BUN/Creatinine Ratio 27.6 CALC [facility] ([facility] NORMAL RANGES Age [...] HCT IS 5% LESS SOURCE FOR DATA: [employer] 1800 OPERATION MANUAL( AUTOMATED BLOOD COUNTS AND [...] HCT IS 5% LESS SOURCE FOR DATA: [employer] 1800 OPERATION MANUAL( AUTOMATED BLOOD COUNTS AND [...] REPRESENTS INDIVIDUALA AGED 2-19 YEARS EXCLUSIVE. Na 137 mmol/L 136-145 [facility] ([facility] NORMAL RANGES Age WBC RBC HGB [...] HCT IS 5% LESS SOURCE FOR DATA: [employer] 1800 OPERATION MANUAL( AUTOMATED BLOOD COUNTS AND [...] 2-19 YEARS EXCLUSIVE. K 4.7 mmol/L 3.5-5.1 [facility] ([facility] NORMAL RANGES [...] HCT IS 5% LESS SOURCE FOR DATA: [employer] 1800 OPERATION MANUAL( AUTOMATED BLOOD COUNTS AND [...] REPRESENTS INDIVIDUALA AGED 2-19 YEARS EXCLUSIVE. CL 102.4 mmol/L 98.0-107.0 [facility] ([facility], [...] HCT IS 5% LESS SOURCE FOR DATA: [employer] 1800 OPERATION MANUAL( AUTOMATED BLOOD COUNTS AND [...] REPRESENTS INDIVIDUALA AGED 2-19 YEARS EXCLUSIVE. Co2 20.5 mmol/L 22.0-29.0 Below low normal [facility] ([facility] NORMAL RANGES Age [...] HCT IS 5% LESS SOURCE FOR DATA: [employer] 1800 OPERATION MANUAL( AUTOMATED BLOOD COUNTS AND [...] REPRESENTS INDIVIDUALA AGED 2-19 YEARS EXCLUSIVE. CA 9.4 mg/dL 8.6-10.2 [facility] ([facility] NORMAL RANGES [...] HCT IS 5% LESS SOURCE FOR DATA: [employer] 1800 OPERATION MANUAL( AUTOMATED BLOOD COUNTS AND [...] 2-19 YEARS EXCLUSIVE. TP 7.0 g/dL 6.6-8.7 [facility] ([facility], [...] HCT IS 5% LESS SOURCE FOR DATA: [employer] 1800 OPERATION MANUAL( AUTOMATED BLOOD COUNTS AND [...] 2-19 YEARS EXCLUSIVE. Alb 4.5 g/dL 3.4-4.8 [facility] ([facility] NORMAL RANGES [...] HCT IS 5% LESS SOURCE FOR DATA: [employer] 1800 OPERATION MANUAL( AUTOMATED BLOOD COUNTS AND [...] HCT IS 5% LESS SOURCE FOR DATA: [employer] 1800 OPERATION MANUAL( AUTOMATED BLOOD COUNTS AND [...] REPRESENTS INDIVIDUALA AGED 2-19 YEARS EXCLUSIVE. Alp 77.4 U/L 35-129 [facility] ([facility] NORMAL RANGES [...] HCT IS 5% LESS SOURCE FOR DATA: [employer] 1800 OPERATION MANUAL( AUTOMATED BLOOD COUNTS AND [...] INDIVIDUALA AGED 2-19 YEARS EXCLUSIVE. Alt (SGPT) 24 U/L 0-41 [facility] ([facility] NORMAL RANGES Age WBC RBC [...] HCT IS 5% LESS SOURCE FOR DATA: [employer] 1800 OPERATION MANUAL( AUTOMATED BLOOD COUNTS AND [...] INDIVIDUALA AGED 2-19 YEARS EXCLUSIVE. Ast (Sgot) 23 U/L 0-40 [facility] ([facility], [...] HCT IS 5% LESS SOURCE FOR DATA: [employer] 1800 OPERATION MANUAL( AUTOMATED BLOOD COUNTS AND [...] REPRESENTS INDIVIDUALA AGED 2-19 YEARS EXCLUSIVE. Tbili 0.90 mg/dL 0.0-1.2 [employer] ([facility] NORMAL RANGES Age WBC RBC [...] HCT IS 5% LESS SOURCE FOR DATA: [employer] DYN 1800 OPERATION MANUAL( AUTOMATED BLOOD COUNTS [...] REPRESENTS INDIVIDUALA AGED 2-19 YEARS EXCLUSIVE. Osmolality-Calculated 282.1 CALC MED E[facility] ([facility] [...] HCT IS 5% LESS SOURCE FOR DATA: [employer] 1800 OPERATION MANUAL( AUTOMATED BLOOD COUNTS AND [...] YEARS EXCLUSIVE. eGFR 56 # MED[facility] ( [facility] CKD-EPI Anion Gap 19 mmol/L CANDICE ([facility] NORMAL RANGES Age WBC [...] HCT IS 5% LESS SOURCE FOR DATA: [employer] 1800 OPERATION MANUAL( AUTOMATED BLOOD COUNTS AND [...] INDIVIDUALA AGED 2-19 YEARS EXCLUSIVE. eGFR Non-Afr. Bhutanese 48 # MEDENT ([facility] CKD-EPI ID Date Data Source [id number] 04/05/2021 09:32:00 AM EDT [facility] ([facility] Name Value Range Interpretation Code Description Data Amarilis rce(s) Supporting Document(s) WBC 6.3 10E3/uL 4.1-10.9 [facility] ([facility] NORMAL RANGES Age WBC RBC [...] HCT IS 5% LESS SOURCE FOR DATA: [employer] 1800 OPERATION MANUAL( AUTOMATED BLOOD COUNTS AND [...] REPRESENTS INDIVIDUALA AGED 2-19 YEARS EXCLUSIVE. HGB 12.8 g/dL 12.0-18.0 [facility] ([facility], [...] HCT IS 5% LESS SOURCE FOR DATA: [employer] 1800 OPERATION MANUAL( AUTOMATED BLOOD COUNTS AND [...] REPRESENTS INDIVIDUALA AGED 2-19 YEARS EXCLUSIVE. RBC 4.24 10E6/uL 4.20-6.30 [employer] [facility] NORMAL RANGES Age WBC RBC [...] HCT IS 5% LESS SOURCE FOR DATA: [employer] DYN 1800 OPERATION MANUAL( AUTOMATED BLOOD COUNTS [...] REPRESENTS INDIVIDUALA AGED 2-19 YEARS EXCLUSIVE. HCT 37.7 % 37.0-51.0 [facility] ([facility] NORMAL RANGES [...] HCT IS 5% LESS SOURCE FOR DATA: [employer] 1800 OPERATION MANUAL( AUTOMATED BLOOD COUNTS AND [...] REPRESENTS INDIVIDUALA AGED 2-19 YEARS EXCLUSIVE. MCV 88.9 fL 80.0-97.0 [facility] ([facility], [...] HCT IS 5% LESS SOURCE FOR DATA: [employer] 1800 OPERATION MANUAL( AUTOMATED BLOOD COUNTS AND [...] 2-19 YEARS EXCLUSIVE. MCHC 34.0 g/dL 31.0-36.0 [facility] ([facility] NORMAL RANGES [...] HCT IS 5% LESS SOURCE FOR DATA: [employer] 1800 OPERATION MANUAL( AUTOMATED BLOOD COUNTS AND [...] 2-19 YEARS EXCLUSIVE. MCH 30.2 pg 26.0-32.0 [facility] ([facility], [...] HCT IS 5% LESS SOURCE FOR DATA: [employer] 1800 OPERATION MANUAL( AUTOMATED BLOOD COUNTS AND [...] REPRESENTS INDIVIDUALA AGED 2-19 YEARS EXCLUSIVE. RDW-CV 13.9 % 11.5-14.5 [facility] NORMAL RANGES Age WBC [...] HCT IS 5% LESS SOURCE FOR DATA: [employer] 1800 OPERATION MANUAL( AUTOMATED BLOOD COUNTS AND [...] REPRESENTS INDIVIDUALA AGED 2-19 YEARS EXCLUSIVE. PLT 170 10E3/uL 140-440 [facility] ([facility] NORMAL RANGES Age WBC RBC HGB [...] HCT IS 5% LESS SOURCE FOR DATA: [employer] DYN 1800 OPERATION MANUAL( AUTOMATED BLOOD COUNTS [...] REPRESENTS INDIVIDUALA AGED 2-19 YEARS EXCLUSIVE. Neut% 55.5 % 37.0-92.0 [facility] ([facility], [...] HCT IS 5% LESS SOURCE FOR DATA: [employer] 1800 OPERATION MANUAL( AUTOMATED BLOOD COUNTS AND [...] REPRESENTS INDIVIDUALA AGED 2-19 YEARS EXCLUSIVE. Lym% 35.4 % 10.0-58.5 [facility] ([facility] NORMAL RANGES [...] HCT IS 5% LESS SOURCE FOR DATA: [employer] 1800 OPERATION MANUAL( AUTOMATED BLOOD COUNTS AND [...] REPRESENTS INDIVIDUALA AGED 2-19 YEARS EXCLUSIVE. MXD% 9.1 % 0.1-24.0 [facility] ([facility] NORMAL RANGES [...] HCT IS 5% LESS SOURCE FOR DATA: [employer] 1800 OPERATION MANUAL( AUTOMATED BLOOD COUNTS [...] YEARS EXCLUSIVE. Lym# 2.2 10E3/uL 0.6-4.1 [facility] ([facility] NORMAL RANGES Age WBC RBC [...] HCT IS 5% LESS SOURCE FOR DATA: [employer] 1800 OPERATION MANUAL( AUTOMATED BLOOD COUNTS AND [...] 2-19 YEARS EXCLUSIVE. MXD# 0.6 10E3/uL 0.0-1.8 [facility] ([facility] NORMAL RANGES Age WBC RBC HGB [...] HCT IS 5% LESS SOURCE FOR DATA: [employer] 1800 OPERATION MANUAL( AUTOMATED BLOOD COUNTS AND [...] 2-19 YEARS EXCLUSIVE. Neut# 3.5 % 2.0-7.8 [facility] ([facility] NORMAL RANGES [...] HCT IS 5% LESS SOURCE FOR DATA: [employer] 1800 OPERATION MANUAL( AUTOMATED BLOOD COUNTS AND [...] 2-19 YEARS EXCLUSIVE. MPV 10.2 fL 9.0-13.0 [facility] ([facility], [...] HCT IS 5% LESS SOURCE FOR DATA: [employer] 1800 OPERATION MANUAL( AUTOMATED BLOOD COUNTS AND [...] 2-19 YEARS EXCLUSIVE. ID Date Data Source [id number] 04/05/2021 09:32:00 AM EDT [facility] ([facility] Name Value Range Interpretation Code Description Data Amarilis rce(s) Supporting Document(s) Hemoglobin A1c/Hemoglobin.total in Blood 7.0 % 4.8-5.6 Above high normal [facility] ([facility] <content>Prediabetes: 5.7 - 6.4</content >
<content>Diabetes: >6.4</content>
<content>Glycemic control for adults with diabetes: <7.0</content>
<content></content> ID Date Data Source [id number] 12/14/2020 10:41:00 AM EDT MED[facility] ([facility] Name Value Range Interpretation Code Description Data Amarilis rce(s) Supporting Document(s) WBC 5.2 10E3/uL 4.1-10.9 [facility] ([facility] NORMAL RANGES Age WBC RBC [...] HCT IS 5% LESS SOURCE FOR DATA: [employer] 1800 OPERATION MANUAL( AUTOMATED BLOOD COUNTS AND [...] REPRESENTS INDIVIDUALA AGED 2-19 YEARS EXCLUSIVE. RBC 4.01 10E6/uL 4.20-6.30 Below low normal [facility] ([facility], [...] HCT IS 5% LESS SOURCE FOR DATA: [employer] 1800 OPERATION MANUAL( AUTOMATED BLOOD COUNTS AND [...] REPRESENTS INDIVIDUALA AGED 2-19 YEARS EXCLUSIVE. HGB 12.2 g/dL 12.0-18.0 [facility] ([facility] NORMAL RANGES [...] HCT IS 5% LESS SOURCE FOR DATA: [employer] 1800 OPERATION MANUAL( AUTOMATED BLOOD COUNTS AND [...] REPRESENTS INDIVIDUALA AGED 2-19 YEARS EXCLUSIVE. HCT 36.6 % 37.0-51.0 Below low normal [facility] ( [facility] [...] HCT IS 5% LESS SOURCE FOR DATA: [employer] 1800 OPERATION MANUAL( AUTOMATED BLOOD COUNTS AND [...] REPRESENTS INDIVIDUALA AGED 2-19 YEARS EXCLUSIVE. MCV 91.3 fL 80.0-97.0 [facility] ([facility], [...] HCT IS 5% LESS SOURCE FOR DATA: [employer] 1800 OPERATION MANUAL( AUTOMATED BLOOD COUNTS AND [...] REPRESENTS INDIVIDUALA AGED 2-19 YEARS EXCLUSIVE. MCH 30.4 pg 26.0-32.0 [facility] ([facility] NORMAL RANGES [...] HCT IS 5% LESS SOURCE FOR DATA: [employer] 1800 OPERATION MANUAL( AUTOMATED BLOOD COUNTS AND [...] REPRESENTS INDIVIDUALA AGED 2-19 YEARS EXCLUSIVE. MCHC 33.3 g/dL 31.0-36.0 [facility] ([facility], [...] HCT IS 5% LESS SOURCE FOR DATA: [employer] 1800 OPERATION MANUAL( AUTOMATED BLOOD COUNTS AND [...] REPRESENTS INDIVIDUALA AGED 2-19 YEARS EXCLUSIVE. PLT 191 10E3/uL 140-440 [facility] ([facility] NORMAL RANGES Age WBC RBC [...] HCT IS 5% LESS SOURCE FOR DATA: [employer] 1800 OPERATION MANUAL( AUTOMATED BLOOD COUNTS AND [...] REPRESENTS INDIVIDUALA AGED 2-19 YEARS EXCLUSIVE. RDW-CV 14.5 % 11.5-14.5 [facility] ([facility] NORMAL RANGES [...] HCT IS 5% LESS SOURCE FOR DATA: [employer] 1800 OPERATION MANUAL( AUTOMATED BLOOD COUNTS AND [...] REPRESENTS INDIVIDUALA AGED 2-19 YEARS EXCLUSIVE. Lym% 34.1 % 10.0-58.5 [facility] ([facility], [...] HCT IS 5% LESS SOURCE FOR DATA: [employer] 1800 OPERATION MANUAL( AUTOMATED BLOOD COUNTS AND [...] REPRESENTS INDIVIDUALA AGED 2-19 YEARS EXCLUSIVE. Neut% 58.8 % 37.0-92.0 [facility] ([facility] NORMAL RANGES [...] HCT IS 5% LESS SOURCE FOR DATA: [employer] 1800 OPERATION MANUAL( AUTOMATED BLOOD COUNTS AND [...] REPRESENTS INDIVIDUALA AGED 2-19 YEARS EXCLUSIVE. MXD% 7.1 % 0.1-24.0 [facility] ([facility] NORMAL RANGES [...] HCT IS 5% LESS SOURCE FOR DATA: [employer] 1800 OPERATION MANUAL( AUTOMATED BLOOD COUNTS AND [...] REPRESENTS INDIVIDUALA AGED 2-19 YEARS EXCLUSIVE. Lym# 1.8 10E3/uL 0.6-4.1 [facility] ([facility] NORMAL RANGES Age WBC RBC [...] HCT IS 5% LESS SOURCE FOR DATA: [employer] 1800 OPERATION MANUAL( AUTOMATED BLOOD COUNTS AND [...] REPRESENTS INDIVIDUALA AGED 2-19 YEARS EXCLUSIVE. Neut# 3.0 % 2.0-7.8 [facility] ([facility] NORMAL RANGES [...] HCT IS 5% LESS SOURCE FOR DATA: [employer] 1800 OPERATION MANUAL( AUTOMATED BLOOD COUNTS AND [...] REPRESENTS INDIVIDUALA AGED 2-19 YEARS EXCLUSIVE. MXD# 0.4 10E3/uL 0.0-1.8 [facility] ([facility] NORMAL RANGES Age WBC RBC [...] HCT IS 5% LESS SOURCE FOR DATA: [employer] 1800 OPERATION MANUAL( AUTOMATED BLOOD COUNTS AND [...] REPRESENTS INDIVIDUALA AGED 2-19 YEARS EXCLUSIVE. MPV 10.7 fL 9.0-13.0 [facility] ([facility], [...] HCT IS 5% LESS SOURCE FOR DATA: [employer] 1800 OPERATION MANUAL( AUTOMATED BLOOD COUNTS AND [...] 2-19 YEARS EXCLUSIVE. ID Date Data Source [id number] 12/14/2020 10:41:00 AM EDT MED[facility] ([facility] Name Value Range Interpretation Code Description Data Amarilis rce(s) Supporting Document(s) Glu 134 mg/dL 70-110 Above high normal [facility] ([facility] NORMAL RANGES Age [...] HCT IS 5% LESS SOURCE FOR DATA: [employer] 1800 OPERATION MANUAL( AUTOMATED BLOOD COUNTS AND [...] REPRESENTS INDIVIDUALA AGED 2-19 YEARS EXCLUSIVE. BUN 24 mg/dL 8-23 Above high normal [facility] ([facility] NORMAL RANGES Age WBC [...] HCT IS 5% LESS SOURCE FOR DATA: [employer] 1800 OPERATION MANUAL( AUTOMATED BLOOD COUNTS AND [...] REPRESENTS INDIVIDUALA AGED 2-19 YEARS EXCLUSIVE. Creat 0.9 mg/dL 0.5-1.0 [facility] ([facility] NORMAL [...] HCT IS 5% LESS SOURCE FOR DATA: [employer] 1800 OPERATION MANUAL( AUTOMATED BLOOD COUNTS AND [...] INDIVIDUALA AGED 2-19 YEARS EXCLUSIVE. BUN/Creatinine Ratio 25.7 CALC [facility] ([facility] NORMAL RANGES Age [...] HCT IS 5% LESS SOURCE FOR DATA: [employer] 1800 OPERATION MANUAL( AUTOMATED BLOOD COUNTS [...] 2-19 YEARS EXCLUSIVE. Na 136 mmol/L 136-145 [facility] ([facility] NORMAL [...] HCT IS 5% LESS SOURCE FOR DATA: [employer] 1800 OPERATION MANUAL( AUTOMATED BLOOD COUNTS AND [...] 2-19 YEARS EXCLUSIVE. K 4.5 mmol/L 3.5-5.1 [facility] ([facility] NORMAL RANGES Age WBC RBC [...] HCT IS 5% LESS SOURCE FOR DATA: [employer] 1800 OPERATION MANUAL( AUTOMATED BLOOD COUNTS AND [...] REPRESENTS INDIVIDUALA AGED 2-19 YEARS EXCLUSIVE. CL 100.4 mmol/L 98.0-107.0 [facility] ([facility] NORMAL RANGES Age WBC RBC HGB [...] HCT IS 5% LESS SOURCE FOR DATA: [employer] 1800 OPERATION MANUAL( AUTOMATED BLOOD COUNTS AND [...] REPRESENTS INDIVIDUALA AGED 2-19 YEARS EXCLUSIVE. Co2 23.9 mmol/L 22.0-29.0 [facility] ([facility] NORMAL RANGES Age WBC RBC [...] HCT IS 5% LESS SOURCE FOR DATA: [employer] 1800 OPERATION MANUAL( AUTOMATED BLOOD COUNTS AND [...] REPRESENTS INDIVIDUALA AGED 2-19 YEARS EXCLUSIVE. CA 9.5 mg/dL 8.6-10.2 [facility] ([facility] NORMAL RANGES Age WBC [...] HCT IS 5% LESS SOURCE FOR DATA: [employer] 1800 OPERATION MANUAL( AUTOMATED BLOOD COUNTS AND [...] HCT IS 5% LESS SOURCE FOR DATA: [employer] 1800 OPERATION MANUAL( AUTOMATED BLOOD COUNTS AND [...] REPRESENTS INDIVIDUALA AGED 2-19 YEARS EXCLUSIVE. Alb 4.2 g/dL 3.4-4.8 [facility] ([facility], [...] HCT IS 5% LESS SOURCE FOR DATA: [employer] 1800 OPERATION MANUAL( AUTOMATED BLOOD COUNTS AND [...] INDIVIDUALA AGED 2-19 YEARS EXCLUSIVE. A/G Ratio 1.6 CALC [facility] ([facility] NORMAL RANGES [...] HCT IS 5% LESS SOURCE FOR DATA: [employer] DYN 1800 OPERATION MANUAL( AUTOMATED BLOOD COUNTS [...] AGED 2-19 YEARS EXCLUSIVE. Globulin 2.7 CALC [facility] ([facility] [...] HCT IS 5% LESS SOURCE FOR DATA: [employer] 1800 OPERATION MANUAL( AUTOMATED BLOOD COUNTS AND [...] REPRESENTS INDIVIDUALA AGED 2-19 YEARS EXCLUSIVE. Alp 68.8 U/L 35-129 [facility] ([facility] NORMAL [...] HCT IS 5% LESS SOURCE FOR DATA: [employer] 1800 OPERATION MANUAL( AUTOMATED BLOOD COUNTS AND [...] INDIVIDUALA AGED 2-19 YEARS EXCLUSIVE. Alt (SGPT) 24 U/L 0-41 [facility] ([facility] NORMAL RANGES Age WBC RBC [...] HCT IS 5% LESS SOURCE FOR DATA: [employer] 1800 OPERATION MANUAL( AUTOMATED BLOOD COUNTS AND [...] INDIVIDUALA AGED 2-19 YEARS EXCLUSIVE. Ast (Sgot) 26 U/L 0-40 [facility] ([facility] NORMAL RANGES Age WBC RBC [...] HCT IS 5% LESS SOURCE FOR DATA: [employer] 1800 OPERATION MANUAL( AUTOMATED BLOOD COUNTS AND [...] REPRESENTS INDIVIDUALA AGED 2-19 YEARS EXCLUSIVE. Tbili 1.15 mg/dL 0.0-1.2 [facility] ([facility] NORMAL [...] HCT IS 5% LESS SOURCE FOR DATA: [employer] 1800 OPERATION MANUAL( AUTOMATED BLOOD COUNTS AND [...] REPRESENTS INDIVIDUALA AGED 2-19 YEARS EXCLUSIVE. Osmolality-Calculated 277.4 CALC MED E[facility] ([facility] [...] INDIVIDUALA AGED 2-19 YEARS EXCLUSIVE. Anion Gap 16 mmol/L [facility] ([facility] NORMAL RANGES [...] HCT IS 5% LESS SOURCE FOR DATA: [employer] 1800 OPERATION MANUAL( AUTOMATED BLOOD COUNTS AND [...] REPRESENTS INDIVIDUALA AGED 2-19 YEARS EXCLUSIVE. eGFR 71 # [facility] ( [facility] CKD-EPI eGFR Non-Afr. Bhutanese 61 # [facility] ([facility] CKD-EPI ID Date Data Source [id number] 12/14/2020 10:41:00 AM EDT CAND[facility] ([facility] Name Value Range Interpretation Code Description Data Amarilis rce(s) Supporting Document(s) Chol 199 mg/dL 0-200 [facility] ([facility] NORMAL RANGES Age WBC [...] HCT IS 5% LESS SOURCE FOR DATA: [employer] 1800 OPERATION MANUAL( AUTOMATED BLOOD COUNTS AND [...] REPRESENTS INDIVIDUALA AGED 2-19 YEARS EXCLUSIVE. Trig 163 mg/dL 40-200 [facility] ([facility] NORMAL RANGES [...] HCT IS 5% LESS SOURCE FOR DATA: [employer] 1800 OPERATION MANUAL( AUTOMATED BLOOD COUNTS AND [...] in HDL [Mass/volume] in Serum or Plasma 62 mg/dL 45-65 [facility] ([facility] [...] HCT IS 5% LESS SOURCE FOR DATA: [employer] 1800 OPERATION MANUAL( AUTOMATED BLOOD COUNTS AND [...] REPRESENTS INDIVIDUALA AGED 2-19 YEARS EXCLUSIVE. LDL_C 105 Calc 75-129 [facility] [facility] NORMAL RANGES [...] INDIVIDUALA AGED 2-19 YEARS EXCLUSIVE. Cho/HDL Ratio 3.2 CALC [facility] ([facility] NORMAL RANGES Age WBC RBC [...] HCT IS 5% LESS SOURCE FOR DATA: [employer] 1800 OPERATION MANUAL( AUTOMATED BLOOD COUNTS AND [...] 2-19 YEARS EXCLUSIVE. ID Date Data Source [id number] 12/14/2020 10:41:00 AM EDT [facility] ([facility] Name Value Range Interpretation Code Description Data Amarilis rce(s) Supporting Document(s) Creatine kinase [Enzymatic activity/volume] in Serum or Plasma 51 U /L 26-192 [facility] ([facility] NORMAL RANGES Age WBC [...] HCT IS 5% LESS SOURCE FOR DATA: [employer] 1800 OPERATION MANUAL( AUTOMATED BLOOD COUNTS AND [...] 2-19 YEARS EXCLUSIVE. ID Date Data Source [id number] 12/14/2020 10:40:00 AM EDT [facility] ([facility] Name Value Range Interpretation Code Description Data Amarilis rce(s) Supporting Document(s) Hemoglobin A1c/Hemoglobin.total in Blood 6.6 % 4.8-5.6 Above high normal [facility] ([facility] <content>Prediabetes: 5.7 - 6.4</content >
<content>Diabetes: >6.4</content>
<content>Glycemic control for adults with diabetes: <7.0</content>
<content></content> ID Date Data Source [id number] 10/26/2020 09:14:00 AM EST [facility] ([facility] Name Value Range Interpretation Code Description Data Amarilis rce(s) Supporting Document(s) Lactate dehydrogenase [Enzymatic activity/volume] in Serum o r Plasma 265 U/L 84-246 Above high normal [facility] ([facility] Ferritin [Mass/volume] in Serum or Plasma 431 ng/mL 8-252 Above high normal [facility] ([facility] Magnesium [Mass/volume] in Serum or Plasma 1.9 mg/dL 1.8-2 .4 Normal (applies to non-numeric results) [facility] ([facility]) Procalcitonin [Mass/volume] in Serum or Plasma 0.15 Normal (applies to non- numeric results) [facility] ([facility] ) <content>SEPSIS INTERPRETATION OF RESULT S</content>
<content><0.5 ng/ml Low risk for progression to severe</content>
<content>sepsis and or septic shock.</content>
<content>0.50-2.00 ng/ml Sepsis should be considered.</content>
<content>>2.00 ng/ml High risk for progression to severe</content>
<content>sepsis and or septic shock.</content>
<content></content>
<content>LOWER RESPIRATORY TRACT INFECTION REFERENCE INTERVAL</content>
<content><0.1 ng/ml Antibiotics strongly discouraged.</content>
<content>0.1-0.25 ng/ml Antibiotics are discouraged.</content>
<content>0.26-0.5 ng/ml Antibiotics are encouraged.</content>
<content>>0.5 ng/ml Antibiotics are strongly encouraged.</content>
<content></content> C reactive protein [Mass/volume] in Serum or Plasma by High sensitivity method 7.45 mg/dL 0.00-0.30 Above high normal [facility] ([facility] ID Date Data Source [id number] 10/26/2020 09:14:00 AM EST [facility] ([facility] Name Value Range Interpretation Code Description Data Amarilis rce(s) Supporting Document(s) CPK Creatine Phosphokinase 68 U/L 26-192 Giselle l (applies to non-numeric results) [facility] ([facility] ) CK-MB Value Mass 1.3 ng/mL Normal (applies to non-numeric results) [facility] ([facility] MB/CK Relative Index 1.91 Normal (applies to non-num quang results) [facility] ([facility] <content>DIAGNOSIS CRITERIA</content>
<content>MMB ng/ml Relative Index (RI)</content>
<content>NON-AMI < or = 5 N/A</content>
<content>LOPEZ ZONE > 5 < or = 4</content>
<content>AMI > 5 > 4</content>
<content></content> Troponin I Laboratory test result Normal (applies to non-n umeric results) [facility] ([facility] <content>Troponin I Reference Interval f or Siemens Overgaard LOCI:</content>
<content></content>
<content>99th Percentile= 0.00-0.045 ng/ml</content>
<content></content>
<content>Risk Stratification:</content>
<content><= 0.10 ng/ml Decreased Risk for Adverse Clinical</content>
<content>Events.</content>
<content>0.10-1.50 ng/ml Increased Risk for Adverse Clinical</content>
<content>Events. Evaluation of additional</content>
<content>criterion and/or repeat testing in 2-6</content>
<content>hours is suggested to rule out myocardial</content>
<content>damage.</content>
<content>>= 1.50 ng/ml Indicative of Myocardial Injury.</content>
<content></content> ID Date Data Source [id number] 10/26/2020 09:14:00 AM EST [facility] ([facility] Name Value Range Interpretation Code Description Data Amarilis rce(s) Supporting Document(s) Glucose, Fasting 150 mg/dL 70-100 Above high normal [facility] ([facility] Blood Urea Nitrogen 38 mg/dL 7-18 Above high normal [facility] ([facility] Creatinine For GFR 1.44 mg/dL 0.55-1.30 Above high normal [facility] ([facility] Glomerular Filtration Rate 37.6 Below low normal [facility] ([facility] <content>Units are mL/min/1.73 m2</content>
<content></content>
<content>Chronic Kidney Disease Staging per NKF:</content>
<content></content>
<content>Stage I & II GFR >=60 Normal to Mildly Decreased</content>
<content>Stage III GFR 30- 59 Moderately Decreased</content>
<content>Stage IV GFR 15-29 Severely Decreased</content>
<content>Stage V GFR <15 Very Little GFR Left</content>
<content>ESRD GFR <15 on RN ACLS</content>
<content></content> Sodium Level 135 meq/L 136-145 Below low normal [facility] ([facility] Carbon Dioxide Level 25 meq/L 21-32 Normal (applies to non-num qunag results) [facility] ([facility] Potassium Serum 4.2 meq/L 3.5-5.1 Normal (applies to non-numeric results) [facility] ([facility] Chloride Level 101 meq/L 98-107 Normal (applies to non-numeric r esults) [facility] ([facility] Calcium Level 9.0 mg/dL 8.8-10.2 Normal (applies to non-numeric re sults) [facility] ([facility] Anion Gap 9 meq/L 8-16 Normal (applies to non-numeric resul ts) [facility] ([facility] Ast/Sgot 30 U/L 7-37 Normal (applies to non-numeric resul ts) [facility] ([facility] Alt/SGPT 31 U/L 12-78 Normal (applies to non-numeric resul ts) [facility] ([facility] Alkaline Phosphatase 72 U/L 45-117 Normal (applies to non-num quang results) [facility] ([facility] Bilirubin,Total 0.6 mg/dL 0.2-1.0 Normal (applies to non-numeric results) [facility] ([facility] Total Protein 7.3 GM/DL 6.4-8.2 Normal (applies to non-numeric re sults) [facility] ([facility] Albumin 3.3 GM/DL 3.2-5.2 Normal (applies to non-numeric resul ts) [facility] ([facility] Albumin/Globulin Ratio 0.8 1.2-2.2 Below low normal [facility] ([facility] ID Date Data Source [id number] 10/26/2020 09:14:00 AM EST [facility] ([facility] Name Value Range Interpretation Code Description Data Amarilis rce(s) Supporting Document(s) Fibrinogen [Mass/volume] in Platelet poor plasma by Coagulat ion assay 608 mg/dL 221-452 Above high normal [facility] ([facility] Lactate [Mass/volume] in Serum or Plasma 1.7 mmol/L 0.4-2.0 Normal (applies to non-numeric results) [facility] ([facility]) Y/N query for Sepsis Lactate Rule: Y Fibrin D-dimer FEU [Mass/volume] in Platelet poor plasma 2053.64 ng/mL Above high normal [facility] ([facility] ) ID Date Data Source [id number] 10/26/2020 09:14:00 AM EST [facility] ([facility] Name Value Range Interpretation Code Description Data Amarilis rce(s) Supporting Document(s) Prothrombin Time 13.2 s 12.5-14.3 Normal (applies to non-numeric results) [facility] ([facility] Inr 0.98 Normal (applies to non-numeric resul ts) [facility] ([facility] THERAPUTIC HUMAN INR VALUES INDICATIONS NORMAL RANGES PROPHYLAXIS/TREATMENT OF: VENOUS THROMBOSIS 2.0-3.0 PULMONARY EMBOLISM 2.0-3.0 PREVENTION OF SYSTEMIC EMBOLISM FROM: TISSUE HEART VALVES 2.0-3.0 ACUTE MYOCARDIAL INFARCTION 2.0-3.0 VALVULAR HEART DISEASE 2.0-3.0 ATRIAL FIBRILLATION 2.0-3.0 MECHANICAL VALVES(HIGH RISK) 2.5-3.5 RECURRENT MYOCARDIAL INFARCTION 2.5-3.5 Partial Thromboplastin Time 29.2 s 24.2-38.5 Norm al (applies to non-numeric results) [facility] ([facility] ID Date Data Source [id number] 10/26/2020 09:14:00 AM EST [facility] ([facility] Name Value Range Interpretation Code Description Data Amarilis rce(s) Supporting Document(s) White Blood Count 5.4 10 4.0-10.0 Normal (applies to non-numeri c results) [facility] ([facility] Hemoglobin 12.4 g/dL 12.0-15.5 Normal (applies to non-numeric resul ts) [facility] ([facility] Red Blood Count 4.32 10 4.00-5.40 Normal (applies to non-numeric results) [facility] ([facility] Mean Corpuscular Volume 86.6 fl 80.0-96.0 Normal ( applies to non-numeric results) [facility] ([facility] ) Hematocrit 37.4 % 36.0-47.0 Normal (applies to non-numeric resul ts) [facility] ([facility] Mean Corpuscular Hemoglobin 28.7 pg 27.0-33.0 Norm al (applies to non-numeric results) [facility] ([facility] ) Mean Corpuscular HGB Conc 33.2 g/dL 32.0-36.5 Normal (applies to non-numeric results) [facility] ([facility] Red Cell Distribution Width 13.5 % 11.5-14.5 Norm al (applies to non-numeric results) [facility] ([facility] ) Platelet Count, Automated 187 10 150-450 Normal (applies to non-numeric results) [facility] ([facility] ) Lymph % 15.5 % 24.0-44.0 Below low normal [facility] ( [facility] Neutrophils % 76.5 % 36.0-66.0 Above high normal [facility] ([facility] [place] % 6.8 % 0.0-5.0 Above high normal [facility] ([facility] Eos % 0.2 % 0.0-3.0 Normal (applies to non-numeric resul ts) [facility] ([facility] Baso % 0.4 % 0.0-1.0 Normal (applies to non-numeric resul ts) [facility] ([facility] Immature Granulocyte % 0.6 % 0-3.0 Normal (applies to non-n umeric results) [facility] ([facility] Neutrophils # 4.2 10 1.5-8.5 Normal (applies to non-numeric re sults) [facility] ([facility] Nucleated Red Blood Cell % 0.0 % 0-0 Normal (applies to n on-numeric results) [facility] ([facility] Lymph # 0.8 10 1.5-5.0 Below low normal [facility] ( [facility] [place] # 0.4 10 0.0-0.8 Normal (applies to non-numeric resul ts) [facility] ([facility] Baso # 0.0 10 0.0-0.2 Normal (applies to non-numeric resul ts) [facility] ([facility] Eos # 0.0 10 0.0-0.5 Normal (applies to non-numeric resul ts) [facility] ([facility] ID Date Data Source [id number] 10/16/2020 12:00:00 AM EST [facility] Name Value Range Interpretation Code Description Data Amarilis e(s) Supporting Document(s) SARS-CoV2 Rapid Antigen Positive [facility] This lab was ordered by [facility] and reported by [facility]. ID Date Data Source [id number] 09/05/2020 11:12:00 AM EST [facility] ([facility] Name Value Range Interpretation Code Description Data Amarilis rce(s) Supporting Document(s) Specific [place] 1.020 1.00-1.03 [facility] ([facility] Color Urine Laboratory test result [facility] ([facility] Appearance of Urine Laboratory test result [facility] ([facility] Bilirubin.total [Presence] in Urine by Test strip Laboratory test res ult [facility] ([facility] PH Urine 5.0 5.0-8.0 [facility] ([facility] Glucose Urine Laboratory test result [facility] ([facility] Blood Urine Laboratory test result [facility] ([facility] Ketones Laboratory test result [facility] ([facility] Nitrite Laboratory test result [facility] ([facility] Urobilinogen 0.2 EU/dl 0.2-1.0 [facility] ([facility] Protein Urine Laboratory test result [facility] ([facility] Leukocytes Laboratory test result Above high normal [facility] ([facility] ID Date Data Source [id number] 09/05/2020 11:11:00 AM EST [facility] ([facility] Name Value Range Interpretation Code Description Data Amarilis rce(s) Supporting Document(s) Alb 10 mg/L 1-30 [facility] ([facility] Creatinine, Urine 200 mg/dL 10-300 [facility] ([facility] A/C Ratio Laboratory test result [facility] ([facility] ID Date Data Source [id number] 09/05/2020 10:44:00 AM EST [facility] ([facility] Name Value Range Interpretation Code Description Data Amarilis rce(s) Supporting Document(s) Hemoglobin A1c/Hemoglobin.total in Blood 6.8 % 4.4-6.1 Above high normal [facility] ([facility] {A1] {HB] ID Date Data Source [id number] 09/05/2020 10:44:00 AM EST [facility] ([facility] Name Value Range Interpretation Code Description Data Amarilis rce(s) Supporting Document(s) Trig 143 mg/dL 40-200 [facility] ([facility] NORMAL RANGES Age WBC [...] HCT IS 5% LESS SOURCE FOR DATA: [employer] 1800 OPERATION MANUAL( AUTOMATED BLOOD COUNTS AND [...] ADOLESCENTS REPRESENTS INDIVIDUALA AGED 2-19 YEARS EXCLUSIVE. Chol 205 mg/dL 0-200 Above high normal [facility] ([facility] [...] HCT IS 5% LESS SOURCE FOR DATA: [employer] 1800 OPERATION MANUAL( AUTOMATED BLOOD COUNTS AND [...] 2-19 YEARS EXCLUSIVE. Cho/HDL Ratio 3.3 Calc [facility] ([facility] NORMAL RANGES Age WBC RBC HGB [...] HCT IS 5% LESS SOURCE FOR DATA: [employer] 1800 OPERATION MANUAL( AUTOMATED BLOOD COUNTS AND [...] in Serum or Plasma 63 mg/dL 45-65 [facility] ([facility] NORMAL RANGES Age WBC [...] HCT IS 5% LESS SOURCE FOR DATA: [employer] 1800 OPERATION MANUAL( AUTOMATED BLOOD COUNTS AND [...] 2-19 YEARS EXCLUSIVE. LDL_C 114 Calc 75-129 [facility] ([facility] NORMAL [...] HCT IS 5% LESS SOURCE FOR DATA: [employer] 1800 OPERATION MANUAL( AUTOMATED BLOOD COUNTS AND [...] 2-19 YEARS EXCLUSIVE. ID Date Data Source [id number] 09/05/2020 10:44:00 AM EST [facility] ([facility] Name Value Range Interpretation Code Description Data Amarilis rce(s) Supporting Document(s) BUN 25 mg/dL 8-23 Above high normal [...] HCT IS 5% LESS SOURCE FOR DATA: [employer] 1800 OPERATION MANUAL( AUTOMATED BLOOD COUNTS AND [...] Glu 132 mg/dL 70-110 Above high normal [facility] ([facility] NORMAL RANGES Age [...] HCT IS 5% LESS SOURCE FOR DATA: [employer] 1800 OPERATION MANUAL( AUTOMATED BLOOD COUNTS AND [...] YEARS EXCLUSIVE. BUN/Creatinine Ratio 22.2 CALC [facility] ([facility] NORMAL RANGES Age [...] HCT IS 5% LESS SOURCE FOR DATA: [employer] DYN 1800 OPERATION MANUAL( AUTOMATED BLOOD COUNTS [...] HCT IS 5% LESS SOURCE FOR DATA: [employer] 1800 OPERATION MANUAL( AUTOMATED BLOOD COUNTS AND [...] Na 135 mmol/L 136-145 Below low normal [facility] ( [facility] NORMAL RANGES Age [...] HCT IS 5% LESS SOURCE FOR DATA: [employer] 1800 OPERATION MANUAL( AUTOMATED BLOOD COUNTS AND [...] HCT IS 5% LESS SOURCE FOR DATA: [employer] 1800 OPERATION MANUAL( AUTOMATED BLOOD COUNTS AND [...] 2-19 YEARS EXCLUSIVE. K 4.7 mmol/L 3.5-5.1 [facility] ([facility] NORMAL [...] HCT IS 5% LESS SOURCE FOR DATA: [employer] 1800 OPERATION MANUAL( AUTOMATED BLOOD COUNTS AND [...] 2-19 YEARS EXCLUSIVE. CA 9.7 mg/dL 8.6-10.2 [facility] ([facility] NORMAL RANGES [...] HCT IS 5% LESS SOURCE FOR DATA: [employer]YN 1800 OPERATION MANUAL( AUTOMATED BLOOD COUNTS [...] 2-19 YEARS EXCLUSIVE. Co2 23.2 mmol/L 22.0-29.0 [facility] ([facility] NORMAL RANGES Age WBC RBC [...] HCT IS 5% LESS SOURCE FOR DATA: [employer] 1800 OPERATION MANUAL( AUTOMATED BLOOD COUNTS AND [...] HCT IS 5% LESS SOURCE FOR DATA: [employer] 1800 OPERATION MANUAL( AUTOMATED BLOOD COUNTS AND [...] 2-19 YEARS EXCLUSIVE. Alb 4.5 g/dL 3.4-4.8 [facility] ([facility] NORMAL RANGES [...] HCT IS 5% LESS SOURCE FOR DATA: [employer]YN 1800 OPERATION MANUAL( AUTOMATED BLOOD COUNTS [...] HCT IS 5% LESS SOURCE FOR DATA: [employer] 1800 OPERATION MANUAL( AUTOMATED BLOOD COUNTS AND [...] A/G Ratio 1.8 CALC [facility] ([facility] NORMAL RANGES Age WBC [...] HCT IS 5% LESS SOURCE FOR DATA: [employer] 1800 OPERATION MANUAL( AUTOMATED BLOOD COUNTS AND [...] 2-19 YEARS EXCLUSIVE. Alp 79.2 U/L 35-129 [facility] ([facility] NORMAL RANGES [...] HCT IS 5% LESS SOURCE FOR DATA: [employer] 1800 OPERATION MANUAL( AUTOMATED BLOOD COUNTS AND [...] YEARS EXCLUSIVE. Alt (SGPT) 30 U/L 0-41 [facility] ([facility] NORMAL RANGES [...] HCT IS 5% LESS SOURCE FOR DATA: [employer] 1800 OPERATION MANUAL( AUTOMATED BLOOD COUNTS AND [...] YEARS EXCLUSIVE. Ast (Sgot) 38 U/L 0-40 [facility] ([facility] NORMAL RANGES Age WBC RBC [...] HCT IS 5% LESS SOURCE FOR DATA: [employer] 1800 OPERATION MANUAL( AUTOMATED BLOOD COUNTS AND [...] 2-19 YEARS EXCLUSIVE. Tbili 0.78 mg/dL 0.0-1.2 [facility] ([facility] NORMAL RANGES Age WBC RBC [...] HCT IS 5% LESS SOURCE FOR DATA: [employer] 1800 OPERATION MANUAL( AUTOMATED BLOOD COUNTS AND [...] HCT IS 5% LESS SOURCE FOR DATA: [employer] 1800 OPERATION MANUAL( AUTOMATED BLOOD COUNTS AND [...] HCT IS 5% LESS SOURCE FOR DATA: [employer] 1800 OPERATION MANUAL( AUTOMATED BLOOD COUNTS AND [...] 2-19 YEARS EXCLUSIVE. Anion Gap 20 mmol/L [facility] ([facility] NORMAL RANGES [...] HCT IS 5% LESS SOURCE FOR DATA: [employer] DYN 1800 OPERATION MANUAL( AUTOMATED BLOOD COUNTS [...] INDIVIDUALA AGED 2-19 YEARS EXCLUSIVE. eGFR Non-Afr. [place] 48 # [facility] ([facility] [...] HCT IS 5% LESS SOURCE FOR DATA: [employer] 1800 OPERATION MANUAL( AUTOMATED BLOOD COUNTS AND [...] 2-19 YEARS EXCLUSIVE. ID Date Data Source [id number] 09/05/2020 10:44:00 AM EST [facility] ([facility] Name Value Range Interpretation Code Description Data Amarilis rce(s) Supporting Document(s) Creatine kinase [Enzymatic activity/volume] in Serum or Plasma 66 U /L 26-192 [facility] ([facility] NORMAL RANGES Age WBC [...] 2-19 YEARS EXCLUSIVE. ID Date Data Source [id number] 09/05/2020 10:44:00 AM [facility] ([facility] Name Value Range Interpretation Code Description Data Amarilis rce(s) Supporting Document(s) WBC 6.1 10E3/uL 4.1-10.9 [facility] ([facility] NORMAL RANGES Age WBC RBC [...] HCT IS 5% LESS SOURCE FOR DATA: [employer] 1800 OPERATION MANUAL( AUTOMATED BLOOD COUNTS AND [...] 2-19 YEARS EXCLUSIVE. HGB 13.0 g/dL 12.0-18.0 [facility] ([facility] NORMAL RANGES Age WBC [...] HCT IS 5% LESS SOURCE FOR DATA: [employer] 1800 OPERATION MANUAL( AUTOMATED BLOOD COUNTS AND [...] 2-19 YEARS EXCLUSIVE. HCT 38.6 % 37.0-51.0 [facility] ([facility] NORMAL RANGES [...] HCT IS 5% LESS SOURCE FOR DATA: [employer] DYN 1800 OPERATION MANUAL( AUTOMATED BLOOD COUNTS [...] 2-19 YEARS EXCLUSIVE. RBC 4.30 10E6/uL 4.20-6.30 [facility] ([facility] NORMAL RANGES Age WBC [...] HCT IS 5% LESS SOURCE FOR DATA: [employer] 1800 OPERATION MANUAL( AUTOMATED BLOOD COUNTS AND [...] 2-19 YEARS EXCLUSIVE. MCH 30.2 pg 26.0-32.0 [facility] ([facility] [...] HCT IS 5% LESS SOURCE FOR DATA: [employer] 1800 OPERATION MANUAL( AUTOMATED BLOOD COUNTS AND [...] 2-19 YEARS EXCLUSIVE. MCHC 33.7 g/dL 31.0-36.0 [facility] ([facility] NORMAL RANGES [...] HCT IS 5% LESS SOURCE FOR DATA: [employer] 1800 OPERATION MANUAL( AUTOMATED BLOOD COUNTS AND [...] HCT IS 5% LESS SOURCE FOR DATA: [employer] 1800 OPERATION MANUAL( AUTOMATED BLOOD COUNTS AND [...] 2-19 YEARS EXCLUSIVE. PLT 210 10E3/uL 140-440 [facility] ([facility] NORMAL RANGES Age WBC RBC HGB [...] HCT IS 5% LESS SOURCE FOR DATA: [employer] 1800 OPERATION MANUAL( AUTOMATED BLOOD COUNTS AND [...] 2-19 YEARS EXCLUSIVE. RDW-CV 13.6 % 11.5-14.5 [facility] ([facility] NORMAL RANGES [...] HCT IS 5% LESS SOURCE FOR DATA: [employer] 1800 OPERATION MANUAL( AUTOMATED BLOOD COUNTS AND [...] 2-19 YEARS EXCLUSIVE. Lym% 38.5 % 10.0-58.5 [facility] ([facility], [...] HCT IS 5% LESS SOURCE FOR DATA: [employer] 1800 OPERATION MANUAL( AUTOMATED BLOOD COUNTS AND [...] 2-19 YEARS EXCLUSIVE. Neut% 55.8 % 37.0-92.0 [facility] ([facility] NORMAL RANGES [...] HCT IS 5% LESS SOURCE FOR DATA: [employer] 1800 OPERATION MANUAL( AUTOMATED BLOOD COUNTS AND [...] 2-19 YEARS EXCLUSIVE. Lym# 2.3 10E3/uL 0.6-4.1 [facility] ([facility] NORMAL RANGES Age WBC RBC [...] HCT IS 5% LESS SOURCE FOR DATA: [employer] 1800 OPERATION MANUAL( AUTOMATED BLOOD COUNTS AND [...] 2-19 YEARS EXCLUSIVE. MXD% 5.7 % 0.1-24.0 [facility] ([facility] NORMAL [...] HCT IS 5% LESS SOURCE FOR DATA: [employer] 1800 OPERATION MANUAL( AUTOMATED BLOOD COUNTS AND [...] 2-19 YEARS EXCLUSIVE. MXD# 0.3 10E3/uL 0.0-1.8 MEDENT ([facility] NORMAL RANGES Age WBC RBC [...] HCT IS 5% LESS SOURCE FOR DATA: [employer] DYN 1800 OPERATION MANUAL( AUTOMATED BLOOD COUNTS [...] 2-19 YEARS EXCLUSIVE. MPV 10.2 fL 9.0-13.0 [facility] ([facility] NORMAL RANGES [...] HCT IS 5% LESS SOURCE FOR DATA: [employer] 1800 OPERATION MANUAL( AUTOMATED BLOOD COUNTS AND [...] 2-19 YEARS EXCLUSIVE. Neut# 3.5 % 2.0-7.8 MED[facility] ([facility] NORMAL [...] HCT IS 5% LESS SOURCE FOR DATA: [employer] 1800 OPERATION MANUAL( AUTOMATED BLOOD COUNTS AND [...] 2-19 YEARS EXCLUSIVE. ID Date Data Source [id number] 09/05/2020 08:41:00 PM EST [facility] Name Value Range Interpretation Code Description Data Amarilis rce(s) Supporting Document(s) Hemoglobin A1c/Hemoglobin.total in Blood 6.8 % 4.4 - 6.1 [facility] {A1]{HB] ID Date Data Source [id number] 06/01/2020 10:27:00 AM EDT MEDENT ([facility] Name Value Range Interpretation Code Description Data Amarilis rce(s) Supporting Document(s) Color Urine Laboratory test result M EDENT ([facility] PH Urine 5.0 5.0-8.0 [facility] Specific [place] 1.020 1.00-1.03 MEDENT ([facility] Appearance of Urine [...] [facility] Urobilinogen 0.2 EU/dl 0.2-1.0 MED[facility] ([facility] Nitrite Laboratory test result MED[facility] ([facility] Leukocytes Laboratory test result ME DENT ([facility] ID Date Data Source [id number] 06/01/2020 10:26:00 AM EDT [facility] ([facility] Name Value Range Interpretation Code Description Data Amarilis rce(s) Supporting Document(s) Alb 10 mg/L 1-30 MEDENT ([facility] A/C Ratio Laboratory test result ME DENT ([facility] Creatinine, Urine 50 mg/dL 10-300 [facility] ([facility] ID Date Data Source [id number] 06/01/2020 09:56:00 AM EDT [facility] ([facility] Name Value Range Interpretation Code Description Data Amarilis rce(s) Supporting Document(s) Chol 222 mg/dL 0-200 Above high normal MEDENT ([facility] NORMAL RANGES Age [...] HCT IS 5% LESS SOURCE FOR DATA: [employer] 1800 OPERATION MANUAL( AUTOMATED BLOOD COUNTS AND [...] 2-19 YEARS EXCLUSIVE. Trig 169 mg/dL 40-200 [facility] ([facility] NORMAL [...] HCT IS 5% LESS SOURCE FOR DATA: [employer] 1800 OPERATION MANUAL( AUTOMATED BLOOD COUNTS AND [...] 2-19 YEARS EXCLUSIVE. LDL_C 122 Calc 75-129 [facility] NORMAL RANGES Age WBC [...] HCT IS 5% LESS SOURCE FOR DATA: [employer] 1800 OPERATION MANUAL( AUTOMATED BLOOD COUNTS AND [...] 2-19 YEARS EXCLUSIVE. Cho/HDL Ratio 3.4 CALC [facility] ([facility] NORMAL RANGES Age WBC RBC HGB [...] HCT IS 5% LESS SOURCE FOR DATA: [employer] DYN 1800 OPERATION MANUAL( AUTOMATED BLOOD COUNTS [...] HCT IS 5% LESS SOURCE FOR DATA: [employer] 1800 OPERATION MANUAL( AUTOMATED BLOOD COUNTS AND [...] 2-19 YEARS EXCLUSIVE. ID Date Data Source [id number] 06/01/2020 09:56:00 AM EDT MEDENT ([facility] Name Value Range Interpretation Code Description Data Amarilis rce(s) Supporting Document(s) Glu 166 mg/dL 70-110 Above high normal MEDENT ([facility] NORMAL RANGES Age [...] HCT IS 5% LESS SOURCE FOR DATA: [employer] 1800 OPERATION MANUAL( AUTOMATED BLOOD COUNTS AND [...] BUN 25 mg/dL 8-23 Above high normal [facility] NORMAL RANGES Age [...] HCT IS 5% LESS SOURCE FOR DATA: [employer] 1800 OPERATION MANUAL( AUTOMATED BLOOD COUNTS AND [...] 2-19 YEARS EXCLUSIVE. Na 136 mmol/L 136-145 [facility] ([facility] NORMAL RANGES Age WBC RBC [...] HCT IS 5% LESS SOURCE FOR DATA: [employer] DYN 1800 OPERATION MANUAL( AUTOMATED BLOOD COUNTS [...] 2-19 YEARS EXCLUSIVE. BUN/Creatinine Ratio 25.3 CALC [facility] ([facility] NORMAL RANGES Age [...] HCT IS 5% LESS SOURCE FOR DATA: [employer] 1800 OPERATION MANUAL( AUTOMATED BLOOD COUNTS AND [...] 2-19 YEARS EXCLUSIVE. CL 102.3 mmol/L 98.0-107.0 MEDENT ([facility] NORMAL RANGES Age WBC RBC HGB HCT [...] HCT IS 5% LESS SOURCE FOR DATA: [employer] 1800 OPERATION MANUAL( AUTOMATED BLOOD COUNTS AND [...] 2-19 YEARS EXCLUSIVE. K 4.5 mmol/L 3.5-5.1 [facility] ([facility] NORMAL RANGES Age WBC [...] HCT IS 5% LESS SOURCE FOR DATA: [employer] 1800 OPERATION MANUAL( AUTOMATED BLOOD COUNTS AND [...] HCT IS 5% LESS SOURCE FOR DATA: [employer] 1800 OPERATION MANUAL( AUTOMATED BLOOD COUNTS AND [...] 2-19 YEARS EXCLUSIVE. CA 10.1 mg/dL 8.6-10.2 CANDICE ([facility] NORMAL RANGES Age WBC RBC [...] HCT IS 5% LESS SOURCE FOR DATA: [employer] 1800 OPERATION MANUAL( AUTOMATED BLOOD COUNTS AND [...] 2-19 YEARS EXCLUSIVE. TP 7.0 g/dL 6.6-8.7 [facility] ([facility] NORMAL RANGES [...] HCT IS 5% LESS SOURCE FOR DATA: [employer] 1800 OPERATION MANUAL( AUTOMATED BLOOD COUNTS AND [...] 2-19 YEARS EXCLUSIVE. A/G Ratio 1.9 CALC [facility] ([facility] [...] HCT IS 5% LESS SOURCE FOR DATA: [employer] 1800 OPERATION MANUAL( AUTOMATED BLOOD COUNTS AND [...] 2-19 YEARS EXCLUSIVE. Alb 4.6 g/dL 3.4-4.8 [facility] NORMAL RANGES Age WBC [...] HCT IS 5% LESS SOURCE FOR DATA: [employer] 1800 OPERATION MANUAL( AUTOMATED BLOOD COUNTS AND [...] 2-19 YEARS EXCLUSIVE. Alp 77.0 U/L 35-129 [facility] ([facility] NORMAL RANGES [...] HCT IS 5% LESS SOURCE FOR DATA: [employer] 1800 OPERATION MANUAL( AUTOMATED BLOOD COUNTS AND [...] HCT IS 5% LESS SOURCE FOR DATA: [employer] 1800 OPERATION MANUAL( AUTOMATED BLOOD COUNTS AND [...] YEARS EXCLUSIVE. Alt (SGPT) 28 U/L 0-41 [facility] ([facility] NORMAL RANGES Age WBC RBC [...] HCT IS 5% LESS SOURCE FOR DATA: [employer] 1800 OPERATION MANUAL( AUTOMATED BLOOD COUNTS AND [...] 2-19 YEARS EXCLUSIVE. Tbili 1.05 mg/dL 0.0-1.2 [facility] ([facility] NORMAL RANGES [...] HCT IS 5% LESS SOURCE FOR DATA: [employer] 1800 OPERATION MANUAL( AUTOMATED BLOOD COUNTS AND [...] EXCLUSIVE. Ast (Sgot) 34 U/L 0-40 [facility] ([facility] [...] HCT IS 5% LESS SOURCE FOR DATA: [employer] 1800 OPERATION MANUAL( AUTOMATED BLOOD COUNTS AND [...] 2-19 YEARS EXCLUSIVE. Anion Gap 17 mmol/L [facility] ([facility] NORMAL RANGES Age WBC [...] HCT IS 5% LESS SOURCE FOR DATA: [employer] 1800 OPERATION MANUAL( AUTOMATED BLOOD COUNTS AND [...] HCT IS 5% LESS SOURCE FOR DATA: [employer] 1800 OPERATION MANUAL( AUTOMATED BLOOD COUNTS AND [...] AGED 2-19 YEARS EXCLUSIVE. eGFR 63 # [facility] ( [facility] CKD-EPI eGFR Non-Afr. [place] 54 # MEDFRANK ([facility] CKD-EPI ID Date Data Source [id number] 06/01/2020 09:56:00 AM EDT C[facility] ([facility] Name Value Range Interpretation Code Description Data Amarilis rce(s) Supporting Document(s) Creatine kinase [Enzymatic activity/volume] in Serum or Plasma 68 U /L 26-192 CANDICE ([facility] NORMAL RANGES Age WBC [...] HCT IS 5% LESS SOURCE FOR DATA: [employer] 1800 OPERATION MANUAL( AUTOMATED BLOOD COUNTS AND [...] 2-19 YEARS EXCLUSIVE. ID Date Data Source [id number] 06/01/2020 09:56:00 AM EDT MEDENT ([facility] Name Value Range Interpretation Code Description Data Amarilis rce(s) Supporting Document(s) WBC 6.3 10E3/uL 4.1-10.9 MED[facility] ([facility] NORMAL RANGES Age WBC RBC [...] HCT IS 5% LESS SOURCE FOR DATA: [employer] 1800 OPERATION MANUAL( AUTOMATED BLOOD COUNTS AND [...] 2-19 YEARS EXCLUSIVE. RBC 4.32 10E6/uL 4.20-6.30 [facility] ([facility] NORMAL RANGES Age WBC [...] HCT IS 5% LESS SOURCE FOR DATA: [employer] 1800 OPERATION MANUAL( AUTOMATED BLOOD COUNTS AND [...] 2-19 YEARS EXCLUSIVE. HGB 13.7 g/dL 12.0-18.0 [facility] ([facility] NORMAL RANGES [...] 2-19 YEARS EXCLUSIVE. HCT 38.8 % 37.0-51.0 [facility] ([facility] NORMAL RANGES [...] HCT IS 5% LESS SOURCE FOR DATA: [employer] 1800 OPERATION MANUAL( AUTOMATED BLOOD COUNTS AND [...] 2-19 YEARS EXCLUSIVE. MCH 31.7 pg 26.0-32.0 [facility] ([facility] [...] HCT IS 5% LESS SOURCE FOR DATA: [employer] 1800 OPERATION MANUAL( AUTOMATED BLOOD COUNTS AND [...] 2-19 YEARS EXCLUSIVE. MCV 89.8 fL 80.0-97.0 [facility] ([facility] NORMAL RANGES [...] HCT IS 5% LESS SOURCE FOR DATA: [employer] 1800 OPERATION MANUAL( AUTOMATED BLOOD COUNTS AND [...] 2-19 YEARS EXCLUSIVE. PLT 182 10E3/uL 140-440 [facility] ([facility] NORMAL RANGES Age WBC RBC [...] HCT IS 5% LESS SOURCE FOR DATA: [employer] 1800 OPERATION MANUAL( AUTOMATED BLOOD COUNTS AND [...] YEARS EXCLUSIVE. MCHC 35.3 g/dL 31.0-36.0 [facility] ([facility] NORMAL RANGES Age WBC [...] HCT IS 5% LESS SOURCE FOR DATA: [employer] 1800 OPERATION MANUAL( AUTOMATED BLOOD COUNTS AND [...] 2-19 YEARS EXCLUSIVE. RDW-CV 13.6 % 11.5-14.5 [facility] ([facility] NORMAL RANGES [...] HCT IS 5% LESS SOURCE FOR DATA: [employer] 1800 OPERATION MANUAL( AUTOMATED BLOOD COUNTS AND [...] 2-19 YEARS EXCLUSIVE. Neut% 57.5 % 37.0-92.0 [facility] ([facility], [...] HCT IS 5% LESS SOURCE FOR DATA: [employer] 1800 OPERATION MANUAL( AUTOMATED BLOOD COUNTS AND [...] 2-19 YEARS EXCLUSIVE. Lym% 33.0 % 10.0-58.5 [facility] ([facility] NORMAL RANGES [...] HCT IS 5% LESS SOURCE FOR DATA: [employer] 1800 OPERATION MANUAL( AUTOMATED BLOOD COUNTS AND [...] 2-19 YEARS EXCLUSIVE. Lym# 2.1 10E3/uL 0.6-4.1 [facility] ([facility] NORMAL RANGES Age WBC RBC [...] HCT IS 5% LESS SOURCE FOR DATA: [employer] 1800 OPERATION MANUAL( AUTOMATED BLOOD COUNTS AND [...] 2-19 YEARS EXCLUSIVE. MXD% 9.5 % 0.1-24.0 [facility] ([facility] NORMAL [...] HCT IS 5% LESS SOURCE FOR DATA: [employer] 1800 OPERATION MANUAL( AUTOMATED BLOOD COUNTS AND [...] 2-19 YEARS EXCLUSIVE. MXD# 0.6 10E3/uL 0.0-1.8 [facility] ([facility] NORMAL RANGES Age WBC RBC HGB [...] HCT IS 5% LESS SOURCE FOR DATA: [employer] 1800 OPERATION MANUAL( AUTOMATED BLOOD COUNTS AND [...] 2-19 YEARS EXCLUSIVE. Neut# 3.6 % 2.0-7.8 [facility] ([facility] NORMAL RANGES [...] HCT IS 5% LESS SOURCE FOR DATA: [employer] 1800 OPERATION MANUAL( AUTOMATED BLOOD COUNTS [...] 2-19 YEARS EXCLUSIVE. MPV 10.1 fL 9.0-13.0 [facility] ([facility], [...] HCT IS 5% LESS SOURCE FOR DATA: [employer] 1800 OPERATION MANUAL( AUTOMATED BLOOD COUNTS AND [...] 2-19 YEARS EXCLUSIVE. ID Date Data Source [id number] 06/01/2020 09:55:00 AM EDT MEDENT ([facility] Name Value Range Interpretation Code Description Data Amarilis rce(s) Supporting Document(s) Hemoglobin A1c/Hemoglobin.total in Blood 7.3 % 4.8-5.6 Above high normal MED[facility] ([facility] <content>Prediabetes: 5.7 - 6.4</content >
<content>Diabetes: >6.4</content>
<content>Glycemic control for adults with diabetes: <7.0</content>
<content></content> Procedure Social History Code Duration Value Status Description Data Source(s ) Smoking 07/19/2021 12:00:00 AM EDT Quit completed Quit MEDENT ([facility] Smoking 07/18/2021 12:00:00 AM EDT Patient is a former smoker completed Patient is a former smoker MEDENT ([facility], [facility]) Smoking 05/03/2021 08:59:45 AM EDT Ex-smoker (finding) complet ed Ex-smoker (finding) SARAH (Demarcus Warren MD [facility]) Smoking 04/13/2021 12:43:45 PM EDT Ex-smoker (finding) complet ed Ex-smoker (finding) SARAH (Demarcus Warren [facility]) Smoking 03/15/2021 12:31:23 PM EDT Ex-smoker (finding) complet ed Ex-smoker (finding) SARAH (Demarcus Warren MD [facility]) Smoking 03/15/2021 12:27:52 PM EDT Ex-smoker (finding) complet ed Ex-smoker (finding) SARAH (Demarcus Warren MD [facility]) Smoking 03/15/2021 12:19:06 PM EDT Ex-smoker (finding) complet ed Ex-smoker (finding) SARAH (Demarcus Warren MD [facility]) Smoking 03/15/2021 12:15:24 PM EDT Ex-smoker (finding) complet ed Ex-smoker (finding) SARAH (Demarcus Warren MD [facility]) Smoking 06/30/2020 10:14:56 AM EDT Ex-smoker (finding) complet ed Ex-smoker (finding) SARAH (Demarcus Warren [facility]) Vital Signs ID Date Data Source UNK Name Value Range Interpretation Code Description Data Source(s) Systolic blood pressure 126 mm[Hg] 126 mm[Hg] M EDENT ([facility] Diastolic blood pressure 84 mm[Hg] 84 mm[Hg] MEDENT ([facility] Body temperature 97.7 [degF] 97.7 [degF] MEDENT ([facility] Heart rate 96 /min 96 /min MED[facility] ([facility] Respiratory rate 18 /min 18 /min MEDENT ( [facility] Body height 60 [in_i] 60 [in_i] MEDENT ([facility] 5'0" Body weight 174.00 [lb_av] 174.00 [lb_av] MEDEN T ([facility] [place] body weight 100 [lb_av] 100 [lb_av] MEDEN T ([facility] Body mass index (BMI) [Ratio] 34.0 kg/m2 34.0 k g/m2 MEDENT ([facility] Oxygen saturation in Arterial blood by Pulse oximetry 98 % 98 % [facility] ([facility] Systolic blood pressure 146 mm[Hg] 146 mm[Hg] M EDENT ([facility], [facility]) Diastolic blood pressure 82 mm[Hg] 82 mm[Hg] MEDENT ([facility], [facility]) Heart rate 101 /min 101 /min MEDENT ([facility], [facility]) Respiratory rate 16 /min 16 /min MEDENT ( [facility], [facility]) Oxygen saturation in Arterial blood by Pulse oximetry 97 % 97 % MEDENT ([facility], [facility]) Body temperature 97.9 [degF] 97.9 [degF] MEDENT ([facility], [facility]) Body weight 171.00 [lb_av] 171.00 [lb_av] MEDEN T ([facility], [facility]) Body height 60 [in_i] 60 [in_i] MEDENT ([facility]) 5'0" Body mass index (BMI) [Ratio] 33.4 kg/m2 33.4 k g/m2 MED[facility] ([facility], [facility]) Respiratory rate 18 /min 18 /min [facility] ( [facility] Body height 60 [in_i] 60 [in_i] MEDENT ([facility] 5'0" Body weight 172.00 [lb_av] 172.00 [lb_av] MEDEN T ([facility] [place] body weight 100 [lb_av] 100 [lb_av] MEDEN T ([facility] Body mass index (BMI) [Ratio] 33.6 kg/m2 33.6 k g/m2 MED[facility] ([facility] Systolic blood pressure 118 mm[Hg] 118 mm[Hg] M EDENT ([facility] Diastolic blood pressure 68 mm[Hg] 68 mm[Hg] MED[facility] ([facility] Body temperature 97.4 [degF] 97.4 [degF] MED[facility] ([facility] Heart rate 86 /min 86 /min MED[facility] ([facility] Oxygen saturation in Arterial blood by Pulse oximetry 97 % 97 % [facility] ([facility] Body temperature 97.5 [degF] 97.5 [degF] MED[facility] ([facility] Heart rate 78 /min 78 /min MED[facility] ([facility] Respiratory rate 18 /min 18 /min MED[facility] ( [facility] Body height 60 [in_i] 60 [in_i] MEDENT ([facility] 5'0" Body weight 176.00 [lb_av] 176.00 [lb_av] MEDEN T ([facility] [place] body weight 100 [lb_av] 100 [lb_av] MEDEN T ([facility] Systolic blood pressure 132 mm[Hg] 132 mm[Hg] M EDENT ([facility] Diastolic blood pressure 58 mm[Hg] 58 mm[Hg] MEDENT ([facility] Body mass index (BMI) [Ratio] 34.4 kg/m2 34.4 k g/m2 MEDENT ([facility] Oxygen saturation in Arterial blood by Pulse oximetry 97 % 97 % MEDENT ([facility] Respiratory rate 18 /min 18 /min MED[facility] ( [facility] Body mass index (BMI) [Ratio] 33.8 kg/m2 33.8 k g/m2 MED[facility] ([facility] Body temperature 97.6 [degF] 97.6 [degF] MEDENT ([facility] Heart rate 88 /min 88 /min MEDENT ([facility] Oxygen saturation in Arterial blood by Pulse oximetry 99 % 99 % MEDENT ([facility] Body height 60 [in_i] 60 [in_i] MEDENT ([facility] 5'0" Body weight 173.00 [lb_av] 173.00 [lb_av] MEDEN T ([facility] [place] body weight 100 [lb_av] 100 [lb_av] MEDEN T ([facility] Systolic blood pressure 142 mm[Hg] 142 mm[Hg] M EDENT ([facility] Diastolic blood pressure 78 mm[Hg] 78 mm[Hg] MEDENT ([facility] Diastolic blood pressure 84 mm[Hg] 84 mm[Hg] MEDENT ([facility], [facility]) Systolic blood pressure 138 mm[Hg] 138 mm[Hg] M EDENT ([facility], [facility]) Heart rate 98 /min 98 /min MEDENT ([facility], [facility]) Oxygen saturation in Arterial blood by Pulse oximetry 98 % 98 % MEDENT ([facility], [facility]) Respiratory rate 14 /min 14 /min MEDENT ( [facility], [facility]) Body temperature 98.9 [degF] 98.9 [degF] MEDENT ([facility], [facility]) Body weight 175.00 [lb_av] 175.00 [lb_av] MEDEN T ([facility], [facility]) Body height 60 [in_i] 60 [in_i] MEDENT ([facility], [facility]) 5'0" Body mass index (BMI) [Ratio] 34.2 kg/m2 34.2 k g/m2 MEDENT ([facility], [facility]) [place] body weight 100 [lb_av] 100 [lb_av] MEDEN T ([facility] Systolic blood pressure 126 mm[Hg] 126 mm[Hg] M EDENT ([facility] Diastolic blood pressure 78 mm[Hg] 78 mm[Hg] MED[facility] ([facility] Body temperature 97.8 [degF] 97.8 [degF] MED[facility] ([facility] Heart rate 76 /min 76 /min MED[facility] ([facility] Respiratory rate 16 /min 16 /min MED[facility] ( [facility] Body height 60 [in_i] 60 [in_i] MED[facility] ([facility] 5'0" Body weight 176.00 [lb_av] 176.00 [lb_av] MEDEN T ([facility] Body mass index (BMI) [Ratio] 34.4 kg/m2 34.4 k g/m2 MED[facility] ([facility] Oxygen saturation in Arterial blood by Pulse oximetry 97 % 97 % MED[facility] ([facility] Body height 60 [in_i] 60 [in_i] MEDENT ([facility] 5'0" Systolic blood pressure 124 mm[Hg] 124 mm[Hg] M EDENT ([facility] Diastolic blood pressure 80 mm[Hg] 80 mm[Hg] MEDENT ([facility] Body temperature 98.6 [degF] 98.6 [degF] MEDENT ([facility] Respiratory rate 16 /min 16 /min MEDENT ( [facility] Body weight 178.00 [lb_av] 178.00 [lb_av] MEDEN T ([facility] Body mass index (BMI) [Ratio] 34.8 kg/m2 34.8 k g/m2 MEDFRANK ([facility] [place] body weight 100 [lb_av] 100 [lb_av] MEDEN T ([facility] Heart rate 84 /min 84 /min MEDFRANK ([facility] Oxygen saturation in Arterial blood by Pulse oximetry 95 % 95 % MEDFRANK ([facility] Patient Treatment Plan of Care Planned Activity Planned Date Details Description Data Source (s) Dexamethasone 1 MG/ML / Tobramycin 3 MG/ML Ophthalmic Suspension [Tobradex] 06/12/2020 12:00:00 AM NAZARIO SMITH (Raphael Warren MD [facility])
== END 2021-07-19 20:25 | disposition left against medical advice (07) ==
LOC: M ED 17:17
DX: Z53.29 Procedure and treatment not carried out because of patient's decision for other reasons (principal)

== ENCOUNTER → 2022-01-09 | Outpatient (CLI) | payer MEDICARE ==
[~2022-01-09] MED LIST changes: -D31000TA2 PO; -LISI-898; +LISI5TAB11; +VITA100093 PO
[2022-01-09 12:18] LABS: BILIRUBIN,TOTAL 0.8 MG/DL (0.2-1.0); CALCIUM LEVEL 9.7 MG/DL (8.8-10.2); CREATININE FOR GFR 1.05 MG/DL (0.55-1.30); MAGNESIUM LEVEL 2.1 MG/DL (1.8-2.4); POTASSIUM SERUM 4.6 MEQ/L (3.5-5.1); TOTAL PROTEIN 7.2 GM/DL (6.4-8.2)
[2022-01-09 12:24] LABS: TOTAL 25(OH) VITAMIN D 44.9 NG/ML (30.0-100.0)
== END ==
LOC: M WUC 09:58
PROVIDERS: ATTEND Nurse Practitioner Family
DX: K86.89 Other specified diseases of pancreas (principal); Z86.010 Personal history of colon polyps; E56.9 Vitamin deficiency, unspecified; K21.9 Gastro-esophageal reflux disease without esophagitis

== ENCOUNTER → 2022-03-06 | Outpatient (CLI) | payer MEDICARE | LOC: M WUC 09:49 | PROVIDERS: ATTEND Internal Medicine Gastroenterology | DX: K86.89 Other specified diseases of pancreas (principal); K21.9 Gastro-esophageal reflux disease without esophagitis; Z86.010 Personal history of colon polyps ==

== ENCOUNTER → 2022-06-11 | Outpatient (CLI) | payer MEDICARE ==
[~2022-06-11] MED LIST changes: +LEVO1TAB40 PO; -LEVO750T13 PO
== END ==
LOC: M WUC 10:46
PROVIDERS: ATTEND Family Medicine
DX: M77.31 Calcaneal spur, right foot (principal); R93.6 Abnormal findings on diagnostic imaging of limbs

== ENCOUNTER → 2022-06-24 | Outpatient (CLI) | payer MEDICARE | LOC: M WHC 08:36 | PROVIDERS: ATTEND Family Medicine | DX: Z12.31 Encounter for screening mammogram for malignant neoplasm of breast (principal) ==

== ENCOUNTER → 2023-08-05 | Outpatient (CLI) | payer MEDICARE | LOC: M WHC 07:54 | PROVIDERS: ATTEND Family Medicine | DX: Z12.31 Encounter for screening mammogram for malignant neoplasm of breast (principal) ==

== ENCOUNTER → 2024-01-22 | Outpatient (CLI) | payer MEDICARE ==
[2024-01-22 18:43] LABS: URIC ACID 7.7 MG/DL (3.1-7.8)
[2024-01-22 18:45] LABS: BASO # 0.1 10^3/uL (0.0-0.2); BASO % 0.8 % (0.0-1.0); EOS # 0.1 10^3/uL (0.0-0.5); EOS % 2.2 % (0.0-3.0); HEMATOCRIT 38.4 % (36.0-47.0); HEMOGLOBIN 12.2 g/dl (12.0-15.5); LYMPH # 2.5 10^3/uL (1.5-5.0); MEAN CORPUSCULAR HEMOGLOBIN 29.5 pg (27.0-33.0); MEAN CORPUSCULAR HGB CONC 31.8 g/dl (32.0-36.5); MEAN CORPUSCULAR VOLUME 92.8 fl (80.0-96.0); MONO # 0.5 10^3/uL (0.0-0.8); MONO % 8.1 % (2.0-8.0); NEUTROPHILS # 3.3 10^3/uL (1.5-8.5); NEUTROPHILS % 50.6 % (36.0-66.0); PLATELET COUNT, AUTOMATED 185 10^3/uL (150-450); RED BLOOD COUNT 4.14 10^6/uL (4.00-5.40); WHITE BLOOD COUNT 6.5 10^3/uL (4.0-10.0)
[2024-01-22 18:47] LABS: ALBUMIN 3.8 G/DL (3.2-5.2); BILIRUBIN,TOTAL 0.9 MG/DL (0.3-1.2); CALCIUM LEVEL 9.3 MG/DL (8.3-10.6); CREATININE FOR GFR 1.01 MG/DL (0.55-1.30); GLOMERULAR FILTRATION RATE 56.1 (>32); POTASSIUM SERUM 4.5 MMOL/L (3.5-5.1); TOTAL PROTEIN 6.6 G/DL (5.7-8.2)
[2024-01-22 19:10] LABS: HEMOGLOBIN A1c 6.2 % (4.0-6.0)
== END ==
LOC: M WUC 11:22
PROVIDERS: ATTEND Family Medicine
DX: E11.9 Type 2 diabetes mellitus without complications (principal); I10 Essential (primary) hypertension; E78.5 Hyperlipidemia, unspecified; M10.9 Gout, unspecified

== ENCOUNTER → 2024-08-26 | Outpatient (CLI) | payer MEDICARE ==
[2024-08-26 11:42] LABS: HEMATOCRIT 38.7 % (36.0-47.0); HEMOGLOBIN 12.6 g/dl (12.0-15.5); MEAN CORPUSCULAR HEMOGLOBIN 30.3 pg (27.0-33.0); MEAN CORPUSCULAR HGB CONC 32.6 g/dl (32.0-36.5); PLATELET COUNT, AUTOMATED 205 10^3/uL (150-450); RED BLOOD COUNT 4.16 10^6/uL (4.00-5.40)
[2024-08-26 12:12] LABS: CREATININE, URINE 74.5 MG/DL; MAU/CREAT RATIO 14.7 MCG/MG (0.0-30.0)
[2024-08-26 12:16] LABS: ALBUMIN 3.8 G/DL (3.2-5.2); BILIRUBIN,TOTAL 0.8 MG/DL (0.3-1.2); CHOLESTEROL RISK RATIO 3.59 (<5); CREATININE FOR GFR 1.2 MG/DL (0.55-1.30); GLOMERULAR FILTRATION RATE 45.9 (>32); HDL CHOLESTEROL 59.3 MG/DL (>40); HEMOGLOBIN A1c 6.3 % (4.0-6.0); LDL CHOLESTEROL 117.3 MG/DL (<100); NON-HDL-C 153.7 MG/DL; POTASSIUM SERUM 4.6 MMOL/L (3.5-5.1)
[2024-08-27 06:45] LABS: WHITE BLOOD COUNT 7.8 10^3/uL (4.0-10.0)
== END ==
LOC: M WUC 10:44
PROVIDERS: ATTEND Family Medicine
DX: E11.9 Type 2 diabetes mellitus without complications (principal); I10 Essential (primary) hypertension; E78.5 Hyperlipidemia, unspecified